=== PATIENT | female | born 1980 | race Caucasian/White ===

== ENCOUNTER → 2024-03-18 | Outpatient (CLI) | payer OTHER, SELFPAY ==
--- NOTE | 2024-03-18 07:36 | NM_ITS ---
CLINICAL: 43-year-old female with history of right upper quadrant abdominal pain. RADIONUCLIDE HEPATOBILIARY SCINTIGRAPHY COMPARISON: None available FINDINGS: Following the intravenous administration of 5.9 mCi of 99m Tc Mebrofenin, hepatobiliary images reveal:. 1. Relatively prompt and homogeneous radiopharmaceutical concentration is noted by a normal sized liver. No parenchymal defects are identified. 2. Gallbladder activity is identified at 15 minutes post radiopharmaceutical administration. 3. Small intestinal tract is observed at 30 minutes following tracer injection. 4. Washout of the radiopharmaceutical by the hepatic parenchyma is qualitatively normal. Cholecystokinin (0.02 ug/kg) was administered intravenously over a 30-minute period. The post CCK gallbladder ejection fraction calculated at 20 minutes following Cholecystokinin administration was noted to be 90.0 % (normal greater than 35%). During 30 minutes of post CCK imaging, there is scintigraphic evidence of refilling of the gallbladder. NM/Hepatobilliary Img w/Pharm Int IMPRESSION: 1. A gallbladder ejection fraction calculated to be greater than 35% following the administration of Cholecystokinin makes the probability of functional hepatobiliary disease (gallbladder dyskinesia) and/or organic hepatobiliary disease (chronic acalculous cholecystitis and/or cystic duct syndrome) to be low. (Delroy Gibbons et al, Journal of Nuclear Medicine 32:1695, 1991). 2. An encountered normal gallbladder ejection fraction with refilling of the gallbladder following CCK administration may represent the presence of Sphincter of Oddi dysfunction. Correlation with Sphincter of Oddi manometry may be of benefit. (Iris and Iris, J Nucl Med 38:1824, 1997). Electronically Signed: Ted Rodriguez DO at 10:59 EST ,
== END | disposition home or self-care (01) ==
PROVIDERS: PCP Specialist; Referring Provider Nurse Practitioner Acute Care; Visit Provider Nurse Practitioner Acute Care
DX: R10.11 Right upper quadrant pain (principal); R11.2 Nausea with vomiting, unspecified
CPT/HCPCS: 78227; A9537; J2805

== ENCOUNTER 2024-04-22 11:19 | Day surgery (SDC) | payer SELFPAY, OTHER ==
[2024-04-22] VITALS (9 sets, daily range): BP systolic 96–129; BP diastolic 55–77; PULSE 72–90; RESP 16; TEMP 36.3–36.6; O2SAT 95–99; BMI 34.4
--- NOTE | 2024-04-22 11:50 | PRE.ANES_ITS ---
ASA Classification* ASA Classification ASA Classification: 2 Assessment & Plan Anesthesia* Anesthesia Assessment Anesthesia Assessment: Discussed sedation and/or anesthesia options, risks, benefits, and alternatives with patient/parents/legal guardian/POA. Questions invited. The patient/parents/legal guardian/POA seems to understand and agrees to proceed with anesthesia plan. Reviewed the physical assessment, medical history, allergy history and patient home medications list prior to surgery/procedure/anesthetic and documented any changes. Performed airway and anesthesia risk assessments. 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 When Was Last Pacemaker Check QUESTION #4 FULL TEXT: You/Your Family Experience fever (hyperthermia) with Anesthesia Last Oral Intake Last Oral intake: Last Oral Intake NPO since 07:30 04/22/24 11:44 Meds taken in AM with sips of water? Meds patient instructed to take am of surgery PONV PONV - retanned leather roller: PONV - retanned leather roller Female Yes 04/21/24 10:25 HX of Motion Sickness No 04/21/24 10:25 HX of N/V After Surgery No 04/21/24 10:25 Non-Smoker Yes 04/21/24 10:25 Duration of Surgery greater No 04/21/24 10:25 than 60 minutes Number of Risk Factors 2 04/21/24 10:25 PONV Score Moderate Risk 04/21/24 10:25 Height & Weight Height & Weight: Anesthesia: Height & Weight Height 5 ft 5 in 04/22/24 11:44 Weight: 93.894 kg 04/22/24 11:44 Body Mass Index (BMI) 34.4 04/22/24 11:44 Respiratory Assessment Respiratory Assessment - retanned leather roller: Respiratory Tract Infection Hx - retanned leather roller Hx Respiratory Tract Infection No 04/21/24 10:25 STOP Sleep Apnea STOP Sleep Apnea - retanned leather roller: STOP Sleep Apnea - retanned leather roller Hx Hypertension No 04/21/24 10:25 Hx Sleep Apnea No 04/21/24 10:25 CPAP BIPAP Do you snore loudly (louder No 04/21/24 10:25 than talking or can be heard Do you often feel tired/ No 04/21/24 10:25 fatigued/ sleepy during daytime? Has anyone observed you stop No 04/21/24 10:25 breathing during sleep? STOP Results Negative 04/21/24 10:25 QUESTION #5 FULL TEXT : Do you snore loudly (louder than talking or can be heard through closed doors)? 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 Specify any problems Hx of Preganancy in last 3 No 04/21/24 10:25 Months Nurse Filling Out Transfusion MGRIFFITH 04/21/24 10:25 & Questions: Date: 04/21/24 04/21/24 10:25 Time: 10:27 04/21/24 10:25 Patient unable to answer at this time (ie. confused, unrespo /Reproduction History /Reproductive History - retanned leather roller: /Reproductive Hx- retanned leather roller Hx Now No 04/21/24 10:25 Gestational Age (in weeks): EDC: Hx Hx Para Hx Section SAB No 04/21/24 10:25 [facility] Medical History Wears dentures Restless legs Dietary restriction Gastric reflux Former smoker History of ectopic Home Medications ?Medication ?Instructions ?Recorded ?Last Taken ?Type sertraline 25 mg tablet (Zoloft) 25 mg PO QDAY 4 Unknown History pantoprazole 40 mg tablet,delayed 40 mg PO QDAY #90 ta bs 03/17/24 Unknown Rx release (Protonix) guar gum 1 gram chewable tablet 1 g PO DAILY 04/21/24 Unknown History polyethylene glycol 3350 17 4 g PO ONCE PRN constipati on 04/21/24 Unknown History gram/dose oral powder (Miralax) Allergy/AdvReac Type Severity Reaction Status Date / Time No Known Allergies Allergy Verified 04/22/24 11:43 Surgical History History of shoulder surgery History of hernia surgery History of hysterectomy History of classical section Social History Smoking Status: Former smoker alcohol intake: never Review of Systems (Anesthesia) ROS Narrative System reviewed and no additional complaints, except as documented.
--- NOTE | 2024-04-22 12:30 | COLBX_PTH ---
PATIENT: GENE ETIENNE LOC: EN U#:[id number] AGE/SX: 43/F ROOM: RE04/22/[address]: Dr. Luke Martinez DO : 1980 BED: DIS: 04/22/2024 SPEC #: [id number] RECD: 04/22/24 16:41 STATUS: KWESI PER #: [id number] REUBEN: 04/22/24 12:[address]: Luke Martinez DEPT: SURGICAL PATHOLOGY RECD BY: Felicity Torres ENTERED: 04/25/24 08:43 SP TYPE: COLON BX OTHR DR: Dr. Eusebio Bermudez DO Tissues: A - Duodenum, NOS B - Gastric mucous membrane C - Gastric mucous membrane D - SPLENIC FLEXURE E - Sigmoid colon biopsy Procedures: Surgery Specimen Level IV HEADER OPERATION: Colonoscopy, EGD and biopsy and polypectomy PRE-OP DIAGNOSIS: Nausea/vomiting, MASLD, constipation, right upper quadrant pain TISSUE SUBMITTED: A- Duodenum biopsy, B- Gastric antrum biopsy, C- Gastric body biopsy,D- Splenic flexure polyp, E- Sigmoid polyp MICROSCOPIC DIAGNOSIS A. Duodenum, biopsy: Chronic duodenitis. Villous architecture is maintained. No significant increase in intraepithelial lymphocytes, not suggestive of Celiac's disease. B. Gastric antrum, biopsy: Gastric mucosa with reactive gastropathy and focal minimal chronic inflammation. C. Gastric body, biopsy: Gastric mucosa with focal chronic inflammation, mild. See comment. D. Splenic flexure polyp: Colonic mucosa with lymphoid nodules and focal hyperplastic glandular changes. E. Sigmoid polyp: Colonic mucosa with lymphoid nodules and focal hyperplastic glandular changes. PW. 04/26/2024 COMMENT C. The results of immunohistochemistry for Helicobacter pylori will be reported separately ([id number]). MICROSCOPIC DESCRIPTION Slides are reviewed. GROSS DESCRIPTION A. Received in fixative is one container labeled with the patient's name and designated Duodenum biopsy. The specimen consists of two irregular fragments of light parada soft tissue that in aggregate measure 0.9 x 0.3 x 0.1 cm. The specimen is totally submitted in one cassette. B. Received in fixative is one container labeled with the patient's name and designated Gastric antrum. The specimen consists of one irregular fragment of light parada soft tissue that measures 0.5 x 0.5 x 0.1 cm. The specimen is totally submitted in one cassette. C. Received in fixative is one container labeled with the patient's name and designated Gastric body biopsy. The specimen consists of one irregular fragment of light parada soft tissue that measures 0.4 x 0.4 x 0.1 cm. The specimen is totally submitted in one cassette. D. Received in fixative is one container labeled with the patient's name and designated Splenic flexure polyp. The specimen consists of two irregular fragments of light parada soft tissue that in aggregate measure 0.5 x 0.5 x 0.1 cm. The specimen is totally submitted in one cassette. E. Received in fixative is one container labeled with the patient's name and designated Sigmoid polyp. The specimen consists of one irregular fragment of light parada soft tissue that measures 0.9 x 0.4 x 0.1 cm. The specimen is totally submitted in one cassette. 04/25/2024 TC:3 CPT:09122r8
--- NOTE | 2024-04-22 12:30 | IMM_PTH ---
PATIENT: GENE ETIENNE LOC: EN U#:[id number] AGE/SX: 43/F ROOM: RE04/22/[address]: Dr. Luke Martinez DO : 1980 BED: DIS: 04/22/2024 SPEC #: [id number] RECD: 04/25/24 08:17 STATUS: KWESI REQ #: [id number] REUBEN: 04/22/24 12:[address]: Luke Martinez DEPT: IMMUNOHISTOCHEMISTRY RECD BY: Christopher Skinner ENTERED: 04/25/24 08:17 SP TYPE: IMMUNO OTHR DR: Dr. Eusebio Bermudez DO Tissues: C - Gastric mucous membrane Procedures: H Pylori (initial) PHYSICIAN & INSTITUTION [place] [id number] SPECIMEN INFORMATION: Tissue Source: C- Gastric body biopsy Clinical Info: Nausea/vomiting, MASLD, constipation, right upper quadrant pain Specimen Number: [id number] CPT code: 50257 METHODOLOGY: Deparaffinized sections of prefer/formalin-fixed tissue or PAP/DQ stained slides are incubated with monoclonal/polyclonal antibodies/oligonucleotide probes. Localization is made via biotin free immunoperoxidase method. Appropriate controls are performed and reacted as expected. Results on target cell population are indicated in the following table: RESULTS: ANTIBODY / CLONE RESULT Block CH Pylori (polyclonal) negative These tests were developed and their performance characteristics determined by [facility]. They may not have been cleared or approved by the U.S. Food and Drug Administration. The FDA has determined that such clearance or approval is not necessary. The above immunohistochemical/dualISH markers are ordered and reviewed by the Pathologist. INTERPRETATION: C. Gastric body, biopsy: Negative for Helicobacter pylori organisms. 04/26/2024
--- NOTE | 2024-04-22 14:11 | PCM.HP.STD ---
HPI - General General Date of Admission: 04/22/24 Date of Service: 04/22/24 Chief Complaint: Abdominal pain and diarrhea HPI Narrative GENE ETIENNE, is a 43 F who presents for endoscopic evaluation of abdominal pain and diarrhea. FibroScan 03/08/2024 kPa 5.9, CAP 336 (F0-F1/S3) - RUQ pain is persisting/radiates through to back - triggered by greasy foods - nausea - intermittent also dietary triggered - only eating white meats, fruits and vegetables now - still experiencing constipation - will go up to 7 days without a BM - Benefiber - never took this - Miralax - completed 2 weeks - this made a little difference - Water intake she feels is adequate - Pantoprazole - she reports pharmacy told her it was out of stock INITIAL CONSULT 02/15/2024 43y/o female presents for consultation with complaints of pain, nausea and vomiting. She complains of RUQ abdominal pain which radiates to the right flank with postprandial N/V x6 weeks. ABD US was revealing for liver steatosis. Transaminases and PLT are WNL. She denies the consumption of any alcohol. She also reports a change in bowel habits with new onset constipation and one episode of BRBPR. I have scheduled her for a HIDA, FibroScan, EGD and colonoscopy. She will start a low fat diet, pantoprazole, benefiber and miralax daily. She will complete labs and follow-up in the office after testing has been completed. Patient Instructions: 1. Start Benefiber 2tsp once a day in 8 ounces of water after breakfast and Mirlax 17grams once daily in 8 ounces of water every evening 2. Increase water intake - bottled water 3. Low fat diet - avoid fatty/fried foods 4. Schedule HIDA scan to check function of the gallbladder at [place] - scheduled 03/18/2024 5. Schedule colonoscopy and EGD with Dr. Martinez at [place] - scheduled 04/22/2024 5. Complete labs at [facility] 6. Schedule Fibroscan with [employer] [facility] completed 03/08/2024 7. Start pantoprazole 40mg daily - prescription sent to [facility] 8. Avoid fatty/fried foods 9. Low fat diet 10. Follow-up in office after testing has been completed [facility] Medical History Wears dentures Restless legs Dietary restriction Gastric reflux Former smoker History of ectopic Home Medications ?Medication ?Instructions ?Recorded ?Last Taken ?Type sertraline 25 mg tablet (Zoloft) 25 mg PO QDAY 02/15/24 Unknown History pantoprazole 40 mg tablet,delayed 40 mg PO QDAY #90 tabs 03/17/24 Unknown Rx release (Protonix) guar gum 1 gram chewable tablet 1 g PO DAILY 04/21/24 Unknown History polyethylene glycol 3350 17 4 g PO ONCE PRN constipation 04/21/24 Unknown History gram/dose oral powder (Miralax) Allergy/AdvReac Type Severity Reaction Status Date / Time No Known Allergies Allergy Verified 04/22/24 11:43 Surgical History History of shoulder surgery History of hernia surgery History of hysterectomy History of classical section Social History Smoking Status: Former smoker alcohol intake: never ROS Constitutional Constitutional: Denies fatigue, fever(s), poor appetite, weight gain or weight loss Gastrointestinal Gastrointestinal: Denies belching, bloating, change in bowel habits, change in stool character, chewing difficulty, coffee ground emesis, constipation, cramping, diarrhea, dyspepsia, dysphagia, early satiety, excessive flatus, fecal incontinence, heartburn, hematemesis, hematochezia, hemorrhoids, loose stools, melena, nausea, odynophagia, rectal bleeding, tenesmus, vomiting or weight changes Vital Signs Vital Signs Vital Signs: 04/22/24 11:44 04/22/24 11:44 04/22/24 11:50 Temperature 97.6 F L 97.6 F L Temperature Source Temporal Pulse Rate 72 72 Respiratory Rate 16 16 Respiratory Pattern Normal Blood Pressure 129/77 H 129/77 H Blood Pressure Mean 94 Blood Pressure Source Monitor Blood Pressure Position Sitting Blood Pressure Location Left Arm Pulse Ox 99 99 Oxygen Delivery Method Room Air Weight Weight: 207 lb Body Mass Index (BMI) 34.4 Physical Exam Const alert, oriented x3, no apparent distress and healthy appearing General Appearance: cooperative GI normal to inspection, nondistended, normoactive bowel sounds, soft to palpation, non-tender and non-distended Percussion: normal to percussion Rectal Exam: deferred Assessment & Plan Assessment/Plan (1) Metabolic dysfunction-associated steatotic liver disease (MASLD): (2) Nausea and vomiting: QUALIFIERS: Vomiting type: unspecified Qualified Code(s): R11.2 - Nausea with vomiting, unspecified (3) RUQ pain: PLAN: Plan Assessment and Plan Assessment and Plan (1) Metabolic dysfunction-associated steatotic liver disease (MASLD): Status: Acute (2) RUQ pain: Status: Acute (3) Nausea and vomiting: Status: Acute Qualifiers: Vomiting type: unspecified Qualified Code(s): R11.2 - Nausea with vomiting, unspecified (4) Constipation: Status: Acute Orders: Referrals Nutrition Referral K76.0 - Fatty (change of) liver, not elsewhere classified Medications: New pantoprazole (Protonix) take 30 minutes before breakfast every morning 40 mg PO QDAY 90 tabs 0RF polyethylene glycol 3350 (Miralax) every evening with 8 ounces of water 4 grams PO ONCE 850 grams 1RF Plan 43y/o female presents for follow-up of N/V, RUQ pain, constipation, and MASLD. In terms of N/V and RUQ pain she is scheduled for HIDA tomorrow. She will also start pantoprazole 40mg daily as previously recommended. In terms of constipation she will start Benefiber daily as previously recommended and resume Miralax daily. In terms of MASLD she completed Fibroscan 03/08/2024 which revealed (F0/F1-S3) none to mild fibrosis with severe liver fat. We have reviewed the AGA 10 Best Practice Guidelines for MASLD. I have encouraged a Mediterranean diet and she will schedule consult with [employer] for additional guidance. She will follow-up in the office post procedures. A total of 60 minutes was spent on this visit reviewing associated records; previous notes, counseling the patient on (MASLD, Dietary/Lifestyle modifications), ordering tests/referrals ([employer] referral), adjusting meds, importance of compliance with treatment and documenting the findings in the note. Patient Instructions: 1. Start Benefiber 2tsp once a day in 8 ounces of water after breakfast and Mirlax 17grams once daily in 8 ounces of water every evening. This may take up to 3 weeks before you start to notice a benefit 2. Increase water intake - bottled water 3. Low fat diet - avoid fatty/fried foods 4. Start pantoprazole 40mg daily - [facility] 5. Proceed with HIDA as scheduled 03/18/2024 6. Proceed with Colonoscopy and EGD as scheduled on 04/22/2024 7. Schedule consult with [employer] 8. Miralax 17g once daily in the evening with 8 ounces of water, you may find that you need to taper this dose down after 2-3 weeks of regular daily Benefiber 9. Kiwi fruit 2 daily for constipation 10. Have labs completed as ordered at last appointment - HAV Ab total, HBV Core Ab total, HBVsAb, HBVsAg, HCV Ab, ELF 11. Follow-up in the office 2 weeks post procedures (MASLD) Metabolic dysfunction-associated steatotic liver disease (MASLD) is a spectrum of disease that ranges from a more benign condition of nonalcoholic fatty liver (NAFL) to nonalcoholic steatohepatitis (CAMPA), which is at the more severe end of the spectrum. In NAFL, hepatic steatosis is present without evidence of inflammation, whereas in CAMPA, hepatic steatosis is associated with lobular inflammation and apoptosis that can lead to fibrosis and cirrhosis. Lifestyle modifications are the cornerstone of treatment for fatty liver disease. These include optimizing care for diabetes, high cholesterol and obesity. - Weight loss is the primary therapy for most patients with MASLD. We recommend weight loss for all patients with MASLD who are overweight (body mass index [BMI] =25 kg/m2) or have obesity (BMI =30 kg/m2) because fat accumulation in the liver leads to inflammation which leads to irreversible scarring. Unchecked liver inflammation and scarring can increase the risk of developing liver cancer and cardiovascular complications, such as heart attack and stroke. Weight loss can lead to improvement in liver biochemical tests, liver histology, serum insulin levels, and quality of life. Ideally, aim to lose between 5-10% of total body weight (1-2 lb per week) over the next 6 months. This can be achieved by adhering to a very low carbohydrate diet (60 g/day), high in lean protein and vegetables (variant of the Mediterranean diet). Reducing portion sizes can also make weight loss easier. [id number] intensity cardiovascular and/or resistance exercise (30 min, 3-4 days/week) paired with dietary modifications is helpful, as long as such an exercise regimen is permitted by your supervisor ski production or primary care provider. Dietary counseling and/or a physician managed weight loss program is often extremely helpful in attaining this goal. - Small studies have shown that up to 3 cups of black coffee (no sugar, no cream) can be beneficial for liver health in patients with fatty liver. However, this should be avoided if coffee is a known trigger for gastrointestinal symptoms. - There is no known safe amount of alcohol use in fatty liver disease. Avoidance is recommended. - Smoking should also be avoided as it has been independently associated with the development of fatty liver disease and predisposes to insulin resistance and diabetes. Plan Details Follow Up:
--- NOTE | 2024-04-22 14:43 | OP.CCLET_ITS ---
04/22/2024 Eusebio Bermudez [address] [place] [address] Re : Upper GI endoscopy procedure for Bette Wright Dear Dr. Bermudez This procedure was performed on Monday, April 22, 2024. My impressions and recommendations are as follows: Impressions : - Normal esophagus. - Non-bleeding gastric ulcers with no stigmata of bleeding. Biopsied. - Chronic duodenitis. Biopsied. Recommendations : - Await pathology results. - Repeat upper endoscopy for surveillance. - Return to GI clinic. - Continue present medications. My findings are described in the full procedure note, which is enclosed. If I can be of further assistance, please feel free to contact me at . Sincerely, Luke Martinez, 04/22/2024 2:42:41 PM This report has been signed electronically.
--- NOTE | 2024-04-22 14:43 | OP.EGD_ITS ---
Patient Name: Bette Wright Procedure Date: 04/22/2024 2:09 PM Date of : 1980 Age: 43 Procedure: Upper GI endoscopy Indications: Epigastric abdominal pain, Indigestion Providers: Luke Martinez DO Referring MD: Eusebio Bermudez Medicines: Monitored Anesthesia Care Patient Profile: This is a 43 year old female. Refer to note in patient chart for documentation of history and physical. Patient has symptoms of chronic nausea and chronic vomiting. Complications: No immediate complications. Procedure: Pre-Anesthesia Assessment: - Prior to the procedure, a History and Physical was performed, and patient medications and allergies were reviewed. The patient is competent. The risks and benefits of the procedure and the sedation options and risks were discussed with the patient. All questions were answered and informed consent was obtained. Patient identification and proposed procedure were verified by the physician in the pre-procedure area. Mental Status Examination: alert and oriented. Airway Examination: normal oropharyngeal airway and neck mobility. Respiratory Examination: clear to auscultation. CV Examination: normal. Prophylactic Antibiotics: The patient does not require prophylactic antibiotics. Prior Anticoagulants: The patient has taken no anticoagulant or antiplatelet agents except for NSAID medication. ASA Grade Assessment: II - A patient with mild systemic disease. After reviewing the risks and benefits, the patient was deemed in satisfactory condition to undergo the procedure. The anesthesia plan was to use monitored anesthesia care (MAC). Immediately prior to administration of medications, the patient was re-assessed for adequacy to receive sedatives. The heart rate, respiratory rate, oxygen saturations, blood pressure, adequacy of pulmonary ventilation, and response to care were monitored throughout the procedure. The physical status of the patient was re-assessed after the procedure. After obtaining informed consent, the endoscope was passed under direct vision. Throughout the procedure, the patient's blood pressure, pulse, and oxygen saturations were monitored continuously. The Colonoscope was introduced through the mouth, and advanced to the second part of duodenum. The upper GI endoscopy was accomplished without difficulty. The patient tolerated the procedure well. Scope In: 2:20:36 PM Scope Out: 2:24:07 PM Total Procedure Duration Time 0 hours 3 minutes 31 seconds Findings: The examined esophagus was normal. Three non-bleeding linear gastric ulcers with no stigmata of bleeding were found in the gastric antrum. The largest lesion was 4 mm in largest dimension. Biopsies were taken with a cold forceps for histology. Verification of patient identification for the specimen was done. Estimated blood loss was minimal. Biopsies were taken with a cold forceps for Helicobacter pylori testing. Verification of patient identification for the specimen was done. Estimated blood loss was minimal. Patchy mild inflammation characterized by erythema and friability was found in the duodenal bulb and in the first portion of the duodenum. Biopsies were taken with a cold forceps for histology. Impression: - Normal esophagus. - Non-bleeding gastric ulcers with no stigmata of bleeding. Biopsied. - Chronic duodenitis. Biopsied. Recommendation: - Await pathology results. - Repeat upper endoscopy for surveillance. - Return to GI clinic. - Continue present medications. Procedure Code(s): --- Professional --- 42450, Esophagogastroduodenoscopy, flexible, transoral; with biopsy, single or multiple CPT copyright 2021 [employer]. All rights reserved. The codes documented in this report are preliminary and upon small equipment operator review may be revised to meet current compliance requirements. Luke Martinez DO 04/22/2024 2:42:41 PM This report has been signed electronically. Number of Addenda: 0 Note Initiated On: 04/22/2024 2:09 PM
--- NOTE | 2024-04-22 14:45 | PCM.POST.ANE ---
Anesthesia: Postop Eval I Current Vital Signs Temperature: 97.3 F Pulse Rate: 87 Blood Pressure: 98/55 Respiratory Rate: 16 Pulse Ox: 96 Oxygen Delivery Method: Room Air Assessment Airway patent: Yes Spontaneous unlabored respirations: Yes Mental status: Asleep nausea: No Vomiting: No Anesthesia Complication: No Fluid Hydration Crystalloid volume administer (ml): 60 Total IV fluid infused: 60 Progress Note Anesthesia document: Postop Eval 1 completed: Yes
--- NOTE | 2024-04-22 14:46 | OP.CCLET_ITS ---
04/22/2024 Eusebio Bermudez [address] [place] [address] Re : Colonoscopy procedure for Bette Mast Dear Dr. Bermudez This procedure was performed on Monday, April 22, 2024. My impressions and recommendations are as follows: Impressions : - Preparation of the colon was fair. - Stool in the rectum, in the recto-sigmoid colon, in the sigmoid colon and at the splenic flexure. - Congested mucosa in the sigmoid colon and at the splenic flexure. Biopsied. Recommendations : - Discharge patient to home. - Resume previous diet. - Continue present medications. - Await pathology results. - Repeat colonoscopy in 5 years for surveillance. My findings are described in the full procedure note, which is enclosed. If I can be of further assistance, please feel free to contact me at . Sincerely, Luke Martinez, 04/22/2024 2:45:22 PM This report has been signed electronically.
--- NOTE | 2024-04-22 14:46 | OP.COLON_ITS ---
Patient Name: Bette Wright Procedure Date: 04/22/2024 2:24 PM Date of : 1980 Age: 43 Procedure: Colonoscopy Indications: Epigastric abdominal pain, Abdominal pain in the left lower quadrant Providers: Luke Martinez DO Referring MD: Eusebio Bermudez Medicines: Monitored Anesthesia Care Patient Profile: This is a 43 year old female. Refer to note in patient chart for documentation of history and physical. Patient has symptoms of chronic nausea and chronic vomiting. Last Colonoscopy: none. The patient's first colonoscopy is today. Complications: No immediate complications. Procedure: Pre-Anesthesia Assessment: - Prior to the procedure, a History and Physical was performed, and patient medications and allergies were reviewed. The patient is competent. The risks and benefits of the procedure and the sedation options and risks were discussed with the patient. All questions were answered and informed consent was obtained. Patient identification and proposed procedure were verified by the physician in the pre-procedure area. Mental Status Examination: alert and oriented. Airway Examination: normal oropharyngeal airway and neck mobility. Respiratory Examination: clear to auscultation. CV Examination: normal. Prophylactic Antibiotics: The patient does not require prophylactic antibiotics. Prior Anticoagulants: The patient has taken no anticoagulant or antiplatelet agents except for NSAID medication. ASA Grade Assessment: II - A patient with mild systemic disease. After reviewing the risks and benefits, the patient was deemed in satisfactory condition to undergo the procedure. The anesthesia plan was to use monitored anesthesia care (MAC). Immediately prior to administration of medications, the patient was re-assessed for adequacy to receive sedatives. The heart rate, respiratory rate, oxygen saturations, blood pressure, adequacy of pulmonary ventilation, and response to care were monitored throughout the procedure. The physical status of the patient was re-assessed after the procedure. After I obtained informed consent, the scope was passed under direct vision. Throughout the procedure, the patient's blood pressure, pulse, and oxygen saturations were monitored continuously. The Colonoscope was introduced through the anus and advanced to the cecum, identified by appendiceal orifice and ileocecal valve. The colonoscopy was performed without difficulty. The patient tolerated the procedure well. The quality of the bowel preparation was fair. The terminal ileum, ileocecal valve, appendiceal orifice, and rectum were photographed. Scope In: 2:25:44 PM Scope Withdrawal Time 0 hours 5 minutes 47 seconds Scope Out: 2:34:15 PM Total Procedure Duration Time 0 hours 8 minutes 31 seconds Findings: The perianal and digital rectal examinations were normal. Stool was found in the rectum, in the recto-sigmoid colon, in the sigmoid colon and at the splenic flexure. Lavage of the area was performed, resulting in incomplete clearance with fair visualization. An area of mildly congested mucosa was found in the sigmoid colon and at the splenic flexure. Biopsies were taken with a cold forceps for histology. Verification of patient identification for the specimen was done. Estimated blood loss was minimal. Impression: - Preparation of the colon was fair. - Stool in the rectum, in the recto-sigmoid colon, in the sigmoid colon and at the splenic flexure. - Congested mucosa in the sigmoid colon and at the splenic flexure. Biopsied. Recommendation: - Discharge patient to home. - Resume previous diet. - Continue present medications. - Await pathology results. - Repeat colonoscopy in 5 years for surveillance. Procedure Code(s): --- Professional --- 30392, Colonoscopy, flexible; with biopsy, single or multiple CPT copyright 2021 [employer]. All rights reserved. The codes documented in this report are preliminary and upon network pricing consultant review may be revised to meet current compliance requirements. Luke Martinez DO 04/22/2024 2:45:22 PM This report has been signed electronically. Number of Addenda: 0 Note Initiated On: 04/22/2024 2:24 PM
--- NOTE | 2024-04-22 21:28 | PCM.POSTANE2 ---
Anesthesia Postop Eval I Sum Postop Eval Completion status Anesthesia document: Postop Eval 1 completed: Yes Anesthesia Postop Eval I Summary Anesthesia Postop Eval I Summary: Anesthesia Postop Eval I: Assessment Summary Airway patent Yes 04/22/24 14:46 [email or web address] Spontaneous unlabored Yes 04/22/24 14:46 [email or web address] respirations Mental status Asleep 04/22/24 14:46 [email or web address] nausea No 04/22/24 14:46 [email or web address] Vomiting No 04/22/24 14:46 [email or web address] Anesthesia Postop Eval I: Fluid Summary Crystalloid volume administer 60 04/22/24 14:46 [email or web address] (ml) Colloids volume administered ( ml) Blood Product volume administered (ml) Total IV fluid infused 60 04/22/24 14:46 [email or web address] Anesthesia Postop Eval I: Summary Notes Anesthesia Complication No 04/22/24 14:46 [email or web address] Anesthesia Complication Comment: Post-operative progress note Anesthesia: Postop Eval II Evaluation Mental status: Awake and Calm Pain Level: 0 nausea: No Vomiting: No Complications Anesthesia Complication: No
== END 2024-04-22 15:45 | disposition home or self-care (01) ==
LOC: EN 11:22 → AC 11:24
PROVIDERS: PCP Specialist; Referring Provider Specialist; Visit Provider Internal Medicine Gastroenterology
PROC: 0DJD8ZZ Inspection of Lower Intestinal Tract, Via Natural or Artificial Opening Endoscopic (ICD-10-PCS; CPT 45378; principal; 2024-04-22 12:25)
DX: K29.80 Duodenitis without bleeding (principal); K63.89 Other specified diseases of intestine; K63.5 Polyp of colon; K25.9 Gastric ulcer, unspecified as acute or chronic, without hemorrhage or perforation; K21.9 Gastro-esophageal reflux disease without esophagitis; K31.89 Other diseases of stomach and duodenum; K76.0 Fatty (change of) liver, not elsewhere classified; Z79.899 Other long term (current) drug therapy; Z87.891 Personal history of nicotine dependence
CPT/HCPCS: 45380; 43239; 88305; 88342; A4216; J2405

== ENCOUNTER → 2024-04-27 | Outpatient (CLI) | payer OTHER, SELFPAY ==
[2024-04-27 09:57] LABS: Absolute Lymphocyte Count 1.53 X10^3/uL (0.83-4.51); Absolute Neutrophil Count 2.5 X10^3/uL (2.0-7.7); Basophil# 0.04 X10^3/uL; Basophil% 0.9 % (0-1); Eosinophils% 4.4 % (0-5); Hematocrit 42.7 % (37-47); Hemoglobin 14.1 g/dL (12.0-15.0); Lymphocyte # 1.53 X10^3/ul (0.83-4.51); Lymphocyte % 33.6 % (19-41); Mean Corpuscular Hgb 28.1 pg (27.0-32.0); Mean Corpuscular Volume 85.1 fL (81-99); Mean Platelet Vol. 9.7 fl (6.2-12.0); Monocyte# 0.25 X10^3/uL; Monocyte% 5.5 % (0-10); NRBC Flagged by Analyzer 0 % (0-5); Neutrophil # 2.52 X10^3/uL (2.7-7.7); Neutrophil % 55.4 % (47-70); Platelet Count 249 K/mm3 (150-450); RBC Distribution Width CV 12.8 % (11.6-14.6); RBC Distribution Width SD 39.3 fl (35.1-43.9); Red Blood Count 5.02 M/mm3 (4.2-5.4); White Blood Count 4.6 K/mm3 (4.4-11.0)
[2024-04-27 10:28] LABS: AST(SGOT) 13 U/L (15-37); Alanine Aminotransfer ALT/SGPT 21 U/L (13-56); Albumin, Serum 3.5 g/dL (3.2-5.0); Alkaline Phosphatase 84 U/L (45-117); Anion Gap 5 (5-15); BUN 12 mg/dL (7-18); BUN/Creat Ratio 13.8 RATIO (10-20); Calcium,Total 9.1 mg/dL (8.5-10.1); Chloride 106 mmol/L (98-107); Creatinine, Serum 0.87 mg/dL (0.55-1.02); EST Glomerular Filtration Rate 75 mL/min (>60); Est Glom Filt Rate - Afr Amer 91 mL/min (>60); Globulin 3.6 g/dL (2.2-4.2); Glucose 93 mg/dL (74-106); Potassium 3.4 mmol/L (3.5-5.1); Protein, Total 7.1 g/dL (6.4-8.2); Sodium Level 138 mmol/L (136-145)
[2024-04-27 11:03] LABS: Hepatitis B Surface Antibody Non-Reactive; Hepatitis B Surface Antigen Non-Reactive (Nonreactive); Hepatitis C Antibody Non-Reactive (Nonreactive)
[2024-04-28 05:07] LABS: Hepatitis A AB, Total Negative (Negative); Hepatitis B Core Ab Total Negative (Negative)
== END | disposition home or self-care (01) ==
PROVIDERS: PCP Specialist; Referring Provider Nurse Practitioner Acute Care; Visit Provider Nurse Practitioner Acute Care
DX: K76.0 Fatty (change of) liver, not elsewhere classified (principal); R11.2 Nausea with vomiting, unspecified; R10.11 Right upper quadrant pain
CPT/HCPCS: 36415; 80053; 85025; 86704; 86706; 86708; 86803; 87340

== ENCOUNTER → 2024-06-23 | Outpatient (CLI) | payer SELFPAY, OTHER ==
--- NOTE | 2024-06-23 10:35 | CT_ITS ---
PROCEDURE: ABDOMEN/PELVIS WITH CONTRAST 06/23/2024 REASON FOR EXAM: ABDOMINAL PAIN, GUARDING Left lower quadrant pain. TECHNIQUE: Abdomen and pelvis CT with intravenous contrast. Coronal and Sagittal reconstruction series were provided. PATIENT PREPARATION: Per protocol ORAL CONTRAST TYPE: Given. CONTRAST: Isovue-300 VOLUME: 100 mL One or more dose reduction techniques were used (e.g., Automated exposure control, adjustment of the mA and/or kV according to patient size, use of iterative reconstruction technique. RADIATION DOSE SUMMARY: CTDlvol: 16 mGy DLP: 1204.81 mGycm COMPARISON: None FINDINGS: Lung bases: Unremarkable Liver: Diffuse fatty infiltration. Gallbladder: Unremarkable Spleen: Normal size. Pancreas: Normal size without evidence of mass surrounding inflammation or ductal dilation. Adrenals: Unremarkable Kidneys: Normal renal sizes. No hydronephrosis. Bladder: Unremarkable Reproductive Organs: Prior hysterectomy. Adnexal regions are unremarkable. Bowel: Colonic diverticulosis without diverticulitis. Appendix: The appendix is not identified. There is no inflammatory process identified in the right lower quadrant to suggest appendicitis. Lymph nodes: Unremarkable. Vasculature: The abdominal aorta and IVC are normal. Peritoneum / Retroperitoneum: Unremarkable Bones: Unremarkable CT/Abdomen/Pelvis WITH Contrast IMPRESSION: Fatty infiltration of the liver. Sigmoid diverticulosis without diverticulitis. Status post hysterectomy. Reading Location: [place] [id number]
== END | disposition home or self-care (01) ==
PROVIDERS: PCP Specialist; Referring Provider Nurse Practitioner Acute Care; Visit Provider Nurse Practitioner Acute Care
DX: R10.32 Left lower quadrant pain (principal)
CPT/HCPCS: 74177; Q9967

== ENCOUNTER → 2024-06-23 | Outpatient (CLI) | payer OTHER, SELFPAY ==
[2024-06-23 11:27] LABS: Absolute Neutrophil Count 3.1 X10^3/uL (2.0-7.7); Basophil# 0.05 X10^3/uL; Eosinophil# 0.15 X10^3/uL; Hematocrit 42.5 % (37-47); Hemoglobin 14.1 g/dL (12.0-15.0); Lymphocyte % 28.3 % (19-41); Mean Corp Hgb Conc 33.2 g/dL (32-36); Mean Corpuscular Hgb 28.4 pg (27.0-32.0); Mean Corpuscular Volume 85.5 fL (81-99); Mean Platelet Vol. 9.8 fl (6.2-12.0); Monocyte# 0.28 X10^3/uL; Monocyte% 5.7 % (0-10); NRBC Flagged by Analyzer 0 % (0-5); Neutrophil # 3.05 X10^3/uL (2.7-7.7); Neutrophil % 61.8 % (47-70); Platelet Count 249 K/mm3 (150-450); RBC Distribution Width CV 13.1 % (11.6-14.6); RBC Distribution Width SD 40.6 fl (35.1-43.9); Red Blood Count 4.97 M/mm3 (4.2-5.4); White Blood Count 4.9 K/mm3 (4.4-11.0)
[2024-06-23 11:56] LABS: ALB/GLOB Ratio 1.5 RATIO (0.9-2.4); AST(SGOT) 19 U/L (<=31); Alanine Aminotransfer ALT/SGPT 20 U/L (<=34); Albumin, Serum 4.2 g/dL (3.5-5.0); Alkaline Phosphatase 89 U/L (35-104); Anion Gap 10 (5-15); BUN 14 mg/dL (4-19); BUN/Creat Ratio 16.3 RATIO (10-20); Calcium,Total 9.1 mg/dL (7.6-11.0); Carbon Dioxide 23.2 mmol/L (21.0-32.0); Chloride 105 mmol/L (98-108); Creatinine, Serum 0.88 mg/dL (0.70-1.20); EST Glomerular Filtration Rate 83 (>60); Globulin 2.9 g/dL (2.2-4.2); Glucose 97 mg/dL (70-99); Lipase 27 U/L (13-75); Potassium 3.9 mmol/L (3.3-5.1); Protein, Total 7.1 g/dL (5.9-8.4); Sodium Level 139 mmol/L (133-145); Total Bilirubin 0.75 mg/dL (0.00-1.30)
== END | disposition home or self-care (01) ==
LOC: LAB 10:13
PROVIDERS: PCP Specialist; Referring Provider Nurse Practitioner Acute Care; Visit Provider Nurse Practitioner Acute Care
DX: R10.32 Left lower quadrant pain (principal)
CPT/HCPCS: 36415; 80053; 83690; 85025; 87086; 87088

== ENCOUNTER 2024-07-15 06:11 | Day surgery (SDC) | payer SELFPAY, OTHER ==
[2024-07-15] VITALS (8 sets, daily range): BP systolic 117–127; BP diastolic 59–79; PULSE 48–60; RESP 16–20; TEMP 36.2–36.6; O2SAT 97–100; BMI 30.9
--- NOTE | 2024-07-15 06:52 | HP.PCM_ITS ---
HPI - General General Date of Admission: 07/15/24 Date of Service: 07/15/24 Chief Complaint: gastric ulcer and abdominal pain HPI Narrative GENE ETIENNE, is a 43 F who presents for the evaluation of abdominal pain - reports they gave her so much pain medication she could not focus - c/o of constipation, has not had a BM since morning - feels bloated - c/o nausea due to bloating - pain today is 8/10 - LLQ pain radiating down her left leg - ER prescribed percocet - she is still taking Miralax 2tbsb once a day - Linzess 145mcg once daily - weight is stable ROS Const Constitutional: Positive for fatigue; No fever(s) or weight change ENT ENT: No difficulty swallowing Gastro GI: Positive for abdominal pain, bloating, constipation, excessive flatus and vomiting; No belching, change in bowel habits, change in stool character, coffee ground emesis, cramping, diarrhea, heartburn, difficulty swallowing, feeling full early, incontinent of stools, Vomiting blood/hematemesis, Blood in stool, loose stools, Black,tarry stools, nausea/dyspepsia, pain with swallowing or other Musc Musculoskeletal: Positive for abnormal gait and muscle cramps; No joint pain Skin Skin: No yellowing of the eye or itchy eyes Neuro Neurology: Positive for abnormal gait Psych Psychiatric: No anxiety and Positive for depression Endo Endocrine: Positive for fatigue; No weight change Aller/Imm Allergy/Immunologic: No itchy eyes Santo/Lymp Hematologic/Lymphatic: No easy bleeding or easy bruising Exam Const General: cooperative, healthy appearing, no acute distress and well developed Nutritional Appearance: average body habitus and well nourished Orientation: alert and oriented x3 [facility] Head: normocephalic Ears: hearing grossly normal bilaterally Mouth: moist mucous membranes Teeth and gingiva: dentition normal Eyes Conjunctivae: conjunctivae normal Sclera: sclerae normal Neck Neck: normal visual inspection, full ROM and trachea midline Resp Effort & Inspection: normal respiratory effort, able to speak in complete sentences and symmetric chest movement Auscultation: Bilateral: Clear to Auscultation Cardio Palpation: normal PMI Rate: regular rate Rhythm: regular rhythm Heart Sounds: S1 normal and S2 normal GI Inspection: normal to inspection and large pannus Auscultation: normal bowel sounds Palpation: soft and no hepatosplenomegaly Rectal Exam: deferred Other: moderate LLQ tenderness with palpation Skin General: no rashes or lesions noted and turgor normal Neuro General: patient alert and patient oriented x3 Cranial Nerves: other (CN's grossly intact, non-focal exam) Cognition: normal cognition Speech: speech normal Gait: normal gait Extrem General: normal to inspection (no edema noted) Psych Appearance: grossly normal and well kempt Affect: normal affect Attitude: cooperative Thought Process: normal Assessment and Plan Assessment and Plan (1) Epiploic appendagitis: Status: Acute (2) LLQ pain: Status: Acute (3) Constipation: Status: Acute Qualifiers: Constipation type: slow transit constipation Qualified Code(s): K59.01 - Slow transit constipation Medications: New methylprednisolone (Medrol (Daogberto)) PO PER PKG DIR for 6 days 21 tabs 0RF Plan 43-year-old female presents for follow-up. She was seen in the office on 06/23/2024 with complaints of severe LLQ abdominal pain and guarding with abdominal exam. Stat CT was completed and unremarkable. Due to ongoing severe pain she was referred to the emergency department where a CT was repeated and revealed epiploic appendagitis. Epiploic appendagitis is a benign, self-limiting condition which can mimic other causes of acute abdominal pain. She has been on ibuprofen 600 mg 3 times daily and Percocet as needed since ED visit on 06/23/2024 with only minor improvement in abdominal pain. She denies any fevers. UA and labs were unremarkable. I reviewed with Dr. Martinez and he recommends treating with steroids, I have prescribed a Medrol Dosepak. She also complains of worsening constipation despite Linzess 145 mcg once daily, this is likely secondary to continued Percocet use. I have recommended discontinuing Percocet and starting magnesium citrate 10 ounce bottle today and repeating tomorrow if no results. Patient Instructions: - Magnesium Citrate 10 ounces today, if this does not produce a bowel movement drink a second bottle of Magnesium Citrate tomorrow moring - Continue Linzess 145mcg once daily - Discontinue percocet - Continue pantoprazole 40mg BID - Medrol Dose Dagoberto - sent to [facility] - Follow-up as scheduled post EGD - Follow-up by telephone later this week - Continue Advil 600mg Q8H PRN abdominal pain PFSH Medical History Wears dentures Restless legs Dietary restriction Gastric reflux Former smoker History of ectopic Home Medications ?Medication ?Instructions ?Recorded ?Last Taken ?Type sertraline 25 mg tablet (Zoloft) 25 mg PO QDAY 4 07/14/24 History linaclotide 145 mcg capsule 145 mcg PO QAM #90 caps 07/14/24 Rx (Linzess) pantoprazole 40 mg tablet,delayed 40 mg PO BID #180 ta bs 04/27/24 07/14/24 Rx release Allergy/AdvReac Type Severity Reaction Status Date / Time No Known Allergies Allergy Verified 07/15/24 06:36 Surgical History History of shoulder surgery History of hernia surgery History of hysterectomy History of classical section Social History Smoking Status: Former smoker alcohol intake: never Vital Signs Vital Signs Vital Signs: 07/15/24 06:39 07/15/24 06:39 Temperature 97.6 F L Temperature Source Temporal Pulse Rate 49 L Respiratory Rate 16 Respiratory Pattern Normal Blood Pressure 126/63 H Blood Pressure Mean 84 Blood Pressure Source Monitor Blood Pressure Position Semi-Fowlers Blood Pressure Location Right Arm Pulse Ox 99 Oxygen Delivery Method Room Air Weight Weight: 209 lb 10.554 oz Body Mass Index (BMI) 30.9
--- NOTE | 2024-07-15 06:52 | PCM.HP.STD ---
HPI - General General Date of Service: 07/15/24 Chief Complaint: gastric ulcer and abdominal pain HPI Narrative GENE ETIENNE, is a 43 F who presents for the evaluation of abdominal pain - reports they gave her so much pain medication she could not focus - c/o of constipation, has not had a BM since morning - feels bloated - c/o nausea due to bloating - pain today is 8/10 - LLQ pain radiating down her left leg - ER prescribed percocet - she is still taking Miralax 2tbsb once a day - Linzess 145mcg once daily - weight is stable [facility] Medical History Wears dentures Restless legs Dietary restriction Gastric reflux Former smoker History of ectopic Home Medications ?Medication ?Instructions ?Recorded ?Last Taken ?Type sertraline 25 mg tablet (Zoloft) 25 mg PO QDAY 02/15/24 07/14/24 History linaclotide 145 mcg capsule 145 mcg PO QAM #90 caps 04/27/24 07/14/24 Rx (Linzess) pantoprazole 40 mg tablet,delayed 40 mg PO BID #180 tabs 04/27/24 07/14/24 Rx release Allergy/AdvReac Type Severity Reaction Status Date / Time No Known Allergies Allergy Verified 07/15/24 06:36 Surgical History History of shoulder surgery History of hernia surgery History of hysterectomy History of classical section Social History Smoking Status: Former smoker alcohol intake: never ROS Constitutional Constitutional: Denies fatigue, fever(s), poor appetite, weight gain or weight loss Gastrointestinal Gastrointestinal: Denies belching, bloating, change in bowel habits, change in stool character, chewing difficulty, coffee ground emesis, constipation, cramping, diarrhea, dyspepsia, dysphagia, early satiety, excessive flatus, fecal incontinence, heartburn, hematemesis, hematochezia, hemorrhoids, loose stools, melena, nausea, odynophagia, rectal bleeding, tenesmus, vomiting or weight changes Vital Signs Vital Signs Vital Signs: 07/15/24 06:39 07/15/24 06:39 Temperature 97.6 F L Temperature Source Temporal Pulse Rate 49 L Respiratory Rate 16 Respiratory Pattern Normal Blood Pressure 126/63 H Blood Pressure Mean 84 Blood Pressure Source Monitor Blood Pressure Position Semi-Fowlers Blood Pressure Location Right Arm Pulse Ox 99 Oxygen Delivery Method Room Air Weight Weight: 209 lb 10.554 oz Body Mass Index (BMI) 30.9 Physical Exam Const alert, oriented x3, no apparent distress and healthy appearing General Appearance: cooperative GI normal to inspection, nondistended, normoactive bowel sounds, soft to palpation, non-tender and non-distended Percussion: normal to percussion Rectal Exam: deferred Assessment & Plan Assessment/Plan (1) LLQ pain: (2) Gastric ulcer: PLAN: Assessment and Plan Assessment and Plan (1) Epiploic appendagitis: Status: Acute (2) LLQ pain: Status: Acute (3) Constipation: Status: Acute Qualifiers: Constipation type: slow transit constipation Qualified Code(s): K59.01 - Slow transit constipation Medications: New methylprednisolone (Medrol (Dagoberto)) PO PER PKG DIR for 6 days 21 tabs 0RF Plan 43-year-old female presents for follow-up. She was seen in the office on 06/23/2024 with complaints of severe LLQ abdominal pain and guarding with abdominal exam. Stat CT was completed and unremarkable. Due to ongoing severe pain she was referred to the emergency department where a CT was repeated and revealed epiploic appendagitis. Epiploic appendagitis is a benign, self-limiting condition which can mimic other causes of acute abdominal pain. She has been on ibuprofen 600 mg 3 times daily and Percocet as needed since ED visit on 06/23/2024 with only minor improvement in abdominal pain. She denies any fevers. UA and labs were unremarkable. I reviewed with Dr. Martinez and he recommends treating with steroids, I have prescribed a Medrol Dosepak. She also complains of worsening constipation despite Linzess 145 mcg once daily, this is likely secondary to continued Percocet use. I have recommended discontinuing Percocet and starting magnesium citrate 10 ounce bottle today and repeating tomorrow if no results. Patient Instructions: - Magnesium Citrate 10 ounces today, if this does not produce a bowel movement drink a second bottle of Magnesium Citrate tomorrow moring - Continue Linzess 145mcg once daily - Discontinue percocet - Continue pantoprazole 40mg BID - Medrol Dose Dagoberto - sent to [facility] - Follow-up as scheduled post EGD - Follow-up by telephone later this week - Continue Advil 600mg Q8H PRN abdominal pain
--- NOTE | 2024-07-15 07:00 | EGD_PTH ---
PATIENT: GENE ETIENNE LOC: [facility] U#:[id number] AGE/SX: 43/F ROOM: RE07/15/[address]: Dr. Luke Martinez DO : 1980 BED: DIS: 07/15/2024 SPEC #: [id number] RECD: 07/15/24 09:11 STATUS: KWESI PER #: [id number] REUBEN: 07/15/24 07:[address]: Luke Martinez DEPT: SURGICAL PATHOLOGY RECD BY: Christopher Skinner ENTERED: 07/15/24 10:14 SP TYPE: EGD BIOPSY DARIEN DR: Dr. Eusebio Bermudez DO Tissues: A - Gastric mucous membrane Procedures: Immunohistochemical Stains Surgery Specimen Level IV HEADER OPERATION: EGD biopsy PRE-OP DIAGNOSIS: Left lower quadrant pain, gastric ulcer TISSUE SUBMITTED: A- Gastric antrum biopsy MICROSCOPIC DIAGNOSIS A. Stomach, gastric antrum, biopsy: * Antral mucosa with mild chronic inflammation * No morphologic evidence of Helicobacter pylori organisms on H&E or immunostained sections MICROSCOPIC DESCRIPTION Slides are reviewed. GROSS DESCRIPTION A. Received in formalin in a container labeled with the patient's name, date of , and gastric antrum for H. pylori and path are 2 parada-pink fragments of mucosal tissue, each measuring 0.4 x 0.3 x 0.3 cm. Submitted in toto in A1. [facility] 07-15-2024 CPT:53813,28409
--- NOTE | 2024-07-15 07:15 | PRE.ANES_ITS ---
ASA Classification* ASA Classification ASA Classification: 3 Assessment & Plan Anesthesia* Anesthesia Assessment Anesthesia Assessment: Discussed sedation and/or anesthesia options, risks, benefits, and alternatives with patient/parents/legal guardian/POA. Questions invited. The patient/parents/legal guardian/POA seems to understand and agrees to proceed with anesthesia plan. Reviewed the physical assessment, medical history, allergy history and patient home medications list prior to surgery/procedure/anesthetic and documented any changes. Performed airway and anesthesia risk assessments. Anesthesia Type Anesthesia Type: MAC History Source History Obtained from:: Patient and Chart Anesthesia Focused Assessment* Temperature: 97.6 F Pulse Rate: 49 Blood Pressure: 126/63 Respiratory Rate: 16 Pulse Ox: 99 Oxygen Delivery Method: Room Air Airway Assessment Mouth opens: >3 cm Mallampati Score: II Teeth Condition: Dentures Focused Labs Anesthesia Preop lab: CBC WBC 4.9 K/mm3 (4.4-11.0) 06/23/24 10:06/23/24 RBC 4.97 M/mm3 (4.2-5.4) 06/23/24 10:06/23/24 Hgb 14.1 g/dL (12.0-15.0) 06/23/24 10:06/23/24 Hct 42.5 % (37-47) 06/23/24 10:06/23/24 Plt Count 249 K/mm3 (150-450) 06/23/24 10:06/23/24 CHEMISTRY Potassium 3.9 mmol/L (3.3-5.1) 06/23/24 10:06/23/24 Sodium 139 mmol/L (133-145) 06/23/24 10:06/23/24 BUN 14 mg/dL (4-19) 06/23/24 10:06/23/24 Creatinine 0.88 mg/dL (0.70-1.20) 06/23/24 10:06/23/24 Glucose 97 mg/dL (70-99) 06/23/24 10:06/23/24 COAG Pre-Assessment Diagnosis/Proposed Procedure Planned Operative Procedure(s): EGD Anesthesia History 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 When Was Last Pacemaker Check QUESTION #4 FULL TEXT: You/Your Family Experience fever (hyperthermia) with Anesthesia Last Oral Intake Last Oral intake: Last Oral Intake NPO since 23:30 07/15/24 06:39 Meds taken in AM with sips of water? 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 Female Yes 07/14/24 10:00 HX of Motion Sickness No 07/14/24 10:00 HX of N/V After Surgery No 07/14/24 10:00 Non-Smoker Yes 07/14/24 10:00 Duration of Surgery greater No 07/14/24 10:00 than 60 minutes Number of Risk Factors 2 07/14/24 10:00 PONV Score Moderate Risk 07/14/24 10:00 Height & Weight Height & Weight: Anesthesia: Height & Weight Height 5 ft 9 in 07/15/24 06:39 Weight: 95.1 kg 07/15/24 06:39 Body Mass Index (BMI) 30.9 07/15/24 06:39 Respiratory Assessment Respiratory Assessment - director of veterans affairs: Respiratory Tract Infection Hx - director of veterans affairs Hx Respiratory Tract Infection No 07/14/24 10:00 STOP Sleep Apnea STOP Sleep Apnea - director of veterans affairs: STOP Sleep Apnea - director of veterans affairs Hx Hypertension No 07/14/24 10:00 Hx Sleep Apnea No 07/14/24 10:00 CPAP BIPAP Do you snore loudly (louder No 07/14/24 10:00 than talking or can be heard Do you often feel tired/ No 07/14/24 10:00 fatigued/ sleepy during daytime? Has anyone observed you stop No 07/14/24 10:00 breathing during sleep? STOP Results Negative 07/14/24 10:00 QUESTION #5 FULL TEXT : Do you snore loudly (louder than talking or can be heard through closed doors)? 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 Specify any problems Hx of Preganancy in last 3 No 07/14/24 10:00 Months Nurse Filling Out Transfusion EHDENVER 07/14/24 10:00 & Questions: Date: 07/14/24 07/14/24 10:00 Time: 10:02 07/14/24 10:00 Patient unable to answer at this time (ie. confused, unrespo /Reproduction History /Reproductive History - director of veterans affairs: /Reproductive Hx- director of veterans affairs Hx Now No 07/14/24 10:00 Gestational Age (in weeks): EDC: Hx Hx Para Hx Section SAB No 07/14/24 10:00 Active Medications Active Medications: Current Medications Generic Name Dose Route Start Last Admin Trade Name Freq PRN Reason Stop Dose Admin Lactated Ringer's 1,000 mls @ 15 mls/hr 07/15/24 06:30 IV .Q48H CONNIE PFSH Medical History Wears dentures Restless legs Dietary restriction Gastric reflux Former smoker History of ectopic Home Medications ?Medication ?Instructions ?Recorded ?Last Taken ?Type sertraline 25 mg tablet (Zoloft) 25 mg PO QDAY 4 07/14/24 History linaclotide 145 mcg capsule 145 mcg PO QAM #90 caps 07/14/24 Rx (Linzess) pantoprazole 40 mg tablet,delayed 40 mg PO BID #180 ta bs 04/27/24 07/14/24 Rx release Allergy/AdvReac Type Severity Reaction Status Date / Time No Known Allergies Allergy Verified 07/15/24 06:36 Surgical History History of shoulder surgery History of hernia surgery History of hysterectomy History of classical section Social History Smoking Status: Former smoker alcohol intake: never Review of Systems (Anesthesia) ROS Narrative System reviewed and no additional complaints, except as documented. Physical Exam Const alert and oriented x3 HEENT dentition normal
--- NOTE | 2024-07-15 07:34 | OP.EGD_ITS ---
Patient Name: Bette Wright Procedure Date: 07/15/2024 7:23 AM Date of : 1980 Age: 43 Procedure: Upper GI endoscopy Indications: Epigastric abdominal pain, Chronic peptic ulcer Providers: Luke Martinez DO Referring MD: Eusebio Bermudez Medicines: Monitored Anesthesia Care Patient Profile: This is a 43 year old female. Refer to note in patient chart for documentation of history and physical. Patient has symptoms of acute epigastric abdominal pain. Complications: No immediate complications. Procedure: Pre-Anesthesia Assessment: - Prior to the procedure, a History and Physical was performed, and patient medications and allergies were reviewed. The patient is competent. The risks and benefits of the procedure and the sedation options and risks were discussed with the patient. All questions were answered and informed consent was obtained. Patient identification and proposed procedure were verified by the physician in the pre-procedure area. Mental Status Examination: alert and oriented. Airway Examination: normal oropharyngeal airway and neck mobility. Respiratory Examination: clear to auscultation. CV Examination: normal. Prophylactic Antibiotics: The patient does not require prophylactic antibiotics. Prior Anticoagulants: The patient has taken no anticoagulant or antiplatelet agents except for NSAID medication. ASA Grade Assessment: II - A patient with mild systemic disease. After reviewing the risks and benefits, the patient was deemed in satisfactory condition to undergo the procedure. The anesthesia plan was to use monitored anesthesia care (MAC). Immediately prior to administration of medications, the patient was re-assessed for adequacy to receive sedatives. The heart rate, respiratory rate, oxygen saturations, blood pressure, adequacy of pulmonary ventilation, and response to care were monitored throughout the procedure. The physical status of the patient was re-assessed after the procedure. After obtaining informed consent, the endoscope was passed under direct vision. Throughout the procedure, the patient's blood pressure, pulse, and oxygen saturations were monitored continuously. The gastroscope was introduced through the mouth, and advanced to the second part of duodenum. The upper GI endoscopy was accomplished without difficulty. The patient tolerated the procedure well. Scope In: 7:27:49 AM Scope Out: 7:30:29 AM Total Procedure Duration Time 0 hours 2 minutes 40 seconds Findings: No gross lesions were noted in the entire esophagus. Many non-bleeding superficial gastric ulcers with no stigmata of bleeding were found in the gastric antrum. The largest lesion was 5 mm in largest dimension. Biopsies were taken with a cold forceps for histology. Verification of patient identification for the specimen was done. Estimated blood loss was minimal. Biopsies were taken with a cold forceps for Helicobacter pylori testing. Verification of patient identification for the specimen was done. Estimated blood loss was minimal. No gross lesions were noted in the entire examined duodenum. Impression: - No gross lesions in the entire esophagus. - Non-bleeding gastric ulcers with no stigmata of bleeding. Biopsied. - No gross lesions in the entire examined duodenum. Recommendation: - Discharge patient to home. - Resume previous diet. - Continue present medications. - Await pathology results. Procedure Code(s): --- Professional --- 38742, Esophagogastroduodenoscopy, flexible, transoral; with biopsy, single or multiple CPT copyright 2021 [employer]. All rights reserved. The codes documented in this report are preliminary and upon official court reporter review may be revised to meet current compliance requirements. Luke Martinez DO 07/15/2024 7:34:09 AM This report has been signed electronically. Number of Addenda: 0 Note Initiated On: 07/15/2024 7:23 AM
--- NOTE | 2024-07-15 07:34 | OP.CCLET_ITS ---
07/15/2024 Eusebio Bermudez [address] [place] [address] Re : Upper GI endoscopy procedure for Bette Wright Dear Dr. Bermudez This procedure was performed on Monday, July 15, 2024. My impressions and recommendations are as follows: Impressions : - No gross lesions in the entire esophagus. - Non-bleeding gastric ulcers with no stigmata of bleeding. Biopsied. - No gross lesions in the entire examined duodenum. Recommendations : - Discharge patient to home. - Resume previous diet. - Continue present medications. - Await pathology results. My findings are described in the full procedure note, which is enclosed. If I can be of further assistance, please feel free to contact me at . Sincerely, Luke Martinez, 07/15/2024 7:34:09 AM This report has been signed electronically.
--- NOTE | 2024-07-15 07:37 | PCM.POST.ANE ---
Anesthesia: Postop Eval I Current Vital Signs Temperature: 97.1 F Pulse Rate: 60 Blood Pressure: 119/79 Respiratory Rate: 16 Pulse Ox: 100 Oxygen Delivery Method: Room Air Assessment Airway patent: Yes Spontaneous unlabored respirations: Yes Mental status: Awake and Calm nausea: No Vomiting: No Anesthesia Complication: No Fluid Hydration Crystalloid volume administer (ml): 200 Total IV fluid infused: 200 Progress Note Anesthesia document: Postop Eval 1 completed: Yes
--- NOTE | 2024-07-15 09:50 | POSTOPAN2_ITS ---
Anesthesia Postop Eval I Sum Postop Eval Completion status Anesthesia document: Postop Eval 1 completed: Yes Anesthesia Postop Eval I Summary Anesthesia Postop Eval I Summary: Anesthesia Postop Eval I: Assessment Summary Airway patent Yes 07/15/24 07:37 PRODUCT [email or web address] Spontaneous unlabored Yes 07/15/24 07:37 PRODUCT [email or web address] respirations Mental status Awake,Calm 07/15/24 07:37 PRODUCT [email or web address] nausea No 07/15/24 07:37 PRODUCT [email or web address] Vomiting No 07/15/24 07:37 PRODUCT [email or web address] Anesthesia Postop Eval I: Fluid Summary Crystalloid volume administer 200 07/15/24 07:37 PRODUCT [email or web address] (ml) Colloids volume administered ( ml) Blood Product volume administered (ml) Total IV fluid infused 200 07/15/24 07:37 PRODUCT [email or web address] Anesthesia Postop Eval I: Summary Notes Anesthesia Complication No 07/15/24 07:37 PRODUCT [email or web address] Anesthesia Complication Comment: Post-operative progress note Anesthesia: Postop Eval II Evaluation Mental status: Awake and Calm Pain Level: 2 nausea: No Vomiting: No Complications Anesthesia Complication: No
--- NOTE | 2024-07-15 09:50 | PCM.POSTANE2 ---
Anesthesia Postop Eval I Sum Postop Eval Completion status Anesthesia document: Postop Eval 1 completed: Yes Anesthesia Postop Eval I Summary Anesthesia Postop Eval I Summary: Anesthesia Postop Eval I: Assessment Summary Airway patent Yes 07/15/24 07:37 SHOP TAILOR [email or web address] Spontaneous unlabored Yes 07/15/24 07:37 SHOP TAILOR [email or web address] respirations Mental status Awake,Calm 07/15/24 07:37 SHOP TAILOR [email or web address] nausea No 07/15/24 07:37 SHOP TAILOR [email or web address] Vomiting No 07/15/24 07:37 SHOP TAILOR [email or web address] Anesthesia Postop Eval I: Fluid Summary Crystalloid volume administer 200 07/15/24 07:37 SHOP TAILOR [email or web address] (ml) Colloids volume administered ( ml) Blood Product volume administered (ml) Total IV fluid infused 200 07/15/24 07:37 SHOP TAILOR [email or web address].[email or web address] Anesthesia Postop Eval I: Summary Notes Anesthesia Complication No 07/15/24 07:37 SHOP TAILOR [email or web address] Anesthesia Complication Comment: Post-operative progress note Anesthesia: Postop Eval II Evaluation Mental status: Awake and Calm Pain Level: 2 nausea: No Vomiting: No Complications Anesthesia Complication: No
== END 2024-07-15 08:47 | disposition home or self-care (01) ==
LOC: EN 06:12 → AC 06:13
PROVIDERS: PCP Specialist; Referring Provider Specialist; Visit Provider Internal Medicine Gastroenterology
PROC: 0DJ08ZZ Inspection of Upper Intestinal Tract, Via Natural or Artificial Opening Endoscopic (ICD-10-PCS; CPT 43235; principal; 2024-07-15 06:55)
DX: K25.9 Gastric ulcer, unspecified as acute or chronic, without hemorrhage or perforation (principal); R10.13 Epigastric pain; K21.9 Gastro-esophageal reflux disease without esophagitis; Z79.899 Other long term (current) drug therapy; Z87.891 Personal history of nicotine dependence
CPT/HCPCS: 43239; 88305; 88342; J2405

== ENCOUNTER → 2024-10-31 | Outpatient (CLI) | payer OTHER, SELFPAY ==
--- NOTE | 2024-10-31 07:36 | NM_ITS ---
PROCEDURE: GASTRIC EMPTYING STUDY - 4 HR 10/31/2024 REASON FOR EXAM: N/V, RUQ PAIN TECHNIQUE: The patient ingested a standard meal of cooked egg whites mixed with 2 pieces of bread and 2 pads of butter and water. There was no vomiting postprandially. Anterior and posterior planar images of the upper abdomen were obtained for 1 minute immediately following the meal at 1h, 2h and 4h if more than 10% of the activity persisted within the stomach. Regions of interest were drawn, and a geometric mean was used to calculate a [id number]. RADIOPHARMACEUTICAL: Sulfur colloid DOSE 1mCi FINDINGS: Percent activity remaining in stomach: 1 hour 49 % (normal 37-90%) 2 hours: 14 % (normal 30-60%) 4 hours: 1 % (normal 0-10%) NM/Gastric Emptying Study - 4 HR IMPRESSION: Normal gastric emptying. Reading Location: [id number]
--- OUTSIDE RECORDS SUMMARY | 2024-10-31 07:59 | XMS RPT_ITS | CCD ---
Author Organization [facility] CliniSymn Care Team Providers Care Deaf/Hard Of Hearing Specialist Name Role Phone SEFFENS SPIKEMAKING SUPERVISOR-HEAD OF BIOLOGY, CHAITANYA Primary Care Physician SPITTJI DOEUSEBIO Attending Unavailable SEFFENS SPIKEMAKING SUPERVISOR-HEAD OF BIOLOGY, [facility] Primary Care Unavai lable LEADBETTER SPIKEMAKING SUPERVISOR-HEAD OF BIOLOGY, MAKENZIE Attending Unava ilable SEFFENS SPIKEMAKING SUPERVISOR-HEAD OF BIOLOGY, [facility] Primary Care Unavai lable SPITTLE DO, EUSEBIO Attending Unavailable SEFFENS SPIKEMAKING SUPERVISOR-HEAD OF BIOLOGY, [facility] Primary Care Unavai lable SPITTLE DO, EUSEBIO Attending Unavailable SEFFENS SPIKEMAKING SUPERVISOR-HEAD OF BIOLOGY, [facility] Primary Care Unavai lable Unavailable Primary Care Provider Unavailabl e SPITTLE DO, EUSEBIO Attending Unavailable SEFFENS SPIKEMAKING SUPERVISOR-HEAD OF BIOLOGY, CHAITANYA Primary Care Unavai lable LEADBETTER SPIKEMAKING SUPERVISOR-HEAD OF BIOLOGY, MAKENZIE Attending Unava ilable SEFFENS SPIKEMAKING SUPERVISOR-HEAD OF BIOLOGY, [facility] Primary Care Unavai lable SEFFENS SPIKEMAKING SUPERVISOR-HEAD OF BIOLOGY, [facility] Primary Care Unavai lable SPITTLE DO, EUSEBIO Attending Unavailable EUSEBIO SPARROW DO Primary Care Physician DEEPTHI VAZQUEZ Attending Unavailable BETO STEPHENS JR Attending Unavailable SELF Referring Unavailable BETO STEPHENS JR Attending Unavailable EUSEBIO SPARROW DO Primary Care Unavailab ji SOMERS MD, BETO Attending Unavailable PHYSICIAN, NONE Primary Care Unavailable EDITH HAYNES DO Attending Unavailable PHYSICIAN, NONE Primary Care Physician Unavailab ji Sparrow DO, Dr. Kaplan Primary Care Provider Dr. Eusebio Sparrow DO Referring Provider [phone] [place] DIVISIONAL HUMAN RESOURCES DIRECTOR-CReyna Attending Provider [place] DIVISIONAL HUMAN RESOURCES DIRECTOR-CReyna Referring Provider Juan KEVIN, Dr. Butler Attending Provider Juan KEVIN, Dr. Butler Other Provider FABY MILES, RIVER Schofield Attending Unavailable SHEROCK DO, EUSEBIO E Primary Care Unavailab le PHYSICIAN, NONE Primary Care Unavailable FREEDOM MILES, SOLIS Ovalle Attending Unavailable JESENIA MILES, DR HOFFMAN Attending Unavailab le SHEROCK DO, EUSEBIO E Primary Care Unavailab le MILLA SPIKEMAKING SUPERVISOR-HEAD OF BIOLOGY, KIN Dowd Attending Unav ailable SHEROCK DO, EUSEBIO E Primary Care Unavailab ji DANIELSON MD, DR HOFFMAN Attending Unavaila ble SHEROCK DO, EUSEBIO E Primary Care Unavailab le MILLA SPIKEMAKING SUPERVISOR-HEAD OF BIOLOGY, KIN Dowd Attending Unav ailable SHEROCK DO, EUSEBIO E Primary Care Unavailab le Sherock DO, Dr. Kaplan Primary Care Provider Lara KEVIN, Dr. Kaplan Referring Provider Juan KEVIN, Dr. Butler Attending Provider uJan KEVIN, Dr. Butler Other Provider [phone] [place] DIVISIONAL HUMAN RESOURCES DIRECTOR-CReyna Attending Provider Luke Martinez Attending Unavailable Sherock, Eusebio Primary Care Unavailable Sherock, Eusebio Referring Unavailable Luke Martinez Attending Unavailable Luke Martinez Consulting Unavailable Sherock, Eusebio Primary Care Unavailable Sherock, Eusebio Referring Unavailable Sherock, Eusebio Referring Unavailable Sherock, Eusebio Primary Care Unavailable Reyna Wood Attending Unavailable IsraelReyna Attending Unavailable Sherock, Eusebio Primary Care Unavailable Sherock, Eusebio Referring Unavailable Sherock, Eusebio Primary Care Unavailable Reyna Wood Attending Unavailable Sherock, Eusebio Referring Unavailable Sherock, Eusebio Primary Care Unavailable Reyna Wood Attending Unavailable Sherock, Eusebio Referring Unavailable Sherock, Eusebio Referring Unavailable Sherock, Eusebio Primary Care Unavailable IsraelReyna castillo Attending Unavailable Sherock, Eusebio Primary Care Unavailable Sherock, Eusebio Referring Unavailable [place], Reyna Attending Unavailable Friend, Luke Attending Unavailable Friend, Luke Consulting Unavailable Sherock, Eusebio Primary Care Unavailable Sherock, Eusebio Referring Unavailable Sherock, Eusebio Referring Unavailable Sherock, Eusebio Primary Care Unavailable Israel, Reyna Attending Unavailable Sherock, Eusebio Primary Care Unavailable Israel, Reyna Attending Unavailable Israel, Reyna Referring Unavailable Friend, Luke Attending Unavailable Sherock, Eusebio Primary Care Unavailable Sherock, Eusebio Referring Unavailable Sherock, Eusebio Primary Care Unavailable Israel, Reyna Attending Unavailable Israel, Reyna Referring Unavailable Sherock, Eusebio Primary Care Unavailable Israel, Reyna Referring Unavailable Israel, Reyna Attending Unavailable Sherock, Eusebio Primary Care Unavailable Israel, Reyna Referring Unavailable Israel, Reyna Attending Unavailable Sherock, Eusebio Primary Care Unavailable Israel, Reyna Attending Unavailable Israel, Reyna Referring Unavailable Sherock, Eusebio Primary Care Unavailable Israel, Reyna Attending Unavailable Israel, Reyna Referring Unavailable Medications Current Medications Medication Drug Class(es) Dates Sig (Normalized) Sig (Original) acetaminophen 325 mg / HYDROcodone bitartrate 5 mg oral tablet (8 sources) Opioid Agonist Start: 09-26-2020 End: 01-17-2024 take 1-2 tablets by mouth every four hours as needed for pain acetaminophen-hyd rocodone 325 mg-5 mg oral tablet TAKE 1 TO 2 TABLETS EVERY 4 HOURS NEEDED FOR PAIN Start Date: 09/26/20 Status: Ordered acetaminophen 325 mg / oxyCODONE hydrochloride 5 mg oral tablet (2 sources) Opioid Agonist Start: 06-24-2024 End: 06-27-2024 take 1 tablet by mouth every six hours as needed for pain Percocet 5 mg-325 mg oral tablet Dose = 1 tab(s), Oral, q6h, PRN for pain, X 3 day(s), # 12 tab(s), 0 Refill(s), Epiploic appendagitis, 92.8 Start Date: 06/24/24 Stop Date: 06/27/24 Status: Ordered Quantity: 12.0 Unit: tab(s) Repeat number: 1 Indications: Other specified diseases of intestine; Start: 01-28-2024 End: 01-31-2024 take 1 tablet by mouth every six hours as needed for pain Percocet 5 mg-325 mg oral tablet Dose = 1 tab(s), Oral, q6hr, PRN for pain, X 3 day(s), # 10 tab(s), 0 Refill(s), Right flank pain, 96.4 Start Date: 01/28/24 Stop Date: 01/31/24 Status: Ordered 24 hr buPROPion hydrochloride 150 mg extended release oral tablet (1 source) Aminoketone Start: 06-04-2024 take 1 tablet by mouth once daily buPROPion XL (WELLBUTRIN XL) 150 mg 24 hr tablet Take 1 tablet by mouth once daily. 06/04/2024 Active cephalexin 500 mg oral capsule (2 sources) Cephalosporin Antibacterial Start: 06-13-2024 End: 06-20-2024 take 1 capsule by mouth four times daily cephALEXin (KEFLEX) 500 mg capsule Indications: Cellulitis of skin Take 1 capsule by mouth four times daily for 7 days. 28 capsule 06/13/2024 06/20/2024 Active Start: 01-14-2024 End: 01-21-2024 cephalexin 500 mg oral capsu le Dose : 500 mg = 1 cap(s), Oral, TID, X 7 day(s), # 21 cap(s), 0 Refill(s), 01/21/24 4:10:00 PM EST, 97.5 Start Date: 01/14/24 Stop Date: 01/21/24 Status: Ordered ciprofloxacin 500 mg oral tablet (1 source) Quinolone Antimicrobial Start: 01-07-2024 End: 01-14-2024 take 1 tablet by mouth twice daily ciprofloxacin HCl (CIPRO) 500 mg tablet Indications: Recurrent UTI (urinary tract infection) Take 1 tablet by mouth two times a day for 7 days. 14 tablet 01/07/2024 01/14/2024 Active dicyclomine hydrochloride 10 mg oral capsule (1 source) Anticholinergic Start: 10-27-2024 take 1 capsule by mouth four times daily as needed for pain Dicyclomine 10 mg capsule Active 10 mg PO .QID as needed for abdominal pain 60 1 October 27, 2024 12:00am loratadine 10 mg oral tablet (1 source) Start: 12-08-2023 End: 12-18-2023 take 1 tablet by mouth once daily loratadine (CLARITIN) 10 mg tablet Indications: Bacterial folliculitis Take 1 tablet by mouth once daily for 10 days. 10 tablet 12/08/2023 12/18/2023 Active lubiprostone 0.024 mg oral capsule (1 source) Chloride Channel Activator Start: 10-27-2024 take 1 capsule by mouth twice daily Lubiprostone (Amitiza) 24 mcg capsule Active 24 ug PO TWICE A DAY 180 October 27, 2024 12:00am naproxen 250 mg oral tablet (2 sources) Nonsteroidal Anti-inflammatory Drug Start: 01-07-2024 naproxen 250 mg oral tablet Dose : 250 mg = 1 tab(s), Oral, q8h, PRN pain, # 20 tab(s), 0 Refill(s) Start Date: 01/07/24 Status: Ordered ondansetron 8 mg oral tablet (5 sources) Serotonin-3 Receptor Antagonist Start: 07-15-2024 take 1 tablet by mouth every eight hours as needed for nausea and vomiting Ondansetron Hcl 8 mg tablet Active 8 mg PO Q8H as needed for nausea and vomiting 90 July 15, 2024 12:00am Start: 01-14-2024 End: 01-21-2024 Zofran 4 mg oral tablet Dose : 4 mg = 1 tab(s), Oral, q6h, PRN Nausea/Vomiting, # 20 tab(s), 0 Refill(s), 01/21/24 4:11:00 PM EST Start Date: 01/14/24 Stop Date: 01/21/24 Status: Ordered Start: 01-07-2024 Zofran 8 mg or al tablet Dose : 8 mg = 1 tab(s), Oral, TID, As needed for nausea or vomiting ODT preferrable if available in Rx plan, # 9 tab(s), 0 Refill(s) Start Date: 01/07/24 Status: Ordered pantoprazole 40 mg delayed release oral tablet (10 sources) Proton Pump Inhibitor Start: 04-27-2024 take 1 tablet by mouth twice daily Pantoprazole 40 mg tablet,delayed release (DR/EC) Active 40 mg PO TWICE A DAY 180 April 27, 2024 1:00am Start: 02-15-2024 End: 04-27-2024 take 1 tablet by mouth once daily 30 minutes before breakfast Pantoprazole (Protonix) 40 mg tablet,delayed release (DR/EC) Discontinued 40 mg PO daily 90 0 March 17, 2024 1:00am April 27, 2024 10:11am take 30 minutes before breakfast every morning phenazopyridine hydrochloride 200 mg oral tablet (2 sources) Start: 01-07-2024 take 1 tablet by mouth three times daily as needed for pain phenazopyridine (PYRIDIUM) 200 mg tablet Indications: Recurrent UTI (urinary tract infection) Take 1 tablet by mouth three times a day as needed for pain. 9 tablet 01/07/2024 Active sertraline 25 mg oral tablet (9 sources) Serotonin Reuptake Inhibitor Start: 02-15-2024 take 1 tablet by mouth once daily Sertraline (Zoloft) 25 mg tablet Active 25 mg PO daily February 15, 2024 1:00am Start: 02-09-2024 sertraline Ora l, qDay, 0 Refill(s) Start Date: 02/09/24 Status: Ordered Repeat number: 1 Start: 02-09-2024 sertraline Ora l, qDay, 0 Refill(s) Start Date: 02/09/24 Status: Ordered take 1 tablet by mounika once daily sertraline (ZOLOFT) 100 mg tablet Take 100 mg by mouth once daily. Active sulfamethoxazole 800 mg / trimethoprim 160 mg oral tablet (1 source) Dihydrofolate Reductase Inhibitor Antibacterial, Sulfonamide Antimicrobial Start: 12-08-2023 End: 12-18-2023 take 1 tablet by mouth twice daily sulfamethoxazole-trimethoprim (BACTRIM DS) 800-160 mg per tablet Indications: Bacterial folliculitis Take 1 tablet by mouth two times a day for 10 days. 20 tablet 12/08/2023 12/18/2023 Active Completed/Discontinued Medications Medication Drug Class(es) Dates Sig (Normalized) Sig (Original) cholecalciferol 1.25 mg oral capsule (1 source) Vitamin D End: 12-08-2023 take 1 capsule by mouth two times weekly cholecalciferol, Vitamin D3, (VITAMIN D3) 1,250 mcg (50,000 unit) cap capsule Take 50,000 Units by mouth two times a week. 12/08/2023 Discontinued gabapentin 100 mg oral capsule (4 sources) Anti-epileptic Agent Start: 02-15-2024 End: 03-17-2024 take 1 capsule by mouth once daily Gabapentin 100 mg capsule Discontinued 100 mg PO daily February 15, 2024 1:00am March 17, 2024 12:05pm End: 12-08-2023 take 300 mg by mouth twice daily gabapentin 300 mg Tb24 Take 300 mg by mouth twice daily. 12/08/2023 Discontinued Guar Gum 1 gram tablet,chewable (3 sources) Start: 04-21-2024 End: 07-15-2024 take 1 tablet by mouth once daily Guar Gum 1 gram tablet,chewable Discontinued 1 g PO DAILY April 21, 2024 1:00am July 15, 2024 6:38am Start: 04-21-2024 take 1 tablet by mounika th once daily Guar Gum 1 gram tablet,chewable Active 1 g PO DAILY April 21, 2024 1:00am hydrOXYzine hydrochloride 50 mg oral tablet (1 source) Antihistamine End: 12-08-2023 hydrOXYzine HCl (ATARAX) 50 mg tablet Take 12.5 mg by mouth four times daily as needed. 12/08/2023 Discontinued hyoscyamine sulfate 0.125 mg oral tablet (1 source) Start: 06-13-2024 End: 06-20-2024 Levsin 0.125 mg oral tablet Dose : 0.125 mg = 1 tab(s), Oral, QID, # 28 tab(s), 0 Refill(s), Pharmacy: [id number], 157.5, cm, 03/01/24 9:40:00 EST, Height, kg, 06/13/24 19:27:00 EDT, Dosing Weight Start Date: 06/13/24 Stop Date: 06/20/24 Status: Ordered Quantity: 28.0 Unit: tab(s) Repeat number: 1 linaclotide 0.145 mg oral capsule (3 sources) Guanylate Cyclase-C Agonist Start: 04-27-2024 End: 10-27-2024 take 1 capsule by mouth once daily 30 minutes before breakfast Linaclotide (Linzess) 145 mcg capsule Discontinued 145 ug PO EVERY MORNING 90 April 27, 2024 1:00am October 27, 2024 1:32pm Take 1 capsule 30 minutes before breakfast every morning methylPREDNISolone 4 mg oral tablet (3 sources) Corticosteroid Start: 06-27-2024 End: 07-14-2024 take 1 tablet by mouth once Methylprednisolone (Medrol (Dagoberto)) 4 mg tablets,dose pack Discontinued 0 PO per package directions 21 June 27, 2024 12:00am July 14, 2024 9:59am PO PER PKG DIR for 6 days polyethylene glycol 3350 57491 mg powder for oral solution (9 sources) Osmotic Laxative Start: 03-17-2024 End: 04-27-2024 Polyethylene Glycol 3350 (Miralax) 17 gram/dose powder Discontinued 4 g PO ONCE as needed for constipation April 21, 2024 1:00am April 27, 2024 10:12am every evening with 8 ounces of water Start: 02-15-2024 End: 03-17-2024 Polyethylene Glycol 3350 (Mi ralax) 17 gram/dose powder Discontinued 17 g PO .COMPLEX 238 3 February 15, 2024 1:00am March 17, 2024 12:06pm constipation 17 grams orally after dinner with 8 ounces of water; Problems Active Problems Problem Classification Problem Date Documented Da te Episodic/Chronic Abdominal hernia (10 sources) Umbilical hernia 08-22-2020 Episodic Abdominal pain (20 sources) Left lower quadrant pain; Translations: [Right flank pain] Onset: 01-28-2024 05-05-2018 Episodic Calculus of urinary tract (10 sources) Kidney stone 07-18-2020 Episodic Esophageal disorders (10 sources) Acid reflux 05-05-2018 Chronic Gastroduodenal ulcer (except hemorrhage) (9 sources) Gastric ulcer; Translations: [Gastric ulcer, unspecified as acute or chronic, without hemorrhage or perforation] Onset: 04-27-2024 04-27-2024 Chronic Genitourinary symptoms and ill-defined conditions (12 sources) Blood in urine; Translations: [Dysuria] Onset: 01-07-2024 07-18-2020 Episodic Immunizations and screening for infectious disease (3 sources) Patient encounter status; Translations: [Encounter for screening for COVID-19] 11-27-2021 Episodic Menopausal disorders (1 source) Disorder associated with menstruation AND/OR menopause; Translations: [Menopausal and female climacteric states] Chronic Osteoarthritis (1 source) Localized, primary osteoarthritis of the shoulder region; Translations: [Primary osteoarthritis, right shoulder] Chronic Other aftercare (10 sources) Surgical follow-up 09-26-2020 Episodic Other gastrointestinal disorders (1 source) Disorder of intestine; Translations: [Other specified diseases of intestine] Onset: 06-24-2024 Episodic Other gastrointestinal disorders (5 sources) Epiploic appendagitis; Translations: [Other specified diseases of intestine] 06-27-2024 Episodic Other gastrointestinal disorders (10 sources) Constipation; Translations: [Constipation, unspecified] 03-17-2024 Episodic Other gastrointestinal disorders (1 source) Other specified diseases of intestine; Translations: [Other specified diseases of intestine] Onset: 06-23-2024 Episodic Other gastrointestinal disorders (2 sources) Slow transit constipation; Translations: [Slow transit constipation] Onset: 10-27-2024 Episodic Other liver diseases (11 sources) Fatty (change of) liver, not elsewhere classified; Translations: [Metabolic dysfunction-associat ed steatotic liver disease (MASLD)] Onset: 05-02-2024 02-15-2024 Chronic Other nutritional; endocrine; and metabolic disorders (10 sources) Body mass index 30+ - obesity 11-15-2014 Chronic Other skin disorders (1 source) Bacterial folliculitis; Translations: [Other specified follicular disorders] 12-08-2023 Episodic Skin and subcutaneous tissue infections (2 sources) Cellulitis of skin; Translations: [Cellulitis, unspecified] Onset: 06-13-2024 06-13-2024 Episodic Spondylosis; intervertebral disc disorders; other back problems (10 sources) Backache 05-05-2018 Episodic Sprains and strains (1 source) Strain of rotator cuff of shoulder; Translations: [Strain of muscle(s) and tendon(s) of the rotator cuff of right shoulder, subsequent encounter] Episodic Unclassified (4 sources) Metabolic dysfunction-associat ed steatotic liver disease (MASLD); Translations: [K76.0 - Fatty (change of) liver, not elsewhere classified] Past or Other Problems Problem Classification Problem Date Documented Da te Episodic/Chronic Administrative/social admission (2 sources) Other problems related to medical facilities and other health care; Translations: [Other specified conditions influencing health status] Onset: 01-07-2024 01-07-2024 Episodic Nausea and vomiting (12 sources) Nausea; Translations: [Nausea] Onset: 01-28-2024 Episodic Other gastrointestinal disorders (1 source) Constipation, unspecified; Translations: [Constipation, unspecified] Onset: 04-27-2024 Episodic Other skin disorders (1 source) Other specified follicular disorders; Translations: [Bacterial folliculitis] Onset: 12-08-2023 Episodic Urinary tract infections (3 sources) Recurrent urinary tract infection; Translations: [Urinary tract infection, site not specified] Onset: 01-07-2024 01-07-2024 Episodic Results Test Name Value Interpretation Reference Range Facility EGD Reporton 07-15-2024 EGD Report [facility] Medical Records Department [address] [place] [address] EGD Report MR#: [id number] Acct: [id number] Name: BETTE WRIGHT Rep #: [id number] : 1980 43 From: Luke Martinez DO PCP: Dr. Eusebio Sparrow DO Status:REG [facility] [place] Patient Name: Bette Wright Procedure Date: 07/15/2024 7:23 AM Date of : 1980 Age: 43 Procedure: Upper GI endoscopy Indications: Epigastric abdominal pain, Chronic peptic ulcer Providers: Luke Martinez DO Referring MD: Eusebio Sparrow Medicines: Monitored Anesthesia Care Patient Profile: This is a 43 year old female. Refer to note in patient chart for documentation of history and physical. Patient has symptoms of acute epigastric abdominal pain. Complications: No immediate complications. Procedure: Pre-Anesthesia Assessment: - Prior to the procedure, a History and Physical was performed, and patient medications and allergies were reviewed. The patient is competent. The risks and benefits of the procedure and the sedation options and risks were discussed with the patient. All questions were answered and informed consent was obtained. Patient identification and proposed procedure were verified by the physician in the pre-procedure area. Mental Status Examination: alert and oriented. Airway Examination: normal oropharyngeal airway and neck mobility. Respiratory Examination: clear to auscultation. CV Examination: normal. Prophylactic Antibiotics: The patient does not require prophylactic antibiotics. Prior Anticoagulants: The patient has taken no anticoagulant or antiplatelet agents except for NSAID medication. ASA Grade Assessment: II - A patient with mild systemic disease. After reviewing the risks and benefits, the patient was deemed in satisfactory condition to undergo the procedure. The anesthesia plan was to use monitored anesthesia care (MAC). Immediately prior to administration of medications, the patient was re-assessed for adequacy to receive sedatives. The heart rate, respiratory rate, oxygen saturations, blood pressure, adequacy of pulmonary ventilation, and response to care were monitored throughout the procedure. The physical status of the patient was re-assessed after the procedure. After obtaining informed consent, the endoscope was passed under direct vision. Throughout the procedure, the patient's blood pressure, pulse, and oxygen saturations were monitored continuously. The gastroscope was introduced through the mouth, and advanced to the second part of duodenum. The upper GI endoscopy was accomplished without difficulty. The patient tolerated the procedure well. Scope In: 7:27:49 AM Scope Out: 7:30:29 AM Total Procedure Duration Time 0 hours 2 minutes 40 seconds Findings: No gross lesions were noted in the entire esophagus. Many non-bleeding superficial gastric ulcers with no stigmata of bleeding were found in the gastric antrum. The largest lesion was 5 mm in largest dimension. Biopsies were taken with a cold forceps for histology. Verification of patient identification for the specimen was done. Estimated blood loss was minimal. Biopsies were taken with a cold forceps for Helicobacter pylori testing. Verification of patient identification for the specimen was done. Estimated blood loss was minimal. No gross lesions were noted in the entire examined duodenum. Impression: - No gross lesions in the entire esophagus. - Non-bleeding gastric ulcers with no stigmata of bleeding. Biopsied. - No gross lesions in the entire examined duodenum. Recommendation: - Discharge patient to home. - Resume previous diet. - Continue present medications. - Await pathology results. Procedure Code(s): --- Professional --- 04421, Esophagogastroduodenos copy, flexible, transoral; with biopsy, single or multiple CPT copyright 2021 [employer]. All rights reserved. The codes documented in this report are preliminary and upon english division chair review may be revised to meet current compliance requirements. Luke Martinez DO 07/15/2024 7:34:09 AM This report has been signed electronically. Number of Addenda: 0 Note Initiated On: 07/15/2024 7:23 AM 07/15/24 0734 Date Luke Perdomo Signature: Date (if indicated) CC: Dr. Eusebio Sparrow DO; Luke Martinez DO Date Dictated: 07/15/24722 Date Transcribed: Hyperion Analyst: RF Signed Normal [facility] Immunohistochemical Stainson 07-15-2024 Immunohistochemical Stains ---- Patient Age/Sex Location Account Attending Physician ---- BETTE WRIGHT 43/F EN [id number] Luke Martinez DO ---- Specimen: [id number] Received: 07/15/24 Status: KWESI Tatum Num: [id number] Spec Type: EGD BIOPSY Subm Dr: Luke Friend, DO HEADER OPERATION: EGD biopsy PRE-OP DIAGNOSIS: Left lower quadrant pain, gastric ulcer TISSUE SUBMITTED: A- Gastric antrum biopsy ---- MICROSCOPIC DIAGNOSIS A. Stomach, gastric antrum, biopsy: * Antral mucosa with mild chronic inflammation * No morphologic evidence of Helicobacter pylori organisms on H E or immunostained sections MICROSCOPIC DESCRIPTION Slides are reviewed. GROSS DESCRIPTION A. Received in formalin in a container labeled with the patient's name, date of , and gastric antrum for H. pylori and path are 2 parada-pink fragments of mucosal tissue, each measuring 0.4 x 0.3 x 0.3 cm. Submitted in toto in A1. [facility] 07-15-2024 CPT:15940,06051 ---- Patient Age/Sex Location Account Attending Physician ---- BETTE WRIGHT 43/F AIDA [id number] Luke Martinez DO ---- Signed (signature on file) Dr. Laura Booth, 07/22/24 1623 ---- Normal [facility] Comment on above: Performed By: #### P IMKS #### [facility] [address] [place], [address] MR/[email or web address].ANE 07-15-2024 MR/POSTOP.[facility] Medical Records Department [address] [place] [address] Anesthesia Postop Eval I 07/15/2437 MR#: [id number] Acct: [id number] Name: BETTE WRIGHT Rep #: [id number] : 1980 43 From: Jeff Allred CRNA PCP: Dr. Eusebio Sparrow, DO Status:REG SDC Y Race: C Location: [place] [address] Anesthesia: Postop Eval I Current Vital Signs Temperature: 97.1 F Pulse Rate: 60 Blood Pressure: 119/79 Respiratory Rate: 16 Pulse Ox: 100 Oxygen Delivery Method: Room Air Assessment Airway patent: Yes Spontaneous unlabored respirations: Yes Mental status: Awake and Calm nausea: No Vomiting: No Anesthesia Complication: No Fluid Hydration Crystalloid volume administer (ml): 200 Total IV fluid infused: 200 Progress Note Anesthesia document: Postop Eval 1 completed: Yes 07/15/24736 Date Jeff Allred BAR HOST/HOSTESS Cosigner Signature: Date CC: Signed Normal [facility] MR/[id number] 07-15-2024 MR/POSTOPAN2 [facility] Medical Records Department [address] [place] [address] Anesthesia Postop Eval II 07/15/2450 MR#: [id number] Acct: [id number] Name: BETTE WRIGHT Rep #: [id number] : 1980 43 From: Bogdan Gill MD PCP: Dr. Eusebio Sparrow, DO Status:[facility] Y Race: C Location: EN Anesthesia Postop Eval I Sum Postop Eval Completion status Anesthesia document: Postop Eval 1 completed: Yes Anesthesia Postop Eval I Summary Anesthesia Postop Eval I Summary: Anesthesia Postop Eval I: Assessment Summary Airway patent Yes 07/15/24 07:37 BAR HOST/HOSTESS.SOBR Spontaneous unlabored Yes 07/15/24 07:37 BAR HOST/HOSTESS.SOBR respirations Mental status Awake,Calm 07/15/24 07:37 BAR HOST/HOSTESS.SOBR nausea No 07/15/24 07:37 BAR HOST/HOSTESS.SOBR Vomiting No 07/15/24 07:37 BAR HOST/HOSTESS.SOBR Anesthesia Postop Eval I: Fluid Summary Crystalloid volume administer 200 07/15/24 07:37 BAR HOST/HOSTESS.SOBR (ml) Colloids volume administered ( ml) Blood Product volume administered (ml) Total IV fluid infused 200 07/15/24 07:37 BAR HOST/HOSTESS.SOBR Anesthesia Postop Eval I: Summary Notes Anesthesia Complication No 07/15/24 07:37 BAR HOST/HOSTESS.SOBR Anesthesia Complication Comment: Post-operative progress note Anesthesia: Postop Eval II Evaluation Mental status: Awake and Calm Pain Level: 2 nausea: No Vomiting: No Complications Anesthesia Complication: No 07/15/24949 Date Bogdan Gill MD Cosigner Signature: Date CC: Signed Normal [facility] Gastroenterology Visit Repor ton 06-27-2024 Gastroenterology Visit Report [facility] Gastroenterology [address] [address] OFFICE VISIT Date of Service: 06/27/24 MR#: [id number] Acct: [id number] Name: BETTE WRIGHT Rep #: [id number] : 1980 Provider: JOSE lopez Age/Sex: 43/F Location: [facility] Status: Signed Intake Vital Signs 06/23/24 09:29 06/27/24 11:39 Height 5 ft 5 in 5 ft 5 in Weight: 205 lb 4 oz 209 lb 4 oz BMI 34.1 34.8 BP 133/83 H 137/84 H Blood Pressure Location Lt brachial Position Sitting Respiration 18 15 Pulse 61 Pulse Source Monitor Temp 98.2 F Temp Source Temporal Pulse Oximetry (%) 98 98 Oxygen Delivery Method room air Intake Visit Reasons: COLON TWISTED? Chief Complaint: pain Allergies No Known Allergies Allergy (Verified 06/23/24 09:25) Medications ???Medication ???Instructions ???Recorded ???Confirmed ???Type sertraline 25 mg tablet (Zoloft) 25 mg PO QDAY 02/15/24 06/27/24 Hi story guar gum 1 gram chewable tablet 1 g PO DAILY 04/21/24 06/27/24 His tory linaclotide 145 mcg capsule 145 mcg PO QAM #90 caps 04/27/24 0 06/27/24 Rx (Linzess) pantoprazole 40 mg tablet,delayed 40 mg PO BID #180 tabs 04/27/24 0 06/27/24 Rx release methylprednisolone 4 mg tablets in See Rx Instructions PO PER PKG D IR 06/27/24 06/27/24 Rx a dose pack (Medrol (Dagoberto)) #21 tabs PFSH Medical History Wears dentures Restless legs Dietary restriction Gastric reflux Former smoker History of ectopic Surgical History History of shoulder surgery History of hernia surgery History of hysterectomy History of classical section Social History Smoking Status: Former smoker alcohol intake: never HPI HPI Chief Complaint: pain Details: BETTE WRIGHT, is a 43 F who presents to the office today for - reports they gave her so much pain medication she could not focus - c/o of constipation, has not had a BM since morning - feels bloated - c/o nausea due to bloating - pain today is 8/10 - LLQ pain radiating down her left leg - ER prescribed percocet - she is still taking Miralax 2tbsb once a day - Linzess 145mcg once daily - weight is stable ROS Const Constitutional: Positive for fatigue; No fever(s) or weight change ENT ENT: No difficulty swallowing Gastro GI: Positive for abdominal pain, bloating, constipation, excessive flatus and vomiting; No belching, change in bowel habits, change in stool character, coffee ground emesis, cramping, diarrhea, heartburn, difficulty swallowing, feeling full early, incontinent of stools, Vomiting blood/hematemesis, Blood in stool, loose stools, Black,tarry stools, nausea/dyspepsia, pain with swallowing or other Musc Musculoskeletal: Positive for abnormal gait and muscle cramps; No joint pain Skin Skin: No yellowing of the eye or itchy eyes Neuro Neurology: Positive for abnormal gait Psych Psychiatric: No anxiety and Positive for depression Endo Endocrine: Positive for fatigue; No weight change Aller/Imm Allergy/Immunologic: No itchy eyes Santo/Lymp Hematologic/Lymphatic: No easy bleeding or easy bruising Exam Const General: cooperative, healthy appearing, no acute distress and well developed Nutritional Appearance: average body habitus and well nourished Orientation: alert and oriented x3 HENMT Head: normocephalic Ears: hearing grossly normal bilaterally Mouth: moist mucous membranes Teeth and gingiva: dentition normal Eyes Conjunctivae: conjunctivae normal Sclera: sclerae normal Neck Neck: normal visual inspection, full ROM and trachea midline Resp Effort Inspection: normal respiratory effort, able to speak in complete sentences and symmetric chest movement Auscultation: Bilateral: Clear to Auscultation Cardio Palpation: normal PMI Rate: regular rate Rhythm: regular rhythm Heart Sounds: S1 normal and S2 normal GI Inspection: normal to inspection and large pannus Auscultation: normal bowel sounds Palpation: soft and no hepatosplenomegaly Rectal Exam: deferred Other: moderate LLQ tenderness with palpation Skin General: no rashes or lesions noted and turgor normal Neuro General: patient alert and patient oriented x3 Cranial Nerves: other (CN's grossly intact, non-focal exam) Cognition: normal cognition Speech: speech normal Gait: normal gait Extrem General: normal to inspection (no edema noted) Psych Appearance: grossly normal and well kempt Affect: normal affect Attitude: cooperative Thought Process: normal Assessment and Plan Assessment and Plan (1) Epiploic appendagitis: Status: Acute (2 (more content not included)... Normal [facility] Urine Cultureon 06-25-2024 URC Mixed Gram Pos Gram Neg Org Madill Count 50,000-80,000 MIXC Mixed contaminants. Submit a new specimen if indicated. Normal [facility] Comment on above: Performed By: #### L 100.0100, L501.2450, L500.4050, M100.2200 ####[facility] [address] [place], [address] CT ABD/PELVIS W/ IV CONTRAST ONLYon 06-24-2024 CT ABD/PELVIS W/ IV CONTRAST ONLY ORIGINAL EXAMINATION: CT OF THE ABDOMEN AND PELVIS WITH CONTRAST 06/24/2024 12:00 am TECHNIQUE: CT of the abdomen and pelvis was performed with the administration of intravenous contrast. Multiplanar reformatted images are provided for review. Automated exposure control, iterative reconstruction, and/or weight based adjustment of the mA/kV was utilized to reduce the radiation dose to as low as reasonably achievable. COMPARISON: 06/13/2024 HISTORY: ORDERING SYSTEM PROVIDED HISTORY: Reason for Exam: LLQ PAIN x 5 DAYS L flank pain FINDINGS: No acute osseous abnormality. The included thoracic structures are unremarkable. Normal liver, gallbladder, spleen, pancreas, and adrenal glands. A splenule is also noted anteriorly to the spleen. Symmetric urograms without evidence of nephrolithiasis or hydronephrosis. Contrast density is noted within both ureters. At the level of the proximal sigmoid colon along the anti mesenteric margin, are interval hazy focal infiltrative changes (best appreciated axial series 302, image 85, sagittal series 602, image 102). There is central hyperdense dot within this area. Nonaneurysmal abdominal aorta. There are lymph nodes that are not pathologically enlarged but appear more prominent within the mesentery eccentric to the left and favor mild reactivity. Under distended urinary bladder limiting evaluation. Otherwise the pelvic organs are unrevealing. Small fat containing umbilical hernia. IMPRESSION: Findings most likely direct marketing representative of epiploic appendagitis. Preliminary Report was Dictated by a Resident Interpreted by: Jennifer Cortes MD Preliminary Report By: Chente Richards Electronically signed By Jennifer Cortes MD Dictated Date: 06/24/2024 12:21:45 AM Prelim Date: 06/24/2024 12:31:13 AM Sign Date: 06/24/2024 1:12:24 AM Ordering Provider: SOLIS LOJA Normal [facility] .Auto Diffon 06-23-2024 Basophil, Absolute 0.0 10 3/mcL Normal 0.0-0.3 [facility] Comment on above: Performed By: #### A GARRET OCHOA MDW, GFR, CBC, ADIFF #### [address] [address] Basophils/100 WBC (Bld) 0.7 % Normal 0.0-2.5 [facility] Comment on above: Performed By: #### A GARRET OCHOA MDW, GFR, CBC, ADIFF #### [address] [address] Eosinophil, Absolute 0.1 10 3/mcL Normal 0.0-0.7 [facility] Comment on above: Performed By: #### A GARRET OCHOA MDW, GFR, CBC, ADIFF #### [address] [address] Eosinophils/100 WBC (Bld) 2.3 % Normal 0.0-6.0 [facility] Comment on above: Performed By: #### A GABRIELA, BMP, MDW, GFR, CBC, ADIFF #### [address] [address] Lymphocyte, Absolute 1.6 10 3/mcL Normal 0.9-4.3 [facility] Comment on above: Performed By: #### A GABRIELA, GARRET, MDW, GFR, CBC, ADIFF #### [address] [address] Lymphocytes/100 WBC (Bld) 26.2 % Normal 20.0-40.0 [facility] Comment on above: Performed By: #### A GABRIELA, BMP, MDW, GFR, CBC, ADIFF #### [address] [address] Monocyte, Absolute 0.4 10 3/mcL Normal 0.1-1.4 [facility] Comment on above: Performed By: #### A GABRIELA, BMP, MDW, GFR, CBC, ADIFF #### [address] [address] Monocytes/100 WBC (Bld) 6.3 % Normal 2.0-13.0 [facility] Comment on above: Performed By: #### A GABRIELA, BMP, MDW, GFR, CBC, ADIFF #### [address] [address] Neutrophils/100 WBC (Bld) 64.5 % Normal 50.0-75.0 [facility] Comment on above: Performed By: #### A GABRIELA, GARRET, MDW, GFR, CBC, ADIFF #### [address] [address] .GFRon 06-23-2024 Estimated Glomerular Filtration Rate 93 ml/min/1.73sqm Normal [facility] Comment on above: Result Comment: Stages of Chronic Kidney Disease (CKD) Stage Description eGFR(ml/min/1.73 sq.m.) CKD 1 Normal kidney function or >=90 normal kindney function with possible kidney damage (ex. Proteinuria) CKD 2 Kidney damage with mild loss 60-89 of kidney function CKD 3a Mild to moderate loss of kidney 45-59 function CKD 3b Moderate to severe loss of 30-44 of kindey function CKD 4 Severe loss of kidney function 15-29 CKD 5 Kidney failure <15 Note: (go live 2024) the eGFR calculation was updated to the 2020 CKD-EPI creatinine equation without a race factor to calculate the eGFR results. Performed By: #### M DW, ADIFF, CBC, CMP, ANEU, GFR #### [address] [address] .MDWon 06-23-2024 Monocyte Distribution Width 22.10 High 0.00-20.00 [facility] Comment on above: Result Comment: For adults in ED, MDW>20.0 may be associated with a higher risk of sepsis during the first 12hrs of hospital admission Performed By: #### A GABRIELA, BMP, MDW, GFR, CBC, ADIFF #### [address] [address] .NEUABSon 06-23-2024 Neutrophil, Absolute 4.0 10 3/mcL Normal 2.3-8.1 [facility] Comment on above: Performed By: #### A GABRIELA, BMP, MDW, GFR, CBC, ADIFF #### [address] [address] Abdomen/Pelvis WITH Contrast on 06-23-2024 Abdomen/Pelvis WITH Contrast [facility] Services [address] [place] [address] Abdomen/Pelvis WITH Contrast MR#: [id number] Acct: [id number] Name: BETTE WRIGHT Rep #: [id number] : 1980 F 43 From: Silver zeng MD PCP: Dr. Eusebio Sparrow, DO Status: REG CLI Study: Abdomen/Pelvis WITH Contrast Date of Exam: Exam# [id number] Ordering Dr: Reyna Wood DIVISIONAL HUMAN RESOURCES DIRECTOR- Noemí PROCEDURE: ABDOMEN/PELVIS WITH CONTRAST 06/23/2024 REASON FOR EXAM: ABDOMINAL PAIN, GUARDING Left lower quadrant pain. TECHNIQUE: Abdomen and pelvis CT with intravenous contrast. Coronal and Sagittal reconstruction series were provided. PATIENT PREPARATION: Per protocol ORAL CONTRAST TYPE: Given. CONTRAST: Isovue-300 VOLUME: 100 mL One or more dose reduction techniques were used (e.g., Automated exposure control, adjustment of the mA and/or kV according to patient size, use of iterative reconstruction technique. RADIATION DOSE SUMMARY: CTDlvol: 16 mGy DLP: 1204.81 mGycm COMPARISON: None FINDINGS: Lung bases: Unremarkable Liver: Diffuse fatty infiltration. Gallbladder: Unremarkable Spleen: Normal size. Pancreas: Normal size without evidence of mass surrounding inflammation or ductal dilation. Adrenals: Unremarkable Kidneys: Normal renal sizes. No hydronephrosis. Bladder: Unremarkable Reproductive Organs: Prior hysterectomy. Adnexal regions are unremarkable. Bowel: Colonic diverticulosis without diverticulitis. Appendix: The appendix is not identified. There is no inflammatory process identified in the right lower quadrant to suggest appendicitis. Lymph nodes: Unremarkable. Vasculature: The abdominal aorta and IVC are normal. Peritoneum / Retroperitoneum: Unremarkable Bones: Unremarkable CT/Abdomen/Pelvis WITH Contrast IMPRESSION: Fatty infiltration of the liver. Sigmoid diverticulosis without diverticulitis. Status post hysterectomy. Reading Location: [place] [address] CC: JOSE Wood; Dr. Eusebio Sparrow DO [employer] Analyst: Signed Normal [facility] Absolute lymphocyte countOrd ered By: Reyna Wood on 06-23-2024 Lymphocytes Auto (Unsp spec) [#/Vol] 1.40 10*3/uL 0.83-4.51 [facility] Absolute neutrophil countOrd ered By: Reyna Wood on 06-23-2024 Neutrophils (Bld) [#/Vol] 3.1 10*3/uL 2.0-7.7 [facility] Anion gap in Serum or Plasma Ordered By: Reyna Wood on 06-23-2024 Anion gap [Moles/Vol] 10 mmol/L 5-15 [facility] Automated lymphocyte count a s percentage of total leukocytesOrdered By: Reyna Wood on 06-23-2024 Lymphocytes/100 WBC Auto (Unsp spec) 28.3 % 19-41 [facility] BMPon 06-23-2024 BUN/Creatinine Ratio 12.5 ratio Normal 10.0-22.0 [facility] Comment on above: Performed By: #### M DW, ADIFF, CBC, CMP, ANEU, GFR #### [address] [address] Calcium [Mass/Vol] 9.7 mg/dL Normal 8.7-10.4 [facility] Comment on above: Performed By: #### M DW, ADIFF, CBC, CMP, ANEU, GFR #### [address] [address] Chloride [Moles/Vol] 105 mmol/L Normal 98-110 [facility] Comment on above: Performed By: #### M DW, ADIFF, CBC, CMP, ANEU, GFR #### [address] [address] CO2 [Moles/Vol] 30 mmol/L Normal 22-32 [facility] Comment on above: Performed By: #### M DW, ADIFF, CBC, CMP, ANEU, GFR #### [address] [address] Creatinine [Mass/Vol] 0.80 mg/dL Normal 0.50-1.20 [facility] Comment on above: Result Comment: Test ing performed on PharmAssistant analyzer using enzymatic creatinine methodology. Performed By: #### M DW, ADIFF, CBC, CMP, ANEU, GFR #### [address] [address] Electrolyte Balance 5.0 mEq/L Normal 4.0-15.0 [facility] Comment on above: Performed By: #### M DW, ADIFF, CBC, CMP, ANEU, GFR #### [address] [address] Glucose [Mass/Vol] 82 mg/dL Normal 70-110 [facility] Comment on above: Performed By: #### M DW, ADIFF, CBC, CMP, ANEU, GFR #### [address] [address] Potassium [Moles/Vol] 3.5 mmol/L Normal 3.5-5.0 [facility] Comment on above: Performed By: #### M DW, ADIFF, CBC, CMP, ANEU, GFR #### [address] [address] Sodium [Moles/Vol] 140 mmol/L Normal 136-145 [facility] Comment on above: Performed By: #### M JACQUELINE, ADIFF, CBC, CMP, ANEU, GFR #### [address] [address] Urea nitrogen [Mass/Vol] 10.0 mg/dL Normal 8.0-22.0 [facility] Comment on above: Performed By: #### M DW, ADIFF, CBC, CMP, ANEU, GFR #### [address] [address] BUN/creatinine ratioOrdered By: Reyna Wood on 06-23-2024 Urea nitrogen/Creatinine [Mass ratio] 16.3 mg/mg 10-20 [facility] Basophil percentageOrdered B y: Reyna Wood on 06-23-2024 Basophils/100 WBC (Bld) 1.0 % 0-1 [facility] Bilirubin, totalOrdered By: Reyna Wood on 06-23-2024 Bilirubin [Mass/Vol] 0.75 mg/dL 0.00-1.30 [facility] CBCon 06-23-2024 Erythrocyte distribution width (RBC) [Ratio] 14.0 % Normal 11.5-15.5 [facility] Comment on above: Performed By: #### A GARRET OCHOA MDW, GFR, CBC, ADIFF #### [address] [address] Hematocrit (Bld) [Volume fraction] 42.3 % Normal 34.0-46.0 [facility] Comment on above: Performed By: #### A GARRET OCHOA MDW, GFR, CBC, ADIFF #### [address] [address] Hgb 14.5 G/dL Normal 12.0-16.0 [facility] Comment on above: Performed By: #### A GARRET OCHOA MDW, GFR, CBC, ADIFF #### [address] [address] MCH (RBC) [Entitic mass] 29.1 pg Normal 27.0-33.0 [facility] Comment on above: Performed By: #### A GARRET OCHOA, MDW, GFR, CBC, ADIFF #### [address] [address] MCHC 34.4 G/dL Normal 32.0-36.0 [facility] Comment on above: Performed By: #### A GABRIELA, BMP, MDW, GFR, CBC, ADIFF #### [address] [address] MCV (RBC) [Entitic vol] 84.6 fL Normal 80.0-99.0 [facility] Comment on above: Performed By: #### A GABRIELA, BMP, MDW, GFR, CBC, ADIFF #### [place] [id number] Platelet 282 10 3/mcL Normal 150-450 [facility] Comment on above: Performed By: #### A GABRIELA, BMP, MDW, GFR, CBC, ADIFF #### [place] [address] Platelet mean volume (Bld) [Entitic vol] 8.1 fL Normal 6.6-10.5 [facility] Comment on above: Performed By: #### A GABRIELA, BMP, MDW, GFR, CBC, ADIFF #### [place] [id number] RBC 5.01 10 6/mcL Normal 4.10-5.30 [facility] Comment on above: Performed By: #### A GABRIELA, BMP, MDW, GFR, CBC, ADIFF #### [place] [id number] WBC 6.2 10 3/mcL Normal 4.5-10.8 [facility] Comment on above: Performed By: #### A GABRIELA, BMP, MDW, GFR, CBC, ADIFF #### [place] [id number] CBC W/Diff, Automatedon 06-07 Absolute Lymph 1.40 X10 3/uL Normal 0.83-4.51 [facility] Comment on above: Performed By: #### L 100.0100, L501.2450, L500.4050, M100.2200 ####[facility] [address] [place], [address] Absolute Neut 3.1 X10 3/uL Normal 2.0-7.7 [facility] Comment on above: Performed By: #### L 100.0100, L501.2450, L500.4050, M100.2200 ####[facility] [address] [place], [address] Basophils/100 WBC (Bld) 1.0 % Normal 0-1 [facility] Comment on above: Performed By: #### L 100.0100, L501.2450, L500.4050, M100.2200 ####[facility] [address] [place], [address] Eosinophils/100 WBC (Bld) 3.0 % Normal 0-5 [facility] Comment on above: Performed By: #### L 100.0100, L501.2450, L500.4050, M100.2200 ####[facility] [address] [place], [address] Erythrocyte distribution width (RBC) [Ratio] 13.1 % Normal 11.6-14.6 [facility] Comment on above: Performed By: #### L 100.0100, L501.2450, L500.4050, M100.2200 ####[facility] [address] [place], [address] Hematocrit (Bld) [Volume fraction] 42.5 % Normal 37-47 [facility] Comment on above: Performed By: #### L 100.0100, L501.2450, L500.4050, M100.2200 ####[facility] [address] [place], [address] Hemoglobin (Bld) [Mass/Vol] 14.1 g/dL Normal 12.0-15.0 [facility] Comment on above: Performed By: #### L 100.0100, L501.2450, L500.4050, M100.2200 ####[facility] [address] [place], [address] IG% 0.200 Normal 0.0-0.9 [facility] Comment on above: Result Comment: IG% - Immature Granulocytes (promyelocytes, myelocytes and metamyelocytes) > 1% indicates that a LEFT SHIFT is Present. Performed By: #### L 100.0100, L501.2450, L500.4050, M100.2200 ####[facility] [address] [place], [address] Lymphocytes/100 WBC (Bld) 28.3 % Normal 19-41 [facility] Comment on above: Performed By: #### L 100.0100, L501.2450, L500.4050, M100.2200 ####[facility] [address] [place], [address] MCH (RBC) [Entitic mass] 28.4 pg Normal 27.0-32.0 [facility] Comment on above: Performed By: #### L 100.0100, L501.2450, L500.4050, M100.2200 ####[facility] [address] [place], [address] MCHC (RBC) [Mass/Vol] 33.2 g/dL Normal 32-36 [facility] Comment on above: Performed By: #### L 100.0100, L501.2450, L500.4050, M100.2200 ####[facility] [address] [place], [address] MCV (RBC) [Entitic vol] 85.5 fL Normal 81-99 [facility] Comment on above: Performed By: #### L 100.0100, L501.2450, L500.4050, M100.2200 ####[facility] [address] [place], [address] Monocytes/100 WBC (Bld) 5.7 % Normal 0-10 [facility] Comment on above: Performed By: #### L 100.0100, L501.2450, L500.4050, M100.2200 ####[facility] [address] [place], [address] Neutrophils/100 WBC (Bld) 61.8 % Normal 47-70 [facility] Comment on above: Performed By: #### L 100.0100, L501.2450, L500.4050, M100.2200 ####[facility] [address] [place], [address] Nucleated RBC (Bld) [#/Vol] 0 10*3/uL Normal 0-5 [facility] Comment on above: Performed By: #### L 100.0100, L501.2450, L500.4050, M100.2200 ####[facility] [address] [place], [address] Platelet mean volume (Bld) [Entitic vol] 9.8 fL Normal 6.2-12.0 [facility] Comment on above: Performed By: #### L 100.0100, L501.2450, L500.4050, M100.2200 ####[facility] [address] [place], [address] Platelets (Bld) [#/Vol] 249 10*3/uL Normal 150-450 [facility] Comment on above: Performed By: #### L 100.0100, L501.2450, L500.4050, M100.2200 ####[facility] [address] [place], [address] RBC (Bld) [#/Vol] 4.97 10*6/uL Normal 4.2-5.4 [facility] Comment on above: Performed By: #### L 100.0100, L501.2450, L500.4050, M100.2200 ####[facility] [address] [place], [address] RDW SD 40.6 fl Normal 35.1-43.9 [facility] Comment on above: Performed By: #### L 100.0100, L501.2450, L500.4050, M100.2200 ####[facility] [address] [place], [address] WBC (Bld) [#/Vol] 4.9 10*3/uL Normal 4.4-11.0 [facility] Comment on above: Performed By: #### L 100.0100, L501.2450, L500.4050, M100.2200 ####[facility] [address] [place], [address] Carbon dioxide, total [Moles /volume] in Central venous bloodOrdered By: Reyna Wood on 06-23-2024 CO2 [Moles/Vol] 23.2 mmol/L 21.0-32.0 [facility] Chloride assayOrdered By: Anthony Wood on 06-23-2024 Chloride [Moles/Vol] 105 mmol/L 98-108 [facility] Comprehensive Metabolic Prof ilon 06-23-2024 Albumin [Mass/Vol] 4.2 g/dL Normal 3.5-5.0 [facility] Comment on above: Performed By: #### L 100.0100, L501.2450, L500.4050, M100.2200 ####[facility] [address] [place], [address] Albumin/Globulin [Mass ratio] 1.5 {ratio} Normal 0.9-2.4 [facility] Comment on above: Performed By: #### L 100.0100, L501.2450, L500.4050, M100.2200 ####[facility] [address] [place], [address] ALK PHOS 89 U/L Normal 35-104 [facility] Comment on above: Performed By: #### L 100.0100, L501.2450, L500.4050, M100.2200 ####[facility] [address] [place], [address] ALT [Catalytic activity/Vol] 20 U/L Normal <=34 [facility] Comment on above: Performed By: #### L 100.0100, L501.2450, L500.4050, M100.2200 ####[facility] [address] [place], [address] AST [Catalytic activity/Vol] 19 U/L Normal <=31 [facility] Comment on above: Performed By: #### L 100.0100, L501.2450, L500.4050, M100.2200 ####[facility] [address] [place], [address] Bilirubin [Mass/Vol] 0.75 mg/dL Normal 0.00-1.30 [facility] Comment on above: Performed By: #### L 100.0100, L501.2450, L500.4050, M100.2200 ####[facility] [address] [place], [address] BUN/CRE 16.3 RATIO Normal 10-20 [facility] Comment on above: Performed By: #### L 100.0100, L501.2450, L500.4050, M100.2200 ####[facility] [address] [place], [address] Calcium [Mass/Vol] 9.1 mg/dL Normal 7.6-11.0 [facility] Comment on above: Performed By: #### L 100.0100, L501.2450, L500.4050, M100.2200 ####[facility] [address] [place], [address] Chloride [Moles/Vol] 105 mmol/L Normal 98-108 [facility] Comment on above: Performed By: #### L 100.0100, L501.2450, L500.4050, M100.2200 ####[facility] [address] [place], [address] CO2 [Moles/Vol] 23.2 mmol/L Normal 21.0-32.0 [facility] Comment on above: Performed By: #### L 100.0100, L501.2450, L500.4050, M100.2200 ####[facility] [address] [place], [address] Creatinine [Mass/Vol] 0.88 mg/dL Normal 0.70-1.20 [facility] Comment on above: Performed By: #### L 100.0100, L501.2450, L500.4050, M100.2200 ####[facility] [address] [place], [address] GAP 10 Normal 5-15 [facility] Comment on above: Performed By: #### L 100.0100, L501.2450, L500.4050, M100.2200 ####[facility] [address] [place], [address] GFR/1.73 sq M.predicted among non-blacks MDRD (S/P/Bld) [Vol rate/Area] 83 mL/min/{1.73_m2} Normal >60 [facility] Comment on above: Result Comment: mL/m in/1.73m2 CKD-EPI Creatinine Equation (2020) Performed By: #### L 100.0100, L501.2450, L500.4050, M100.2200 ####[facility] [address] [place], [address] Globulin (S) [Mass/Vol] 2.9 g/dL Normal 2.2-4.2 [facility] Comment on above: Performed By: #### L 100.0100, L501.2450, L500.4050, M100.2200 ####[facility] [address] [place], [address] Glucose [Mass/Vol] 97 mg/dL Normal 70-99 [facility] Comment on above: Performed By: #### L 100.0100, L501.2450, L500.4050, M100.2200 ####[facility] [address] [place], [address] Potassium [Moles/Vol] 3.9 mmol/L Normal 3.3-5.1 [facility] Comment on above: Performed By: #### L 100.0100, L501.2450, L500.4050, M100.2200 ####[facility] [address] [place], [address] Sodium [Moles/Vol] 139 mmol/L Normal 133-145 [facility] Comment on above: Performed By: #### L 100.0100, L501.2450, L500.4050, M100.2200 ####[facility] [address] [place], [address] T PROT 7.1 g/dL Normal 5.9-8.4 [facility] Comment on above: Performed By: #### L 100.0100, L501.2450, L500.4050, M100.2200 ####[facility] [address] [place], [address] Urea nitrogen [Mass/Vol] 14 mg/dL Normal 4-19 [facility] Comment on above: Performed By: #### L 100.0100, L501.2450, L500.4050, M100.2200 ####[facility] [address] [place], [address] Eosinophil percentageOrdered By: Reyna Wood on 06-23-2024 Eosinophils/100 WBC (Bld) 3.0 % 0-5 [facility] Erythrocyte distribution wid th (RBC) [Ratio]Ordered By: Reyna Wood on 06-23-2024 Erythrocyte distribution width (RBC) [Entitic vol] 40.6 fL 35.1-43.9 [facility] Erythrocyte distribution wid th ratioOrdered By: Reyna Wood on 06-23-2024 Erythrocyte distribution width (RBC) [Ratio] 13.1 % 11.6-14.6 [facility] Erythrocyte distribution wid th standard deviationOrdered By: Reyna Wood on 06-23-2024 Erythrocyte distribution width (RBC) [Ratio] 40.6 fl 35.1-43.9 [facility] GFR/1.73 sq M.predicted oly g non-blacks MDRD (S/P/Bld) [Vol rate/Area]Ordered By: Reyna Wood on 06-23-2024 Estimated GFR (MDRD) Non-Af Amer 83 >60 [facility] Comment on above: mL/min/1.73m2 CKD-EP I Creatinine Equation (2020) Gastroenterology Visit Repor ton 06-23-2024 Gastroenterology Visit Report [facility] [address] [place] [address] OFFICE VISIT Date of Service: 06/23/24 MR#: [id number] Acct: [id number] Name: KYLEBETTE A Rep #: [id number] : 1980 Provider: JOSE lopez Age/Sex: 43/F Location: [facility] Status: Signed Intake Vital Signs 04/27/24 08:52 06/23/24 09:29 Height 5 ft 5 in 5 ft 5 in Weight: 211 lb 8 oz 205 lb 4 oz BMI 35.2 34.1 BP 124/83 H 133/83 H Respiration 16 18 Pulse 75 Temp 98.2 F Temp Source Temporal Pulse Oximetry (%) 98 98 Oxygen Delivery Method room air Intake Visit Reasons: STILL HAVING ISSUES Chief Complaint: pain Technician Inventory Specialist Required: No Is patient in pain?: No Allergies No Known Allergies Allergy (Verified 06/23/24 09:25) Medications ???Medication ???Instructions ???Recorded ???Confirmed ???Type sertraline 25 mg tablet (Zoloft) 25 mg PO QDAY 02/15/24 06/23/24 Hi story guar gum 1 gram chewable tablet 1 g PO DAILY 04/21/24 06/23/24 His tory linaclotide 145 mcg capsule 145 mcg PO QAM #90 caps 04/27/24 0 06/23/24 Rx (Linzess) pantoprazole 40 mg tablet,delayed 40 mg PO BID #180 tabs 04/27/24 0 06/23/24 Rx release Nurse's Note: Started having sharp shooting pain from left to right since Thursday. Has been eating as you recommended. [facility] Medical History Wears dentures Restless legs Dietary restriction Gastric reflux Former smoker History of ectopic Surgical History History of shoulder surgery History of hernia surgery History of hysterectomy History of classical section Social History Smoking Status: Former smoker alcohol intake: never HPI HPI Chief Complaint: pain Details: BETTE WRIGHT, is a 43 F who presents to the office today for OV 04/27/2024 43y/o female presents for follow-up post procedures which were performed for complaints of RUQ pain, N/V and constipation. HIDA revealed an EF of 90% on 03/19/2024. It was recommended she start pantoprazole 40mg daily. EGD completed 04/22/2024 revealed non-bleeding gastric ulcers; biopsies were negative for H. pylori and celiac sprue. Recommend increasing PPI to BID and repeating EGD in 3 months to assess healing of gastric ulcers. Colonoscopy was also performed 04/22/2024 and revealed benign hyperplastic polyps. It is recommended she repeat the colonoscopy in 5 years with additional bowel prep. She complains of nausea with emesis and diarrhea with persistent headache post procedure. She was having these symptoms prior to procedure, but reports exacerbation the past 5 days. Her weight is stable. I have recommended she increase pantoprazole to 40 mg twice daily and repeat EGD in 3 months. I have also recommended that she avoid the use of nonsteroidal medications. Despite starting Benefiber and taking MiraLAX daily she is continuing to experience constipation, mom reported she is only having a BM twice a week with occasional diarrhea. I have recommended she discontinue MiraLAX and start Linzess 145 mcg once daily. She will have labs completed today and keep us apprised of her symptoms. - If she continues to experience nausea and vomiting we will schedule gastric emptying study. Patient Instructions: Increase pantoprazole to 40mg BID - treat gastric ulcer EGD in 3 months Avoid use of non-steroidal medications (Advil) Follow-up with counselor Complete labs today Schedule consult with benefits assistant Discontinue Miralax Continue Benefiber gummy daily Start Linzess 145mcg - take one capsule daily 30 minutes before breakfast MASLD Follow-up in 6 months presents today with: - stabbing RLQ pain began Thursday evening, doubled over - pain improved on Thursday - Thursday evening and Thursday the pain began on the LLQ and severe, stabbing, radiating through to her back - no changes in urination - no blood in urine - denies any N/V - Bowels are moving good, normal, taking Linzess, has a BM most days - last ate last night - has had water this morning - Afebrile 98.2 in office today - She reports this is a stabbing pain, radiates through to back (12/16). ROS Const Constitutional: Positive for headache(s) and weight change (loss); No fatigue or fever(s) ENT ENT: Positive for headache(s); No difficulty swallowing Gastro GI: Positive for constipation; No abdominal pain, belching, bloating, change in bowel habits, change in stool character, coffee ground emesis, cramping, diarrhea, heartburn, difficulty swallowing, feeling full early, excessive fl (more content not included)... Normal [facility] Glomerular filtration rate ( GFR) estimation/1.73 sq m using serum, plasma, or whole bOrdered By: Reyna Wood on 06-23-2024 GFR/1.73 sq M.predicted among non-blacks MDRD (S/P/Bld) [Vol rate/Area] 83 mL/min/{1.73_m2} >60 [facility] Comment on above: mL/min/1.73m2 CKD-EP I Creatinine Equation (2020) Hematocrit Auto (Bld) [Volum e fraction]Ordered By: Reyna Wood on 06-23-2024 Hematocrit (Bld) [Volume fraction] 42.5 % 37-47 [facility] Hemoglobin measurementOrdere d By: Reyna Wood on 06-23-2024 Hemoglobin (Bld) [Mass/Vol] 14.1 g/dL 12.0-15.0 [facility] Immature granulocytes/100 WB C Auto (Bld)Ordered By: Reyna Wood on 06-23-2024 Immature granulocytes/100 WBC (Bld) 0.200 % 0.0-0.9 [facility] Comment on above: IG% - Immature Granu locytes (promyelocytes, myelocytes and metamyelocytes) > 1% indicates that a LEFT SHIFT is Present. LABORATORYOrdered By: Maya العلي on 06-23-2024 Appearance (U) Clear (06/23/24 7:38 PM) Normal Clear AH Auto Urine SS Bilirubin Ql (U) Negative (06/23/24 7:38 PM) Normal Neg-Trace AH Auto Urine SS Color (U) Yellow (06/23/24 7:38 PM) Normal AH Auto Urine SS Glucose Test strip (U) [Mass/Vol] Negative Normal Negative AH Auto Urine SS Hemoglobin Auto test strip (U) [Mass/Vol] Negative (06/23/24 7:38 PM) Normal Neg-Trace AH Auto Urine SS Ketones Ql (U) Negative Normal Neg-Trace AH Auto Urine SS UA Leuk Est Negative (06/23/24 7:38 PM) Normal Negative AH Auto Urine SS UA Nitrite Negative (06/23/24 7:38 PM) Normal Negative AH Auto Urine SS UA pH 6.5 (06/23/24 7:38 PM) Normal 5.0 - 8.0 AH Auto Urine SS UA Protein Negative Normal Negative AH Auto Urine SS UA Spec Grav >=1.030 *ABN* (06/23/24 7:38 PM) Invalid Interpretation Code 1.006-1.029 AH Auto Urine SS UA Specimen Type Clean Catch (06/23/24 7:38 PM) Normal AH Auto Urine SS UA Urobilinogen 1.0 E.U./dL Normal 0.2-1.0 AH Auto Urine SS LABORATORYOrdered By: SYSTEM SYSTEM on 06-23-2024 Basophils (Bld) [#/Vol] 0.0 103/mcL Normal 0.0 - 0.3 10^3/mcL AH Workflow SS Basophils/100 WBC (Bld) 0.7 % Normal 0.0 - 2.5 % AH Workflow SS Calcium [Mass/Vol] 9.7 mg/dL Normal 8.7 - 10. 4 mg/dL AH ADM SS Chloride [Moles/Vol] 105 mmol/L Normal 98 - 11 0 mEq/L AH ADM SS CO2 [Moles/Vol] 30 mmol/L Normal 22 - 32 mEq/L AH ADM SS Creatinine [Mass/Vol] 0.80 mg/dL Normal 0.50 - 1.20 mg/dL AH ADM SS Comment on above: Interpretive Data: T esting performed on shopandsave CH analyzer using enzymatic creatinine methodology. Electrolyte Balance 5.0 mEq/L Normal 4.0 - 15 .0 mEq/L AH ADM SS Eosinophils (Bld) [#/Vol] 0.1 103/mcL Normal 0.0 - 0.7 10^3/mcL AH Workflow SS Eosinophils/100 WBC (Bld) 2.3 % Normal 0.0 - 6.0 % AH Workflow SS Erythrocyte distribution width (RBC) [Ratio] 14.0 % Normal 11.5 - 15.5 % AH Workflow SS Estimated Glomerular Filtration Rate 93 ml/min/1.73sqm Invalid Interpretation Code AH ADM SS Comment on above: Interpretive Data: Stages of Chronic Kidney Disease (CKD) Stage Description eGFR(ml/min/1.73 sq.m.) CKD 1 Normal kidney function or >=90 normal kindney function with possible kidney damage (ex. Proteinuria) CKD 2 Kidney damage with mild loss 60-89 of kidney function CKD 3a Mild to moderate loss of kidney 45-59 function CKD 3b Moderate to severe loss of 30-44 of kindey function CKD 4 Severe loss of kidney function 15-29 CKD 5 Kidney failure <15 Note: (go live 2024) the eGFR calculation was updated to the 2020 CKD-EPI creatinine equation without a race factor to calculate the eGFR results. Glucose [Mass/Vol] 82 mg/dL Normal 70 - 110 mg/dL AH ADM SS Hematocrit (Bld) [Volume fraction] 42.3 % Normal 34.0 - 46.0 % AH Workflow SS Hemoglobin (Bld) [Mass/Vol] 14.5 G/dL Normal 12.0 - 16.0 G/dL AH Workflow SS Lymphocytes (Bld) [#/Vol] 1.6 103/mcL Normal 0.9 - 4.3 10^3/mcL AH Workflow SS Lymphocytes/100 WBC (Bld) 26.2 % Normal 20.0 - 40.0 % AH Workflow SS MCH (RBC) [Entitic mass] 29.1 pg Normal 27.0 - 33.0 pg AH Workflow SS MCHC 34.4 G/dL Normal 32.0 - 36.0 G/dL AH Workflow SS MCV (RBC) [Entitic vol] 84.6 fL Normal 80.0 - 99.0 fL AH Workflow SS Monocyte distribution width Auto (Bld) [Entitic vol] 22.10 1 High 0.00 - 20.00 AH Workflow SS Comment on above: Result Comment: For adults in ED, MDW>20.0 may be associated with a higher risk of sepsis during the first 12hrs of hospital admission Monocytes (Bld) [#/Vol] 0.4 103/mcL Normal 0.1 - 1.4 10^3/mcL AH Workflow SS Monocytes/100 WBC (Bld) 6.3 % Normal 2.0 - 13.0 % AH Workflow SS Neutrophils (Bld) [#/Vol] 4.0 103/mcL Normal 2.3 - 8.1 10^3/mcL AH Workflow SS Neutrophils/100 WBC (Bld) 64.5 % Normal 50.0 - 75.0 % AH Workflow SS Platelet mean volume (Bld) [Entitic vol] 8.1 fL Normal 6.6 - 10.5 fL AH Workflow SS Platelets (Bld) [#/Vol] 282 103/mcL Normal 150 - 450 10^3/mcL AH Workflow SS Potassium [Moles/Vol] 3.5 mmol/L Normal 3.5 - 5.0 mEq/L AH ADM SS RBC (Bld) [#/Vol] 5.01 106/mcL Normal 4.10 - 5.3 0 10^6/mcL AH Workflow SS Sodium [Moles/Vol] 140 mmol/L Normal 136 - 145 mEq/L AH ADM SS Urea nitrogen [Mass/Vol] 10.0 mg/dL Normal 8.0 - 22.0 mg/dL AH ADM SS Urea nitrogen/Creatinine [Mass ratio] 12.5 ratio Normal 10.0 - 22.0 ratio AH ADM SS WBC (Bld) [#/Vol] 6.2 103/mcL Normal 4.5 - 10.8 10^3/mcL AH Workflow SS Laboratory - Chemistry and C hemistry - challengeOrdered By: Reyna Wood on 06-23-2024 AST [Catalytic activity/Vol] 19 U/L <32 [facility] Lipaseon 06-23-2024 Lipase [Catalytic activity/Vol] 27 U/L Normal 13-75 [facility] Comment on above: Result Comment: Plea se note: LIPASE revised reference range effective 22. New Lipase methodology. Expected to produce lower values than the previous assay method. NEW Reference Range: 13 - 75 U/L Performed By: #### L 100.0100, L501.2450, L500.4050, M100.2200 ####[facility] [address] [place], [place], [address] Lipase measurementOrdered By : Reyna Wood on 06-23-2024 Lipase [Catalytic activity/Vol] 27 U/L 13-75 [facility] Comment on above: Please note:LIPASE r evised reference range effective 22. New Lipase methodology. Expected to produce lower values than the previous assay method. NEW Reference Range: 13 - 75 U/L Lymphocytes Auto (Unsp spec) [#/Vol]Ordered By: Reyna Wood on 06-23-2024 Lymphocytes (Bld) [#/Vol] 1.40 10*3/uL 0.83-4.51 [facility] Lymphocytes/100 WBC Auto (Un sp spec)Ordered By: Reyna Wood on 06-23-2024 Lymphocytes/100 WBC (Bld) 28.3 % 19-41 [facility] MCV (mean corpuscular volume ) determinationOrdered By: Reyna Wood on 06-23-2024 MCV (RBC) [Entitic vol] 85.5 fL 81-99 [facility] Mean corpuscular hemoglobin (MCH) determinationOrdered By: Reyna Wood on 06-23-2024 MCH (RBC) [Entitic mass] 28.4 pg 27.0-32.0 [facility] Mean corpuscular hemoglobin concentration (MCHC) determinationOrdered By: Reyna Wood on 06-23-2024 MCHC (RBC) [Mass/Vol] 33.2 g/dL 32-36 [facility] Mean platelet volume determi nationOrdered By: Reyna Wood on 06-23-2024 Platelet mean volume (Bld) [Entitic vol] 9.8 fL 6.2-12.0 [facility] Monocyte percentageOrdered B y: Reyna Wood on 06-23-2024 Monocytes/100 WBC (Bld) 5.7 % 0-10 [facility] Neutrophil percentageOrdered By: Reyna Wood on 06-23-2024 Neutrophils/100 WBC (Bld) 61.8 % 47-70 [facility] Nucleated red blood cell per centageOrdered By: Reyna Wood on 06-23-2024 Nucleated RBC/100 WBC (Bld) [Ratio] 0 % 0-5 [facility] Platelet countOrdered By: Anthony Wood on 06-23-2024 Platelets (Bld) [#/Vol] 249 10*3/uL 150-450 [facility] Potassium (Unsp spec) [Mass/ Vol]Ordered By: Reyna Wood on 06-23-2024 Potassium [Moles/Vol] 3.9 mmol/L 3.3-5.1 [facility] Potassium measurement (mass/ volume)Ordered By: Reyna Wood on 06-23-2024 Potassium (Unsp spec) [Mass/Vol] 3.9 mmol/L 3.3-5.1 [facility] RBC Auto (Bld) [#/Vol]Ordere d By: Reyna Wood on 06-23-2024 RBC (Bld) [#/Vol] 4.97 10*6/uL 4.2-5.4 [facility] Serum creatinine measurement (mass/volume)Ordered By: Reyna Wood on 06-23-2024 Creatinine [Mass/Vol] 0.88 mg/dL 0.70-1.20 [facility] Serum globulin measurementOr dered By: Reyna Wood on 06-23-2024 Globulin (S) [Mass/Vol] 2.9 g/dL 2.2-4.2 [facility] Serum glucose measurement (m ass/volume)Ordered By: Reyna Wood on 06-23-2024 Glucose [Mass/Vol] 97 mg/dL 70-99 [facility] Serum or plasma alanine peters otransferase (ALT) measurementOrdered By: Reyna Wood on 06-23-2024 ALT [Catalytic activity/Vol] 20 U/L <35 [facility] Serum or plasma albumin ayo urement (mass/volume)Ordered By: Reyna Wood on 06-23-2024 Albumin [Mass/Vol] 4.2 g/dL 3.5-5.0 [facility] Serum or plasma albumin/glob ulin mass ratioOrdered By: Reyna Wood on 06-23-2024 Albumin/Globulin [Mass ratio] 1.5 {ratio} 0.9-2.4 [facility] Serum or plasma alkaline austen sphatase measurementOrdered By: Reyna Wood on 06-23-2024 ALP [Catalytic activity/Vol] 89 U/L 35-104 [facility] Serum or plasma calcium ayo urement (mass/volume)Ordered By: Reyna Wood on 06-23-2024 Calcium [Mass/Vol] 9.1 mg/dL 7.6-11.0 [facility] Serum or plasma urea nitroge n measurement (mass/volume)Ordered By: Reyna Wood on 06-23-2024 Urea nitrogen [Mass/Vol] 14 mg/dL 4-19 [facility] Sodium levelOrdered By: Elaina Wood on 06-23-2024 Sodium [Moles/Vol] 139 mmol/L 133-145 [facility] Total proteinOrdered By: Rosemary Wood on 06-23-2024 Protein [Mass/Vol] 7.1 g/dL 5.9-8.4 [facility] UAon 06-23-2024 Color (U) Yellow Normal [facility] Comment on above: Performed By: #### M DW, ADIFF, CBC, CMP, ANEU, GFR #### [place] [address] Glucose (U) [Mass/Vol] Negative Normal Negative [facility] Comment on above: Performed By: #### M DW, ADIFF, CBC, CMP, ANEU, GFR #### [place] [address] Ketones Ql (U) Negative Normal Neg-Trace [facility] Comment on above: Performed By: #### M DW, ADIFF, CBC, CMP, ANEU, GFR #### [place] [address] UA Appear Clear Normal Clear [facility] Comment on above: Performed By: #### M DW, ADIFF, CBC, CMP, ANEU, GFR #### [place] [id number] UA Blood Negative Normal Neg-Trace [facility] Comment on above: Performed By: #### M DW, ADIFF, CBC, CMP, ANEU, GFR #### [place] [id number] UA Leuk Est Negative Normal Negative [facility] Comment on above: Performed By: #### M DW, ADIFF, CBC, CMP, ANEU, GFR #### [place] [id number] UA Nitrite Negative Normal Negative [facility] Comment on above: Performed By: #### M DW, ADIFF, CBC, CMP, ANEU, GFR #### [place] [id number] UA pH 6.5 Normal 5.0 - 8.0 [facility] Comment on above: Performed By: #### M DW, ADIFF, CBC, CMP, ANEU, GFR #### [place] [id number] UA Protein Negative Normal Negative [facility] Comment on above: Performed By: #### M DW, ADIFF, CBC, CMP, ANEU, GFR #### [address] [address] UA Spec Grav >=1.030 Abnormal 1.006-1.029 [facility] Comment on above: Performed By: #### M DW, ADIFF, CBC, CMP, ANEU, GFR #### [address] [address] UA Specimen Type Clean Catch Normal [facility] Comment on above: Performed By: #### M DW, ADIFF, CBC, CMP, ANEU, GFR #### [address] [address] UA Urobilinogen 1.0 E.U./dL Normal 0.2-1.0 [facility] Comment on above: Performed By: #### M DW, ADIFF, CBC, CMP, ANEU, GFR #### [place] [address] Urobilinogen (U) [Mass/Vol] Negative Normal Neg-Trace [facility] Comment on above: Performed By: #### M DW, ADIFF, CBC, CMP, ANEU, GFR #### [place] [address] Urine cultureOrdered By: Rosemary Wood on 06-23-2024 Bacteria identified Cx Nom (U) Mixed Gram Pos & Gram Neg Org Abnormal [facility] White blood cell (WBC) count Ordered By: Reyna Wood on 06-23-2024 WBC (Bld) [#/Vol] 4.9 10*3/uL 4.4-11.0 [facility] .Auto Diffon 06-13-2024 Basophil, Absolute 0.1 10 3/mcL Normal 0.0-0.3 [facility] Comment on above: Performed By: #### M DW, ANEU, LAC, ADIFF, CMP, CBC, GFR ####[facility] [place], [place] [address] Basophils/100 WBC (Bld) 1.0 % Normal 0.0-2.5 [facility] Comment on above: Performed By: #### M DW, ANEU, LAC, ADIFF, CMP, CBC, GFR ####[address] [place], [place] [address] Eosinophil, Absolute 0.1 10 3/mcL Normal 0.0-0.7 [facility] Comment on above: Performed By: #### M DW, ANEU, LAC, ADIFF, CMP, CBC, GFR ####[address] [place], [place] [address] Eosinophils/100 WBC (Bld) 1.8 % Normal 0.0-6.0 [facility] Comment on above: Performed By: #### M DW, ANEU, LAC, ADIFF, CMP, CBC, GFR ####[address] [place], [place] [address] Lymphocyte, Absolute 1.9 10 3/mcL Normal 0.9-4.3 [facility] Comment on above: Performed By: #### M DW, ANEU, LAC, ADIFF, CMP, CBC, GFR ####[address] [place], [place] [address] Lymphocytes/100 WBC (Bld) 27.4 % Normal 20.0-40.0 [facility] Comment on above: Performed By: #### M DW, ANEU, LAC, ADIFF, CMP, CBC, GFR ####[address] [place], [place] [address] Monocyte, Absolute 0.3 10 3/mcL Normal 0.1-1.4 JAIDA MAN MASSILLON Comment on above: Performed By: #### M DW, ANEU, LAC, ADIFF, CMP, CBC, GFR ####Juan [address] [place], [place] [address] Monocytes/100 WBC (Bld) 4.7 % Normal 2.0-13.0 JUAN MASSILLON Comment on above: Performed By: #### M DW, ANEU, LAC, ADIFF, CMP, CBC, GFR ####Juan [address] [place], [place] [address] Neutrophils/100 WBC (Bld) 65.1 % Normal 50.0-75.0 JUAN MASSILLON Comment on above: Performed By: #### M DW, ANEU, LAC, ADIFF, CMP, CBC, GFR ####Juan [address] [place], [place] [address] .GFRon 06-13-2024 Estimated Glomerular Filtration Rate 76 ml/min/1.73sqm Normal JUAN MASSILLON Comment on above: Result Comment: Stages of Chronic Kidney Disease (CKD) Stage Description eGFR(ml/min/1.73 sq.m.) CKD 1 Normal kidney function or >=90 normal kindney function with possible kidney damage (ex. Proteinuria) CKD 2 Kidney damage with mild loss 60-89 of kidney function CKD 3a Mild to moderate loss of kidney 45-59 function CKD 3b Moderate to severe loss of 30-44 of kindey function CKD 4 Severe loss of kidney function 15-29 CKD 5 Kidney failure <15 Note: (go live 2024) the eGFR calculation was updated to the 2020 CKD-EPI creatinine equation without a race factor to calculate the eGFR results. Performed By: #### M DW, ANEU, LAC, ADIFF, CMP, CBC, GFR ####Juan [address] [place], [place] [address] .MDWon 06-13-2024 Monocyte Distribution Width 17.75 Normal 0.00-20.00 JUAN MASSILLON Comment on above: Result Comment: For ED adult patients suspected of sepsis, MDW<=20.0 does not rule out sepsis or risk of sepsis Performed By: #### M DW, ANEU, LAC, ADIFF, CMP, CBC, GFR ####Juan [address] [place], [place] [address] .NEUABSon 06-13-2024 Neutrophil, Absolute 4.5 10 3/mcL Normal 2.3-8.1 AU LTMAN MASSILLON Comment on above: Performed By: #### M DW, ANEU, LAC, ADIFF, CMP, CBC, GFR ####[address] [place] [id number] CBCon 06-13-2024 Erythrocyte distribution width (RBC) [Ratio] 14.1 % Normal 11.5-15.5 JUAN MASSILLON Comment on above: Performed By: #### M DW, ANEU, LAC, ADIFF, CMP, CBC, GFR ####Juan [address] [place] [address] Hematocrit (Bld) [Volume fraction] 44.0 % Normal 34.0-46.0 JUAN MASSILLON Comment on above: Performed By: #### M DW, ANEU, LAC, ADIFF, CMP, CBC, GFR ####Juan [address] [place] [address] Hgb 14.8 G/dL Normal 12.0-16.0 JUAN MASSILLON Comment on above: Performed By: #### M DW, ANEU, LAC, ADIFF, CMP, CBC, GFR ####Juan [address] [place] [id number] MCH (RBC) [Entitic mass] 29.0 pg Normal 27.0-33.0 [facility] Comment on above: Performed By: #### M DW, ANEU, LAC, ADIFF, CMP, CBC, GFR ####Juan [address] [place] [address] MCHC 33.6 G/dL Normal 32.0-36.0 JUAN MASSILLO Comment on above: Performed By: #### M DW, ANEU, LAC, ADIFF, CMP, CBC, GFR ####Juan [address] [place] [id number] MCV (RBC) [Entitic vol] 86.3 fL Normal 80.0-99.0 JUAN MASSILLON Comment on above: Performed By: #### M DW, ANEU, LAC, ADIFF, CMP, CBC, GFR ####Juan [address] [place] [id number] Platelet 272 10 3/mcL Normal 150-450 JUAN MASSILLON Comment on above: Performed By: #### M DW, ANEU, LAC, ADIFF, CMP, CBC, GFR ####Juan [address] [place], [place] [address] Platelet mean volume (Bld) [Entitic vol] 8.0 fL Normal 6.6-10.5 JUAN MASSILLON Comment on above: Performed By: #### M DW, ANEU, LAC, ADIFF, CMP, CBC, GFR ####Juan [address] [place] [address] RBC 5.10 10 6/mcL Normal 4.10-5.30 JUAN MASSILLON Comment on above: Performed By: #### M DW, ANEU, LAC, ADIFF, CMP, CBC, GFR ####Juan [address] [place] [address] WBC 6.9 10 3/mcL Normal 4.5-10.8 JUAN MASSILLON Comment on above: Performed By: #### M DW, ANEU, LAC, ADIFF, CMP, CBC, GFR ####Juan [address] [place] [address] CMPon 06-13-2024 Albumin Level 4.1 G/dL Normal 3.5-5.0 JUAN MASSILLON Comment on above: Performed By: #### M DW, ANEU, LAC, ADIFF, CMP, CBC, GFR ####Juan [address] [place] [address] Albumin/Globulin [Mass ratio] 1.2 {ratio} Normal 1.1-2.5 JUAN MASSILLON Comment on above: Performed By: #### M DW, ANEU, LAC, ADIFF, CMP, CBC, GFR ####Juan [address] [place] [phone] ALP [Catalytic activity/Vol] 93 U/L Normal 40-135 JUAN MASSILLON Comment on above: Performed By: #### M DW, ANEU, LAC, ADIFF, CMP, CBC, GFR ####Juan [address] [place] [address] ALT [Catalytic activity/Vol] 25 U/L Normal 14-59 JUAN MASSILLON Comment on above: Performed By: #### M DW, ANEU, LAC, ADIFF, CMP, CBC, GFR ####Juan [address] [place], [place] [address] AST [Catalytic activity/Vol] 15 U/L Normal 10-40 JUAN MASSILLON Comment on above: Performed By: #### M DW, ANEU, LAC, ADIFF, CMP, CBC, GFR ####Juan [address] [place], [place] [address] Bili Total 1.1 mg/dL High 0.2-1.0 JUAN MASSILLON Comment on above: Result Comment: Use of this assay is not recommended for patients undergoing treatment with eltrombopag due to the potential for falsely elevated results. Performed By: #### M DW, ANEU, LAC, ADIFF, CMP, CBC, GFR ####Juan [address] [place], [place] [address] BUN/Creatinine Ratio 7 ratio Normal 7-27 JAIDA MAN MASSILLON Comment on above: Performed By: #### M DW, ANEU, LAC, ADIFF, CMP, CBC, GFR ####Juan [address] [place], [place] [address] Calcium [Mass/Vol] 9.3 mg/dL Normal 8.4-10.2 AULTMA N MASSILLON Comment on above: Performed By: #### M DW, ANEU, LAC, ADIFF, CMP, CBC, GFR ####Juan [address] [place], [place] [address] Chloride [Moles/Vol] 103 mmol/L Normal 98-107 JAIDA MAN MASSILLON Comment on above: Performed By: #### M DW, ANEU, LAC, ADIFF, CMP, CBC, GFR ####Juan [address] [place], [place] [address] CO2 [Moles/Vol] 28 mmol/L Normal 22-29 JUAN MASSILLON Comment on above: Performed By: #### M DW, ANEU, LAC, ADIFF, CMP, CBC, GFR ####Juan [address] [place], [place] [address] Creatinine [Mass/Vol] 0.95 mg/dL Normal 0.55-1.02 AUL TMAN MASSILLON Comment on above: Result Comment: Test ing performed on Siemens Dimension EXL analyzer using a modified kinetic Rosie technique. Performed By: #### M DW, ANEU, LAC, ADIFF, CMP, CBC, GFR ####J[address] [place], [place] [address] Electrolyte Balance 8.0 mEq/L Normal 4.0-15.0 AULTM AN MASSILLON Comment on above: Performed By: #### M DW, ANEU, LAC, ADIFF, CMP, CBC, GFR ####Juan [address] [place], [place] [address] Globulin 3.5 G/dL Normal 1.5-3.8 JUAN MASSILLON Comment on above: Performed By: #### M DW, ANEU, LAC, ADIFF, CMP, CBC, GFR ####Juan [address] [place], [place] [address] Glucose [Mass/Vol] 94 mg/dL Normal 70-105 AULTMA N MASSILLON Comment on above: Performed By: #### M DW, ANEU, LAC, ADIFF, CMP, CBC, GFR ####Juan [address] [place], [place] [address] Potassium [Moles/Vol] 3.4 mmol/L Low 3.5-5.1 AUL TMAN MASSILLON Comment on above: Performed By: #### M DW, ANEU, LAC, ADIFF, CMP, CBC, GFR ####Juan [address] [place], [place] [address] Sodium [Moles/Vol] 139 mmol/L Normal 136-145 AULTMA N MASSILLON Comment on above: Performed By: #### M DW, ANEU, LAC, ADIFF, CMP, CBC, GFR ####Juan [address] [place], [place] [address] Total Protein 7.6 G/dL Normal 6.4-8.2 JUAN MASSILLON Comment on above: Performed By: #### M DW, ANEU, LAC, ADIFF, CMP, CBC, GFR ####Juan [address] [place], [place] [address] Urea nitrogen [Mass/Vol] 7 mg/dL Normal 7-18 JUAN ARIAS Comment on above: Performed By: #### M DW, ANEU, LAC, ADIFF, CMP, CBC, GFR ####Juan [address] [place], [place] [address] CNOVon 06-13-2024 CNOV Office Visit (UCMMAS ) BETTE WRIGHT ([id number]) 1980 F Date Time Provider Department 06/13/24 2:10 PM BETO STEPHENS JR [facility] During your visit today, we recorded the following information about you: Temperature Pulse Respiration Blood pressure 97.9 degrees 69/minute 18/minute 124/88 Weight 94.2 kg Beto Stephens Jr., SPIKEMAKING SUPERVISOR.HEAD OF BIOLOGY 06/13/2024 4:10 PM Signed [facility] ANH Wright is a 43 year old female. Patient presents with: Derm Problem: Last Thursday notice bleeding from naval since has become extremely painful to the touch. 43-year-old female presents today complaining of bleeding from the navel that has resolved and right upper quadrant abdominal pain. She now states however the area is very sore and tender to touch. She notes history of stomach ulcers and hernia surgery. She is questioning if either one of them could cause her current symptoms. Patient asked about what happens when she eats fatty foods. She states if she eats hamburg or a salad with an oil dressing she begins to have pain in the right upper quadrant that she states is due to her ulcers. The history is provided by the patient. Review of Systems Constitutional: Negative for fever. HENT: Negative for sore throat. Respiratory: Negative for shortness of breath. Gastrointestinal: Positive for abdominal pain. Negative for nausea. Skin: Positive for rash. Neurological: Negative for headaches. Objective BP 124/88 Pulse 69 Temp 36.6 ?C (97.9 ?F) (Oral) Resp 18 Wt 94.2 kg (207 lb 9.6 oz) LMP (LMP Unknown) SpO2 98% BMI 35.63 kg/m? Physical Exam Vitals and nursing note reviewed. Constitutional: Appearance: Normal appearance. HENT: Head: Normocephalic and atraumatic. Eyes: Extraocular Movements: Extraocular movements intact. Conjunctiva/sclera: Conjunctivae normal. Cardiovascular: Rate and Rhythm: Normal rate. Abdominal: General: Bowel sounds are normal. Palpations: Abdomen is soft. There is no mass. Tenderness: There is abdominal tenderness. Comments: Right upper quadrant tenderness to palpation, patient has a positive Morrison sign and negative McBurney's point tenderness. To the right lateral horizontal axis Becht of the navel there is a small area of induration that is very tender to touch. No warmth felt. There is no purulent material or blood leaking from the navel area. Skin: General: Skin is warm and dry. Findings: No erythema. Neurological: Mental Status: She is alert and oriented to person, place, and time. Psychiatric: Behavior: Behavior normal. Assessment AND Plan Cellulitis of skin Based on today's exam and concern for cellulitis of the skin. As patient does not have any purulent material I was unable to do a wound culture. I treated her with Keflex. Patient informed to return or follow-up at an emergency room if her symptoms do not resolve. Orders: cephALEXin (KEFLEX) 500 mg capsule; Take 1 capsule by mouth four times daily for 7 days. Right upper quadrant abdominal pain Based on the examination I feel she has a gallbladder issue in the right upper quadrant and this is not secondary to ulcers that she was informed of previously. I recommended an ultrasound or CAT scan. Patient was educated the urgent care does not have these tools available to it and she would have to go to an emergency room for further evaluation. At this time I consider patient stable however further evaluation of this needs to be performed to determine if a cholecystectomy is indicated. Differential Diagnoses - Cellulitis is more likely for the following reason(s): suggested by HANDP - Gallbladder disease is more likely for the following reason(s): Suggested by exam findings Disposition The patient was discharged. Procedures Beto Stephens Jr., MAXWELL.ANY 06/13/2024 3:14 PM Signed You need to follow for further evaluation of the right upper stomach pain. Based on exam I am concerned with a gallbladder issue. A CAT scan or ultrasound should determine if this is present. Referring Provider: SELF [200] Allergies As of Date: 06/13/2024 (No Known Allergies) Date Reviewed: 06/13/2024 Reviewed by: Beto Stephens Jr., MAXWELL.HEAD OF BIOLOGY - Fully Assessed Reason for Visit: Derm Problem [33] Cmt: Last Thursday notice bleeding from naval since has become extremely painful to the touch. Primary Visit Diagnosis:Cellulitis of skin [L03.90] Other Visit Diagnosis:Right upper quadrant abdominal pain [R10.11] Order(s):cephALEXin (KEFLEX) 500 mg capsuleTake 1 capsule by mouth four times daily for 7 days.Disp: 28 capsuleRfl: 0 Prescriptions as of 06/13/2024 - pantoprazole DR (PROTONIX) 40 mg tablet TAKE 1 TABLET BY MOUTH ONCE DAILY 30 MINUTES BEFORE BREAKFAST EVERY MORNING - buPROPion XL (WELLBUTRIN XL) 150 mg 24 hr tablet Take 1 tablet by mouth once jermaine (more content not included)... Normal [facility] CT ABD/PELVIS W/ IV CONTRAST ONLYon 06-13-2024 CT ABD/PELVIS W/ IV CONTRAST ONLY ORIGINAL EXAMINATION: CT OF THE ABDOMEN AND PELVIS WITH CONTRAST 06/13/2024 9:49 pm TECHNIQUE: CT of the abdomen and pelvis was performed with the administration of intravenous contrast. Multiplanar reformatted images are provided for review. Automated exposure control, iterative reconstruction, and/or weight based adjustment of the mA/kV was utilized to reduce the radiation dose to as low as reasonably achievable. COMPARISON: CT abdomen pelvis with contrast 01/14/2024. HISTORY: ORDERING SYSTEM PROVIDED HISTORY: Reason for Exam: BLEEDING FROM NAVAL LAST WEEK, UMBILICAL PAIN, TENDERNESS OVER RLQ, NAUSEA AND VOMTIING TODAY, CONSTIPATION X MONTHS pain FINDINGS: Visualized portion of the lower chest demonstrates no acute abnormality. Liver is within normal limits for size and demonstrates a smooth contour. No abnormal enhancement. Gallbladder is within normal limits. The spleen, pancreas and adrenal glands are unremarkable. Kidneys are within normal limits for size and enhance symmetrically. No hydroureteronephrosis is identified bilaterally. The left lower pole contains a punctate calculus. The urinary bladder is decompressed. The uterus is surgically absent. The stomach is largely decompressed. Bowel gas is noted to the level of the rectum without evidence of obstruction. No dilated loops of bowel are identified. The appendix is visualized and unremarkable. No free air or fluid. No abdominal or pelvic adenopathy. No acute vascular abnormality. No acute osseous or soft tissue abnormalities are noted. Specifically, within the periumbilical soft tissues, no subcutaneous emphysema or drainable fluid collection is visualized. IMPRESSION: 1. No acute abnormality within the abdomen or pelvis. 2. Punctate nonobstructive left nephrolithiasis. Interpreted by: Brody Catherine Preliminary Report By: Brody Catherine Electronically signed By Brody Catherine Dictated Date: 06/13/2024 9:57:36 PM Prelim Date: 06/13/2024 10:00:51 PM Sign Date: 06/13/2024 10:00:51 PM Ordering Provider: EDITH HAYNES Normal JUAN MASSILLON LACon 06-13-2024 Lactic Acid Lvl 0.8 mmol/L Normal 0.4-2.0 JUAN MASSILLON Comment on above: Performed By: #### M DW, ANEU, LAC, ADIFF, CMP, CBC, GFR ####Juan [address] [place], [place] [address] PREGUon 06-13-2024 HCG ( test) Ql (U) Negative Normal JUAN MASSILLON Comment on above: Performed By: #### P REGU #### Juan [place] [address] [place], [place] [address] test (u) int Invalid Interpretation Code JUAN MASSILLON Comment on above: Result Comment: HCG not detected. Very dilute urine specimens, as indicated by a low specific gravity, may not contain direct marketing representative levels of hCG. If is still suspected, a first morning urine specimen should be collected 48 hours later and tested. Performed By: #### P REGU #### Juan [place] [address] [place], [place] [address] UAon 06-13-2024 Color (U) Light yellow Normal JUAN MASSILLON Comment on above: Performed By: #### U A #### Juan [place] [address] [place], [place] [address] Glucose (U) [Mass/Vol] Negative Normal Negative AU LTMAN MASSILLON Comment on above: Performed By: #### U A #### Juan [place] [address] [place], [place] [address] Ketones Ql (U) Negative Normal Neg-Trace JUAN MASSILLON Comment on above: Performed By: #### U A #### Juan [place] [address] [place] [id number] UA Appear Clear Normal JUAN MASSILLON Comment on above: Performed By: #### U A #### Juan [place] [address] [place] [id number] UA Blood Trace Normal Neg-Trace JUAN MASSILLON Comment on above: Performed By: #### U A #### Juan [place] [address] [place] [id number] UA Leuk Est Negative Normal Negative JUAN MASSILLON Comment on above: Performed By: #### U A #### Juan [place] [address] [place] [address] UA Nitrite Negative Normal Negative JUAN MASSILLON Comment on above: Performed By: #### U A #### Juan [place] [address] [place] [id number] UA pH 6.0 Normal 5.0 - 8.0 JUAN MASSILLON Comment on above: Performed By: #### U A #### Juan [place] [address] [place] [id number] UA Protein Negative Normal Negative JUAN MASSILLON Comment on above: Performed By: #### U A #### Juan [place] [address] [place], [place] [address] UA Spec Grav <=1.005 Abnormal JUAN MASSILLON Comment on above: Performed By: #### U A #### Juan [place] [address] [place] [id number] UA Specimen Type Clean Catch Normal JUAN MASSILLON Comment on above: Performed By: #### U A #### Juan [place] [address] [place], [place] [address] UA Urobilinogen 0.2 E.U./dL Normal JUAN ARIAS Comment on above: Performed By: #### U A #### Juan [address] [place], [place] [address] Urobilinogen (U) [Mass/Vol] Negative Normal Neg-Trace JUAN ARIAS Comment on above: Performed By: #### U A #### Juan [address] [place], [place] [address] L3410.9998on 04-29-2024 [facility] Misc. COMMENT Normal . [facility] Comment on above: Order Comment: [id number] 9ELG TEST TIGER RF Result Comment: Test Ordered: [id number] Enhanced Liver Fibrosis (ELF) ELF(TM) Score 8.37 Reference Range: <9.80 ELF(TM) Score Interpretation: Risk cut-offs to assess the likelihood of progression to cirrhosis and liver-related clinical events within 3.9 years following baseline ELF score (IQR: 14.0-22.4 months)*: Lower risk < 9.80 Mid risk 9.80 - 11.29 Higher risk >11.29 Note: The ELF(TM) Score is a unitless numerical value. *Quintin SA, Jelani VW, Okellie T, et al. Selonsertib for patients with bridging fibrosis or compensated cirrhosis due to CAMPA: Results from randomized phase III STELLAR trials. J Hepatol. 2020 Sep;73(1):26-39. Performed at: - [facility] [id number] Senior Cost Estimator: Shauna Yu MD, Phone: [phone] Performed at: - [facility] [id number] Senior Cost Estimator: Elton Kirkpatrick PhD, Phone: [phone] Performed By: #### L 3410.9998, L500.4050, L100.0100 ####[facility] [address] [place], [address] Hepatitis A AB, Totalon 02-2 HEPATITIS A,TOT Negative Normal Negative [facility] Comment on above: Result Comment: Comm ent: The HAV total antibody assay detects both IgG and IgM but does not differentiate between them. A negative result suggests susceptibility to infection. A positive result could be due to vaccination, previously resolved infection or active infection. Testing for HAV IgM should be performed if active HAV infection is suspected. [facility] offers profiles that will automatically reflex positive HAV total antibody results to IgM (e.g., panel #[id number] HAV Antibody w/ Rfx). Performed at: [address] [id number] Senior Cost Estimator: Elton Kirkpatrick PhD, Phone: [phone] Performed By: #### L 3890.6100, L3890.6300, L3100.0460, L3100.0300, L3890.6200 ####[facility] [address] [place], [place], [id number] Hepatitis B Core Ab Totalon 04-28-2024 HEP B CORE,TOT Negative Normal Negative [facility] Comment on above: Performed By: #### L 3890.6100, L3890.6300, L3100.0460, L3100.0300, L3890.6200 ####[facility] [address] [facility] [place], [place], [id number] Absolute lymphocyte countOrd ered By: Reyna Wood on 04-27-2024 Lymphocytes Auto (Unsp spec) [#/Vol] 1.53 10*3/uL 0.83-4.51 [facility] Absolute neutrophil countOrd ered By: Reyna Wood on 04-27-2024 Neutrophils (Bld) [#/Vol] 2.5 10*3/uL 2.0-7.7 [facility] Albumin to globulin ratioOrd ered By: Reyna Wood on 04-27-2024 Albumin/Globulin [Mass ratio] 1.0 {ratio} 0.9-2.4 [facility] Automated lymphocyte count a s percentage of total leukocytesOrdered By: Reyna Wood on 04-27-2024 Lymphocytes/100 WBC Auto (Unsp spec) 33.6 % - [facility] Basophil percentageOrdered B y: Reyna Wood on 04-27-2024 Basophils/100 WBC (Bld) 0.9 % 0-1 [facility] Bilirubin, totalOrdered By: Reyna Wood on 04-27-2024 Bilirubin [Mass/Vol] 1.10 mg/dL High 0.20-1.00 [facility] Comment on above: For patients on eltr ombopag therapy, use of Dimension [place] TBIL is not recommended. Blood urea nitrogen (BUN)/cr eatinine ratioOrdered By: Reyna Wood on 04-27-2024 Urea nitrogen/Creatinine [Mass ratio] 13.8 mg/mg 10- [facility] CBC W/Diff, Automatedon 04-09 Absolute Lymph 1.53 X10 3/uL Normal 0.83-4.51 [facility] Comment on above: Performed By: #### L 3410.9998, L500.4050, L100.0100 ####[facility] [address] [place], [address] Absolute Neut 2.5 X10 3/uL Normal 2.0-7.7 [facility] Comment on above: Performed By: #### L 3410.9998, L500.4050, L100.0100 ####[facility] [address] [place], [address] Basophils/100 WBC (Bld) 0.9 % Normal 0-1 [facility] Comment on above: Performed By: #### L 3410.9998, L500.4050, L100.0100 ####[facility] [address] [place], [address] Eosinophils/100 WBC (Bld) 4.4 % Normal 0-5 [facility] Comment on above: Performed By: #### L 3410.9998, L500.4050, L100.0100 ####[facility] [address] [place], [address] Erythrocyte distribution width (RBC) [Ratio] 12.8 % Normal 11.6-14.6 [facility] Comment on above: Performed By: #### L 3410.9998, L500.4050, L100.0100 ####[facility] [address] [place], [address] Hematocrit (Bld) [Volume fraction] 42.7 % Normal 37-47 [facility] Comment on above: Performed By: #### L 3410.9998, L500.4050, L100.0100 ####[facility] [address] [place], [address] Hemoglobin (Bld) [Mass/Vol] 14.1 g/dL Normal 12.0-15.0 [facility] Comment on above: Performed By: #### L 3410.9998, L500.4050, L100.0100 ####[facility] [address] [place], [address] IG% 0.200 Normal 0.0-0.9 [facility] Comment on above: Result Comment: IG% - Immature Granulocytes (promyelocytes, myelocytes and metamyelocytes) > 1% indicates that a LEFT SHIFT is Present. Performed By: #### L 3410.9998, L500.4050, L100.0100 ####[facility] [address] [place], [address] Lymphocytes/100 WBC (Bld) 33.6 % Normal 19-41 [facility] Comment on above: Performed By: #### L 3410.9998, L500.4050, L100.0100 ####[facility] [address] [place], [address] MCH (RBC) [Entitic mass] 28.1 pg Normal 27.0-32.0 [facility] Comment on above: Performed By: #### L 3410.9998, L500.4050, L100.0100 ####[facility] [address] [place], [address] MCHC (RBC) [Mass/Vol] 33.0 g/dL Normal 32-36 [facility] Comment on above: Performed By: #### L 3410.9998, L500.4050, L100.0100 ####[facility] [address] [place], [address] MCV (RBC) [Entitic vol] 85.1 fL Normal 81-99 [facility] Comment on above: Performed By: #### L 3410.9998, L500.4050, L100.0100 ####[facility] [address] [place], [address] Monocytes/100 WBC (Bld) 5.5 % Normal 0-10 [facility] Comment on above: Performed By: #### L 3410.9998, L500.4050, L100.0100 ####[facility] [address] [place], [address] Neutrophils/100 WBC (Bld) 55.4 % Normal 47-70 [facility] Comment on above: Performed By: #### L 3410.9998, L500.4050, L100.0100 ####[facility] [address] [place], [address] Nucleated RBC (Bld) [#/Vol] 0 10*3/uL Normal 0-5 [facility] Comment on above: Performed By: #### L 3410.9998, L500.4050, L100.0100 ####[facility] [address] [place], [address] Platelet mean volume (Bld) [Entitic vol] 9.7 fL Normal 6.2-12.0 [facility] Comment on above: Performed By: #### L 3410.9998, L500.4050, L100.0100 ####[facility] [address] [place], [address] Platelets (Bld) [#/Vol] 249 10*3/uL Normal 150-450 [facility] Comment on above: Performed By: #### L 3410.9998, L500.4050, L100.0100 ####[facility] [address] [place], [address] RBC (Bld) [#/Vol] 5.02 10*6/uL Normal 4.2-5.4 [facility] Comment on above: Performed By: #### L 3410.9998, L500.4050, L100.0100 ####[facility] [address] [place], [address] RDW SD 39.3 fl Normal 35.1-43.9 [facility] Comment on above: Performed By: #### L 3410.9998, L500.4050, L100.0100 ####[facility] [address] [place], [address] WBC (Bld) [#/Vol] 4.6 10*3/uL Normal 4.4-11.0 [facility] Comment on above: Performed By: #### L 3410.9998, L500.4050, L100.0100 ####[facility] [address] [place], [address] Carbon dioxide measurementOr dered By: Renya Wood on 04-27-2024 CO2 [Moles/Vol] 27.0 mmol/L 21.0-32.0 [facility] Chloride measurementOrdered By: Reyna Wood on 04-27-2024 Chloride [Moles/Vol] 106 mmol/L 98-107 [facility] Comprehensive Metabolic Prof ilon 04-27-2024 Albumin [Mass/Vol] 3.5 g/dL Normal 3.2-5.0 [facility] Comment on above: Performed By: #### L 3410.9998, L500.4050, L100.0100 ####[facility] [address] [place], [address] Albumin/Globulin [Mass ratio] 1.0 {ratio} Normal 0.9-2.4 [facility] Comment on above: Performed By: #### L 3410.9998, L500.4050, L100.0100 ####[facility] [address] [place], [address] ALK P 84 U/L Normal 45-117 [facility] Comment on above: Performed By: #### L 3410.9998, L500.4050, L100.0100 ####[facility] [address] [place], [address] ALT [Catalytic activity/Vol] 21 U/L Normal 13-56 [facility] Comment on above: Performed By: #### L 3410.9998, L500.4050, L100.0100 ####[facility] [address] [place], [address] AST [Catalytic activity/Vol] 13 U/L Low 15-37 [facility] Comment on above: Performed By: #### L 3410.9998, L500.4050, L100.0100 ####[facility] [address] [place], [address] Bilirubin [Mass/Vol] 1.10 mg/dL High 0.20-1.00 [facility] Comment on above: Result Comment: For patients on eltrombopag therapy, use of Dimension [place] TBIL is not recommended. Performed By: #### L 3410.9998, L500.4050, L100.0100 ####[facility] [address] [place], [address] BUN/CRE 13.8 RATIO Normal 10-20 [facility] Comment on above: Performed By: #### L 3410.9998, L500.4050, L100.0100 ####[facility] [address] [place], [address] CA,Total 9.1 mg/dL Normal 8.5-10.1 [facility] Comment on above: Performed By: #### L 3410.9998, L500.4050, L100.0100 ####[facility] [address] [place], [address] Chloride [Moles/Vol] 106 mmol/L Normal 98-107 [facility] Comment on above: Performed By: #### L 3410.9998, L500.4050, L100.0100 ####[facility] [address] [place], [address] CO2 [Moles/Vol] 27.0 mmol/L Normal 21.0-32.0 [facility] Comment on above: Performed By: #### L 3410.9998, L500.4050, L100.0100 ####[facility] [address] [place], [address] Creatinine [Mass/Vol] 0.87 mg/dL Normal 0.55-1.02 [facility] Comment on above: Result Comment: The validity of the calculated GFR GFRAA in patients over 70 years has not been determined. Clinical correlation is essential. Performed By: #### L 3410.9998, L500.4050, L100.0100 ####[facility] [address] [place], [address] EST GFR - AA 91 mL/min Normal >60 [facility] Comment on above: Result Comment: Afri can Ghanaian GFR Calc Performed By: #### L 3410.9998, L500.4050, L100.0100 ####[facility] [address] [place], [address] GAP 5 Normal 5-15 [facility] Comment on above: Performed By: #### L 3410.9998, L500.4050, L100.0100 ####[facility] [address] [place], [address] GFR/1.73 sq M.predicted among non-blacks MDRD (S/P/Bld) [Vol rate/Area] 75 mL/min/{1.73_m2} Normal >60 [facility] Comment on above: Result Comment: Non- GFR Calc Performed By: #### L 3410.9998, L500.4050, L100.0100 ####[facility] [address] [place], [address] Globulin (S) [Mass/Vol] 3.6 g/dL Normal 2.2-4.2 [facility] Comment on above: Performed By: #### L 3410.9998, L500.4050, L100.0100 ####[facility] [address] [place], [address] Glucose [Mass/Vol] 93 mg/dL Normal 74-106 [facility] Comment on above: Performed By: #### L 3410.9998, L500.4050, L100.0100 ####[facility] [address] [place], [address] Potassium [Moles/Vol] 3.4 mmol/L Low 3.5-5.1 [facility] Comment on above: Performed By: #### L 3410.9998, L500.4050, L100.0100 ####[facility] [address] [place], [address] Sodium [Moles/Vol] 138 mmol/L Normal 136-145 [facility] Comment on above: Performed By: #### L 3410.9998, L500.4050, L100.0100 ####[facility] [address] [place], [address] T PROT 7.1 g/dL Normal 6.4-8.2 [facility] Comment on above: Performed By: #### L 3410.9998, L500.4050, L100.0100 ####[facility] [address] [place], [address] Urea nitrogen [Mass/Vol] 12 mg/dL Normal 7-18 [facility] Comment on above: Performed By: #### L 3410.9998, L500.4050, L100.0100 ####[facility] [address] [place], [address] Eosinophil percentageOrdered By: Reyna Wood on 04-27-2024 Eosinophils/100 WBC (Bld) 4.4 % 0-5 [facility] Erythrocyte distribution wid th (RBC) [Ratio]Ordered By: Reyna Wood on 04-27-2024 Erythrocyte distribution width (RBC) [Entitic vol] 39.3 fL 35.1-43.9 [facility] Erythrocyte distribution wid th ratioOrdered By: Reyna Wood on 04-27-2024 Erythrocyte distribution width (RBC) [Ratio] 12.8 % 11.6-14.6 [facility] Erythrocyte distribution wid th standard deviationOrdered By: Reyna Wood on 04-27-2024 Erythrocyte distribution width (RBC) [Ratio] 39.3 fl 35.1-43.9 [facility] Estimated glomerular filtrat ion rate (GFR) AmericanOrdered By: Reyna Wood on 04-27-2024 Estimated GFR (MDRD) Amer 91 mL/min >60 [facility] Comment on above: GFR Calc Gastroenterology Visit Repor ton 04-27-2024 Gastroenterology Visit Report [facility] Gastroenterology [address] [place] [address] OFFICE VISIT Date of Service: 04/27/24 MR#: [id number] Acct: [id number] Name: KYLEBETTE Travon Rep #: [id number] : 1980 Provider: JOSE lopez Age/Sex: 43/F Location: [facility] Status: Signed Intake Vital Signs 04/22/24 11:44 04/27/24 08:52 Height 5 ft 5 in 5 ft 5 in Weight: 211 lb 8 oz BMI 35.2 BP 124/83 H Respiration 16 Pulse 75 Pulse Oximetry (%) 98 Intake Visit Reasons: Follow up Chief Complaint: pain Technician Inventory Specialist Required: No Is patient in pain?: No Allergies No Known Allergies Allergy (Verified 04/27/24 08:55) Medications ???Medication ???Instructions ???Recorded ???Confirmed ???Type sertraline 25 mg tablet (Zoloft) 25 mg PO QDAY 02/15/24 04/27/24 Hi story guar gum 1 gram chewable tablet 1 g PO DAILY 04/21/24 04/27/24 His tory linaclotide 145 mcg capsule 145 mcg PO QAM #90 caps 04/27/24 0 04/27/24 Rx (Linzess) pantoprazole 40 mg tablet,delayed 40 mg PO BID #180 tabs 04/27/24 0 04/27/24 Rx release PFSH Medical History Wears dentures Restless legs Dietary restriction Gastric reflux Former smoker History of ectopic Surgical History History of shoulder surgery History of hernia surgery History of hysterectomy History of classical section Social History Smoking Status: Former smoker alcohol intake: never HPI HPI Chief Complaint: pain Details: BETTE WRIGHT, is a 43 F who presents to the office today for OV 03/17/2024 1. Start Benefiber 2tsp once a day in 8 ounces of water after breakfast and Mirlax 17grams once daily in 8 ounces of water every evening. This may take up to 3 weeks before you start to notice a benefit 2. Increase water intake - bottled water 3. Low fat diet - avoid fatty/fried foods 4. Start pantoprazole 40mg daily - prescription sent to [facility] pharmacy 5. Proceed with HIDA as scheduled 03/18/2024 6. Proceed with Colonoscopy and EGD as scheduled on 04/22/2024 7. Schedule consult with Outsole Handler 8. Miralax 17g once daily in the evening with 8 ounces of water, you may find that you need to taper this dose down after 2-3 weeks of regular daily Benefiber 9. Kiwi fruit 2 daily for constipation 10. Have labs completed as ordered at last appointment - HAV Ab total, HBV Core Ab total, HBVsAb, HBVsAg, HCV Ab, ELF 11. Follow-up in the office 2 weeks post procedures HIDA 03/19/2024 revealed normal EF (90%) which indicates the GB function is intact. CBD and transaminases were previously normal. EGD: 04/22/2024 - neg. H. pylori and celiac sprue - Normal esophagus. - Non-bleeding gastric ulcers with no stigmata of bleeding. - Chronic duodenitis. Biopsied. COLON: 04/22/2024 - sigmoid and splenic flexure polyp - hyperplastic polyps (benign) - Preparation of the colon was fair. - Stool in the rectum, in the recto-sigmoid colon, in the sigmoid colon and at the splenic flexure. - Congested mucosa in the sigmoid colon and at the splenic flexure. - Repeat colonoscopy in 5 years for surveillance. ABD US 01/28/2024 There is no evidence of gallstones or cholecystitis. FibroScan 03/08/2024 kPa 5.9, CAP 336 (F0-F1/S3) - reports she does not feel good since Thursday - post procedure - c/o fatigue - legs feel weak - severe headaches - she reports she is eating - she c/o vomiting after almost every meal - reports if she does not vomit she has severe belly aches and diarrhea - Advil 400mg BID intermittent since prior to procedure and reports constant WHITMAN post procedure - she reports she did not drink the morning dose of the bowel prep due to being nauseated - she reports having a BM 2x a week - Benefiber gummies 2 per day - Miralax 17g once a day - with this she is still only having a BM twice a week - reports she is seeing Shraddha from [facility] for stress/anxiety/depress ion - states she has been inpatient previously for stress and anxiety - she is on Sertraline and has OV next week with Counselor [phone] [facility] Const Constitutional: Positive for fatigue and headache(s); No fever(s) or weight change ENT ENT: Positive for headache(s); No difficulty swallowing Gastro GI: Positive for diarrhea and nausea/dyspepsia; No abdominal pain, belching, bloating, change in bowel habits, change in stool character, coffee ground emesis, constipation, cramping, heartburn, difficulty swallowing, feeling full early, excessive flatus, incontinent of stools, Vomiting blood/hematemesis, Blood in stool, loose stools, Black,tarry stools, pain with swallowing, vomiting or other Musc Musculoskeletal: Po (more content not included)... Normal [facility] Glomerular filtration rate ( GFR) estimationOrdered By: Reyna Wood on 04-27-2024 Estimated GFR (MDRD) Non-Af Amer 75 mL/min >60 [facility] Comment on above: Non- GFR Calc GFR/1.73 sq M.predicted among non-blacks MDRD (S/P/Bld) [Vol rate/Area] 75 mL/min/{1.73_m2} >60 [facility] Comment on above: Non- GFR Calc Glucose measurementOrdered B y: Reyna Wood on 04-27-2024 Glucose [Mass/Vol] 93 mg/dL 74-106 [facility] HBV core Ab Ql (S)Ordered By : Reyna Wood on 04-27-2024 Hepatitis B Core Total Antibody Negative Negative [facility] HBV surface IgG Ql (S)Ordere d By: Reyna Wood on 04-27-2024 Hepatitis B Surface Antibody Non-Reactive [facility] Comment on above: Non Reactive: Incons istent with immunity less than <10 mIU/mL Reactive: Consistent with immunity greater than or equal to 10 mIU/mL Hematocrit Auto (Bld) [Volum e fraction]Ordered By: Reyna Wood on 04-27-2024 Hematocrit (Bld) [Volume fraction] 42.7 % 37-47 [facility] Hemoglobin measurementOrdere d By: Reyna Wood on 04-27-2024 Hemoglobin (Bld) [Mass/Vol] 14.1 g/dL 12.0-15.0 [facility] Hepatitis A virus total anti body assayOrdered By: Reyna Wood on 04-27-2024 Hepatitis A Antibody Total Negative Negative [facility] Comment on above: Comment: The HAV tot al antibody assay detects both IgG andIgM but does not differentiate between them. A negativeresult suggests susceptibility to infection. A positiveresult could be due to vaccination, previously resolvedinfection or active infection. Testing for HAV IgM shouldbe performed if active HAV infection is suspected. [facility]ers profiles that will automatically reflex positive HAVtotal antibody results to IgM (e.g., panel #[id number] HAVAntibody w/ Rfx).Performed at: [facility] [id number] Director: Elton Kirkpatrick PhD, Phone: [phone] Hepatitis B Surface Antibody on 04-27-2024 HEP B Surf Ab Non-Reactive Normal [facility] Comment on above: Order Comment: Reaso n for Exam: MASLD Result Comment: Non Reactive: Inconsistent with immunity less than <10 mIU/mL Reactive: Consistent with immunity greater than or equal to 10 mIU/mL Performed By: #### L 3890.6100, L3890.6300, L3100.0460, L3100.0300, L3890.6200 #### [facility] [address] [place], [place], [id number] Hepatitis B Surface Antigeno n 04-27-2024 HEP B Surf Ag Non-Reactive Normal Nonreactive [facility] Comment on above: Order Comment: Reaso n for Exam: MASLD Performed By: #### L 3890.6100, L3890.6300, L3100.0460, L3100.0300, L3890.6200 #### [facility] [address] [place], [place], [id number] Hepatitis B surface antigen detectionOrdered By: Reyna Wood on 04-27-2024 Hepatitis B Surface Antigen Non-Reactive Nonreactive [facility] Hepatitis C Antibodyon 04-27 Hepatitis C AB Non-Reactive Normal Nonreactive [facility] Comment on above: Order Comment: Reaso n for Exam: MASLD Result Comment: Non Reactive: < 0.8 Equivocal: >/= 0.8 to < 1.0 Reactive: >/= 1.0 The CDC requires that a reactive/equivocal HCV antibody result be sent out for confirmation. HCV Quant by PCR testing. Performed By: #### L 3890.6100, L3890.6300, L3100.0460, L3100.0300, L3890.6200 ####[facility] [address] [place], [address] Hepatitis C virus antibody a ssayOrdered By: Reyna Wood on 04-27-2024 Hepatitis C Antibody Non-Reactive Nonreactive [facility] Comment on above: Non Reactive: < 0.8 Equivocal: >/= 0.8 to < 1.0 Reactive: >/= 1.0The CDC requires that a reactive/equivocal HCV antibody result be sent out for confirmation. HCV Quant by PCR testing. Immature granulocytes/100 WB C Auto (Bld)Ordered By: Reyna Wood on 04-27-2024 Immature granulocytes/100 WBC (Bld) 0.200 % 0.0-0.9 [facility] Comment on above: IG% - Immature Granu locytes (promyelocytes, myelocytes and metamyelocytes) > 1% indicates that a LEFT SHIFT is Present. Laboratory - Chemistry and C hemistry - challengeOrdered By: Reyna Wood on 04-27-2024 AST [Catalytic activity/Vol] 13 U/L Low 15-37 [facility] Lymphocytes Auto (Unsp spec) [#/Vol]Ordered By: Reyna Wood on 04-27-2024 Lymphocytes (Bld) [#/Vol] 1.53 10*3/uL 0.83-4.51 [facility] Lymphocytes/100 WBC Auto (Un sp spec)Ordered By: Reyna Wood on 04-27-2024 Lymphocytes/100 WBC (Bld) 33.6 % 19-41 [facility] MCV (mean corpuscular volume ) determinationOrdered By: Reyna Wood on 04-27-2024 MCV (RBC) [Entitic vol] 85.1 fL 81-99 [facility] Mean corpuscular hemoglobin (MCH) determinationOrdered By: Reyna Wood on 04-27-2024 MCH (RBC) [Entitic mass] 28.1 pg 27.0-32.0 [facility] Mean corpuscular hemoglobin concentration (MCHC) determinationOrdered By: Reyna Wood on 04-27-2024 MCHC (RBC) [Mass/Vol] 33.0 g/dL 32-36 [facility] Mean platelet volume determi nationOrdered By: Reyna Wood on 04-27-2024 Platelet mean volume (Bld) [Entitic vol] 9.7 fL 6.2-12.0 [facility] Monocyte percentageOrdered B y: Reyna Wood on 04-27-2024 Monocytes/100 WBC (Bld) 5.5 % 0-10 [facility] Neutrophil percentageOrdered By: Reyna Wood on 04-27-2024 Neutrophils/100 WBC (Bld) 55.4 % 47-70 [facility] Nucleated red blood cell per centageOrdered By: Reyna Wood on 04-27-2024 Nucleated RBC/100 WBC (Bld) [Ratio] 0 % 0-5 [facility] Platelet countOrdered By: Anthony Wood on 04-27-2024 Platelets (Bld) [#/Vol] 249 10*3/uL 150-450 [facility] Potassium measurementOrdered By: Reyna Wood on 04-27-2024 Potassium [Moles/Vol] 3.4 mmol/L Low 3.5-5.1 [facility] RBC Auto (Bld) [#/Vol]Ordere d By: Reyna Wood on 04-27-2024 RBC (Bld) [#/Vol] 5.02 10*6/uL 4.2-5.4 [facility] Serum anion gap measurementO rdered By: Reyna Wood on 04-27-2024 Anion gap [Moles/Vol] 5 mmol/L 5-15 [facility] Serum globulin measurementOr dered By: Reyna Wood on 04-27-2024 Globulin (S) [Mass/Vol] 3.6 g/dL 2.2-4.2 [facility] Serum hepatitis B virus core antibody detectionOrdered By: Reyna Wood on 04-27-2024 HBV core Ab Ql (S) Negative Negative [facility] Serum hepatitis B virus surf chema antibody IgG detectionOrdered By: Reyna Wood on 04-27-2024 HBV surface IgG Ql (S) Non-Reactive [facility] Comment on above: Non Reactive: Incons istent with immunity less than <10 mIU/mL Reactive: Consistent with immunity greater than or equal to 10 mIU/mL Serum or plasma alanine peters otransferase (ALT) measurementOrdered By: Reyna Wood on 04-27-2024 ALT [Catalytic activity/Vol] 21 U/L 13-56 [facility] Serum or plasma albumin ayo urement (mass/volume)Ordered By: Reyna Wood on 04-27-2024 Albumin [Mass/Vol] 3.5 g/dL 3.2-5.0 [facility] Serum or plasma alkaline austen sphatase measurementOrdered By: Reyna Wood on 04-27-2024 ALP [Catalytic activity/Vol] 84 U/L 45-117 [facility] Serum or plasma calcium ayo urement (mass/volume)Ordered By: Reyna Wood on 04-27-2024 Calcium [Mass/Vol] 9.1 mg/dL 8.5-10.1 [facility] Serum or plasma creatinine m easurement (mass/volume)Ordered By: Reyna Wood on 04-27-2024 Creatinine [Mass/Vol] 0.87 mg/dL 0.55-1.02 [facility] Comment on above: The validity of the calculated GFR & GFRAA in patients over 70 years has not been determined. Clinical correlation is essential. Serum or plasma urea nitroge n measurement (mass/volume)Ordered By: Reyna Wood on 04-27-2024 Urea nitrogen [Mass/Vol] 12 mg/dL 7-18 [facility] Sodium levelOrdered By: Elaina Wood on 04-27-2024 Sodium [Moles/Vol] 138 mmol/L 136-145 [facility] Total proteinOrdered By: Roesmary Wood on 04-27-2024 Protein [Mass/Vol] 7.1 g/dL 6.4-8.2 [facility] White blood cell (WBC) count Ordered By: Reyna Wood on 04-27-2024 WBC (Bld) [#/Vol] 4.6 10*3/uL 4.4-11.0 [facility] Colonoscopy Reporton 025 Colonoscopy Report [facility] Medical Records Department [address] [place] [address] Colonoscopy Report MR#: [id number] Acct: [id number] Name: BETTE WRIGHT Rep #: [id number] : 1980 43 From: Luke Martinez DO PCP: Dr. Eusebio Sparrow DO Status:REG ARC Patient Name: Bette Wright Procedure Date: 04/22/2024 2:24 PM Date of : 1980 Age: 43 Procedure: Colonoscopy Indications: Epigastric abdominal pain, Abdominal pain in the left lower quadrant Providers: Luke Martinez DO Referring MD: Eusebio Sparrow Medicines: Monitored Anesthesia Care Patient Profile: This is a 43 year old female. Refer to note in patient chart for documentation of history and physical. Patient has symptoms of chronic nausea and chronic vomiting. Last Colonoscopy: none. The patient's first colonoscopy is today. Complications: No immediate complications. Procedure: Pre-Anesthesia Assessment: - Prior to the procedure, a History and Physical was performed, and patient medications and allergies were reviewed. The patient is competent. The risks and benefits of the procedure and the sedation options and risks were discussed with the patient. All questions were answered and informed consent was obtained. Patient identification and proposed procedure were verified by the physician in the pre-procedure area. Mental Status Examination: alert and oriented. Airway Examination: normal oropharyngeal airway and neck mobility. Respiratory Examination: clear to auscultation. CV Examination: normal. Prophylactic Antibiotics: The patient does not require prophylactic antibiotics. Prior Anticoagulants: The patient has taken no anticoagulant or antiplatelet agents except for NSAID medication. ASA Grade Assessment: II - A patient with mild systemic disease. After reviewing the risks and benefits, the patient was deemed in satisfactory condition to undergo the procedure. The anesthesia plan was to use monitored anesthesia care (MAC). Immediately prior to administration of medications, the patient was re-assessed for adequacy to receive sedatives. The heart rate, respiratory rate, oxygen saturations, blood pressure, adequacy of pulmonary ventilation, and response to care were monitored throughout the procedure. The physical status of the patient was re-assessed after the procedure. After I obtained informed consent, the scope was passed under direct vision. Throughout the procedure, the patient's blood pressure, pulse, and oxygen saturations were monitored continuously. The Colonoscope was introduced through the anus and advanced to the cecum, identified by appendiceal orifice and ileocecal valve. The colonoscopy was performed without difficulty. The patient tolerated the procedure well. The quality of the bowel preparation was fair. The terminal ileum, ileocecal valve, appendiceal orifice, and rectum were photographed. Scope In: 2:25:44 PM Scope Withdrawal Time 0 hours 5 minutes 47 seconds Scope Out: 2:34:15 PM Total Procedure Duration Time 0 hours 8 minutes 31 seconds Findings: The perianal and digital rectal examinations were normal. Stool was found in the rectum, in the recto-sigmoid colon, in the sigmoid colon and at the splenic flexure. Lavage of the area was performed, resulting in incomplete clearance with fair visualization. An area of mildly congested mucosa was found in the sigmoid colon and at the splenic flexure. Biopsies were taken with a cold forceps for histology. Verification of patient identification for the specimen was done. Estimated blood loss was minimal. Impression: - Preparation of the colon was fair. - Stool in the rectum, in the recto-sigmoid colon, in the sigmoid colon and at the splenic flexure. - Congested mucosa in the sigmoid colon and at the splenic flexure. Biopsied. Recommendation: - Discharge patient to home. - Resume previous diet. - Continue present medications. - Await pathology results. - Repeat colonoscopy in 5 years for surveillance. Procedure Code(s): --- Professional --- 98186, Colonoscopy, flexible; with biopsy, single or multiple CPT copyright 2021 [employer]. All rights reserved. The codes documented in this report are preliminary and upon english division chair review may be revised to meet current compliance requirements. Luke Martinez DO 04/22/2024 2:45:22 PM This report has been signed electronically. Number of Addenda: 0 Note Initiated On: 04/22/2024 2:24 PM 04/22/24 1445 Date Luke Friend DO Cosigner Signature: Date (if indicated) CC: Dr. Eusebio Sparrow DO; Luke Martinez DO Date Dictated: 04/22/24 1424 Date Transcribed: Hyperion Analyst: RF Signed Normal [facility] EGD Reporton 04-22-2024 EGD Report [facility] Medical Records Department [address] [place] [address] EGD Report MR#: [id number] Acct: [id number] Name: BETTE WRIGHT Rep #: [id number] : 1980 43 From: Luke Martinez DO PCP: Dr. Eusebio Sparrow DO Status:REG SD Patient Name: Bette Wright Procedure Date: 04/22/2024 2:09 PM Date of : 1980 Age: 43 Procedure: Upper GI endoscopy Indications: Epigastric abdominal pain, Indigestion Providers: Luke Martinez DO Referring MD: Eusebio Sparrow Medicines: Monitored Anesthesia Care Patient Profile: This is a 43 year old female. Refer to note in patient chart for documentation of history and physical. Patient has symptoms of chronic nausea and chronic vomiting. Complications: No immediate complications. Procedure: Pre-Anesthesia Assessment: - Prior to the procedure, a History and Physical was performed, and patient medications and allergies were reviewed. The patient is competent. The risks and benefits of the procedure and the sedation options and risks were discussed with the patient. All questions were answered and informed consent was obtained. Patient identification and proposed procedure were verified by the physician in the pre-procedure area. Mental Status Examination: alert and oriented. Airway Examination: normal oropharyngeal airway and neck mobility. Respiratory Examination: clear to auscultation. CV Examination: normal. Prophylactic Antibiotics: The patient does not require prophylactic antibiotics. Prior Anticoagulants: The patient has taken no anticoagulant or antiplatelet agents except for NSAID medication. ASA Grade Assessment: II - A patient with mild systemic disease. After reviewing the risks and benefits, the patient was deemed in satisfactory condition to undergo the procedure. The anesthesia plan was to use monitored anesthesia care (MAC). Immediately prior to administration of medications, the patient was re-assessed for adequacy to receive sedatives. The heart rate, respiratory rate, oxygen saturations, blood pressure, adequacy of pulmonary ventilation, and response to care were monitored throughout the procedure. The physical status of the patient was re-assessed after the procedure. After obtaining informed consent, the endoscope was passed under direct vision. Throughout the procedure, the patient's blood pressure, pulse, and oxygen saturations were monitored continuously. The Colonoscope was introduced through the mouth, and advanced to the second part of duodenum. The upper GI endoscopy was accomplished without difficulty. The patient tolerated the procedure well. Scope In: 2:20:36 PM Scope Out: 2:24:07 PM Total Procedure Duration Time 0 hours 3 minutes 31 seconds Findings: The examined esophagus was normal. Three non-bleeding linear gastric ulcers with no stigmata of bleeding were found in the gastric antrum. The largest lesion was 4 mm in largest dimension. Biopsies were taken with a cold forceps for histology. Verification of patient identification for the specimen was done. Estimated blood loss was minimal. Biopsies were taken with a cold forceps for Helicobacter pylori testing. Verification of patient identification for the specimen was done. Estimated blood loss was minimal. Patchy mild inflammation characterized by erythema and friability was found in the duodenal bulb and in the first portion of the duodenum. Biopsies were taken with a cold forceps for histology. Impression: - Normal esophagus. - Non-bleeding gastric ulcers with no stigmata of bleeding. Biopsied. - Chronic duodenitis. Biopsied. Recommendation: - Await pathology results. - Repeat upper endoscopy for surveillance. - Return to GI clinic. - Continue present medications. Procedure Code(s): --- Professional --- 48034, Esophagogastroduodenos copy, flexible, transoral; with biopsy, single or multiple CPT copyright 2021 [employer]. All rights reserved. The codes documented in this report are preliminary and upon english division chair review may be revised to meet current compliance requirements. Luke Martinez DO 04/22/2024 2:42:41 PM This report has been signed electronically. Number of Addenda: 0 Note Initiated On: 04/22/2024 2:09 PM 04/22/24 1443 Date Luke Perdomo Signature: Date (if indicated) CC: Dr. Eusebio Sparrow DO; Luke Martinez DO Date Dictated: 04/22/24 1409 Date Transcribed: Hyperion Analyst: ALETHEA Signed Normal [facility] H Pylori (initial)on H Pylori (initial) -- ---- Patient Age/Sex Location Account Attending Physician ---- BETTE WRIGHT 43/F EN [id number] Luke Martinez DO ---- Specimen: [id number] Received: 04/25/24 Status: KWESI Tatum Num: [id number] Spec Type: IMMUNO Subm Dr: Luke Martinez DO PHYSICIAN INSTITUTION [address] [place], [place] [address] SPECIMEN INFORMATION: Tissue Source: C- Gastric body biopsy Clinical Info: Nausea/vomiting, MASLD, constipation, right upper quadrant pain Specimen Number: [id number] CPT code: 86697 METHODOLOGY: Deparaffinized sections of prefer/formalin-fixed tissue or PAP/DQ stained slides are incubated with monoclonal/polyclonal antibodies/oligonucleo tide probes. Localization is made via biotin free immunoperoxidase method. Appropriate controls are performed and reacted as expected. Results on target cell population are indicated in the following table: RESULTS: ANTIBODY / CLONE RESULT Block CH Pylori (polyclonal) negative These tests were developed and their performance characteristics determined by [facility]. They may not have been cleared or approved by the U.S. Food and Drug Administration. The FDA has determined that such clearance or approval is not necessary. The above immunohistochemical/du alISH markers are ordered and reviewed by the Pathologist. INTERPRETATION: C. Gastric body, biopsy: Negative for Helicobacter pylori organisms. 04/26/2024 Signed (signature on file) Dr. Mechelle Alicea MD 04/26/24 1354 ---- Normal [facility] Comment on above: Performed By: #### P H.PYLORI #### [facility] [address] [place], [place], [address] MR/POSTOP.Rickie 04-22-2024 MR/POSTOP.[facility] Medical Records Department [address] [place] [address] Anesthesia Postop Eval I 04/22/24 1445 MR#: [id number] Acct: [id number] Name: BETTE WRIGHT Rep #: [id number] : 1980 43 From: Brandon Lizarraga PCP: Dr. Eusebio Sparrow, DO Status:[facility] Y Race: C Location: [place] [address] Anesthesia: Postop Eval I Current Vital Signs Temperature: 97.3 F Pulse Rate: 87 Blood Pressure: 98/55 Respiratory Rate: 16 Pulse Ox: 96 Oxygen Delivery Method: Room Air Assessment Airway patent: Yes Spontaneous unlabored respirations: Yes Mental status: Asleep nausea: No Vomiting: No Anesthesia Complication: No Fluid Hydration Crystalloid volume administer (ml): 60 Total IV fluid infused: 60 Progress Note Anesthesia document: Postop Eval 1 completed: Yes 04/22/24 1446 Date Brandon Dalton Signature: Date CC: Signed Normal [facility] MR/VKJWXORK5gd 04-22-2024 [facility] Medical Records Department [address] [place] [address] Anesthesia Postop Eval II 04/22/242127 MR#: [id number] Acct: [id number] Name: BETTE WRIGHT Rep #: [id number] : 1980 43 From: Rudy Haji MD PCP: Dr. Eusebio Sparrow, DO Status:[facility] Y Race: C Location: [place] Anesthesia Postop Eval I Sum Postop Eval Completion status Anesthesia document: Postop Eval 1 completed: Yes Anesthesia Postop Eval I Summary Anesthesia Postop Eval I Summary: Anesthesia Postop Eval I: Assessment Summary Airway patent Yes 04/22/24 14:46 [email or web address] Spontaneous unlabored Yes 04/22/24 14:46 [email or web address] respirations Mental status Asleep 04/22/24 14:46 [email or web address] nausea No 04/22/24 14:46 [email or web address] Vomiting No 04/22/24 14:46 [email or web address] Anesthesia Postop Eval I: Fluid Summary Crystalloid volume administer 60 04/22/24 14:46 [email or web address] (ml) Colloids volume administered ( ml) Blood Product volume administered (ml) Total IV fluid infused 60 04/22/24 14:46 [email or web address] Anesthesia Postop Eval I: Summary Notes Anesthesia Complication No 04/22/24 14:46 [email or web address] Anesthesia Complication Comment: Post-operative progress note Anesthesia: Postop Eval II Evaluation Mental status: Awake and Calm Pain Level: 0 nausea: No Vomiting: No Complications Anesthesia Complication: No 04/22/242127 Date Rudy Dalton Signature: Date CC: Signed Normal [facility] Surgery Specimen Level Ailyn 04-22-2024 Surgery Specimen Level IV ---- Patient Age/Sex Location Account Attending Physician ---- BETTE WRIGHT 43/F AIDA [id number] Luke Martinez DO ---- Specimen: [id number] Received: 04/22/24 Status: KWESI Tatum Num: [id number] Spec Type: COLON BX Subm Dr: Lkue Martinez, DO HEADER OPERATION: Colonoscopy, EGD and biopsy and polypectomy PRE-OP DIAGNOSIS: Nausea/vomiting, MASLD, constipation, right upper quadrant pain TISSUE SUBMITTED: A- Duodenum biopsy, B- Gastric antrum biopsy, C- Gastric body biopsy,D- Splenic flexure polyp, E- Sigmoid polyp ---- MICROSCOPIC DIAGNOSIS A. Duodenum, biopsy: Chronic duodenitis. Villous architecture is maintained. No significant increase in intraepithelial lymphocytes, not suggestive of Celiac's disease. B. Gastric antrum, biopsy: Gastric mucosa with reactive gastropathy and focal minimal chronic inflammation. C. Gastric body, biopsy: Gastric mucosa with focal chronic inflammation, mild. See comment. D. Splenic flexure polyp: Colonic mucosa with lymphoid nodules and focal hyperplastic glandular changes. E. Sigmoid polyp: Colonic mucosa with lymphoid nodules and focal hyperplastic glandular changes. PW. 04/26/2024 COMMENT C. The results of immunohistochemistry for Helicobacter pylori will be reported separately ([id number]). MICROSCOPIC DESCRIPTION Slides are reviewed. GROSS DESCRIPTION A. Received in fixative is one container labeled with the patient's name and designated Duodenum biopsy. The specimen consists of two irregular fragments of light parada soft tissue that in aggregate measure 0.9 x 0.3 x 0.1 cm. The specimen is totally submitted in one cassette. B. Received in fixative is one container labeled with the patient's name and designated Gastric antrum. The specimen consists of one irregular fragment of light parada soft tissue that measures 0.5 x 0.5 x 0.1 cm. The specimen is totally submitted in one cassette. C. Received in fixative is one container labeled with the patient's name and designated Gastric body biopsy. The specimen consists of one irregular fragment of light parada soft ---- Patient Age/Sex Location Account Attending Physician ---- BETTE WRIGHT 43/F EN [id number] Luke Martinez, DO ---- tissue that measures 0.4 x 0.4 x 0.1 cm. The specimen is totally submitted in one cassette. D. Received in fixative is one container labeled with the patient's name and designated Splenic flexure polyp. The specimen consists of two irregular fragments of light parada soft tissue that in aggregate measure 0.5 x 0.5 x 0.1 cm. The specimen is totally submitted in one cassette. E. Received in fixative is one container labeled with the patient's name and designated Sigmoid polyp. The specimen consists of one irregular fragment of light parada soft tissue that measures 0.9 x 0.4 x 0.1 cm. The specimen is totally submitted in one cassette. 04/25/2024 TC:3 CPT:60489k8 ---- Patient Age/Sex Location Account Attending Physician ---- BETTE WRIGHT 43/F EN [id number] Luke Martinez DO ---- Signed (signature on file) Dr. Mechelle Alicea MD 04/26/24 1359 ---- Normal [facility] Comment on above: Performed By: #### P TIFFANIE ####[facility] [address] [place], [place], [id number] Hepatobilliary Img w/Pharm I nton 03-18-2024 Hepatobilliary Img w/Pharm Int [facility] Imaging Services [address] [place], [place] [address] Hepatobilliary Img w/Pharm Int MR#: [id number] Acct: [id number] Name: BETTE WRIGHT Rep #: [id number] : 1980 F 43 From: Ted Goldstein PCP: Dr. Eusebio Sparrow, DO Status: REG CLI Study: Hepatobilliary Img w/Pharm Int Date of Exam: 0 03/18/24 Exam# [id number] Ordering Dr: Reyna Wood DIVISIONAL HUMAN RESOURCES DIRECTOR- C [id number] CLINICAL: 43-year-old female with history of right upper quadrant abdominal pain. RADIONUCLIDE HEPATOBILIARY SCINTIGRAPHY COMPARISON: None available FINDINGS: Following the intravenous administration of 5.9 mCi of 99m Tc Mebrofenin, hepatobiliary images reveal:. 1. Relatively prompt and homogeneous radiopharmaceutical concentration is noted by a normal sized liver. No parenchymal defects are identified. 2. Gallbladder activity is identified at 15 minutes post radiopharmaceutical administration. 3. Small intestinal tract is observed at 30 minutes following tracer injection. 4. Washout of the radiopharmaceutical by the hepatic parenchyma is qualitatively normal. Cholecystokinin (0.02 ug/kg) was administered intravenously over a 30-minute period. The post CCK gallbladder ejection fraction calculated at 20 minutes following Cholecystokinin administration was noted to be 90.0 % (normal greater than 35%). During 30 minutes of post CCK imaging, there is scintigraphic evidence of refilling of the gallbladder. NM/Hepatobilliary Img w/Pharm Int IMPRESSION: 1. A gallbladder ejection fraction calculated to be greater than 35% following the administration of Cholecystokinin makes the probability of functional hepatobiliary disease (gallbladder dyskinesia) and/or organic hepatobiliary disease (chronic acalculous cholecystitis and/or cystic duct syndrome) to be low. (Delroy Gibbons et al, Journal of Nuclear Medicine 32:1695, 1990). 2. An encountered normal gallbladder ejection fraction with refilling of the gallbladder following CCK administration may represent the presence of Sphincter of Oddi dysfunction. Correlation with Sphincter of Oddi manometry may be of benefit. (Zane, J Nucl Med 38:1824, 1997). Electronically Signed: Ted Rodriguez DO at 10:59 EST , CC: JOSE Wood; Dr. Eusebio Sparrow DO Hyperion Analyst: Signed Normal [facility] Gastroenterology Visit Repor ton 03-17-2024 Gastroenterology Visit Report [facility] Gastroenterology [address] [place] [address] OFFICE VISIT Date of Service: 03/17/24 MR#: [id number] Acct: [id number] Name: BETTE WRIGHT Rep #: [id number] : 1980 Provider: JOSE lopez Age/Sex: 43/F Location: [facility] Status: Signed Intake Vital Signs 11/27/21 15:29 03/17/24 11:09 Height 5 ft 5 in 5 ft 5 in Weight: 214 lb 6 oz BMI 35.6 BP 132/70 H Respiration 18 Pulse 65 Pulse Oximetry (%) 99 Oxygen Delivery Method room air Intake Visit Reasons: Questions from previous appt Chief Complaint: pain Technician Inventory Specialist Required: No Is patient in pain?: Yes Allergies No Known Allergies Allergy (Verified 03/17/24 11:05) Medications ???Medication ???Instructions ???Recorded ???Confirmed ???Type sertraline 25 mg tablet (Zoloft) 25 mg PO QDAY 02/15/24 03/17/24 History pantoprazole 40 mg tablet,delayed 40 mg PO QDAY #90 tabs 03/17/24 03/17/24 Rx release (Protonix) polyethylene glycol 3350 17 4 g PO ONCE #850 grams 03/17/24 03/17/24 Rx gram/dose oral powder (Miralax) Nurse's Note: Has had some nausea but not much, still has constipation. What she eats effects how she feels. [facility] Surgical History History of classical section Social History Smoking Status: Never smoker alcohol intake: never HPI HPI Chief Complaint: pain Details: BETTE WRIGHT, is a 43 F who presents to the office today for FibroScan 03/08/2024 kPa 5.9, CAP 336 (F0-F1/S3) - RUQ pain is persisting/radiates through to back - triggered by greasy foods - nausea - intermittent also dietary triggered - only eating white meats, fruits and vegetables now - still experiencing constipation - will go up to 7 days without a BM - Benefiber - never took this - Miralax - completed 2 weeks - this made a little difference - Water intake she feels is adequate - Pantoprazole - she reports pharmacy told her it was out of stock INITIAL CONSULT 02/15/2024 43y/o female presents for consultation with complaints of pain, nausea and vomiting. She complains of RUQ abdominal pain which radiates to the right flank with postprandial N/V x6 weeks. ABD US was revealing for liver steatosis. Transaminases and PLT are WNL. She denies the consumption of any alcohol. She also reports a change in bowel habits with new onset constipation and one episode of BRBPR. I have scheduled her for a HIDA, FibroScan, EGD and colonoscopy. She will start a low fat diet, pantoprazole, benefiber and miralax daily. She will complete labs and follow-up in the office after testing has been completed. Patient Instructions: 1. Start Benefiber 2tsp once a day in 8 ounces of water after breakfast and Mirlax 17grams once daily in 8 ounces of water every evening 2. Increase water intake - bottled water 3. Low fat diet - avoid fatty/fried foods 4. Schedule HIDA scan to check function of the gallbladder at [place] - scheduled 03/18/2024 5. Schedule colonoscopy and EGD with Dr. Martinez at [place] - scheduled 04/22/2024 5. Complete labs at [facility] 6. Schedule Fibroscan with [facility] completed 03/08/2024 7. Start pantoprazole 40mg daily - prescription sent to [facility] pharmacy 8. Avoid fatty/fried foods 9. Low fat diet 10. Follow-up in office after testing has been completed ROS Const Constitutional: Positive for fatigue, headache(s) and weight change; No fever(s) ENT ENT: Positive for headache(s); No difficulty swallowing Gastro GI: Positive for abdominal pain, constipation and nausea/dyspepsia; No belching, bloating, change in bowel habits, change in stool character, coffee ground emesis, cramping, diarrhea, heartburn, difficulty swallowing, feeling full early, excessive flatus, inc ontinent of stools, Vomiting blood/hematemesis, Blood in stool, loose stools, Black,tarry stools, pain with swallowing, vomiting or other Musc Musculoskeletal: No joint pain Skin Skin: No yellowing of the eye or itchy eyes Neuro Neurology: Positive for headache(s) Psych Psychiatric: Positive for anxiety and Positive for depression Endo Endocrine: Positive for fatigue and weight change Aller/Imm Allergy/Immunologic: No itchy eyes Santo/Lymp Hematologic/Lymphatic: No easy bleeding or easy bruising Exam Const General: cooperative, healthy appearing, no acute distress and well developed Nutritional Appearance: well nourished and overweight Orientation: alert and oriented x3 HENMT Head: normocephalic Ears: hearing grossly normal bilaterally Mouth: moist mucous membranes Eyes General: appearance normal, both eyes and all related structures Conjunctivae: conjunctivae normal Sclera: sclerae normal Neck Neck: normal visual (more content not included)... Normal [facility] Gastroenterology Visit Repor ton 02-15-2024 Gastroenterology Visit Report [facility] Gastroenterology [address] [place] [address] OFFICE VISIT Date of Service: 02/15/24 MR#: [id number] Acct: [id number] Name: BETTE WRIGHT Rep #: [id number] : 1980 Provider: JOSE lopez Age/Sex: 43/F Location: [facility] Status: Signed Intake Vital Signs 11/27/21 15:29 02/15/24 15:42 Height 5 ft 5 in Weight: 214 lb BP 131/84 H Respiration 18 Pulse 69 Pulse Oximetry (%) 98 Oxygen Delivery Method room air Intake Visit Reasons: Nausea/vomiting Chief Complaint: pain Technician Inventory Specialist Required: No Is patient in pain?: Yes (right side, left side and posterior right side) Pain scale (1-10): 5 Allergies No Known Allergies Allergy (Verified 02/15/24 15:41) Medications ???Medication ???Instructions ???Recorded ???Confirmed ???Type gabapentin 100 mg capsule 100 mg PO QDAY 02/15/24 History pantoprazole 40 mg tablet,delayed 40 mg PO QDAY #90 tabs 02/15/24 02/15/24 Rx release polyethylene glycol 3350 17 17 g PO .COMPLEX constipation #238 02/15/24 02/15/24 Rx gram/dose oral powder (Miralax) grams sertraline 25 mg tablet (Zoloft) 25 mg PO QDAY 02/15/24 History Have you fallen in the past year?: No Nurse's Note: Has had nausea and vomiting the past couple of weeks. One night she threw up 11 times. She can be hungry and eat and it will just come back up an hour later. Has lost weight. Has been constipated. Went 6 days without a bowel movement last week. Has not had a colonoscopy or an EGD before. [facility] Surgical History (Updated 11/27/21 @ 15:32 by Paola Olvera) History of classical section Social History (Updated 11/27/21 @ 15:32 by Paola Olvera) Smoking Status: Never smoker alcohol intake: never HPI HPI Chief Complaint: pain Details: BETTE WRIGHT, is a 43 F who presents to the office today for - pain with burgers, salad, pizza, ice cream - She was in the ER 01/07/2024, 01/14/2024 and 01/28/2024 for complaints of ongoing pain. - vomiting 11x in 1 night - can feel hungry eat and then vomit 1h later - reports a weight loss - has gone up to 6 days without a BM - She denies any h/o colonoscopy and EGD ABD US 01/28/2024 There is no evidence of gallstones or cholecystitis. CT 01/14/2024 Punctate nonobstructive left nephrolithiasis. - denies any alcohol - liver enzymes and PLT are normal 01/28/2024 CONSTIPATION - bloating, abdominal distension - straining so hard with a BM - vaso vagal episode - she is now having to take something to help bowels move - Miralax - BRB on toilet tissue x1 - very hard stools - reports her current water is not drinkable - does not have enough money to get a filter system right now - drinks mostly mathieu diana or 7-up - drinking iced coffee - it was after this she had 11 episodes of vomiting that night ROS Const Constitutional: Positive for fatigue, headache(s) and weight change; No fever(s) ENT ENT: Positive for headache(s); No difficulty swallowing Gastro GI: Positive for abdominal pain, bloating, change in bowel habits, constipation, heartburn, Vomiting blood/hematemesis and nausea/dyspepsia; No belching, change in stool character, coffee ground emesis, cramping, diarrhea, difficulty swallowing, feeling full early, excessive flatus, incontinent of stools, Blood in stool, loose stools, Black,tarry stools, pain with swallowing, vomiting or other Musc Musculoskeletal: Positive for back pain and restless legs; No joint pain Skin Skin: No yellowing of the eye or itchy eyes Neuro Neurology: Positive for headache(s) and restless legs Psych Psychiatric: Positive for anxiety, Positive for depression and Positive for inattentiveness Endo Endocrine: Positive for fatigue and weight change Aller/Imm Allergy/Immunologic: No itchy eyes Santo/Lymp Hematologic/Lymphatic: No easy bleeding or easy bruising Exam Const General: healthy appearing, no acute distress and well developed Nutritional Appearance: average body habitus and well nourished Orientation: alert and oriented x3 HENMT Head: normocephalic Ears: hearing grossly normal bilaterally Mouth: moist mucous membranes Teeth and gingiva: dentition normal Eyes Conjunctivae: conjunctivae normal Sclera: sclerae normal Neck Neck: normal visual inspection, full ROM and trachea midline Resp Effort Inspection: normal respiratory effort, able to speak in complete sentences and symmetric chest movement Auscultation: Bilateral: Clear to Auscultation Cardio Rate: regular rate Rhythm: regular rhythm GI Inspection: normal to inspection Auscultation: normal bowel sounds Palpation: soft and no hepatosplenomegaly Rectal Exam: deferred Other: RUQ tenderness with palpation Skin General: no rashes or lesions noted and turgor normal Neuro (more content not included)... Normal [facility] .Auto Diffon 01-28-2024 Basophil, Absolute 0.1 10 3/mcL Normal 0.0-0.3 [facility] MAIN Comment on above: Performed By: #### M DW, ADIFF, CBC, CMP, ANEU, GFR #### [address] [address] Basophils/100 WBC (Bld) 0.9 % Normal 0.0-2.5 [facility] Comment on above: Performed By: #### M DW, ADIFF, CBC, CMP, ANEU, GFR #### [address] [address] Eosinophil, Absolute 0.1 10 3/mcL Normal 0.0-0.7 [facility] MAIN Comment on above: Performed By: #### M DW, ADIFF, CBC, CMP, ANEU, GFR #### [address] [address] Eosinophils/100 WBC (Bld) 1.5 % Normal 0.0-6.0 [facility] Comment on above: Performed By: #### M DW, ADIFF, CBC, CMP, ANEU, GFR #### [address] [address] Lymphocyte, Absolute 2.0 10 3/mcL Normal 0.9-4.3 [facility] Comment on above: Performed By: #### M DW, ADIFF, CBC, CMP, ANEU, GFR #### [address] [address] Lymphocytes/100 WBC (Bld) 27.2 % Normal 20.0-40.0 [facility] Comment on above: Performed By: #### M DW, ADIFF, CBC, CMP, ANEU, GFR #### [address] [address] Monocyte, Absolute 0.4 10 3/mcL Normal 0.1-1.4 [facility] Comment on above: Performed By: #### M DW, ADIFF, CBC, CMP, ANEU, GFR #### [address] [address] Monocytes/100 WBC (Bld) 4.8 % Normal 2.0-13.0 [facility] Comment on above: Performed By: #### M DW, ADIFF, CBC, CMP, ANEU, GFR #### [address] [address] Neutrophils/100 WBC (Bld) 65.6 % Normal 50.0-75.0 [facility] Comment on above: Performed By: #### M DW, ADIFF, CBC, CMP, ANEU, GFR #### [address] [address] .GFRon 01-28-2024 GFR Non- >60 Normal [facility] Comment on above: Result Comment: GFR Population mean for , Non- Americans Ages 20-29 = 116 mL/min/1.73 sq.m. Ages 30-39 = 107 mL/min/1.73 sq.m. Ages 40-49 = 99 mL/min/1.73 sq.m. Ages 50-59 = 93 mL/min/1.73 sq.m. Ages 60-69 = 85 mL/min/1.73 sq.m. Ages 70+ = 75 mL/min/1.73 sq.m. Chronic Kidney Disease: Less than 60 mL/min/1.73 square meters End Stage Renal Disease: Less than 15 mL/min/1.73 square meters Performed By: #### M DW, ADIFF, CBC, CMP, ANEU, GFR #### [address] [address] GFR >60 Normal [facility] MAIN Comment on above: Result Comment: GFR Population mean for , Non- Americans Ages 20-29 = 116 mL/min/1.73 sq.m. Ages 30-39 = 107 mL/min/1.73 sq.m. Ages 40-49 = 99 mL/min/1.73 sq.m. Ages 50-59 = 93 mL/min/1.73 sq.m. Ages 60-69 = 85 mL/min/1.73 sq.m. Ages 70+ = 75 mL/min/1.73 sq.m. Chronic Kidney Disease: Less than 60 mL/min/1.73 square meters End Stage Renal Disease: Less than 15 mL/min/1.73 square meters Performed By: #### M DW, ADIFF, CBC, CMP, ANEU, GFR #### [address] [address] .MDWon 01-28-2024 Monocyte Distribution Width 15.98 Normal 0.00-20.00 [facility] Comment on above: Result Comment: For ED adult patients suspected of sepsis, MDW<=20.0 does not rule out sepsis or risk of sepsis Performed By: #### M DW, ADIFF, CBC, CMP, ANEU, GFR #### [place] [address] .NEUABSon 01-28-2024 Neutrophil, Absolute 4.9 10 3/mcL Normal 2.3-8.1 [facility] MAIN Comment on above: Performed By: #### M DW, ADIFF, CBC, CMP, ANEU, GFR #### [place] [address] CBCon 01-28-2024 Erythrocyte distribution width (RBC) [Ratio] 14.1 % Normal 11.5-15.5 [facility] Comment on above: Performed By: #### M DW, ADIFF, CBC, CMP, ANEU, GFR #### [place] [address] Hematocrit (Bld) [Volume fraction] 45.3 % Normal 34.0-46.0 [facility] Comment on above: Performed By: #### M DW, ADIFF, CBC, CMP, ANEU, GFR #### [place] [address] Hgb 15.6 G/dL Normal 12.0-16.0 [facility] Comment on above: Performed By: #### M DW, ADIFF, CBC, CMP, ANEU, GFR #### [place] [address] MCH (RBC) [Entitic mass] 28.9 pg Normal 27.0-33.0 [facility] Comment on above: Performed By: #### M DW, ADIFF, CBC, CMP, ANEU, GFR #### [place] [address] MCHC 34.5 G/dL Normal 32.0-36.0 [facility] Comment on above: Performed By: #### M DW, ADIFF, CBC, CMP, ANEU, GFR #### [place] [address] MCV (RBC) [Entitic vol] 84.0 fL Normal 80.0-99.0 [facility] Comment on above: Performed By: #### M DW, ADIFF, CBC, CMP, ANEU, GFR #### [place] [address] Platelet 275 10 3/mcL Normal 150-450 [facility] MA[facility] Comment on above: Performed By: #### M DW, ADIFF, CBC, CMP, ANEU, GFR #### [place] [address] Platelet mean volume (Bld) [Entitic vol] 7.7 fL Normal 6.6-10.5 [facility] Comment on above: Performed By: #### M DW, ADIFF, CBC, CMP, ANEU, GFR #### [place] [address] RBC 5.40 10 6/mcL High 4.10-5.30 [facility] Comment on above: Performed By: #### M DW, ADIFF, CBC, CMP, ANEU, GFR #### [place] [address] WBC 7.5 10 3/mcL Normal 4.5-10.8 [facility] Comment on above: Performed By: #### M DW, ADIFF, CBC, CMP, ANEU, GFR #### [place] [address] CMPon 01-28-2024 BUN/Creatinine Ratio Unable to Calculate Normal 10.0-2 2.0 [facility] MA[facility] Comment on above: Result Comment: Unab le to calculate this test result accurately. Results used to calculate this test are outside the reportable range. Performed By: #### M DW, ADIFF, CBC, CMP, ANEU, GFR #### [place] [address] Urea nitrogen [Mass/Vol] mg/dL Low 8.0-22.0 [facility] Comment on above: Performed By: #### M DW, ADIFF, CBC, CMP, ANEU, GFR #### [address] [address] Albumin Level 3.9 G/dL Normal 3.2-4.8 [facility] Comment on above: Performed By: #### M DW, ADIFF, CBC, CMP, ANEU, GFR #### [place] [id number] Albumin/Globulin [Mass ratio] 1.1 {ratio} Normal 0.9-1.6 [facility] MAIN Comment on above: Performed By: #### M DW, ADIFF, CBC, CMP, ANEU, GFR #### [address] [address] ALP [Catalytic activity/Vol] 79 U/L Normal 38-126 [facility] MA[facility] Comment on above: Performed By: #### M DW, ADIFF, CBC, CMP, ANEU, GFR #### [place] [id number] ALT [Catalytic activity/Vol] 16 U/L Normal 10-49 [facility] MA[facility] Comment on above: Performed By: #### M DW, ADIFF, CBC, CMP, ANEU, GFR #### [place] [id number] AST [Catalytic activity/Vol] 17 U/L Normal 8-34 [facility] Comment on above: Performed By: #### M DW, ADIFF, CBC, CMP, ANEU, GFR #### [place] [id number] Bili Total 1.00 mg/dL Normal 0.20-1.20 [facility] MAIN Comment on above: Result Comment: Use of this assay is not recommended for patients undergoing treatment with eltrombopag due to the potential for falsely elevated results. Performed By: #### M DW, ADIFF, CBC, CMP, ANEU, GFR #### [place] [id number] Calcium [Mass/Vol] 9.4 mg/dL Normal 8.7-10.4 [facility] MAIN Comment on above: Performed By: #### M DW, ADIFF, CBC, CMP, ANEU, GFR #### [address] [address] Chloride [Moles/Vol] 106 mmol/L Normal 98-110 [facility] MAIN Comment on above: Performed By: #### M DW, ADIFF, CBC, CMP, ANEU, GFR #### [address] [address] CO2 [Moles/Vol] 28 mmol/L Normal 22-32 [facility] MA[facility] Comment on above: Performed By: #### M DW, ADIFF, CBC, CMP, ANEU, GFR #### [address] [address] Creatinine [Mass/Vol] 0.80 mg/dL Normal 0.50-1.20 [facility] MAIN Comment on above: Result Comment: Test ing performed on [employer]istant analyzer using enzymatic creatinine methodology. Performed By: #### M DW, ADIFF, CBC, CMP, ANEU, GFR #### [address] [address] Electrolyte Balance 7.0 mEq/L Normal 4.0-15.0 [facility] MAIN Comment on above: Performed By: #### M DW, ADIFF, CBC, CMP, ANEU, GFR #### [address] [address] Globulin 3.5 G/dL Normal 1.5-3.8 [facility] MA[facility] Comment on above: Performed By: #### M DW, ADIFF, CBC, CMP, ANEU, GFR #### [address] [address] Glucose [Mass/Vol] 79 mg/dL Normal 70-110 [facility] MAIN Comment on above: Performed By: #### M DW, ADIFF, CBC, CMP, ANEU, GFR #### [address] [address] Potassium [Moles/Vol] 3.5 mmol/L Normal 3.5-5.0 [facility] MAIN Comment on above: Performed By: #### M DW, ADIFF, CBC, CMP, ANEU, GFR #### [address] [address] Sodium [Moles/Vol] 141 mmol/L Normal 136-145 [facility] MAIN Comment on above: Performed By: #### M DW, ADIFF, CBC, CMP, ANEU, GFR #### [address] [address] Total Protein 7.4 G/dL Normal 5.7-8.2 [facility] MAIN Comment on above: Performed By: #### M DW, ADIFF, CBC, CMP, ANEU, GFR #### [address] [address] LABORATORYOrdered By: Margarette Hernadez on 01-28-2024 Beta HCG ( test) Ql (U) Negative (01/28/24 9:49 PM) [facility] Work Phone: Bilirubin Urine Dipstick 1+ Small (Abnormal) (01/28/24 9:49 PM) [facility] Work Phone: Blood Urine Dipstick Negative (01/28/24 9:49 PM) [facility] Work Phone: Glucose Urine Dipstick Negative (01/28/24 9:49 PM) [facility] Work Phone: Ketones Urine Dipstick Negative (01/28/24 9:49 PM) [facility] Work Phone: Leukocytes Urine Dipstick Negative (01/28/24 9:49 PM) [facility] Work Phone: Nitrite Urine Dipstick Negative (01/28/24 9:49 PM) [facility] Work Phone: pH Urine Dipstick 6.5 (01/28/24 9:49 PM) [facility] Work Phone: Protein Urine Dipstick Trace (Abnormal) (01/28/24 9:49 PM) [facility] Work Phone: Specific [place] Urine Dipstick 1.015 (01/28/24 9:49 PM) [facility] Work Phone: Urobilinogen Urine Dipstick 0.2 mg/dl (01/28/24 9:49 PM) [facility] Work Phone: LABORATORYOrdered By: SYSTEM SYSTEM on 01-28-2024 Lipase [Catalytic activity/Vol] 30 U/L Normal 12 - 53 U/L ADM SS Comment on above: Interpretive Data: * *Note - New Reference Range in effect 19 Albumin BCP dye [Mass/Vol] 3.9 G/dL Normal 3.2 - 4.8 G/dL ADM SS Albumin/Globulin [Mass ratio] 1.1 {ratio} Normal 0.9 - 1.6 ratio AH ADM SS ALP [Catalytic activity/Vol] 79 U/L Normal 38 - 126 U/L AH ADM SS ALT No additional P-5'-P [Catalytic activity/Vol] 16 U/L Normal 10 - 49 U/L AH ADM SS AST [Catalytic activity/Vol] 17 U/L Normal 8 - 34 U/L AH ADM SS Basophils (Bld) [#/Vol] 0.1 103/mcL Normal 0.0 - 0.3 10^3/mcL Workflow SS Basophils/100 WBC (Bld) 0.9 % Normal 0.0 - 2.5 % Workflow SS Bilirubin [Mass/Vol] 1.00 mg/dL Normal 0.20 - 1.20 mg/dL AH ADM SS Comment on above: Interpretive Data: U se of this assay is not recommended for patients undergoing treatment with eltrombopag due to the potential for falsely elevated results. Calcium [Mass/Vol] 9.4 mg/dL Normal 8.7 - 10. 4 mg/dL AH ADM SS Chloride [Moles/Vol] 106 mmol/L Normal 98 - 11 0 mEq/L AH ADM SS CO2 [Moles/Vol] 28 mmol/L Normal 22 - 32 mEq/L AH ADM SS Creatinine [Mass/Vol] 0.80 mg/dL Normal 0.50 - 1.20 mg/dL AH ADM SS Comment on above: Interpretive Data: T esting performed on [employer]istant analyzer using enzymatic creatinine methodology. Electrolyte Balance 7.0 mEq/L Normal 4.0 - 15 .0 mEq/L AH ADM SS Eosinophils (Bld) [#/Vol] 0.1 103/mcL Normal 0.0 - 0.7 10^3/mcL Workflow SS Eosinophils/100 WBC (Bld) 1.5 % Normal 0.0 - 6.0 % Workflow SS Erythrocyte distribution width (RBC) [Ratio] 14.1 % Normal 11.5 - 15.5 % Workflow SS GFR/1.73 sq M.predicted among blacks MDRD (S/P/Bld) [Vol rate/Area] ml/min/1.73sqm Invalid Interpretation Code [facility] Comment on above: Interpretive Data: GFR Population mean for , Non- Americans Ages 20-29 = 116 mL/min/1.73 sq.m. Ages 30-39 = 107 mL/min/1.73 sq.m. Ages 40-49 = 99 mL/min/1.73 sq.m. Ages 50-59 = 93 mL/min/1.73 sq.m. Ages 60-69 = 85 mL/min/1.73 sq.m. Ages 70+ = 75 mL/min/1.73 sq.m. Chronic Kidney Disease: Less than 60 mL/min/1.73 square meters End Stage Renal Disease: Less than 15 mL/min/1.73 square meters GFR/1.73 sq M.predicted among non-blacks MDRD (S/P/Bld) [Vol rate/Area] ml/min/1.73sqm Invalid Interpretation Code [facility] Comment on above: Interpretive Data: GFR Population mean for , Non- Americans Ages 20-29 = 116 mL/min/1.73 sq.m. Ages 30-39 = 107 mL/min/1.73 sq.m. Ages 40-49 = 99 mL/min/1.73 sq.m. Ages 50-59 = 93 mL/min/1.73 sq.m. Ages 60-69 = 85 mL/min/1.73 sq.m. Ages 70+ = 75 mL/min/1.73 sq.m. Chronic Kidney Disease: Less than 60 mL/min/1.73 square meters End Stage Renal Disease: Less than 15 mL/min/1.73 square meters Globulin 3.5 G/dL Normal 1.5 - 3.8 G/dL ADM Glucose [Mass/Vol] 79 mg/dL Normal 70 - 110 mg/dL ADM Hematocrit (Bld) [Volume fraction] 45.3 % Normal 34.0 - 46.0 % AH Workflow SS Hemoglobin (Bld) [Mass/Vol] 15.6 G/dL Normal 12.0 - 16.0 G/dL AH Workflow SS Lymphocytes (Bld) [#/Vol] 2.0 103/mcL Normal 0.9 - 4.3 10^3/mcL AH Workflow SS Lymphocytes/100 WBC (Bld) 27.2 % Normal 20.0 - 40.0 % AH Workflow SS MCH (RBC) [Entitic mass] 28.9 pg Normal 27.0 - 33.0 pg AH Workflow SS MCHC 34.5 G/dL Normal 32.0 - 36.0 G/dL AH Workflow SS MCV (RBC) [Entitic vol] 84.0 fL Normal 80.0 - 99.0 fL AH Workflow SS Monocyte distribution width Auto (Bld) [Entitic vol] 15.98 1 Normal 0.00 - 20.00 AH Workflow SS Comment on above: Result Comment: For ED adult patients suspected of sepsis, MDW<=20.0 does not rule out sepsis or risk of sepsis Monocytes (Bld) [#/Vol] 0.4 103/mcL Normal 0.1 - 1.4 10^3/mcL AH Workflow SS Monocytes/100 WBC (Bld) 4.8 % Normal 2.0 - 13.0 % AH Workflow SS Neutrophils (Bld) [#/Vol] 4.9 103/mcL Normal 2.3 - 8.1 10^3/mcL AH Workflow SS Neutrophils/100 WBC (Bld) 65.6 % Normal 50.0 - 75.0 % AH Workflow SS Platelet mean volume (Bld) [Entitic vol] 7.7 fL Normal 6.6 - 10.5 fL AH Workflow SS Platelets (Bld) [#/Vol] 275 103/mcL Normal 150 - 450 10^3/mcL AH Workflow SS Potassium [Moles/Vol] 3.5 mmol/L Normal 3.5 - 5.0 mEq/L AH ADM SS Protein [Mass/Vol] 7.4 G/dL Normal 5.7 - 8.2 G/dL AH ADM SS RBC (Bld) [#/Vol] 5.40 106/mcL High 4.10 - 5.3 0 10^6/mcL AH Workflow SS Sodium [Moles/Vol] 141 mmol/L Normal 136 - 145 mEq/L ADM SS WBC (Bld) [#/Vol] 7.5 103/mcL Normal 4.5 - 10.8 10^3/mcL Workflow SS LABORATORYOrdered By: Estelle Oakley on 01-28-2024 Urea nitrogen [Mass/Vol] mg/dL Low 8.0 - 22.0 mg/dL ADM SS Urea nitrogen/Creatinine [Mass ratio] Unable to Calculate Invalid Interpretation Code 10.0 - 22.0 ADM SS Comment on above: Result Comment: Unab le to calculate this test result accurately. Results used to calculate this test are outside the reportable range. LIPon 01-28-2024 Lipase Level 30 U/L Normal 12-53 [facility] MAIN Comment on above: Result Comment: No te - New Reference Range in effect 19 Performed By: #### M DW, ADIFF, CBC, CMP, ANEU, GFR #### [place] [address] US ABDOMEN LIMITEDon 024 US ABDOMEN LIMITED ORIGINAL EXAMINATION: RIGHT UPPER QUADRANT ULTRASOUND 01/28/2024 9:48 pm COMPARISON: CT abdomen-pelvis 01/14/2024 HISTORY: ORDERING SYSTEM PROVIDED HISTORY: Reason for Exam: abdominal pain FINDINGS: Evaluation is limited by overlying bowel gas obscuring the anatomic structures. Proximal pancreas demonstrates no ductal dilatation or gross inflammatory process. Mid-distal pancreas is obscured by overlying bowel gas and not well-evaluated. Aorta is obscured. Proximal IVC is normal caliber and patent. Liver is suboptimally evaluated with overlying bowel gas. The liver demonstrates no biliary duct dilatation and measures 18.7 cm. There is diffuse increased echogenicity of the liver, compatible with hepatic steatosis with hepatocellular disease not completely excluded in appropriate clinical setting. Correlation with clinical findings may be useful. Right kidney demonstrates no hydronephrosis or gross obstructive calculi and measures 10.1 x 5.1 x 3.3 cm. Portal vein demonstrates hepatopetal flow. Common bile duct measures 4 mm. The gallbladder demonstrates no gallstones or gross wall thickening. Gallbladder wall thickness measures 2 mm. IMPRESSION: There is no evidence of gallstones or cholecystitis. Interpreted by: Edwin Oliver Preliminary Report By: Edwin Oliver Electronically signed By Edwin Oliver Dictated Date: 01/28/2024 10:10:43 PM Prelim Date: 01/28/2024 10:13:40 PM Sign Date: 01/28/2024 10:13:40 PM Ordering Provider: MAYA REDMOND [facility] [place] XR ABDOMEN APon 01-28-2024 XR ABDOMEN AP ORIGINAL EXAMINATION: ONE SUPINE XRAY VIEW(S) OF THE ABDOMEN 01/28/2024 6:02 pm COMPARISON: CT abdomen pelvis 01/14/2024. HISTORY: ORDERING SYSTEM PROVIDED HISTORY: Reason for Exam: right flank pain/hx of stones FINDINGS: Nonobstructive bowel gas pattern. Stool and gas obscure the expected area of the lower pole the right kidney as well as portions of the left kidneys expected area. No definite abnormal calcification along the expected areas of the kidneys or ureters. Phlebolith projects over the low right pelvis. Calcified densities projecting in between the right 11th and 12th ribs likely represent calcified costochondral cartilage as seen on referenced CT. IMPRESSION: No convincing evidence of stone disease. I have personally reviewed the images of this examination and agree with the resident's findings and interpretation. Interpreted by: Checo Mariscal Preliminary Report By: Chente Richards Electronically signed By Checo Mariscal Dictated Date: 01/28/2024 6:17:11 PM Prelim Date: 01/28/2024 6:20:32 PM Sign Date: 01/28/2024 6:31:04 PM Ordering Provider: CRYSTAL PA [facility] [place] .Auto Diffon 01-14-2024 Basophil, Absolute 0.1 10 3/mcL Normal 0.0-0.3 [facility] MAIN Comment on above: Performed By: #### M DW, ADIFF, CBC, CMP, ANEU, GFR #### [address] [address] Basophils/100 WBC (Bld) 0.9 % Normal 0.0-2.5 [facility] Comment on above: Performed By: #### M DW, ADIFF, CBC, CMP, ANEU, GFR #### [address] [address] Eosinophil, Absolute 0.1 10 3/mcL Normal 0.0-0.7 [facility] MAIN Comment on above: Performed By: #### M DW, ADIFF, CBC, CMP, ANEU, GFR #### [address] [address] Eosinophils/100 WBC (Bld) 2.0 % Normal 0.0-6.0 [facility] Comment on above: Performed By: #### M DW, ADIFF, CBC, CMP, ANEU, GFR #### [address] [address] Lymphocyte, Absolute 1.4 10 3/mcL Normal 0.9-4.3 [facility] MAIN Comment on above: Performed By: #### M DW, ADIFF, CBC, CMP, ANEU, GFR #### [address] [address] Lymphocytes/100 WBC (Bld) 21.2 % Normal 20.0-40.0 [facility] Comment on above: Performed By: #### M DW, ADIFF, CBC, CMP, ANEU, GFR #### [address] [address] Monocyte, Absolute 0.4 10 3/mcL Normal 0.1-1.4 [facility] MAIN Comment on above: Performed By: #### M DW, ADIFF, CBC, CMP, ANEU, GFR #### [address] [address] Monocytes/100 WBC (Bld) 6.1 % Normal 2.0-13.0 [facility] Comment on above: Performed By: #### M DW, ADIFF, CBC, CMP, ANEU, GFR #### [address] [address] Neutrophils/100 WBC (Bld) 69.8 % Normal 50.0-75.0 [facility] Comment on above: Performed By: #### M DW, ADIFF, CBC, CMP, ANEU, GFR #### [address] [address] .GFRon 01-14-2024 GFR Non- >60 Normal [facility] Comment on above: Result Comment: GFR Population mean for , Non- Americans Ages 20-29 = 116 mL/min/1.73 sq.m. Ages 30-39 = 107 mL/min/1.73 sq.m. Ages 40-49 = 99 mL/min/1.73 sq.m. Ages 50-59 = 93 mL/min/1.73 sq.m. Ages 60-69 = 85 mL/min/1.73 sq.m. Ages 70+ = 75 mL/min/1.73 sq.m. Chronic Kidney Disease: Less than 60 mL/min/1.73 square meters End Stage Renal Disease: Less than 15 mL/min/1.73 square meters Performed By: #### M DW, ADIFF, CBC, CMP, ANEU, GFR #### [place] [address] GFR >60 Normal [facility] MAIN Comment on above: Result Comment: GFR Population mean for , Non- Americans Ages 20-29 = 116 mL/min/1.73 sq.m. Ages 30-39 = 107 mL/min/1.73 sq.m. Ages 40-49 = 99 mL/min/1.73 sq.m. Ages 50-59 = 93 mL/min/1.73 sq.m. Ages 60-69 = 85 mL/min/1.73 sq.m. Ages 70+ = 75 mL/min/1.73 sq.m. Chronic Kidney Disease: Less than 60 mL/min/1.73 square meters End Stage Renal Disease: Less than 15 mL/min/1.73 square meters Performed By: #### M DW, ADIFF, CBC, CMP, ANEU, GFR #### [place] [address] .MDWon 01-14-2024 Monocyte Distribution Width 17.65 Normal 0.00-20.00 [facility] Comment on above: Result Comment: For ED adult patients suspected of sepsis, MDW<=20.0 does not rule out sepsis or risk of sepsis Performed By: #### M DW, ADIFF, CBC, CMP, ANEU, GFR #### [place] [address] .NEUABSon 01-14-2024 Neutrophil, Absolute 4.7 10 3/mcL Normal 2.3-8.1 [facility] MAIN Comment on above: Performed By: #### M DW, ADIFF, CBC, CMP, ANEU, GFR #### [place] [address] CBCon 01-14-2024 Erythrocyte distribution width (RBC) [Ratio] 14.1 % Normal 11.5-15.5 [facility] Comment on above: Performed By: #### M DW, ADIFF, CBC, CMP, ANEU, GFR #### [place] [address] Hematocrit (Bld) [Volume fraction] 43.2 % Normal 34.0-46.0 [facility] Comment on above: Performed By: #### M DW, ADIFF, CBC, CMP, ANEU, GFR #### [place] [address] Hgb 14.6 G/dL Normal 12.0-16.0 [facility] Comment on above: Performed By: #### M DW, ADIFF, CBC, CMP, ANEU, GFR #### [place] [address] MCH (RBC) [Entitic mass] 28.7 pg Normal 27.0-33.0 [facility] Comment on above: Performed By: #### M DW, ADIFF, CBC, CMP, ANEU, GFR #### [place] [address] MCHC 33.8 G/dL Normal 32.0-36.0 [facility] Comment on above: Performed By: #### M DW, ADIFF, CBC, CMP, ANEU, GFR #### [place] [address] MCV (RBC) [Entitic vol] 85.1 fL Normal 80.0-99.0 [facility] Comment on above: Performed By: #### M DW, ADIFF, CBC, CMP, ANEU, GFR #### [place] [address] Platelet 250 10 3/mcL Normal 150-450 [facility] Comment on above: Performed By: #### M DW, ADIFF, CBC, CMP, ANEU, GFR #### [place] [address] Platelet mean volume (Bld) [Entitic vol] 7.9 fL Normal 6.6-10.5 [facility] Comment on above: Performed By: #### M DW, ADIFF, CBC, CMP, ANEU, GFR #### [place] [address] RBC 5.08 10 6/mcL Normal 4.10-5.30 [facility] Comment on above: Performed By: #### M DW, ADIFF, CBC, CMP, ANEU, GFR #### [place] [address] WBC 6.7 10 3/mcL Normal 4.5-10.8 [facility] Comment on above: Performed By: #### M DW, ADIFF, CBC, CMP, ANEU, GFR #### [place] [address] CMPon 01-14-2024 Albumin Level 3.6 G/dL Normal 3.2-4.8 [facility] MAIN Comment on above: Performed By: #### M DW, ADIFF, CBC, CMP, ANEU, GFR #### [place] [address] Albumin/Globulin [Mass ratio] 1.1 {ratio} Normal 0.9-1.6 [facility] MAIN Comment on above: Performed By: #### M DW, ADIFF, CBC, CMP, ANEU, GFR #### [place] [address] ALP [Catalytic activity/Vol] 81 U/L Normal 38-126 [facility] MAIN Comment on above: Performed By: #### M DW, ADIFF, CBC, CMP, ANEU, GFR #### [place] [address] ALT [Catalytic activity/Vol] 14 U/L Normal 10-49 [facility] MAIN Comment on above: Performed By: #### M DW, ADIFF, CBC, CMP, ANEU, GFR #### [place] [address] AST [Catalytic activity/Vol] 17 U/L Normal 8-34 [facility] MAIN Comment on above: Performed By: #### M DW, ADIFF, CBC, CMP, ANEU, GFR #### [place] [address] Bili Total 0.90 mg/dL Normal 0.20-1.20 [facility] MAIN Comment on above: Result Comment: Use of this assay is not recommended for patients undergoing treatment with eltrombopag due to the potential for falsely elevated results. Performed By: #### M DW, ADIFF, CBC, CMP, ANEU, GFR #### [place] [address] BUN/Creatinine Ratio 7.4 ratio Low 10.0-22.0 [facility] MAIN Comment on above: Performed By: #### M DW, ADIFF, CBC, CMP, ANEU, GFR #### [place] [id number] Calcium [Mass/Vol] 9.2 mg/dL Normal 8.7-10.4 [facility] MAIN Comment on above: Performed By: #### M DW, ADIFF, CBC, CMP, ANEU, GFR #### [place] [id number] Chloride [Moles/Vol] 108 mmol/L Normal 98-110 [facility] MAIN Comment on above: Performed By: #### M DW, ADIFF, CBC, CMP, ANEU, GFR #### [place] [id number] CO2 [Moles/Vol] 27 mmol/L Normal 22-32 [facility] MAIN Comment on above: Performed By: #### M DW, ADIFF, CBC, CMP, ANEU, GFR #### [place] [id number] Creatinine [Mass/Vol] 0.81 mg/dL Normal 0.50-1.20 [facility] MAIN Comment on above: Result Comment: Test ing performed on PharmAssistant analyzer using enzymatic creatinine methodology. Performed By: #### M DW, ADIFF, CBC, CMP, ANEU, GFR #### [place] [address] Electrolyte Balance 6.0 mEq/L Normal 4.0-15.0 [facility] MAIN Comment on above: Performed By: #### M DW, ADIFF, CBC, CMP, ANEU, GFR #### [address] [address] Globulin 3.3 G/dL Normal 1.5-3.8 [facility] MAIN Comment on above: Performed By: #### M DW, ADIFF, CBC, CMP, ANEU, GFR #### [address] [address] Glucose [Mass/Vol] 89 mg/dL Normal 70-110 [facility] MAIN Comment on above: Performed By: #### M DW, ADIFF, CBC, CMP, ANEU, GFR #### [address] [address] Potassium [Moles/Vol] 4.1 mmol/L Normal 3.5-5.0 [facility] MAIN Comment on above: Performed By: #### M DW, ADIFF, CBC, CMP, ANEU, GFR #### [address] [address] Sodium [Moles/Vol] 141 mmol/L Normal 136-145 [facility] MAIN Comment on above: Performed By: #### M DW, ADIFF, CBC, CMP, ANEU, GFR #### [address] [address] Total Protein 6.9 G/dL Normal 5.7-8.2 [facility] MAIN Comment on above: Performed By: #### M DW, ADIFF, CBC, CMP, ANEU, GFR #### [address] [address] Urea nitrogen [Mass/Vol] 6.0 mg/dL Low 8.0-22.0 [facility] MAIN Comment on above: Performed By: #### M DW, ADIFF, CBC, CMP, ANEU, GFR #### [address] [address] [address] ABD/PELVIS W/ IV CONTRAST ONLYon 01-14-2024 CT ABD/PELVIS W/ IV CONTRAST ONLY ORIGINAL EXAMINATION: CT OF THE ABDOMEN AND PELVIS WITH CONTRAST 01/14/2024 3:42 pm TECHNIQUE: CT of the abdomen and pelvis was performed with the administration of intravenous contrast. Multiplanar reformatted images are provided for review. Automated exposure control, iterative reconstruction, and/or weight based adjustment of the mA/kV was utilized to reduce the radiation dose to as low as reasonably achievable. COMPARISON: January 07, 2024 HISTORY: ORDERING SYSTEM PROVIDED HISTORY: Reason for Exam: abdominal pain, RECENT UTI & C/O BI LAT FLANK PAIN FINDINGS: No osseous abnormality identified. The lung bases are unremarkable. Liver, spleen, adrenal glands and pancreas are unremarkable. Stable left lower pole punctate 2 mm stone seen. Nephrograms are symmetric, and there is no definite collecting system dilatation. Previously seen minor left ureteral dilatation has resolved and is no longer visible. Previously seen urinary bladder wall thickening has also resolved. No adenopathy, free air or free fluid seen. No GI tract abnormality is visible. No additional contributory finding. IMPRESSION: 1. Punctate nonobstructive left nephrolithiasis. 2. Resolution of previously seen minor left ureteral dilatation. Perhaps this is resolved hydronephrosis from previous stone passage. 3. Previously seen urinary bladder wall thickening is no longer visible. 4. No new/acute finding. Interpreted by: Vinay Molina MD Preliminary Report By: Vinay Molina MD Electronically signed By Vinay Molina MD Dictated Date: 01/14/2024 3:43:47 PM Prelim Date: 01/14/2024 3:47:01 PM Sign Date: 01/14/2024 3:47:01 PM Ordering Provider: RIVER Valle [facility] MAIN LABORATORYOrdered By: Kellie Negrete on 01-14-2024 Beta HCG ( test) Ql (U) Negative (01/14/24 1:38 PM) [facility] Work Phone: LABORATORYOrdered By: SYSTEM SYSTEM on 01-14-2024 Albumin BCP dye [Mass/Vol] 3.6 G/dL Normal 3.2 - 4.8 G/dL ADM SS Albumin/Globulin [Mass ratio] 1.1 {ratio} Normal 0.9 - 1.6 ratio ADM SS ALP [Catalytic activity/Vol] 81 U/L Normal 38 - 126 U/L AH ADM SS ALT No additional P-5'-P [Catalytic activity/Vol] 14 U/L Normal 10 - 49 U/L AH ADM SS AST [Catalytic activity/Vol] 17 U/L Normal 8 - 34 U/L AH ADM SS Basophils (Bld) [#/Vol] 0.1 103/mcL Normal 0.0 - 0.3 10^3/mcL AH Workflow SS Basophils/100 WBC (Bld) 0.9 % Normal 0.0 - 2.5 % AH Workflow SS Bilirubin [Mass/Vol] 0.90 mg/dL Normal 0.20 - 1.20 mg/dL ADM SS Comment on above: Interpretive Data: U se of this assay is not recommended for patients undergoing treatment with eltrombopag due to the potential for falsely elevated results. Calcium [Mass/Vol] 9.2 mg/dL Normal 8.7 - 10. 4 mg/dL ADM SS Chloride [Moles/Vol] 108 mmol/L Normal 98 - 11 0 mEq/L ADM SS CO2 [Moles/Vol] 27 mmol/L Normal 22 - 32 mEq/L ADM SS Creatinine [Mass/Vol] 0.81 mg/dL Normal 0.50 - 1.20 mg/dL ADM SS Comment on above: Interpretive Data: T esting performed on PharmAssistant analyzer using enzymatic creatinine methodology. Electrolyte Balance 6.0 mEq/L Normal 4.0 - 15 .0 mEq/L ADM SS Eosinophils (Bld) [#/Vol] 0.1 103/mcL Normal 0.0 - 0.7 10^3/mcL Workflow SS Eosinophils/100 WBC (Bld) 2.0 % Normal 0.0 - 6.0 % Workflow SS Erythrocyte distribution width (RBC) [Ratio] 14.1 % Normal 11.5 - 15.5 % Workflow SS GFR/1.73 sq M.predicted among blacks MDRD (S/P/Bld) [Vol rate/Area] ml/min/1.73sqm Invalid Interpretation Code ADM SS Comment on above: Interpretive Data: GFR Population mean for , Non- Americans Ages 20-29 = 116 mL/min/1.73 sq.m. Ages 30-39 = 107 mL/min/1.73 sq.m. Ages 40-49 = 99 mL/min/1.73 sq.m. Ages 50-59 = 93 mL/min/1.73 sq.m. Ages 60-69 = 85 mL/min/1.73 sq.m. Ages 70+ = 75 mL/min/1.73 sq.m. Chronic Kidney Disease: Less than 60 mL/min/1.73 square meters End Stage Renal Disease: Less than 15 mL/min/1.73 square meters GFR/1.73 sq M.predicted among non-blacks MDRD (S/P/Bld) [Vol rate/Area] ml/min/1.73sqm Invalid Interpretation Code ADM Comment on above: Interpretive Data: GFR Population mean for , Non- Americans Ages 20-29 = 116 mL/min/1.73 sq.m. Ages 30-39 = 107 mL/min/1.73 sq.m. Ages 40-49 = 99 mL/min/1.73 sq.m. Ages 50-59 = 93 mL/min/1.73 sq.m. Ages 60-69 = 85 mL/min/1.73 sq.m. Ages 70+ = 75 mL/min/1.73 sq.m. Chronic Kidney Disease: Less than 60 mL/min/1.73 square meters End Stage Renal Disease: Less than 15 mL/min/1.73 square meters Globulin 3.3 G/dL Normal 1.5 - 3.8 G/dL ADM SS Glucose [Mass/Vol] 89 mg/dL Normal 70 - 110 mg/dL ADM SS Hematocrit (Bld) [Volume fraction] 43.2 % Normal 34.0 - 46.0 % Workflow SS Hemoglobin (Bld) [Mass/Vol] 14.6 G/dL Normal 12.0 - 16.0 G/dL Workflow SS Lipase [Catalytic activity/Vol] 29 U/L Normal 12 - 53 U/L [facility] Comment on above: Interpretive Data: * *Note - New Reference Range in effect 19 Lymphocytes (Bld) [#/Vol] 1.4 103/mcL Normal 0.9 - 4.3 10^3/mcL Workflow SS Lymphocytes/100 WBC (Bld) 21.2 % Normal 20.0 - 40.0 % Workflow SS MCH (RBC) [Entitic mass] 28.7 pg Normal 27.0 - 33.0 pg Workflow SS MCHC 33.8 G/dL Normal 32.0 - 36.0 G/dL Workflow SS MCV (RBC) [Entitic vol] 85.1 fL Normal 80.0 - 99.0 fL Workflow SS Monocyte distribution width Auto (Bld) [Entitic vol] 17.65 1 Normal 0.00 - 20.00 AH Workflow SS Comment on above: Result Comment: For ED adult patients suspected of sepsis, MDW<=20.0 does not rule out sepsis or risk of sepsis Monocytes (Bld) [#/Vol] 0.4 103/mcL Normal 0.1 - 1.4 10^3/mcL AH Workflow SS Monocytes/100 WBC (Bld) 6.1 % Normal 2.0 - 13.0 % AH Workflow SS Neutrophils (Bld) [#/Vol] 4.7 103/mcL Normal 2.3 - 8.1 10^3/mcL AH Workflow SS Neutrophils/100 WBC (Bld) 69.8 % Normal 50.0 - 75.0 % AH Workflow SS Platelet mean volume (Bld) [Entitic vol] 7.9 fL Normal 6.6 - 10.5 fL AH Workflow SS Platelets (Bld) [#/Vol] 250 103/mcL Normal 150 - 450 10^3/mcL AH Workflow SS Potassium [Moles/Vol] 4.1 mmol/L Normal 3.5 - 5.0 mEq/L AH ADM SS Protein [Mass/Vol] 6.9 G/dL Normal 5.7 - 8.2 G/dL AH ADM SS RBC (Bld) [#/Vol] 5.08 106/mcL Normal 4.10 - 5.3 0 10^6/mcL AH Workflow SS Sodium [Moles/Vol] 141 mmol/L Normal 136 - 145 mEq/L AH ADM SS Urea nitrogen [Mass/Vol] 6.0 mg/dL Low 8.0 - 22.0 mg/dL AH ADM SS Urea nitrogen/Creatinine [Mass ratio] 7.4 ratio Low 10.0 - 22.0 ratio AH ADM SS WBC (Bld) [#/Vol] 6.7 103/mcL Normal 4.5 - 10.8 10^3/mcL AH Workflow SS LABORATORYOrdered By: Maya العلي on 01-14-2024 Appearance (U) Clear (01/14/24 1:32 PM) Normal Clear AH Auto Urine SS Bacteria LM.HPF (Urine sed) [#/Area] Trace /HPF Invalid Interpretation Code Negative AH Auto Urine SS Bilirubin Ql (U) Negative (01/14/24 1:32 PM) Normal Neg-Trace AH Auto Urine SS Color (U) Yellow (01/14/24 1:32 PM) Normal AH Auto Urine SS Glucose Test strip (U) [Mass/Vol] Negative Normal Negative AH Auto Urine SS Hemoglobin Auto test strip (U) [Mass/Vol] Negative (01/14/24 1:32 PM) Normal Neg-Trace AH Auto Urine SS Ketones Ql (U) Negative Normal Neg-Trace AH Auto Urine SS UA Leuk Est Moderate *ABN* (01/14/24 1:32 PM) Invalid Interpretation Code Negative AH Auto Urine SS UA Nitrite Negative (01/14/24 1:32 PM) Normal Negative AH Auto Urine SS UA pH 7.5 (01/14/24 1:32 PM) Normal 5.0 - 8.0 AH Auto Urine SS UA Protein Negative Normal Negative AH Auto Urine SS UA RBC 0-2 /HPF Normal 0-2 AH Auto Urine SS UA Spec Grav <=1.005 *ABN* (01/14/24 1:32 PM) Invalid Interpretation Code 1.006-1.029 AH Auto Urine SS UA Specimen Type Clean Catch (01/14/24 1:32 PM) Normal AH Auto Urine SS UA Squam Epithelial 5-10 /HPF Normal 0-20 AH Au to Urine SS UA Urobilinogen 0.2 E.U./dL Normal 0.2-1.0 AH Auto Urine SS WBC LM.HPF (Urine sed) [#/Area] 5-10 /HPF Invalid Interpretation Code 0-5 AH Auto Urine SS LIPon 01-14-2024 Lipase Level 29 U/L Normal 12-53 [facility] MAIN Comment on above: Result Comment: No te - New Reference Range in effect 19 Performed By: #### M DW, ADIFF, CBC, CMP, ANEU, GFR #### [address] [address] No Panel Informationon 01-13 Microscopic examination of blood, culture Culture has been received in lab and is no growth to date. Routine cultures are held for 5 days. [facility] Work Phone: UAon 01-14-2024 Color (U) Yellow Normal [facility] MAIN Comment on above: Performed By: #### M DW, ADIFF, CBC, CMP, ANEU, GFR #### [address] [address] Glucose (U) [Mass/Vol] Negative Normal Negative [facility] MAIN Comment on above: Performed By: #### M DW, ADIFF, CBC, CMP, ANEU, GFR #### [place] [address] Ketones Ql (U) Negative Normal Neg-Trace [facility] MAIN Comment on above: Performed By: #### M DW, ADIFF, CBC, CMP, ANEU, GFR #### [place] [address] UA Appear Clear Normal Clear [facility] MAIN Comment on above: Performed By: #### M DW, ADIFF, CBC, CMP, ANEU, GFR #### [place] [address] UA Blood Negative Normal Neg-Trace [facility] MAIN Comment on above: Performed By: #### M DW, ADIFF, CBC, CMP, ANEU, GFR #### [place] [address] UA Leuk Est Moderate Abnormal Negative [facility] MAIN Comment on above: Performed By: #### M DW, ADIFF, CBC, CMP, ANEU, GFR #### [place] [address] UA Nitrite Negative Normal Negative [facility] MAIN Comment on above: Performed By: #### M DW, ADIFF, CBC, CMP, ANEU, GFR #### [place] [address] UA pH 7.5 Normal 5.0 - 8.0 [facility] MAIN Comment on above: Performed By: #### M DW, ADIFF, CBC, CMP, ANEU, GFR #### [place] [address] UA Protein Negative Normal Negative [facility] MAIN Comment on above: Performed By: #### M DW, ADIFF, CBC, CMP, ANEU, GFR #### [place] [address] UA Spec Grav <=1.005 Abnormal 1.006-1.029 [facility] MAIN Comment on above: Performed By: #### M DW, ADIFF, CBC, CMP, ANEU, GFR #### [place] [address] UA Specimen Type Clean Catch Normal [facility] MAIN Comment on above: Performed By: #### M DW, ADIFF, CBC, CMP, ANEU, GFR #### [place] [address] UA Urobilinogen 0.2 E.U./dL Normal 0.2-1.0 [facility] MAIN Comment on above: Performed By: #### M DW, ADIFF, CBC, CMP, ANEU, GFR #### [place] [address] Urobilinogen (U) [Mass/Vol] Negative Normal Neg-Trace [facility] MAIN Comment on above: Performed By: #### M DW, ADIFF, CBC, CMP, ANEU, GFR #### [place] [address] UAMICon 01-14-2024 UA Bacteria Trace Abnormal Negative [facility] MAIN Comment on above: Performed By: #### M DW, ADIFF, CBC, CMP, ANEU, GFR #### [place] [address] UA RBC 0-2 Normal 0-2 [facility] MAIN Comment on above: Performed By: #### M DW, ADIFF, CBC, CMP, ANEU, GFR #### [place] [address] UA Squam Epithelial 5-10 Normal 0-20 [facility] MAIN Comment on above: Performed By: #### M DW, ADIFF, CBC, CMP, ANEU, GFR #### [place] [address] UA WBC 5-10 Abnormal 0-5 [facility] MAIN Comment on above: Performed By: #### M DW, ADIFF, CBC, CMP, ANEU, GFR #### [place] [address] .Auto Diffon 01-07-2024 Basophil, Absolute 0.1 10 3/mcL Normal 0.0-0.3 [facility] Comment on above: Performed By: #### A DIFF, CMP, MDW, LIP, GFR, ANEU, CBC #### [facility] [address] [place], [place] [address] Basophils/100 WBC (Bld) 0.6 % Normal 0.0-2.5 [facility] Comment on above: Performed By: #### A DIFF, CMP, MDW, LIP, GFR, ANEU, CBC #### [place] [address] [place], [place] [address] Eosinophil, Absolute 0.1 10 3/mcL Normal 0.0-0.7 [facility] LTM[facility] Comment on above: Performed By: #### A DIFF, CMP, MDW, LIP, GFR, ANEU, CBC #### [place] [address] [place], [place] [address] Eosinophils/100 WBC (Bld) 0.8 % Normal 0.0-6.0 [facility] Comment on above: Performed By: #### A DIFF, CMP, MDW, LIP, GFR, ANEU, CBC #### [place] [address] [place], [place] [address] Lymphocyte, Absolute 1.8 10 3/mcL Normal 0.9-4.3 [facility] Comment on above: Performed By: #### A DIFF, CMP, MDW, LIP, GFR, ANEU, CBC #### [place] [address] [place], [place] [address] Lymphocytes/100 WBC (Bld) 15.5 % Low 20.0-40.0 [facility] Comment on above: Performed By: #### A DIFF, CMP, MDW, LIP, GFR, ANEU, CBC #### [address] [place], [place] [address] Monocyte, Absolute 0.6 10 3/mcL Normal 0.1-1.4 JAIDA MAN [facility] Comment on above: Performed By: #### A DIFF, CMP, MDW, LIP, GFR, ANEU, CBC #### [place] [address] [place], [place] [address] Monocytes/100 WBC (Bld) 5.3 % Normal 2.0-13.0 [facility] Comment on above: Performed By: #### A DIFF, CMP, MDW, LIP, GFR, ANEU, CBC #### [place] [address] [place], [place] [address] Neutrophils/100 WBC (Bld) 77.8 % High 50.0-75.0 [facility] Comment on above: Performed By: #### A DIFF, DON, COY, LIP, GFR, ANEU, CBC #### [place] [address] [place], [place] [address] .GFRon 01-07-2024 GFR 68 ml/min/1.73sqm Normal [facility] Comment on above: Result Comment: GFR Population mean for , Non- Americans Ages 20-29 = 116 mL/min/1.73 sq.m. Ages 30-39 = 107 mL/min/1.73 sq.m. Ages 40-49 = 99 mL/min/1.73 sq.m. Ages 50-59 = 93 mL/min/1.73 sq.m. Ages 60-69 = 85 mL/min/1.73 sq.m. Ages 70+ = 75 mL/min/1.73 sq.m. Chronic Kidney Disease: Less than 60 mL/min/1.73 square meters End Stage Renal Disease: Less than 15 mL/min/1.73 square meters Performed By: #### A DIFF, DON, W, LIP, GFR, ANEU, CBC ####[id number] [place], [place] [address] GFR Non- 56 ml/min/1.73sqm Normal [facility] Comment on above: Result Comment: GFR Population mean for , Non- Americans Ages 20-29 = 116 mL/min/1.73 sq.m. Ages 30-39 = 107 mL/min/1.73 sq.m. Ages 40-49 = 99 mL/min/1.73 sq.m. Ages 50-59 = 93 mL/min/1.73 sq.m. Ages 60-69 = 85 mL/min/1.73 sq.m. Ages 70+ = 75 mL/min/1.73 sq.m. Chronic Kidney Disease: Less than 60 mL/min/1.73 square meters End Stage Renal Disease: Less than 15 mL/min/1.73 square meters Performed By: #### A DIFF, CMP, MDW, LIP, GFR, ANEU, CBC ####[id number] [place], [place] [address] .MDWon 01-07-2024 Monocyte Distribution Width 19.31 Normal 0.00-20.00 [facility] Comment on above: Result Comment: For ED adult patients suspected of sepsis, MDW<=20.0 does not rule out sepsis or risk of sepsis Performed By: #### A DIFF, CMP, MDW, LIP, GFR, ANEU, CBC ####[id number] [place] [id number] .NEUABSon 01-07-2024 Neutrophil, Absolute 9.0 10 3/mcL High 2.3-8.1 [facility] Comment on above: Performed By: #### A DIFF, CMP, MDW, LIP, GFR, ANEU, CBC #### [place] [address] [place] [address] CBCon 01-07-2024 Erythrocyte distribution width (RBC) [Ratio] 14.4 % Normal 11.5-15.5 [facility] Comment on above: Performed By: #### A DIFF, CMP, MDW, LIP, GFR, ANEU, CBC #### [place] [address] [place] [phone] Hematocrit (Bld) [Volume fraction] 43.7 % Normal 34.0-46.0 [facility] Comment on above: Performed By: #### A DIFF, CMP, MDW, LIP, GFR, ANEU, CBC #### [place] [address] [place] [phone] Hgb 14.2 G/dL Normal 12.0-16.0 [facility] Comment on above: Performed By: #### A DIFF, CMP, MDW, LIP, GFR, ANEU, CBC #### [place] [address] [place] [phone] MCH (RBC) [Entitic mass] 28.0 pg Normal 27.0-33.0 [facility] Comment on above: Performed By: #### A DIFF, CMP, MDW, LIP, GFR, ANEU, CBC #### [place] [address] [place], [place] [address] MCHC 32.5 G/dL Normal 32.0-36.0 [facility] Comment on above: Performed By: #### A DIFF, CMP, MDW, LIP, GFR, ANEU, CBC #### [place] [address] [place], [place] [address] MCV (RBC) [Entitic vol] 86.0 fL Normal 80.0-99.0 [facility] Comment on above: Performed By: #### A DIFF, CMP, MDW, LIP, GFR, ANEU, CBC #### [place] [address] [place] [phone] Platelet 294 10 3/mcL Normal 150-450 [facility] Comment on above: Performed By: #### A DIFF, CMP, MDW, LIP, GFR, ANEU, CBC #### [place] [address] [place] [phone] Platelet mean volume (Bld) [Entitic vol] 7.9 fL Normal 6.6-10.5 [facility] Comment on above: Performed By: #### A DIFF, CMP, MDW, LIP, GFR, ANEU, CBC #### [place] [address] [place], [place] [address] RBC 5.09 10 6/mcL Normal 4.10-5.30 [facility] Comment on above: Performed By: #### A DIFF, CMP, MDW, LIP, GFR, ANEU, CBC #### [place] [address] [place], [place] [address] WBC 11.6 10 3/mcL High 4.5-10.8 [facility] Comment on above: Performed By: #### A DIFF, CMP, MDW, LIP, GFR, ANEU, CBC #### [place] [address] [place] [phone] CMPon 01-07-2024 Albumin Level 3.6 G/dL Normal 3.5-5.0 [facility] Comment on above: Performed By: #### A DIFF, CMP, MDW, LIP, GFR, ANEU, CBC ####[address] [place], [place] [address] Albumin/Globulin [Mass ratio] 1.1 {ratio} Normal 1.1-2.5 [facility] Comment on above: Performed By: #### A DIFF, CMP, MDW, LIP, GFR, ANEU, CBC ####[address] [place] [phone] ALP [Catalytic activity/Vol] 91 U/L Normal 40-135 [facility] Comment on above: Performed By: #### A DIFF, CMP, MDW, LIP, GFR, ANEU, CBC ####[address] [address] [place] [phone] ALT [Catalytic activity/Vol] 20 U/L Normal 14-59 [facility] Comment on above: Performed By: #### A DIFF, CMP, MDW, LIP, GFR, ANEU, CBC ####[address] [place] [phone] AST [Catalytic activity/Vol] 12 U/L Normal 10-40 [facility] Comment on above: Performed By: #### A DIFF, CMP, MDW, LIP, GFR, ANEU, CBC ####[address] [place] [phone] Bili Total 0.8 mg/dL Normal 0.2-1.0 [facility] Comment on above: Result Comment: Use of this assay is not recommended for patients undergoing treatment with eltrombopag due to the potential for falsely elevated results. Performed By: #### A DIFF, CMP, MDW, LIP, GFR, ANEU, CBC ####[address] [place] [phone] BUN/Creatinine Ratio 6 ratio Low 7-27 JIADA MAN [facility] Comment on above: Performed By: #### A DIFF, CMP, MDW, LIP, GFR, ANEU, CBC ####[address] [place] [phone] Calcium [Mass/Vol] 8.8 mg/dL Normal 8.4-10.2 AULTMA N [facility] Comment on above: Performed By: #### A DIFF, CMP, MDW, LIP, GFR, ANEU, CBC ####[address] [place], [place] [address] Chloride [Moles/Vol] 102 mmol/L Normal 98-107 JAIDA MAN [facility] Comment on above: Performed By: #### A DIFF, CMP, MDW, LIP, GFR, ANEU, CBC ####[id number] [place] [phone] CO2 [Moles/Vol] 27 mmol/L Normal 22-29 [facility] Comment on above: Performed By: #### A DIFF, CMP, MDW, LIP, GFR, ANEU, CBC ####[address] [place], [place] [id number] Creatinine [Mass/Vol] 1.06 mg/dL High 0.55-1.02 AUL TMAN [facility] Comment on above: Result Comment: Test ing performed on Siemens Dimension EXL analyzer using a modified kinetic Rosie technique. Performed By: #### A DIFF, CMP, MDW, LIP, GFR, ANEU, CBC ####[address] [place], [place] [address] Electrolyte Balance 11.0 mEq/L Normal 4.0-15.0 AULTM AN [facility] Comment on above: Performed By: #### A DIFF, CMP, MDW, LIP, GFR, ANEU, CBC ####[address] [place] [phone] Globulin 3.4 G/dL Normal [facility] Comment on above: Performed By: #### A DIFF, CMP, MDW, LIP, GFR, ANEU, CBC ####[address] [place], [place] [address] Glucose [Mass/Vol] 86 mg/dL Normal 70-105 AULTMA N MASSILLON Comment on above: Performed By: #### A DIFF, CMP, MDW, LIP, GFR, ANEU, CBC ####Juan [id number] [place], [place] [address] Potassium [Moles/Vol] 3.9 mmol/L Normal 3.5-5.1 AUL TMAN MASSILLON Comment on above: Performed By: #### A DIFF, CMP, MDW, LIP, GFR, ANEU, CBC ####Juan [id number] [place], [place] [address] Sodium [Moles/Vol] 140 mmol/L Normal 136-145 AULTMA N MASSILLON Comment on above: Performed By: #### A DIFF, CMP, MDW, LIP, GFR, ANEU, CBC ####Juan [id number] [place], [place] [address] Total Protein 7.0 G/dL Normal 6.4-8.2 JUAN MASSILLON Comment on above: Performed By: #### A DIFF, CMP, MDW, LIP, GFR, ANEU, CBC ####Juan [id number] [place], [place] [address] Urea nitrogen [Mass/Vol] 6 mg/dL Low 7-18 JUAN MASSILLON Comment on above: Performed By: #### A DIFF, CMP, MDW, LIP, GFR, ANEU, CBC ####Juan [id number] [place], [place] [address] CNOVon 01-07-2024 CNOV Office Visit ([facility] ) BETTE WRIGHT ([id number]) 1980 F Date Time Provider Department 01/07/24 6:50 PM BETO STEPHENS JR [facility] During your visit today, we recorded the following information about you: Temperature Pulse Respiration Blood pressure 97.8 degrees 91/minute 18/minute 136/90 Weight 98.9 kg Beto Stephens Jr., [employer] 01/07/2024 8:44 PM Teresa Wright is a 43 year old female who presents with Abdominal Pain (Left side/Started yesterday ///Patient states this pain started after she saw her chiropractor yesterday /), Urinary Problem (Some burning but not much as she states /Started yesterday /), and Vomiting (Started yesterday /4 episodes in the past 24 hours. //States the vomiting started after she saw her chiropractor /) 43-year-old female presents today with a complaint of left upper abdominal pain. She states the pain initially started yesterday but increased today after a chiropractic adjustment earlier today. Patient states she has some burning with urination and then notes left flank pain. The history is provided by the patient. No past medical history on file. There is no problem list on file for this patient. Current Outpatient Medications Medication Sig Dispense Refill sertraline (ZOLOFT) 100 mg tablet Take 100 mg by mouth once daily. (Patient not taking: Reported on 01/07/2024) No current facility-administered medications for this visit. Social History Tobacco Use Smoking status: Never Passive exposure: Never Smokeless tobacco: Never Vaping Use Vaping status: Never Used Substance Use Topics Alcohol use: Never Drug use: Never Alcohol Use: Never Tobacco Use: Never FAMILY HISTORY Adopted: Yes Review of Systems Constitutional: Negative for chills and fever. HENT: Negative for sore throat. Respiratory: Negative for cough. Cardiovascular: Negative for chest pain. Gastrointestinal: Positive for abdominal pain and nausea. Negative for vomiting. Genitourinary: Positive for dysuria, flank pain, frequency and urgency. Skin: Negative for rash. BP 136/90 Pulse 91 Temp (Src) 97.8 (Oral) Resp 18 Wt 218 lb (98.9kg) SpO2 100% Urine dip performed: Urine dip positive for leuks, protein, hemoglobin, and elevated pH. Considered positive for UTI. ASSESSMENT/PLAN: 1. Recurrent UTI (urinary tract infection) - ICD9: 599.0, ICD10: N39.0 (primary diagnosis) - CIPROFLOXACIN 500 MG TABLET - PHENAZOPYRIDINE 200 MG TABLET 2. Dysuria - ICD9: 788.1, ICD10: R30.0 - UA DIP OB, URINE (POC) - URINALYSIS, DIPSTICK ONLY 3. Does not have primary care provider - ICD9: V49.89, ICD10: Z75.8 - ESTABLISH WITH PRIMARY CARE - NEW PATIENT -Based on patient exam sinus symptoms I feel patient has a urinary tract infection I would consider pyelonephritis. -I ordered patient Cipro and Pyridium to help her with the pain. Patient stated she thought she should go to emergency room . -Patient stated she would go to [facility] emergency room for further evaluation. Beto Stephens Jr, APRN.Beto Lott Jr., APRN.CNP 01/07/2024 7:34 PM Signed [facility] Referring Provider: SELF [200] Allergies As of Date: 01/07/2024 (No Known Allergies) Date Reviewed: 01/07/2024 Reviewed by: Beto Stephens Jr., RYDER - Fully Assessed Reason for Visit: Abdominal Pain [1] Cmt: Left side Started yesterday Patient states this pain started after she saw her chiropractor yesterday Urinary Problem [252] Cmt: Some burning but not much as she states Started yesterday Vomiting [120] Cmt: Started yesterday 4 episodes in the past 24 hours. States the vomiting started after she saw her chiropractor Primary Visit Diagnosis:Recurrent UTI (urinary tract infection) [N39.0] Other Visit Diagnoses:Dysuria [R30.0] Does not have primary care provider [Z75.8] Order(s):URINALYSIS, DIPSTICK ONLY [SQUA] Order #: [id number] FUTURE URINALYSIS, DIPSTICK ONLY [SQUA] Order #: [id number]. #:[id number] ciprofloxacin HCl (CIPRO) 500 mg tabletTake 1 tablet by mouth two times a day for 7 days.Disp: 14 tabletRfl: 0 phenazopyridine (PYRIDIUM) 200 mg tabletTake 1 tablet by mouth three times a day as needed for pain.Disp: 9 tabletRfl: 0 ESTABLISH WITH PRIMARY CARE ? NEW PATIENT [[id number]] Order #: [id number]: 1 FUTURE Prescriptions as of 01/07/2024 - ciprofloxacin HCl (CIPRO) 500 mg tablet Take 1 tablet by mouth two times a day for 7 days. - phenazopyridine (PYRIDIUM) 200 mg tablet Take 1 tablet by mouth three times a day as needed for pain. - sertraline (ZOLOFT) 100 mg tablet Take 100 mg by mouth once daily. Problem List As Of Date: 01/07/2024 (None) Other instructions from your clinician: Go gto emergency departement Prescriptions ordered this encounter Disp Refills Start End CIPROFLOXACIN 500 MG TABLET 14 t* 0 01/07/2024 (more content not included)... Normal [facility] CT ABDOMEN/PELVIS W/O CONTRA STon 01-07-2024 CT ABDOMEN/PELVIS W/O CONTRAST ORIGINAL EXAMINATION: CT OF THE ABDOMEN AND PELVIS WITHOUT CONTRAST 01/07/2024 9:53 pm TECHNIQUE: CT of the abdomen and pelvis was performed without the administration of intravenous contrast. Multiplanar reformatted images are provided for review. Automated exposure control, iterative reconstruction, and/or weight based adjustment of the mA/kV was utilized to reduce the radiation dose to as low as reasonably achievable. COMPARISON: CT urogram 07/26/2020 HISTORY: ORDERING SYSTEM PROVIDED HISTORY: Reason for Exam: L flank and LLQ pain FINDINGS: Lower Chest: Visualized lower thorax demonstrates no consolidation or pleural effusion. Organs: The liver demonstrates no biliary duct dilatation or gross mass. There is no evidence of calcified gallstones or cholecystitis. The pancreas demonstrates no gross mass, gross inflammatory process, or ductal dilatation. Spleen is normal in size. Adrenal glands are normal in size. Right kidney demonstrates no hydronephrosis or obstructive calculi. There is a left renal 2 mm calculus without hydronephrosis. There is a left Olivia ureteral stranding without ureteral dilatation. There is mild diffuse wall thickening and stranding of the urinary bladder, possibly cystitis. Insert urinalysis GI/Bowel: Stomach and duodenal sweep demonstrate no acute abnormality. Small bowel and colon are normal in caliber. Appendix is normal in caliber without gross wall thickening or inflammatory change. Pelvis: Prior hysterectomy noted. Peritoneum/Retroperito neum: Aorta is normal in caliber. Bones/Soft Tissues: Osseous structures are intact. There is small sclerotic lesion of the right sacrum again seen , nonspecific, compatible with bone island in patient without history of neoplastic disease. IMPRESSION: 1. Left renal 2 mm calculus without hydronephrosis. 2. Left Olivia ureteral stranding without ureteral dilatation possibly inflammatory or infectious process. 3. Mild diffuse wall thickening and stranding of the urinary bladder, possibly cystitis. Correlate with urinalysis. Interpreted by: Edwin Oliver Preliminary Report By: Edwin Oliver Electronically signed By Edwin Oliver Dictated Date: 01/07/2024 9:56:35 PM Prelim Date: 01/07/2024 10:10:51 PM Sign Date: 01/07/2024 10:10:51 PM Ordering Provider: BETO SOMERS Normal JUAN MASSILLON LIPon 01-07-2024 Lipase Level 25 U/L Normal 16-77 JUAN MASSILLON Comment on above: Performed By: #### A DIFF, CMP, MDW, LIP, GFR, ANEU, CBC ####[id number] [place] [id number] UAon 01-07-2024 Color (U) Yellow Normal JUAN MASSILLON Comment on above: Performed By: #### U A, UAMIC #### [address] [place] [address] Glucose (U) [Mass/Vol] Negative Normal Negative AU LTMAN MASSILLON Comment on above: Performed By: #### U A, UAMIC #### Juan [address] [place] [address] Ketones Ql (U) Negative Normal Neg-Trace JUAN MASSILLON Comment on above: Performed By: #### U A, UAMIC #### Juan [address] [place] [address] UA Appear Clear Normal JUAN MASSILLON Comment on above: Performed By: #### U A, UAMIC #### Juan [address] [place] [id number] UA Blood Large Abnormal Neg-Trace JUAN MASSILLON Comment on above: Performed By: #### U A, UAMIC #### Juan [address] [place] [id number] UA Leuk Est Small Abnormal Negative JUAN MASSILLON Comment on above: Performed By: #### U A, UAMIC #### Juan [address] [place] [id number] UA Nitrite Negative Normal Negative JUAN MASSILLON Comment on above: Performed By: #### U A, UAMIC #### Juan [address] [place] [address] UA pH 7.5 Normal 5.0 - 8.0 JUAN MASSILLON Comment on above: Performed By: #### U A, UAMIC #### Juan [address] [place] [address] UA Protein >=300 Abnormal Negative JUAN MASSILLON Comment on above: Performed By: #### U A, UAMIC #### Juan [address] [place] [address] UA Spec Grav 1.020 Normal JUAN MASSILLON Comment on above: Performed By: #### U A, UAMIC #### Juan [address] [place] [address] UA Specimen Type Clean Catch Normal JUAN MASSILLON Comment on above: Performed By: #### U A, UAMIC #### Juan [address] [place] [address] UA Urobilinogen 1.0 E.U./dL Normal JUAN MASSILLON Comment on above: Performed By: #### U A, UAMIC #### Juan [address] [place] [address] Urobilinogen (U) [Mass/Vol] Negative Normal Neg-Trace JUAN MASSILLON Comment on above: Performed By: #### U A, UAMIC #### Juan [address] [place] [address] UAMICon 01-07-2024 UA Bacteria Trace Abnormal Negative JUAN MASSILLON Comment on above: Performed By: #### U A, UAMIC #### Juan [address] [place] [address] UA RBC 50-100 Abnormal 0-2 JUAN MASSILLON Comment on above: Performed By: #### U A, UAMIC #### Juan [address] [place] [address] UA Squam Epithelial Rare Normal 0-20 AULTM AN MASSILLON Comment on above: Performed By: #### U A, UAMIC #### Juan [address] [place], [place] [address] UA WBC 25-50 Abnormal 0-5 JUAN SYLWIAAMARISN Comment on above: Performed By: #### U A, UAMIC #### Juan [address] [place], [place] [address] URINALYSIS, DIPSTICK ONLYOrd ered By: Bob Kenney on 01-07-2024 Bilirubin Ql (U) Negative Negative [facility] Clarity (Unsp spec) Cloudy Abnormal Clear [facility] Color (U) Yellow Yellow [facility] Glucose Test strip (U) [Mass/Vol] Negative Negative [facility] Hemoglobin Ql (U) 3+ Abnormal Negative [facility] Interpretation and review of laboratory results Abnormal [facility] Ketones Ql (U) Negative Negative [facility] Leukocyte esterase Test strip Ql (U) 2+ Abnormal Negative [facility] Nitrite Ql (U) Negative Negative [facility] pH (U) 8.5 [pH] High 5.0 - 8.0 [facility] Protein (U) [Mass/Vol] 1+ Abnormal Negative [facility] Specific gravity (U) [Rel density] 1.010 1.005 - 1.030 [facility] Urobilinogen Ql (U) Negative Negative [facility] URINALYSIS, DIPSTICK ONLYon 01-07-2024 Bilirubin Ql (U) Negative Normal Negative [facility] Comment on above: Order Comment: Speci men Type: URINE SPECIMEN Ordering Facility: [facility] Address: [address] [place] [address] Performed By: #### U A #### [facility] CLIA [id number] [address] [place] [address] Clarity (Unsp spec) Cloudy Abnormal Clear [facility] Comment on above: Order Comment: Speci men Type: URINE SPECIMEN Ordering Facility: [facility] Address: [address] [place] [address] Performed By: #### U A #### [facility] CLIA [id number] [address] [place] Color (U) Yellow Normal Yellow [facility] Comment on above: Order Comment: Speci men Type: URINE SPECIMEN Ordering Facility: [facility] Address: [address] [place] [address] Performed By: #### U A #### [facility] CLIA [id number] [address] [place], [place] [id number] [place] [address] Glucose Test strip (U) [Mass/Vol] Negative Normal Negative [facility] Comment on above: Order Comment: Speci men Type: URINE SPECIMEN Ordering Facility: [facility] Address: [address] [place] [address] Performed By: #### U A #### [facility] CLIA [id number] [address] [place] [address] Hemoglobin Ql (U) 3+ Abnormal Negative [facility] Comment on above: Order Comment: Speci men Type: URINE SPECIMEN Ordering Facility: [facility] Address: [address] [place] [address] Performed By: #### U A #### [facility] CLIA [id number] [address] [place] [address] Ketones Ql (U) Negative Normal Negative [facility] Comment on above: Order Comment: Speci men Type: URINE SPECIMEN Ordering Facility: [facility] Address: [address] [place] [address] Performed By: #### U A #### [facility] CLIA [id number] [address] [place] [address] Leukocyte esterase Test strip Ql (U) 2+ Abnormal Negative [facility] Comment on above: Order Comment: Speci men Type: URINE SPECIMEN Ordering Facility: [facility] Address: [address] [place] [address] Performed By: #### U A #### [facility] CLIA [id number] [address] [place] Nitrite Ql (U) Negative Normal Negative [facility] Comment on above: Order Comment: Speci men Type: URINE SPECIMEN Ordering Facility: [facility] Address: [address] [place] [address] Performed By: #### U A #### [facility] CLIA [id number] [address] [place] [id number] [place] pH (U) 8.5 [pH] High 5.0-8.0 [facility] Comment on above: Order Comment: Speci men Type: URINE SPECIMEN Ordering Facility: [facility] Address: [address] [place] [address] Performed By: #### U A #### [facility] CLIA [id number] [address] [place] [address] [place] Protein (U) [Mass/Vol] 1+ Abnormal Negative [facility] Comment on above: Order Comment: Speci men Type: URINE SPECIMEN Ordering Facility: [facility] Address: [address] [place] [address] Performed By: #### U A #### [facility] CLIA [id number] [address] [place] [address] [place] Specific gravity (U) [Rel density] 1.010 Normal 1.005-1.030 [facility] Comment on above: Order Comment: Speci men Type: URINE SPECIMEN Ordering Facility: [facility] Address: [address] [place] [address] Performed By: #### U A #### [facility] CLIA [id number] [address] [place] [address] [place] Urobilinogen Ql (U) Negative Normal Negative [facility] Comment on above: Order Comment: Speci men Type: URINE SPECIMEN Ordering Facility: [facility] Address: [address] [place] [address] Performed By: #### U A #### [facility] CLIA [id number] [address] [place] [address] [place] E2on 12-21-2023 Estradiol Level 154.79 pg/mL Normal [facility] Comment on above: Result Comment: No te - New Reference Range in effect 19 Adult Female E2 Reference Ranges: Follicular phase 19.5 - 144.2 pg/mL Midcycle 63.9 - 356.7 pg/mL Luteal phase 55.8 - 214.2 pg/mL Post menopausal 0 - 33.2 pg/mL Performed By: #### P ADRIÁN, TESTO, E2 #### [place] [address] [address] [place] [address] LABORATORYOrdered By: SYSTEM SYSTEM on 12-21-2023 E2 [Mass/Vol] 154.79 pg/mL Invalid Interpretation Code [facility] Comment on above: Interpretive Data: * *Note - New Reference Range in effect 19 Adult Female E2 Reference Ranges: Follicular phase 19.5 - 144.2 pg/mL Midcycle 63.9 - 356.7 pg/mL Luteal phase 55.8 - 214.2 pg/mL Post menopausal 0 - 33.2 pg/mL Progesterone [Mass/Vol] ng/mL Invalid Interpretation Code [facility] Comment on above: Interpretive Data: A dult Female Progesterone Reference Ranges: Follicular phase <0.21 - 1.40 ng/mL Luteal phase 3.34 - 25.56 ng/mL Mid-Luteal phase 4.44 - 28.03 ng/mL Postmenopausal <0.21 - 0.73 ng/ml Female: First trimester 11.22 - 90.00 ng/ml Second trimester 25.55 - 89.40 ng/ml Third trimester 48.40 - 422.50 ng/ml Testosterone [Mass/Vol] 392.93 ng/dL Invalid Interpretation Code [facility] Comment on above: Interpretive Data: N ormal Reference Ranges for Females: Female Premenopause Vtt89-678.01-47.94 ng/dL Female Postmenopause Axl62-76<7.00-45.62 ng/dL PROGon 12-21-2023 Progesterone Level <0.2 Normal [facility] Comment on above: Result Comment: Adul t Female Progesterone Reference Ranges: Follicular phase <0.21 - 1.40 ng/mL Luteal phase 3.34 - 25.56 ng/mL Mid-Luteal phase 4.44 - 28.03 ng/mL Postmenopausal <0.21 - 0.73 ng/ml Female: First trimester 11.22 - 90.00 ng/ml Second trimester 25.55 - 89.40 ng/ml Third trimester 48.40 - 422.50 ng/ml Performed By: #### P ANAHI SAMPSON E2 #### [address] [address] TESTOon 12-21-2023 Testosterone Lvl 392.93 ng/dL Normal [facility] Comment on above: Result Comment: Norm al Reference Ranges for Females: Female Premenopause Age 21-60 9.01-47.94 ng/dL Female Postmenopause Age 45-89 <7.00-45.62 ng/dL Performed By: #### P ANAHI SAMPSON E2 #### [address] [address] CNOVon 12-08-2023 CNOV Office Visit ([facility] ) BETTE WRIGHT ([id number]) 1980 F Date Time Provider Department 12/08/23 1:25 PM DEEPTHI VAZQUEZ [facility] During your visit today, we recorded the following information about you: Temperature Pulse Respiration Blood pressure 97.4 degrees 79/minute 18/minute 125/80 Weight 99.8 kg Deepthi Vazquez DO 12/08/2023 2:01 PM Signed Bette cool Kyle is a 43 year old FEMALE who presents with Rash (Rash on upper arms, back and chest - patient noticed on Thursday night/No pain but itching/No new lotions, perfumes or soaps) HPI History reviewed. No pertinent past medical history. There is no problem list on file for this patient. Current Outpatient Medications Medication Sig Dispense Refill sertraline (ZOLOFT) 100 mg tablet Take 100 mg by mouth once daily. sulfamethoxazole-trime thoprim (BACTRIM DS) 800-160 mg per tablet Take 1 tablet by mouth two times a day for 10 days. 20 tablet 0 loratadine (CLARITIN) 10 mg tablet Take 1 tablet by mouth once daily for 10 days. 10 tablet 0 No current facility-administered medications for this visit. Social History Tobacco Use Smoking status: Never Passive exposure: Never Smokeless tobacco: Never Vaping Use Vaping status: Never Used Substance Use Topics Alcohol use: Never Drug use: Never Alcohol Use: Never Tobacco Use: Never FAMILY HISTORY Adopted: Yes Review of Systems Skin: Positive for rash. Patient has a rash in a distribution on the upper arms, shoulders, chest and upper back. One small area at the groin fold as well. . Denies new meds or soaps. Uses suave body wash. Advised bar soap only. All other systems reviewed and are negative. BP 125/80 Pulse 79 Temp 97.4 Resp 18 Wt 220 lb (99.8kg) SpO2 98% Physical Exam Vitals and nursing note reviewed. Constitutional: Appearance: Normal appearance. HENT: Head: Normocephalic. Cardiovascular: Rate and Rhythm: Normal rate and regular rhythm. Pulses: Normal pulses. Heart sounds: Normal heart sounds. Pulmonary: Effort: Pulmonary effort is normal. Skin: General: Skin is warm. Capillary Refill: Capillary refill takes 2 to 3 seconds. Findings: Erythema and rash present. Comments: Diffuse bacterial folliculitis is noted. Neurological: General: No focal deficit present. Mental Status: She is alert. Psychiatric: Mood and Affect: Mood normal. ASSESSMENT/PLAN: 1. Bacterial folliculitis - ICD9: 704.8, ICD10: L73.8 - SULFAMETHOXAZOLE 800 MG-TRIMETHOPRIM 160 MG TABLET - LORATADINE 10 MG TABLET Deepthi Vazquez Allergies As of Date: 12/08/2023 (No Known Allergies) Date Reviewed: 12/08/2023 Reviewed by: Deepthi Vazquez DO - Fully Assessed Reason for Visit: Rash [1087] Cmt: Rash on upper arms, back and chest - patient noticed on Thursday night No pain but itching No new lotions, perfumes or soaps Primary Visit Diagnosis:Bacterial folliculitis [L73.8] Order(s):sulfamethoxaz ole-trimethoprim (BACTRIM DS) 800-160 mg per tabletTake 1 tablet by mouth two times a day for 10 days.Disp: 20 tabletRfl: 0 loratadine (CLARITIN) 10 mg tabletTake 1 tablet by mouth once daily for 10 days.Disp: 10 tabletRfl: 0 Prescriptions as of 12/08/2023 - sulfamethoxazole-trime thoprim (BACTRIM DS) 800-160 mg per tablet Take 1 tablet by mouth two times a day for 10 days. - loratadine (CLARITIN) 10 mg tablet Take 1 tablet by mouth once daily for 10 days. - sertraline (ZOLOFT) 100 mg tablet Take 100 mg by mouth once daily. Problem List As Of Date: 12/08/2023 (None) Prescriptions ordered this encounter Disp Refills Start End SULFAMETHOXAZOLE 800 MG-TRIMETHOPRIM* 20 t* 0 12/08/2023 12/18/2023 Route: ORAL Sig: Take 1 tablet by mouth two times a day for 10 days. LORATADINE 10 MG TABLET 10 t* 0 12/08/2023 12/18/2023 Route: ORAL Sig: Take 1 tablet by mouth once daily for 10 days. Medications Discontinued During This Encounter Prescriptions - gabapentin 300 mg Tb24 (Discontinued) Take 300 mg by mouth twice daily. - hydrOXYzine HCl (ATARAX) 50 mg tablet (Discontinued) Take 12.5 mg by mouth four times daily as needed. - cholecalciferol, Vitamin D3, (VITAMIN D3) 1,250 mcg (50,000 unit) cap capsule (Discontinued) Take 50,000 Units by mouth two times a week. Encounter Status:Closed by DEEPTHI VAZQUEZ on 12/08/23 [facility] .Auto Diffon 05-25-2023 Basophil, Absolute 0.0 10 3/mcL Normal 0.0-0.2 [facility] ([place]) Comment on above: Performed By: #### C BC, ANEU, GFR, BMP, ADIFF #### [address] [address] Basophils/100 WBC (Bld) 0.7 % Normal 0.0-2.5 [facility] ([place]) Comment on above: Performed By: #### C BC, ANEU, GFR, BMP, ADIFF #### [address] [address] Eosinophil, Absolute 0.2 10 3/mcL Normal 0.0-0.4 [facility] ([place]) Comment on above: Performed By: #### C BC, ANEU, GFR, BMP, ADIFF #### [address] [address] Eosinophils/100 WBC (Bld) 2.6 % Normal 0.0-7.0 [facility] ([place]) Comment on above: Performed By: #### C BC, ANEU, GFR, BMP, ADIFF #### [address] [address] Lymphocyte, Absolute 1.7 10 3/mcL Normal 0.8-3.9 [facility] ([place]) Comment on above: Performed By: #### C BC, ANEU, GFR, BMP, ADIFF #### [address] [address] Lymphocytes/100 WBC (Bld) 26.9 % Normal 10.0-50.0 [facility] ([place]) Comment on above: Performed By: #### C BC, ANEU, GFR, BMP, ADIFF #### [address] [address] Monocyte, Absolute 0.4 10 3/mcL Normal 0.2-1.0 [facility] ([place]) Comment on above: Performed By: #### C BC, ANEU, GFR, BMP, ADIFF #### [address] [address] Monocytes/100 WBC (Bld) 5.7 % Normal 1.7-13.0 [facility] ([place]) Comment on above: Performed By: #### C BC, ANEU, GFR, BMP, ADIFF #### [address] [address] Neutrophils/100 WBC (Bld) 64.1 % Normal 37.0-80.0 [facility] ([place]) Comment on above: Performed By: #### C BC, ANEU, GFR, BMP, ADIFF #### [address] [address] .GFRon 03-18-2024 GFR 76 ml/min/1.73sqm Normal [facility] ([place]) Comment on above: Result Comment: GFR Population mean for , Non- Americans Ages 20-29 = 116 mL/min/1.73 sq.m. Ages 30-39 = 107 mL/min/1.73 sq.m. Ages 40-49 = 99 mL/min/1.73 sq.m. Ages 50-59 = 93 mL/min/1.73 sq.m. Ages 60-69 = 85 mL/min/1.73 sq.m. Ages 70+ = 75 mL/min/1.73 sq.m. Chronic Kidney Disease: Less than 60 mL/min/1.73 square meters End Stage Renal Disease: Less than 15 mL/min/1.73 square meters Performed By: #### C BC, ANEU, GFR, BMP, ADIFF #### [address] [address] GFR Non- 63 ml/min/1.73sqm Normal [facility] ([place]) Comment on above: Result Comment: GFR Population mean for , Non- Americans Ages 20-29 = 116 mL/min/1.73 sq.m. Ages 30-39 = 107 mL/min/1.73 sq.m. Ages 40-49 = 99 mL/min/1.73 sq.m. Ages 50-59 = 93 mL/min/1.73 sq.m. Ages 60-69 = 85 mL/min/1.73 sq.m. Ages 70+ = 75 mL/min/1.73 sq.m. Chronic Kidney Disease: Less than 60 mL/min/1.73 square meters End Stage Renal Disease: Less than 15 mL/min/1.73 square meters Performed By: #### C BC, ANEU, GFR, BMP, ADIFF #### [address] [address] .NEUABSon 05-25-2023 Neutrophil, Absolute 4.0 10 3/mcL Normal 2.9-6.2 [facility] ([place]) Comment on above: Performed By: #### C BC, ANEU, GFR, BMP, ADIFF #### [address] [address] BMPon 05-25-2023 BUN/Creatinine Ratio 10 ratio Normal 7-27 [facility] ([place]) Comment on above: Performed By: #### C BC, ANEU, GFR, BMP, ADIFF #### [address] [address] Calcium [Mass/Vol] 8.7 mg/dL Normal 8.4-10.2 [facility] ([place]) Comment on above: Performed By: #### C BC, ANEU, GFR, BMP, ADIFF #### [address] [address] Chloride [Moles/Vol] 103 mmol/L Normal 98-107 [facility] ([place]) Comment on above: Performed By: #### C BC, ANEU, GFR, BMP, ADIFF #### [address] [address] CO2 [Moles/Vol] 28 mmol/L Normal 22-29 [facility] ([place]) Comment on above: Performed By: #### C BC, ANEU, GFR, BMP, ADIFF #### [address] [address] Creatinine [Mass/Vol] 0.97 mg/dL Normal 0.55-1.02 [facility] ([place]) Comment on above: Performed By: #### C BC, ANEU, GFR, BMP, ADIFF #### [address] [address] Electrolyte Balance 7.0 mEq/L Normal 4.0-15.0 [facility] ([place]) Comment on above: Performed By: #### C BC, ANEU, GFR, BMP, ADIFF #### [address] [address] Glucose [Mass/Vol] 103 mg/dL Normal 70-105 [facility] ([place]) Comment on above: Performed By: #### C BC, ANEU, GFR, BMP, ADIFF #### [address] [address] Potassium [Moles/Vol] 4.1 mmol/L Normal 3.5-5.1 [facility] ([place]) Comment on above: Performed By: #### C BC, ANEU, GFR, BMP, ADIFF #### [address] [address] Sodium [Moles/Vol] 138 mmol/L Normal 136-145 [facility] ([place]) Comment on above: Performed By: #### C BC, ANEU, GFR, BMP, ADIFF #### [address] [address] Urea nitrogen [Mass/Vol] 10 mg/dL Normal 7-18 [facility] ([place]) Comment on above: Performed By: #### C BC, ANEU, GFR, BMP, ADIFF #### [address] [address] CBCon 05-25-2023 Erythrocyte distribution width (RBC) [Ratio] 14.6 % High 11.5-14.5 [facility] ([place]) Comment on above: Performed By: #### C BC, ANEU, GFR, BMP, ADIFF #### [address] [address] Hematocrit (Bld) [Volume fraction] 43.6 % Normal 37.0-47.0 [facility] ([place]) Comment on above: Performed By: #### C BC, ANEU, GFR, BMP, ADIFF #### [address] [address] Hgb 14.8 G/dL Normal 12.0-16.0 [facility] ([place]) Comment on above: Performed By: #### C BC, ANEU, GFR, BMP, ADIFF #### [address] [address] MCH (RBC) [Entitic mass] 28.3 pg Normal 27.0-31.2 [facility] ([place]) Comment on above: Performed By: #### C BC, ANEU, GFR, BMP, ADIFF #### [address] [address] MCHC 33.9 G/dL Normal 33.0-37.0 [facility] ([place]) Comment on above: Performed By: #### C BC, ANEU, GFR, BMP, ADIFF #### [address] [address] MCV (RBC) [Entitic vol] 83.7 fL Normal 80.0-94.0 [facility] ([place]) Comment on above: Performed By: #### C BC, ANEU, GFR, BMP, ADIFF #### [place] [address] Platelet 272 10 3/mcL Normal 130-400 [facility] ([place]) Comment on above: Performed By: #### C BC, ANEU, GFR, BMP, ADIFF #### [place] [address] Platelet mean volume (Bld) [Entitic vol] 8.0 fL Normal 7.4-10.4 [facility] ([place]) Comment on above: Performed By: #### C BC, ANEU, GFR, BMP, ADIFF #### [place] [address] RBC 5.21 10 6/mcL Normal 4.20-5.40 [facility] ([place]) Comment on above: Performed By: #### C BC, ANEU, GFR, BMP, ADIFF #### [place] [id number] WBC 6.3 10 3/mcL Normal 4.6-10.8 [facility] ([place]) Comment on above: Performed By: #### C BC, ANEU, GFR, BMP, ADIFF #### [address] [address] LABORATORYOrdered By: SYSTEM SYSTEM on 05-25-2023 Basophil, Absolute 0.0 103/mcL Normal 0.0 - 0.2 10^3/mcL AO Workflow SS Basophils/100 WBC (Bld) 0.7 % Normal 0.0 - 2.5 % AO Workflow SS Calcium [Mass/Vol] 8.7 mg/dL Normal 8.4 - 10. 2 mg/dL AO ADM SS Chloride [Moles/Vol] 103 mmol/L Normal 98 - 10 7 mmol/L AO ADM SS CO2 [Moles/Vol] 28 mmol/L Normal 22 - 29 mmol/L AO ADM SS Creatinine [Mass/Vol] 0.97 mg/dL Normal 0.55 - 1.02 mg/dL AO ADM SS Electrolyte Balance 7.0 mEq/L Normal 4.0 - 15 .0 mEq/L AO ADM SS Eosinophil, Absolute 0.2 103/mcL Normal 0.0 - 0 .4 10^3/mcL AO Workflow SS Eosinophils/100 WBC (Bld) 2.6 % Normal 0.0 - 7.0 % AO Workflow SS Erythrocyte distribution width (RBC) [Ratio] 14.6 % High 11.5 - 14.5 % AO Workflow SS GFR/1.73 sq M.predicted among blacks MDRD (S/P/Bld) [Vol rate/Area] 76 ml/min/1.73sqm Invalid Interpretation Code AO Chemistry S Comment on above: Interpretive Data: GFR Population mean for , Non- Americans Ages 20-29 = 116 mL/min/1.73 sq.m. Ages 30-39 = 107 mL/min/1.73 sq.m. Ages 40-49 = 99 mL/min/1.73 sq.m. Ages 50-59 = 93 mL/min/1.73 sq.m. Ages 60-69 = 85 mL/min/1.73 sq.m. Ages 70+ = 75 mL/min/1.73 sq.m. Chronic Kidney Disease: Less than 60 mL/min/1.73 square meters End Stage Renal Disease: Less than 15 mL/min/1.73 square meters GFR/1.73 sq M.predicted among non-blacks MDRD (S/P/Bld) [Vol rate/Area] 63 ml/min/1.73sqm Invalid Interpretation Code AO Chemistry S Comment on above: Interpretive Data: GFR Population mean for , Non- Americans Ages 20-29 = 116 mL/min/1.73 sq.m. Ages 30-39 = 107 mL/min/1.73 sq.m. Ages 40-49 = 99 mL/min/1.73 sq.m. Ages 50-59 = 93 mL/min/1.73 sq.m. Ages 60-69 = 85 mL/min/1.73 sq.m. Ages 70+ = 75 mL/min/1.73 sq.m. Chronic Kidney Disease: Less than 60 mL/min/1.73 square meters End Stage Renal Disease: Less than 15 mL/min/1.73 square meters Glucose [Mass/Vol] 103 mg/dL Normal 70 - 105 mg/dL AO ADM SS Hematocrit (Bld) [Volume fraction] 43.6 % Normal 37.0 - 47.0 % AO Workflow SS Hemoglobin (Bld) [Mass/Vol] 14.8 G/dL Normal 12.0 - 16.0 G/dL AO Workflow SS Lymphocyte, Absolute 1.7 103/mcL Normal 0.8 - 3 .9 10^3/mcL AO Workflow SS Lymphocytes/100 WBC (Bld) 26.9 % Normal 10.0 - 50.0 % AO Workflow SS MCH (RBC) [Entitic mass] 28.3 pg Normal 27.0 - 31.2 pg AO Workflow SS MCHC 33.9 G/dL Normal 33.0 - 37.0 G/dL AO Workflow SS MCV (RBC) [Entitic vol] 83.7 fL Normal 80.0 - 94.0 fL AO Workflow SS Monocyte, Absolute 0.4 103/mcL Normal 0.2 - 1.0 10^3/mcL AO Workflow SS Monocytes/100 WBC (Bld) 5.7 % Normal 1.7 - 13.0 % AO Workflow SS Neutrophil, Absolute 4.0 103/mcL Normal 2.9 - 6 .2 10^3/mcL AO Workflow SS Neutrophils/100 WBC (Bld) 64.1 % Normal 37.0 - 80.0 % AO Workflow SS Platelet mean volume (Bld) [Entitic vol] 8.0 fL Normal 7.4 - 10.4 fL AO Workflow SS Platelets (Bld) [#/Vol] 272 103/mcL Normal 130 - 400 10^3/mcL AO Workflow SS Potassium [Moles/Vol] 4.1 mmol/L Normal 3.5 - 5.1 mmol/L AO ADM SS RBC (Bld) [#/Vol] 5.21 106/mcL Normal 4.20 - 5.4 0 10^6/mcL AO Workflow SS Sodium [Moles/Vol] 138 mmol/L Normal 136 - 145 mmol/L AO ADM SS Urea nitrogen [Mass/Vol] 10 mg/dL Normal 7 - 18 mg/dL AO ADM SS Urea nitrogen/Creatinine [Mass ratio] 10 ratio Normal 7 - 27 ratio AO ADM SS WBC (Bld) [#/Vol] 6.3 103/mcL Normal 4.6 - 10.8 10^3/mcL AO Workflow SS E2on 12-04-2022 Estradiol Level 353.84 pg/mL Normal [facility] ([place]) Comment on above: Result Comment: No te - New Reference Range in effect 19 Adult Female E2 Reference Ranges: Follicular phase 19.5 - 144.2 pg/mL Midcycle 63.9 - 356.7 pg/mL Luteal phase 55.8 - 214.2 pg/mL Post menopausal 0 - 33.2 pg/mL Performed By: #### T ESTO, PROG, E2 #### [place] [address] LABORATORYOrdered By: SYSTEM SYSTEM on 12-04-2022 E2 [Mass/Vol] 353.84 pg/mL Invalid Interpretation Code [facility] Comment on above: Interpretive Data: * *Note - New Reference Range in effect 19 Adult Female E2 Reference Ranges: Follicular phase 19.5 - 144.2 pg/mL Midcycle 63.9 - 356.7 pg/mL Luteal phase 55.8 - 214.2 pg/mL Post menopausal 0 - 33.2 pg/mL Progesterone [Mass/Vol] ng/mL Invalid Interpretation Code [facility] Comment on above: Interpretive Data: A dult Female Progesterone Reference Ranges: Follicular phase <0.21 - 1.40 ng/mL Luteal phase 3.34 - 25.56 ng/mL Mid-Luteal phase 4.44 - 28.03 ng/mL Postmenopausal <0.21 - 0.73 ng/ml Female: First trimester 11.22 - 90.00 ng/ml Second trimester 25.55 - 89.40 ng/ml Third trimester 48.40 - 422.50 ng/ml Testosterone [Mass/Vol] 658.07 ng/dL Invalid Interpretation Code [facility] Comment on above: Interpretive Data: N ormal Reference Ranges for Females: Female Premenopause Iie07-726.01-47.94 ng/dL Female Postmenopause Aks55-30<7.00-45.62 ng/dL PROGon 12-04-2022 Progesterone Level <0.2 Normal [facility] ([place]) Comment on above: Result Comment: Adul t Female Progesterone Reference Ranges: Follicular phase <0.21 - 1.40 ng/mL Luteal phase 3.34 - 25.56 ng/mL Mid-Luteal phase 4.44 - 28.03 ng/mL Postmenopausal <0.21 - 0.73 ng/ml Female: First trimester 11.22 - 90.00 ng/ml Second trimester 25.55 - 89.40 ng/ml Third trimester 48.40 - 422.50 ng/ml Performed By: #### Lucho LUEVANOO, PROG, E2 #### [place] [address] TESTOon 12-04-2022 Testosterone Lvl 658.07 ng/dL Normal [facility] ([place]) Comment on above: Result Comment: Norm al Reference Ranges for Females: Female Premenopause Age 21-60 9.01-47.94 ng/dL Female Postmenopause Age 45-89 <7.00-45.62 ng/dL Performed By: #### T ESTO, PROG, E2 #### [place] [address] LABORATORYOrdered By: Jaime alberts on 04-01-2022 E2 [Mass/Vol] 109.02 pg/mL Invalid Interpretation Code Chemistry S Progesterone [Mass/Vol] 0.2 ng/mL Invalid Interpretation Code Chemistry S Vital Signs Date Time Vital Sign Value Performing Clinician Facility 10-27-2024 13:38-0400 Body height 175.[address] Eusebio Sparrow DO Work Phone: [facility] 10-27-2024 13:38-0400 Body mass index (BMI) [Ratio] 30.7 kg/m2 Dr. Eusebio Sparrow DO Work Phone: [facility] 10-27-2024 13:38-0400 Body temperature 97.9 [degF] Dr. Eusebio Sparrow DO Work Phone: [facility] 10-27-2024 13:38-0400 Body weight 94.[address] Eusebio Sparrow DO Work Phone: [facility] 10-27-2024 13:38-0400 Diastolic blood pressure 71 mm[Hg] Dr. Eusebio Sparrow DO Work Phone: [facility] 10-27-2024 13:38-0400 Respiratory rate 16 /min Dr. Eusebio Sparrow DO Work Phone: [facility] 10-27-2024 13:38-0400 SaO2% (BldA) [Mass fraction] 98 % Dr. Eusebio Sparrow DO Work Phone: [facility] 10-27-2024 13:38-0400 Systolic blood pressure 108 mm[Hg] Dr. Eusebio Sparrow DO Work Phone: [facility] 07-15-2024 07:59-0400 Body temperature 97.8 [degF] Dr. Eusebio Sparrow DO Work Phone: [facility] 07-15-2024 07:59-0400 Diastolic blood pressure 67 mm[Hg] Dr. Eusebio Sparrow DO Work Phone: [facility] 07-15-2024 07:59-0400 Heart rate 56 /min Dr. Eusebio Sparrow DO Work Phone: [facility] 07-15-2024 07:59-0400 Respiratory rate 18 /min Dr. Eusebio Sparrow DO Work Phone: [facility] 07-15-2024 07:59-0400 SaO2% (BldA) [Mass fraction] 99 % Dr. Eusebio Sparrow DO Work Phone: [facility] 07-15-2024 07:59-0400 Systolic blood pressure 117 mm[Hg] Dr. Eusebio Sparrow DO Work Phone: [facility] 07-15-2024 06:39-0400 Body height 175.[address] Eusebio Sparrow DO Work Phone: [facility] 07-15-2024 06:39-0400 Body mass index (BMI) [Ratio] 30.9 kg/m2 Dr. Eusebio Sparrow DO Work Phone: [facility] 07-15-2024 06:39-0400 Body weight 95.[address] Eusebio Sparrow DO Work Phone: [facility] 06-27-2024 11:39-0400 Body height 165.[address] Eusebio Sparrow DO Work Phone: [facility] 06-27-2024 11:39-0400 Body mass index (BMI) [Ratio] 34.8 kg/m2 Dr. Eusebio Sparrow DO Work Phone: [facility] 06-27-2024 11:39-0400 Body weight 94.[address] Eusebio Sparrow DO Work Phone: [facility] 06-27-2024 11:39-0400 Diastolic blood pressure 84 mm[Hg] Dr. Eusebio Sparrow DO Work Phone: [facility] 06-27-2024 11:39-0400 Heart rate 61 /min Dr. Eusebio Sparrow DO Work Phone: [facility] 06-27-2024 11:39-0400 Respiratory rate 15 /min Dr. Eusebio Sparrow DO Work Phone: [facility] 06-27-2024 11:39-0400 SaO2% (BldA) [Mass fraction] 98 % Dr. Eusebio Sparrow DO Work Phone: [facility] 06-27-2024 11:39-0400 Systolic blood pressure 137 mm[Hg] Dr. Eusebio Sparrow DO Work Phone: [facility] 06-24-2024 02:03-0400 Diastolic Blood Pressure Non-Invasive 50 mm[Hg] SOLIS LOJA MD [facility] 06-24-2024 02:03-0400 Heart rate 77 /min SOLIS LOJA MD [facility] 06-24-2024 02:03-0400 Reason For Taking VItal Signs SOLIS LOJA MD [address] [place] [address] 06-24-2024 02:03-0400 Respiratory rate 16 /min SOLIS LOJA MD [address] [place] [address] 06-24-2024 02:03-0400 Systolic Blood Pressure Non-Invasive 102 mm[Hg] SOLIS LOJA MD [address] [place] [address] 06-23-2024 23:47-0400 Diastolic Blood Pressure Non-Invasive 64 mm[Hg] SOLIS LOJA MD [address] [place] [address] 06-23-2024 23:47-0400 Heart rate 72 /min SOLIS LOJA MD [address] [place] [address] 06-23-2024 23:47-0400 Respiratory rate 16 /min SOLIS LOJA MD [address] [place] [address] 06-23-2024 23:47-0400 Systolic Blood Pressure Non-Invasive 98 mm[Hg] SOLIS LOJA MD [address] 06-23-2024 21:35-0400 Diastolic Blood Pressure Non-Invasive 63 mm[Hg] SOLIS LOJA MD [address] [place] [address] 06-23-2024 21:35-0400 Heart rate 68 /min SOLIS LOJA MD [address] [place] [address] 06-23-2024 21:35-0400 Respiratory rate 18 /min SOLIS LOJA MD [address] [place] [address] 06-23-2024 21:35-0400 Systolic Blood Pressure Non-Invasive 116 mm[Hg] SOLIS LOJA MD [address] [place] [address] 06-23-2024 18:53-0400 Body temperature 97.88 [degF] SOLIS LOJA MD [address] [place] [address] 06-23-2024 18:53-0400 Body weight 92.8 kg SOLIS LOJA MD [facility] 06-23-2024 09:29-0400 Body mass index (BMI) [Ratio] 34.1 kg/m2 Dr. Eusebio Sparrow DO Work Phone: [facility] 06-23-2024 09:29-0400 Body temperature 98.2 [degF] Dr. Eusebio Sparrow DO Work Phone: [facility] 06-23-2024 09:29-0400 Body weight 93.[address] Eusebio Sparrow DO Work Phone: [facility] 06-23-2024 09:29-0400 Diastolic blood pressure 83 mm[Hg] Dr. Eusebio Sparrow DO Work Phone: [facility] 06-23-2024 09:29-0400 Respiratory rate 18 /min Dr. Eusebio Sparrow DO Work Phone: [facility] 06-23-2024 09:29-0400 SaO2% (BldA) [Mass fraction] 98 % Dr. Eusebio Sparrow DO Work Phone: [facility] 06-23-2024 09:29-0400 Systolic blood pressure 133 mm[Hg] Dr. Eusebio Sparrow DO Work Phone: [facility] 06-13-2024 14:34-0400 Body mass index (BMI) [Ratio] 35.63 kg/m2 Beto Stephens Jr., SPIKEMAKING SUPERVISOR.HEAD OF BIOLOGY Work Phone: [facility] 06-13-2024 14:34-0400 Body temperature 97.9 [degF] Beto Stephens Jr., SPIKEMAKING SUPERVISOR.HEAD OF BIOLOGY Work Phone: [facility] 06-13-2024 14:34-0400 Body weight 94.17 kg Beto Stephens Jr., SPIKEMAKING SUPERVISOR.HEAD OF BIOLOGY Work Phone: [facility] 06-13-2024 14:34-0400 Diastolic blood pressure 88 mm[Hg] Beto Stephens Jr., SPIKEMAKING SUPERVISOR.HEAD OF BIOLOGY Work Phone: [facility] 06-13-2024 14:34-0400 Heart rate 69 /min Beto Stephens Jr., SPIKEMAKING SUPERVISOR.HEAD OF BIOLOGY Work Phone: [facility] 06-13-2024 14:34-0400 Respiratory rate 18 /min Beto Stephesn Jr., SPIKEMAKING SUPERVISOR.HEAD OF BIOLOGY Work Phone: [facility] 06-13-2024 14:34-0400 SaO2% (BldA) [Mass fraction] 98 % Beto Stephens Jr., SPIKEMAKING SUPERVISOR.HEAD OF BIOLOGY Work Phone: [facility] 06-13-2024 14:34-0400 Systolic blood pressure 124 mm[Hg] Beto Stephens Jr., SPIKEMAKING SUPERVISOR.HEAD OF BIOLOGY Work Phone: [facility] 04-27-2024 08:52-0500 Body mass index (BMI) [Ratio] 35.2 kg/m2 Dr. Eusebio Sparrow DO Work Phone: [facility] 04-27-2024 08:52-0500 Body weight 95.[address] Eusebio Sparrow DO Work Phone: [facility] 04-27-2024 08:52-0500 Diastolic blood pressure 83 mm[Hg] Dr. Eusebio Sparrow DO Work Phone: [facility] 04-27-2024 08:52-0500 Heart rate 75 /min Dr. Eusebio Sparrow DO Work Phone: [facility] 04-27-2024 08:52-0500 Respiratory rate 16 /min Dr. Eusebio Sparrow DO Work Phone: [facility] 04-27-2024 08:52-0500 SaO2% (BldA) [Mass fraction] 98 % Dr. Eusebio Sparrow DO Work Phone: [facility] 04-27-2024 08:52-0500 Systolic blood pressure 124 mm[Hg] Dr. Eusebio Sparrow DO Work Phone: [facility] 04-22-2024 15:00-0500 Body temperature 97.8 [degF] Dr. Eusebio Sparrow DO Work Phone: [facility] 04-22-2024 15:00-0500 Diastolic blood pressure 64 mm[Hg] Dr. Eusebio Sparrow DO Work Phone: [facility] 04-22-2024 15:00-0500 Heart rate 74 /min Dr. Eusebio Sparrow DO Work Phone: [facility] 04-22-2024 15:00-0500 Respiratory rate 16 /min Dr. Eusebio Sparrow DO Work Phone: [facility] 04-22-2024 15:00-0500 SaO2% (BldA) [Mass fraction] 95 % Dr. Eusebio Sparrow DO Work Phone: [facility] 04-22-2024 15:00-0500 Systolic blood pressure 101 mm[Hg] Dr. Eusebio Sparrow DO Work Phone: [facility] 04-22-2024 11:44-0500 Body mass index (BMI) [Ratio] 34.4 kg/m2 Dr. Eusebio Sparrow DO Work Phone: [facility] 04-22-2024 11:44-0500 Body weight 93.[address] Eusebio Sparrow DO Work Phone: [facility] 03-17-2024 11:09-0500 Body mass index (BMI) [Ratio] 35.6 kg/m2 Dr. Eusebio Sparrow DO Work Phone: [facility] 03-17-2024 11:09-0500 Body weight 97.[address] Eusebio Sparrow DO Work Phone: [facility] 03-17-2024 11:09-0500 Diastolic blood pressure 70 mm[Hg] Dr. Eusebio Sparrow DO Work Phone: [facility] 03-17-2024 11:09-0500 Heart rate 65 /min Dr. Eusebio Sparrow DO Work Phone: [facility] 03-17-2024 11:09-0500 Respiratory rate 18 /min Dr. Eusebio Sparrow DO Work Phone: [facility] 03-17-2024 11:09-0500 SaO2% (BldA) [Mass fraction] 99 % Dr. Eusebio Sparrow DO Work Phone: [facility] 03-17-2024 11:09-0500 Systolic blood pressure 132 mm[Hg] Dr. Eusebio Sparrow DO Work Phone: [facility] 01-28-2024 22:48-0500 Diastolic Blood Pressure Non-Invasive 66 mm[Hg] DR YASMIN BA MD [facility] 01-28-2024 22:48-0500 Respiratory rate 16 /min DR YASMIN BA MD [facility] 01-28-2024 22:48-0500 Systolic Blood Pressure Non-Invasive 127 mm[Hg] DR YASMIN BA MD [facility] 01-28-2024 20:16-0500 Diastolic Blood Pressure Non-Invasive 68 mm[Hg] DR YASMIN BA MD [facility] 01-28-2024 20:16-0500 Heart rate 77 /min DR YASMIN BA MD [facility] 01-28-2024 20:16-0500 Respiratory rate 18 /min DR YASMIN BA MD [facility] 01-28-2024 20:16-0500 Systolic Blood Pressure Non-Invasive 143 mm[Hg] DR YASMIN BA MD [facility] 01-28-2024 18:49-0500 Diastolic Blood Pressure Non-Invasive 77 mm[Hg] DR YASMIN BA MD [facility] 01-28-2024 18:49-0500 Heart rate 66 /min DR YASMIN BA MD [facility] 01-28-2024 18:49-0500 Respiratory rate 18 /min DR YASMIN BA MD [facility] 01-28-2024 18:49-0500 Systolic Blood Pressure Non-Invasive 129 mm[Hg] DR YASMIN BA MD [address] 01-28-2024 18:15-0500 Blood Pressure Cuff Size DR YASMIN BA MD [facility] 01-28-2024 18:15-[address] YASMIN BA MD [facility] 01-28-2024 18:15-[address] YASMIN BA MD [facility] 01-28-2024 18:15-0500 Body temperature 97.7 [degF] DR YASMIN BA MD [facility] 01-28-2024 18:15-0500 Heart rate 58 /min DR YASMIN BA MD [facility] 01-28-2024 15:19-0500 Body temperature 97.34 [degF] DR YASMIN BA MD [facility] 01-28-2024 15:19-0500 Body weight 96.[address] YASMIN BA MD [facility] 01-14-2024 16:17-0500 Diastolic Blood Pressure Non-Invasive 78 mm[Hg] RIVER HOBBS MD [facility] 01-14-2024 16:17-0500 Heart rate 71 /min RIVER HOBBS MD [facility] 01-14-2024 16:17-0500 Respiratory rate 20 /min RIVER HOBBS MD [address] [place] [address] 01-14-2024 16:17-0500 Systolic Blood Pressure Non-Invasive 136 mm[Hg] RIVER HOBBS MD [address] [place] [address] 01-14-2024 14:34-0500 Diastolic Blood Pressure Non-Invasive 76 mm[Hg] RIVER HOBBS MD [address] [place] [address] 01-14-2024 14:34-0500 Heart rate 55 /min RIVER HOBBS MD [address] 01-14-2024 14:34-0500 Respiratory rate 18 /min RIVER HOBBS MD [address] 01-14-2024 14:34-0500 Systolic Blood Pressure Non-Invasive 160 mm[Hg] RIVER HOBBS MD [address] [place] [address] 01-14-2024 12:02-0500 Body temperature 98.6 [degF] RIVER HOBBS MD [address] 01-14-2024 12:02-0500 Body weight 97.5 kg RIVER HOBBS MD [address] [place] [address] 01-14-2024 12:02-0500 Diastolic Blood Pressure Non-Invasive 85 mm[Hg] RIVER HOBBS MD [address] [place] [address] 01-14-2024 12:02-0500 Heart rate 72 /min RIVER HOBBS MD [address] [place] [address] 01-14-2024 12:02-0500 Respiratory rate 20 /min RIVER HOBBS MD [address] [place] [address] 01-14-2024 12:02-0500 Systolic Blood Pressure Non-Invasive 143 mm[Hg] RIVER HOBBS MD [facility] 01-07-2024 18:54-0400 Body mass index (BMI) [Ratio] 37.42 kg/m2 Beto Stephens Jr., SPIKEMAKING SUPERVISOR.HEAD OF BIOLOGY Work Phone: [facility] 01-07-2024 18:54-0400 Body temperature 97.81 [degF] Beto Stephens Jr., SPIKEMAKING SUPERVISOR.HEAD OF BIOLOGY Work Phone: [facility] 01-07-2024 18:54-0400 Body weight 98.88 kg Beto Stephens Jr., SPIKEMAKING SUPERVISOR.HEAD OF BIOLOGY Work Phone: [facility] 01-07-2024 18:54-0400 Diastolic blood pressure 90 mm[Hg] Beto Stephens Jr., SPIKEMAKING SUPERVISOR.HEAD OF BIOLOGY Work Phone: [facility] 01-07-2024 18:54-0400 Heart rate 91 /min Beto Stephens Jr., SPIKEMAKING SUPERVISOR.HEAD OF BIOLOGY Work Phone: [facility] 01-07-2024 18:54-0400 Respiratory rate 18 /min Beto Stephens Jr., SPIKEMAKING SUPERVISOR.HEAD OF BIOLOGY Work Phone: [facility] 01-07-2024 18:54-0400 SaO2% (BldA) [Mass fraction] 100 % Beto Stephens Jr., SPIKEMAKING SUPERVISOR.HEAD OF BIOLOGY Work Phone: [facility] 01-07-2024 18:54-0400 Systolic blood pressure 136 mm[Hg] Beto Stephens Jr., SPIKEMAKING SUPERVISOR.HEAD OF BIOLOGY Work Phone: [facility] 12-08-2023 13:29-0400 Body mass index (BMI) [Ratio] 37.76 kg/m2 Deepthi Vazquez DO Work Phone: [facility] 12-08-2023 13:29-0400 Body temperature 97.39 [degF] Deepthi Vazquez DO Work Phone: [facility] 12-08-2023 13:29-0400 Body weight 99.79 kg Deepthi Vazquez DO Work Phone: [facility] [facility] 12-08-2023 13:29-0400 Diastolic blood pressure 80 mm[Hg] Deepthi Vazquez DO Work Phone: [facility] 12-08-2023 13:29-0400 Heart rate 79 /min Deepthi Andraden DO Work Phone: [facility] 12-08-2023 13:29-0400 Respiratory rate 18 /min Deepthi Andraden DO Work Phone: [facility] 12-08-2023 13:29-0400 SaO2% (BldA) [Mass fraction] 98 % Deepthitravon Andraden DO Work Phone: [facility] 12-08-2023 13:29-0400 Systolic blood pressure 125 mm[Hg] Deepthi Andraden DO Work Phone: [facility] Encounters Encounter Date Encounter Type Care Provider Facility Start: 10-31-2024 ambulatory Eusebio Alan ty:[facility] Start: 10-27-2024 End: 10-27-2024 Patient encounter procedure Reyna GARCIA -[facility] Work Phone: Start: 10-27-2024 End: 10-27-[address] Eusebio Sparrow DO Work Phone: -[facility] Start: 10-13-2024 ambulatory Eusebio Alan ty:[facility] Start: 07-15-2024 Non-patient / Non-visit Luke Martinez DO -[facility] Start: 07-15-2024 End: 07-15-2024 Admission to same day surgery center Luke Martinez DO -Endoscopy Work Phone: Start: 07-15-2024 End: 07-15-[address] Eusebio Sparrow DO Work Phone: [facility] Work Phone: Start: 06-27-2024 End: 06-27-2024 Patient encounter procedure Reyna GARCIA -[facility] Work Phone: Start: 06-27-2024 End: 06-27-2024 ambulatory Eusebio Sparrow Facility:[facility] Start: 06-23-2024 End: 06-24-2024 Emergency department patient visit SOLIS LOJA MD [facility] Start: 06-23-2024 End: 06-23-[address] Eusebio Sparrow DO Work Phone: [facility] Work Phone: Start: 06-23-2024 End: 06-23-2024 Patient encounter procedure Reyna GARCIA -Laboratory Work Phone: Start: 06-23-2024 End: 06-23-2024 Patient encounter procedure Reyna GARCIA -[facility] Work Phone: Start: 06-23-2024 End: 06-23-2024 ambulatory Eusebio Sparrow Facility:[facility] Start: 06-23-2024 End: 06-23-2024 ambulatory Eusebio Sparrow Facility:[facility] Start: 06-13-2024 End: 06-13-2024 Emergency department patient visit NONE PHYSICIAN Facility:A Start: 06-13-2024 End: 06-13-2024 Patient encounter procedure Beto Stephens APRN.HEAD OF BIOLOGY Work Phone: [facility] Comment on above: Cellulitis of skin ( Primary Dx); Right upper quadrant abdominal pain Start: 06-13-2024 End: 06-13-2024 ambulatory SELF Facility:[id number] Start: 04-27-2024 End: 04-27-2024 Patient encounter procedure Reyna GARCIA -[facility] Work Phone: Start: 04-27-2024 End: 04-27-2024 ambulatory Eusebio Sparrow Facility:[facility] Start: 04-27-2024 End: 04-27-2024 ambulatory Eusebio Sparrow Facility:[facility] Start: 04-22-2024 ambulatory Luke Martinez Facility :[facility] Start: 04-22-2024 Non-patient / Non-visit Luke Martinez DO -[facility] Start: 04-22-2024 End: 04-22-2024 Admission to same day surgery center Luke Martinez DO -Endoscopy Work Phone: Start: 04-22-2024 End: 04-22-2024 ambulatory Luke Martinez Facility:[facility] Start: 03-18-2024 End: 03-18-2024 Patient encounter procedure Reyna GARCIA -Nuclear Medicine, [facility] Work Phone: Start: 03-17-2024 End: 03-17-2024 Patient encounter procedure Reyna GARCIA -[facility] Work Phone: Start: 03-17-2024 End: 03-18-2024 ambulatory Eusebio Sparrow Facility:[facility] Start: 03-07-2024 ambulatory Eusebio Lara Facili ty:[facility] Start: 03-01-2024 End: 03-01-[address] YASMIN DANIELSON MD Facility:[facility] Start: 03-01-2024 End: 03-01-[address] YASMIN DANIELSON MD [facility] Start: 02-15-2024 End: 02-15-2024 ambulatory Reyna Wood Facility:[facility] Start: 02-09-2024 End: 02-13-2024 ambulatory KIN LOYOLA SPIKEMAKING SUPERVISOR-HEAD OF BIOLOGY Facility:A Start: 02-09-2024 End: 02-09-2024 ambulatory KIN LOYOLA SPIKEMAKING SUPERVISOR-HEAD OF BIOLOGY Facility:A Start: 02-09-2024 End: 02-09-2024 Patient encounter procedure KIN LOYOLA SPIKEMAKING SUPERVISOR-HEAD OF BIOLOGY [facility] Start: 01-28-2024 End: 01-28-2024 Emergency department patient visit DR YASMIN BA MD [facility] Start: 01-14-2024 End: 01-14-2024 Emergency department patient visit RIVER HOBBS MD [facility] Start: 01-07-2024 End: 01-07-2024 Emergency department patient visit EUSEBIO SPARROW DO Facility:A Start: 01-07-2024 End: 01-07-2024 ambulatory BETO STEPHENS JR Facility:[id number] Start: 01-07-2024 End: 01-07-2024 Patient encounter procedure Beto Stephens SPIKEMAKING SUPERVISOR.HEAD OF BIOLOGY Work Phone: [facility] Comment on above: Recurrent UTI (urina ry tract infection) (Primary Dx); Dysuria; Does not have primary care provider Start: 12-21-2023 End: 12-21-2023 ambulatory MAKENZIE WASHINGTON SPIKEMAKING SUPERVISOR-HEAD OF BIOLOGY Facility:[facility] Start: 12-21-2023 End: 12-21-2023 Patient encounter procedure MAKENZIE CHRISTIEERMA SPIKEMAKING SUPERVISOR-HEAD OF BIOLOGY [facility] Start: 12-08-2023 End: 12-08-2023 Patient encounter procedure Deepthi Sofia Taylor DO Work Phone: [facility] Comment on above: Bacterial folliculit is (Primary Dx) Start: 12-08-2023 End: 12-09-2023 ambulatory DEEPTHI HATHAWAY TAYLOR Facility:[id number] Start: 06-22-2023 End: 10-06-2023 ambulatory EUSEBIO SPITTLE DO Facility:[facility] Start: 06-22-2023 End: 10-06-2023 Physical therapy management EUSEBIO SPITTLE DO [facility] Start: 06-12-2023 ambulatory EUSEBIO SPITTLE DO Fac ility:B Start: 05-25-2023 End: 05-25-2023 ambulatory EUSEBIO SPITTLE DO Facility:[facility] Start: 05-25-2023 End: 05-25-2023 Patient encounter procedure EUSEBIO SPITTLE DO [facility] Start: 12-04-2022 End: 12-04-2022 ambulatory MAKENZIE WASHINGTON APRN-HEAD OF BIOLOGY Facility:[facility] Start: 12-04-2022 End: 12-04-2022 Patient encounter procedure MAKENZIE WASHINGTON APRN-ANY [facility] Start: 04-01-2022 End: 04-01-2022 Patient encounter procedure MAKENZIE WASHINGTON APRN-ANY [facility] Procedures Date Procedure Procedure Detail Performing Clinician Start: 07-15-[address] Eusebio Sprarow DO Work Phone: Start: 06-23-[address] Eusebio Sparrow DO Work Phone: Start: 06-23-2024 Computed tomography of abdomen and pelvis with contrast Dr. Eusebio Sparrow DO Work Phone: Start: 04-27-2024 Hepatitis A virus antibody, total measurement Dr. Eusebio Sparrow DO Work Phone: Comment on above: Comment: The HAV total antibody assay de tects both IgG andIgM but does not differentiate between them. A negativeresult suggests susceptibility to infection. A positiveresult could be due to vaccination, previously resolvedinfection or active infection. Testing for HAV IgM shouldbe performed if active HAV infection is suspected. [facility] profiles that will automatically reflex positive HAVtotal antibody results to IgM (e.g., panel #[id number] HAVAntibody w/ Rfx).Performed at: [address] [id number] Director: Elton Kirkpatrick PhD, Phone: [phone] Start: 04-27-2024 Hepatitis B surface antigen measurement Dr. Eusebio Sparrow DO Work Phone: Start: 04-27-2024 Hepatitis C antibody measurement Dr. Alber Sparrow DO Work Phone: Comment on above: Non Reactive: < 0.8 Equivocal: >/= 0.8 t o < 1.0 Reactive: >/= 1.0The CDC requires that a reactive/equivocal HCV antibody result be sent out for confirmation. HCV Quant by PCR testing. Start: 04-27-2024 Measurement of renal function Dr. Scarlet Sparrow DO Work Phone: Comment on above: GFR Calc Start: 03-18-2024 Radionuclide study of abdomen Dr. Scarlet Sparrow DO Work Phone: Start: 01-07-2024 Urnls dip stick/tablet rgnt auto w/o microscopy Beto Stephens SPIKEMAKING SUPERVISOR.HEAD OF BIOLOGY Work Phone: Start: 05-05-2018 Hysterectomy MAKENZIE PRATIKER SPIKEMAKING SUPERVISOR-HEAD OF BIOLOGY Start: 05-21-2017 Bilateral complete salpingectomy MAKENZIE NG SPIKEMAKING SUPERVISOR-HEAD OF BIOLOGY Comment on above: ABDOMINAL LAPAROSCOPY FOR ECTOPIC PREGNA NCY Start: 11-15-2014 delivery only MAKENZIENic MCKEONTTER SPIKEMAKING SUPERVISOR-HEAD OF BIOLOGY Start: 03-09-2008 section MAKENZIE LEADBETTER SPIKEMAKING SUPERVISOR-HEAD OF BIOLOGY Start: 03-09-2005 section MAKENZIE LEADBETTER SPIKEMAKING SUPERVISOR-HEAD OF BIOLOGY Start: 03-09-2003 section MAKENZIE LEADBETTER SPIKEMAKING SUPERVISOR-HEAD OF BIOLOGY Start: 03-09-2001 section MAKENZIE LEADBETTER SPIKEMAKING SUPERVISOR-HEAD OF BIOLOGY section MAKENZIE MIYAB MAURICE SPIKEMAKING SUPERVISOR-HEAD OF BIOLOGY Herniated structure (morphologic abnormality) KIN LOYOLA SPIKEMAKING SUPERVISOR-HEAD OF BIOLOGY Shoulder region stru cture (body structure) KIN LOYOLA SPIKEMAKING SUPERVISOR-HEAD OF BIOLOGY Comment on above: right - replacement Plan of Treatment Date Care Activity Detail Author Start: 11-16-2024 Urine microalbumin profile DTaP,Tdap,Td Vaccine (2 - Td or Tdap) [facility] Start: 07-15-2024 Patient discharge [facility] Start: 04-22-2024 Colonoscopy w/biopsy single/multiple COLONOSCOPY AND BIOPSY [facility] Start: 04-22-2024 Egd transoral biopsy single/multiple EGD BIOPSY SINGLE/MULTIPLE [facility] Start: 04-22-2024 Patient discharge [facility] Start: 03-17-2024 Patient referral [facility] Work Phone: Start: 11-08-2023 Covid-19 Vaccine ( season) Covid-19 Vaccine ( season) [facility] Start: 11-08-2023 Influenza vaccination Influenza Vacc ine (#1) [facility] Start: 2019 Screening for malign ant neoplasm of breast Mammogram Screening [facility] Start: 11-16-2000 Screening for malign ant neoplasm of cervix Cervical Cancer Screening [facility] Start: 11-16-1998 Hepatitis B Vaccine (1 of 3 - 19+ 3-dose series) Hepatitis B Vaccine (1 of 3 - 19+ 3-dose series) [facility] Start: 11-16-1997 Anxiety Screening Anxiety Screening [facility] Start: 11-16-1997 Depression Screening Depression Scre ening [facility] Start: 11-16-1997 Hepatitis C screening Hepatitis C Sc reening [facility] Start: 11-16-1997 HIV screening HIV Screening [facility] Patient referral [facility] Work Phone: Radionuclide gastric emptying study [facility] Immunizations Immunization Date Immunization Notes Care Provider Elin sierra 11-16-2014 tetanus toxoid, redu edwina diphtheria toxoid, and acellular pertussis vaccine, adsorbed MAKENZIE WASHINGTON SPIKEMAKING SUPERVISOR-HEAD OF BIOLOGY [facility] Payers Date Payer Category Payer Unknown [id number] 2024 Unknown [id number] 2024 Unknown [id number] 2024 Unknown [id number] 2023 Unknown [id number] 2023 Unknown [id number] 2022 [facility] 1980 Unknown [id number] 2.16.8 40.1.815929.3.579.2.627 1979 Unknown [id number] 2.16.8 40.1.699351.3.579.2.7 1979 Unknown [id number] 2.16.8 40.1.790485.3.579.2.7 1979 Unknown [id number] 2.16.8 40.1.789300.3.579.2.7 1979 Unknown [id number] 2.16.8 40.1.774104.3.579.2. 1979 Unknown [id number] 2.16.8 40.1.363122.3.579.2. 1979 Unknown [id number] 2.16.8 40.1.026391.3.579.2. 1979 Unknown [id number] 2.16.8 40.1.639599.3.579.2. 1979 Unknown [id number] 2.16.8 40.1.317576.3.579.2.7 1979 Unknown [id number] 2.16.8 40.1.175356.3.579.2.7 1979 Unknown [id number] 2.16.8 40.1.112142.3.579.2. 1979 Unknown [id number] 2.16.8 40.1.579972.3.579.2. 1979 Unknown [id number] 2.16.8 40.1.531530.3.579.2. 1979 Unknown [id number] 2.16.8 40.1.224475.3.579.2. 1979 Unknown [id number] 2.16.8 40.1.824944.3.579.2. Unknown [id number] Unknown [id number] 2.16.8 40.1.716839.3.579.2.462 Unknown [id number] 2.16.8 40.1.286196.3.579.2.462 Unknown [id number] 2.16.8 40.1.978140.3.579.2.462 Unknown [id number] 2.16.8 40.1.460630.3.579.2.462 Unknown [id number] 2.16.8 40.1.732899.3.579.2.462 Unknown [id number] 2.16.8 40.1.381246.3.579.2.462 Unknown [id number] 2.16.8 40.1.463699.3.579.2.462 Unknown [id number] 2.16.8 40.1.607607.3.579.2.462 Unknown [id number] 2.16.8 40.1.128637.3.579.2.462 Unknown [id number] 2.16.8 40.1.473840.3.579.2.462 Unknown [id number] 2.16.8 40.1.682742.3.579.2.462 Unknown [id number] 2.16.8 40.1.904531.3.579.2.462 Unknown [id number] 2.16.8 40.1.062043.3.579.2.462 Unknown [id number] 2.16.8 40.1.054399.3.579.2.462 Unknown [id number] 2.16.8 40.1.943156.3.579.2.462 Unknown [id number] 2.16.8 40.1.478619.3.579.2.462 Unknown [id number] 2.16.8 40.1.405370.3.579.2.462 Social History Date Type Detail Facility Start: 04-22-2018 End: 01-07-2024 Tobacco smoking status Never smoked tobacco (finding) [facility] Start: 1980 Sex Assigned At Female A [facility] Start: 12-08-2023 Tobacco use and exposure Smokeless tobacco non-user [facility] Start: 12-08-2023 End: 01-07-2024 Alcoholic beverage intake Lifetime non-drinker (finding) [facility] Start: 05-06-2022 End: 12-08-2023 History of Social function [facility] Start: 05-06-2022 End: 12-08-2023 Tobacco use panel [facility] Adult Depression Screening Assessment 0 [facility] Start: 1980 Sex assigned at Not on file [facility] Start: 05-05-2022 Sexual orientation Homosexual (findi ng) [facility] Sexual Orientation [facility] Start: 09-01-2018 End: 06-27-2024 Sex Female (finding) [facility] Start: 06-13-2024 Alcoholic beverage intake Current drinker of alcohol (finding) [facility] Start: 06-13-2024 [facility] Start: 04-27-2024 End: 07-14-2024 Tobacco smoking status NHIS Ex-smoker (finding) [facility] NEGATED: Highlighted rowStart: NINF History of tobacco use Passive smoker [facility] NEGATED: Highlighted row Not [facility] Goals Date Patient Goal Desired Activity /State Functional Status Date Assessment Result Facility 06-24-2024 Functional Status Independent [facility] 06-23-2024 Functional Status Standard Safet y ID band on, Call device within reach, Bed in low position, Wheels locked, Upper/Half-Length side-rails up, Phone within reach, personal items within reach, Bedside Cart Locked, Visitor at bedside, Safety level maintained [facility] 01-28-2024 Functional Status Independent [facility] 01-28-2024 Functional Status Standard Safet y ID band on, Call device within reach, Bed in low position, Wheels locked, Upper/Half-Length side-rails up, Phone within reach, personal items within reach, Safety level maintained [facility] 01-14-2024 Functional Status Assistive Device None A [facility] 01-14-2024 Functional Status Room check performed [facility] Mental Status Date Assessment Result Facility 07-15-2024 Cognitive function Voice/Name [facility] Work Phone: 06-24-2024 Mental Status Orientation Oriented x 4 [facility] 06-23-2024 [facility] Cognitive function Light Pain [facility] Work Phone: 01-28-2024 Mental Status Orientation Oriented x 4 [facility] 01-28-2024 Mental Status [facility] 01-14-2024 Mental Status Orientation Oriented x 4 [facility] 01-14-2024 Mental Status [facility] Clinical Notes 04-01-2022 to 07-15-2024 Note Date & Type Note Facility 07-15-2024 Consult note [facility] 07-15-2024 Evaluation note Diagnosis Onset Date Resolution Gastric ulcer acute July 15 6:11am LLQ pain acute July 15, 2024 6:11am Constipation acute October 27, 2024 1:22pm RLQ abdominal pain acute October 27, 2024 1:22pm RUQ pain acute October 27, 1:22pm [facility] Work Phone: [phone]) 223-463905-09-2025 Procedure note [facility] Medical Records Department [address] [place] [id number] EGD Report MR#: [id number] Acct: [id number] Name: BETTE WRIGHT Rep #:[id number] : 1980 43 From: Luke Martinez DO PCP: Dr. Eusebio Sparrow DO Status:R EG SDC Patient Name: Bette Wright Procedure Date: 07/15/2024 7:23 AM Date of : 1980 Age: 43 Procedure: Upper GI endoscopy Indications: Epigastric abdominal pain, Chronic peptic ulcer Providers: Luke Martinez DO Referring MD: Eusebio Sparrow Medicines: Monitored Anesthesia Care Patient Profile: This is a 43 year old female. Refer to note in patient chart for documentation of history and physical. Patient has symptoms of acute epigastric abdominal pain. Complications: No immediate complications. Procedure: Pre-Anesthesia Assessment: - Prior to the procedure, a History and Physical was performed, and patient medications and allergies were reviewed. The patient is competent. The risks and benefits of the procedure and the sedation options and risks were discussed with the patient. All questions were answered and informed consent was obtained. Patient identification and proposed procedure were verified by the physician in the pre-procedure area. Mental Status Examination: alert and oriented. Airway Examination: normal oropharyngeal airway and neck mobility. Respiratory Examination: clear to auscultation. CV Examination: normal. Prophylactic Antibiotics: The patient does not require prophylactic antibiotics. Prior Anticoagulants: The patient has taken no anticoagulant or antiplatelet agents except for NSAID medication. ASA Grade Assessment: II - A patient with mild systemic disease. After reviewing the risks and benefits, the patient was deemed in satisfactory condition to undergo the procedure. The anesthesia plan was to use monitored anesthesia care (MAC). Immediately prior to administration of medications, the patient was re-assessed for adequacy to receive sedatives. The heart rate, respiratory rate, oxygen saturations, blood pressure, adequacy of pulmonary ventilation, and response to care were monitored throughout the procedure. The physical status of the patient was re-assessed after the procedure. After obtaining informed consent, the endoscope was passed under direct vision. Throughout the procedure, the patient's blood pressure, pulse, and oxygen saturations were monitored continuously. The gastroscope was introduced through the mouth, and advanced to the second part of duodenum. The upper GI endoscopy was accomplished without difficulty. The patient tolerated the procedure well. Scope In: 7:27:49 AM Scope Out: 7:30:29 AM Total Procedure Duration Time 0 hours 2 minutes 40 seconds Findings: No gross lesions were noted in the entire esophagus. Many non-bleeding superficial gastric ulcers with no stigmata of bleeding were found in the gastric antrum. The largest lesion was 5 mm in largest dimension. Biopsies were taken with a cold forceps for histology. Verification of patient identification for the specimen was done. Estimated blood loss was minimal. Biopsies were taken with a cold forceps for Helicobacter pylori testing. Verification of patient identification for the specimen was done. Estimated blood loss was minimal. No gross lesions were noted in the entire examined duodenum. Impression: - No gross lesions in the entire esophagus. - Non-bleeding gastric ulcers with no stigmata of bleeding. Biopsied. - No gross lesions in the entire examined duodenum. Recommendation: - Discharge patient to home. - Resume previous diet. - Continue present medications. - Await pathology results. Procedure Code(s): --- Professional --- 76522, Esophagogastroduodenoscopy, flexible, transoral; with biopsy, single or multiple CPT copyright 2021 [employer]. All rights reserved. The codes documented in this report are preliminary and upon english division chair review may be revised to meet current compliance requirements. Luke Martinez DO 07/15/2024 7:34:09 AM This report has been signed electronically. Number of Addenda: 0 Note Initiated On: 07/15/2024 7:23 AM 07/15/24733 Date _ Luke Martinez DO Cosigner Signature: Date (if indicated) CC: Dr. Eusebio Sparrow DO; Luke Martinez DO ~ Date Dictated: 07/15/24722 Date Transcribed: Hyperion Analyst: RF Signed [facility]05-09-2025 Procedure note [facility] Medical Records Department [address] [place] [address] Operative Report - CC Letter MR#: [id number] Acct: [id number] Name: BETTE WRIGHT Rep #:[id number] : 1980 43 From: Luke Martinez DO PCP: Dr. Eusebio Sparrow DO Status:R [facility] 07/15/2024 Eusebio Sparrow [address] [address] [place] [address] Re : Upper GI endoscopy procedure for Bette Wright Dear Dr. Sparrow This procedure was performed on Monday, July 15, 2024. My impressions and recommendations are as follows: Impressions : - No gross lesions in the entire esophagus. - Non-bleeding gastric ulcers with no stigmata of bleeding. Biopsied. - No gross lesions in the entire examined duodenum. Recommendations : - Discharge patient to home. - Resume previous diet. - Continue present medications. - Await pathology results. My findings are described in the full procedure note, which is enclosed. If I can be of further assistance, please feel free to contact me at . Sincerely, Luke Martinez DO 07/15/2024 7:34:09 AM This report has been signed electronically. 07/15/24733 Date _ Luke Martinez DO Cosigner Signature: Date (if indicated) CC: Dr. Eusebio Sparrow DO; Luke Martinez DO ~ Date Dictated: 07/15/24722 Date Transcribed: Hyperion Analyst: RF Signed [facility]05-09-2025 Consult note [facility] Medical Records Department [address] [place] [address] Pre-Anesthesia Evaluation 07/15/24714 MR#: [id number] Acct: [id number] Name: BETTE WRIGHT Rep #:[id number] : 1980 43 From: Bogdan Gill MD PCP: Dr. Eusebio Sparrow DO Status:R EG [facility]: C Location: [place] [address] ASA Classification* ASA Classification ASA Classification: 3 Assessment & Plan Anesthesia* Anesthesia Assessment Anesthesia Assessment: Discussed sedation and/or anesthesia options, risks, benefits, and alternatives with patient/parents/legal guardian/POA. Questions invited. The patient/parents/legal guardian/POA seems to understand and agrees to proceedwith anesthesia plan. Reviewed the physical assessment, medical history, allergy history and patient home medications list prior to surgery/procedure/anesthetic and documented any changes. Performed airway and anesthesia risk assessments. Anesthesia Type Anesthesia Type: MAC History Source History Obtained from:: Patient and Chart Anesthesia Focused Assessment* Temperature: 97.6 F Pulse Rate: 49 Blood Pressure: 126/63 Respiratory Rate: 16 Pulse Ox: 99 Oxygen Delivery Method: Room Air Airway Assessment Mouth opens: >3 cm Mallampati Score: II Teeth Condition: Dentures Focused Labs Anesthesia Preop lab: CBC WBC 4.9 K/mm3 (4.4-11.0) 06/23/24 10:06/23/24 RBC 4.97 M/mm3 (4.2-5.4) 06/23/24 10:06/23/24 Hgb 14.1 g/dL (12.0-15.0) 06/23/24 10:06/23/24 Hct 42.5 % (37-47) 06/23/24 10:06/23/24 Plt Count 249 K/mm3 (150-450) 06/23/24 10:06/23/24 CHEMISTRY Potassium 3.9 mmol/L (3.3-5.1) 06/23/24 10:06/23/24 Sodium 139 mmol/L (133-145) 06/23/24 10:23 06/23/24 BUN 14 mg/dL (4-19) 06/23/24 10:06/23/24 Creatinine 0.88 mg/dL (0.70-1.20) 06/23/24 10:06/23/24 Glucose 97 mg/dL (70-99) 06/23/24 10:06/23/24 COAG Pre-Assessment Diagnosis/Proposed Procedure Planned Operative Procedure(s): EGD Anesthesia History Anesthesia History - test clerk: Anesthesia History - test clerk Hx Hospitalization No 07/14/24 10:00 Any Problems With Anesthesia No 07/14/24 10:00 Cholinesterase deficiency No 07/14/24 10:00 You/Your Family Experience No 07/14/24 10:00 fever (hyperthermia) with Relationship Recent Exposure to Contagious No 07/15/24 06:39 Disease Does patient have nerve No 07/14/24 10:00 stimulator Patient instructed to have device shut off --Does patient have Pacemaker No 07/15/24 06:39 or ICD? When Was Last Pacemaker Check QUESTION #4 FULL TEXT: You/Your Family Experience fever (hyperthermia) with Anesthesia Last Oral Intake Last Oral intake: Last Oral Intake NPO since 23:30 07/15/24 06:39 Meds taken in AM with sips of water? Meds patient instructed to take am of surgery PONV PONV - test clerk: PONV - test clerk Female Yes 07/14/24 10:00 HX of Motion Sickness No 07/14/24 10:00 HX of N/V After Surgery No 07/14/24 10:00 Non-Smoker Yes 07/14/24 10:00 Duration of Surgery greater No 07/14/24 10:00 than 60 minutes Number of Risk Factors 2 07/14/24 10:00 PONV Score Moderate Risk 07/14/24 10:00 Height & Weight Height & Weight: Anesthesia: Height & Weight Height 5 ft 9 in 07/15/24 06:39 Weight: 95.1 kg 07/15/24 06:39 Body Mass Index (BMI) 30.9 07/15/24 06:39 Respiratory Assessment Respiratory Assessment - test clerk: Respiratory Tract Infection Hx - test clerk Hx Respiratory Tract Infection No 07/14/24 10:00 STOP Sleep Apnea STOP Sleep Apnea - test clerk: STOP Sleep Apnea - test clerk Hx Hypertension No 07/14/24 10:00 Hx Sleep Apnea No 07/14/24 10:00 CPAP BIPAP Do you snore loudly (louder No 07/14/24 10:00 than talking or can be heard Do you often feel tired/ No 07/14/24 10:00 fatigued/ sleepy during daytime? Has anyone observed you stop No 07/14/24 10:00 breathing during sleep? STOP Results Negative 07/14/24 10:00 QUESTION #5 FULL TEXT : Do you snore loudly (louder than talking or can be heard through closeddoors)? 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 Specify any problems Hx of Preganancy in last 3 No 07/14/24 10:00 Months Nurse Filling Out Transfusion [facility] 07/14/24 10:00 & Questions: Date: 07/14/24 07/14/24 10:00 Time: 10:07/14/24 10:00 Patient unable to answer at this time (ie. confused, unrespo /Reproduction History /Reproductive History - test clerk: /Reproductive Hx- test clerk Hx Now No 07/14/24 10:00 Gestational Age (in weeks): EDC: Hx Hx Para Hx Section SAB No 07/14/24 10:00 Active Medications Active Medications: Current Medications Generic Name Dose Route Start Last Admin Trade Name Freq PRN Reason Stop Dose Admin Lactated Ringer's 1,000 mls @ 15 mls/hr 07/15/24 06:30 IV .Q48H CONNIE PFSH Medical History Wears dentures Restless legs Dietary restriction Gastric reflux Former smoker History of ectopic Home Medications ?Medication ?Instructions ?Recorded ?Last Taken ?Type sertraline 25 mg tablet (Zoloft) 25 mg PO QDAY 4 07/14/24 History linaclotide 145 mcg capsule 145 mcg PO QAM #90 caps 07/14/24 Rx (Linzess) pantoprazole 40 mg tablet,delayed 40 mg PO BID #180 ta bs 04/27/24 07/14/24 Rx release Allergy/AdvReac Type Severity Reaction Status Date / Time No Known Allergies Allergy Verified 07/15/24 06:36 Surgical History History of shoulder surgery History of hernia surgery History of hysterectomy History of classical section Social History Smoking Status: Former smoker alcohol intake: never Review of Systems (Anesthesia) ROS Narrative System reviewed and no additional complaints, except as documented. Physical Exam Const alert and oriented x3 HEENT dentition normal 07/15/24 0718 D> Date _ Bogdan Gill MD Cosigner Signature: Date CC: ~ Signed [facility]05-09-2025 History and physical note [facility] Medical Records Department [address] [place] [address] History & Physical Exam 07/15/24 0652 MR#: [id number] Acct: [id number] Name: BETTE WRIGHT Rep #:[id number] : 1980 43 From: Luke Martinez DO PCP: Dr. Eusebio Sparrow DO Status:R [facility] Location: [place] [address] HPI - General General Date of Service: 07/15/24 Chief Complaint: gastric ulcer and abdominal pain HPI Narrative BETTE WRIGHT, is a 43 F who presents for the evaluation of abdominal pain - reports they gave her so much pain medication she could not focus - c/o of constipation, has not had a BM since morning - feels bloated - c/o nausea due to bloating - pain today is 8/10 - LLQ pain radiating down her left leg - ER prescribed percocet - she is still taking Miralax 2tbsb once a day - Linzess 145mcg once daily - weight is stable [facility] Medical History Wears dentures Restless legs Dietary restriction Gastric reflux Former smoker History of ectopic Home Medications ?Medication ?Instructions ?Recorded ?Last Taken ?Type sertraline 25 mg tablet (Zoloft) 25 mg PO QDAY 4 07/14/24 History linaclotide 145 mcg capsule 145 mcg PO QAM #90 caps 07/14/24 Rx (Linzess) pantoprazole 40 mg tablet,delayed 40 mg PO BID #180 ta bs 04/27/24 07/14/24 Rx release Allergy/AdvReac Type Severity Reaction Status Date / Time No Known Allergies Allergy Verified 07/15/24 06:36 Surgical History History of shoulder surgery History of hernia surgery History of hysterectomy History of classical section Social History Smoking Status: Former smoker alcohol intake: never ROS Constitutional Constitutional: Denies fatigue, fever(s), poor appetite, weight gain or weight loss Gastrointestinal Gastrointestinal: Denies belching, bloating, change in bowel habits, change in stool character, chewing difficulty, coffee ground emesis, constipation, cramping, diarrhea, dyspepsia, dysphagia, earlysatiety, excessive flatus, fecalincontinence, heartburn, hematemesis, hematochezia, hemorrhoids, loose stools, melena, nausea, odynophagia, rectal bleeding, tenesmus, vomiting or weight changes Vital Signs Vital Signs Vital Signs: 07/15/24 06:39 07/15/24 06:39 Temperature 97.6 F L Temperature Source Temporal Pulse Rate 49 L Respiratory Rate 16 Respiratory Pattern Normal Blood Pressure 126/63 H Blood Pressure Mean 84 Blood Pressure Source Monitor Blood Pressure Position Semi-Fowlers Blood Pressure Location Right Arm Pulse Ox 99 Oxygen Delivery Method Room Air Weight Weight: 209 lb 10.554 oz Body Mass Index (BMI) 30.9 Physical Exam Const alert, oriented x3, no apparent distress and healthy appearing General Appearance: cooperative GI normal to inspection, nondistended, normoactive bowel sounds, soft to palpation,non-tender and non-distended Percussion: normal to percussion Rectal Exam: deferred Assessment & Plan Assessment/Plan (1) LLQ pain: (2) Gastric ulcer: PLAN: Assessment and Plan Assessment and Plan (1) Epiploic appendagitis: Status: Acute (2) LLQ pain: Status: Acute (3) Constipation: Status: Acute Qualifiers: Constipation type: slow transit constipation Qualified Code(s): K59.01 - Slow transit constipation Medications: New methylprednisolone (Medrol (Dagoberto)) PO PER PKG DIR for 6 days 21 tabs 0RF Plan 43-year-old female presents for follow-up. She was seen in the office on 06/23/2024 with complaints of severe LLQ abdominal pain and guarding with abdominal exam. Stat CT was completed and unremarkable. Due to ongoing severe pain she was referred to the emergency department where a CT was repeated and revealed epiploic appendagitis. Epiploic appendagitis is a benign, self- limitingcondition which can mimic other causes of acute abdominal pain. She has been onibuprofen 600 mg 3 times daily and Percocet as needed since ED visit on 06/23/2024 with only minor improvement in abdominal pain. She denies any fevers. UA and labs were unremarkable. I reviewed with Dr. Martinez and he recommends treating with steroids, I have prescribed a Medrol Dosepak. She also complains of worsening constipation despite Linzess 145 mcg once daily, this is likely secondary to continued Percocet use. I have recommended discontinuing Percocet and starting magnesium citrate 10 ounce bottle today and repeating tomorrowif no results. Patient Instructions: - Magnesium Citrate 10 ounces today, if this does not produce a bowel movement drink a second bottle of Magnesium Citrate tomorrow moring - Continue Linzess 145mcg once daily - Discontinue percocet - Continue pantoprazole 40mg BID - Medrol Dose Dagoberto - sent to [facility] - Follow-up as scheduled post EGD - Follow-up by telephone later this week - Continue Advil 600mg Q8H PRN abdominal pain 07/15/24 0717 Cosigner Signature (if applicable): CC: Dr. Eusebio Sparrow DO; Luke Martinez DO~ Signed [facility]05-09-2025 [facility] Medical Records Department [address] [place] [address] History Physical Exam 07/15/24 0652 MR#: [id number] Acct: [id number] Name: BETTE WRIGHT Rep #: [id number] : 1980 43 From: Luke Martinez DO PCP: Dr. Eusebio Sparrow DO Status:[facility] Location: [place] AC[facility] HPI - General General Date of Service: 07/15/24 Chief Complaint: gastric ulcer and abdominal pain HPI Narrative BETTE WRIGHT, is a 43 F who presents for the evaluation of abdominal pain - reports they gave her so much pain medication she could not focus - c/o of constipation, has not had a BM since morning - feels bloated - c/o nausea due to bloating - pain today is 8/10 - LLQ pain radiating down her left leg - ER prescribed percocet - she is still taking Miralax 2tbsb once a day - Linzess 145mcg once daily - weight is stable [facility] Medical History Wears dentures Restless legs Dietary restriction Gastric reflux Former smoker History of ectopic Home Medications ???Medication ???Instructions ???Recorded ???Last Taken ???Type sertraline 25 mg tablet (Zoloft) 25 mg PO QDAY 02/15/24 07/14/24 Hi story linaclotide 145 mcg capsule 145 mcg PO QAM #90 caps 04/27/24 0 07/14/24 Rx (Linzess) pantoprazole 40 mg tablet,delayed 40 mg PO BID #180 tabs 04/27/24 0 07/14/24 Rx release Allergy/AdvReac Type Severity Reaction Status Date / Time No Known Allergies Allergy Verified 07/15/24 06:36 Surgical History History of shoulder surgery History of hernia surgery History of hysterectomy History of classical section Social History Smoking Status: Former smoker alcohol intake: never ROS Constitutional Constitutional: Denies fatigue, fever(s), poor appetite, weight gain or weight loss Gastrointestinal Gastrointestinal: Denies belching, bloating, change in bowel habits, change in stool character, chewing difficulty, coffee ground emesis, constipation, cramping, diarrhea, dyspepsia, dysphagia, early satiety, excessive flatus, fecal incontinence, heartburn, hematemesis, hematochezia, hemorrhoids, loose stools, melena, nausea, odynophagia, rectal bleeding, tenesmus, vomiting or weight changes Vital Signs Vital Signs Vital Signs: 07/15/24 06:39 07/15/24 06:39 Temperature 97.6 F L Temperature Source Temporal Pulse Rate 49 L Respiratory Rate 16 Respiratory Pattern Normal Blood Pressure 126/63 H Blood Pressure Mean 84 Blood Pressure Source Monitor Blood Pressure Position Semi-Fowlers Blood Pressure Location Right Arm Pulse Ox 99 Oxygen Delivery Method Room Air Weight Weight: 209 lb 10.554 oz Body Mass Index (BMI) 30.9 Physical Exam Const alert, oriented x3, no apparent distress and healthy appearing General Appearance: cooperative GI normal to inspection, nondistended, normoactive bowel sounds, soft to palpation, non-tender and non- distended Percussion: normal to percussion Rectal Exam: deferred Assessment Plan Assessment/Plan (1) LLQ pain: (2) Gastric ulcer: PLAN: Assessment and Plan Assessment and Plan (1) Epiploic appendagitis: Status: Acute (2) LLQ pain: Status: Acute (3) Constipation: Status: Acute Qualifiers: Constipation type: slow transit constipation Qualified Code(s): K59.01 - Slow transit constipation Medications: New methylprednisolone (Medrol (Dagoberto)) PO PER PKG DIR for 6 days 21 tabs 0RF Plan 43-year-old female presents for follow-up. She was seen in the office on 06/23/2024 with complaints of severe LLQ abdominal pain and guarding with abdominal exam. Stat CT was completed and unremarkable. Due to ongoing severe pain she was referred to the emergency department where a CT was repeated and revealed epiploic appendagitis. Epiploic appendagitis is a benign, self-limiting condition which can mimic other causes of acute abdominal pain. She has been on ibuprofen 600 mg 3 times daily and Percocet as needed since ED visit on 06/23/2024 with only minor improvement in abdominal pain. She denies any fevers. UA and labs were unremarkable. I reviewed with Dr. Martinez and he recommends treating with steroids, I have prescribed a Medrol Dosepak. She also complains of worsening constipation despite Linzess 145 mcg once daily, this is likely secondary to continued Percocet use. I have recommended discontinuing Percocet and starting magnesium citrate 10 ounce bottle today and repeating tomorrow if no results. Patient Instructions: - Magnesium Citrate 10 ounces today, if this does not produce a bowel movement drink a second bottle of Magnesium Citr (more content not included)...[facility] 06-24-2024 Hospital Discharge instructions Patient Education 06/24/2024 00:51:18 Abdominal Pain Abdominal Pain Abdominal pain is pain in the stomach or belly area. Everyone has this pain from time to time. In many cases it goes away on its own. But abdominal pain can sometimes be due to a serious problem, such as appendicitis. So it s important to know when to get help. Causes of abdominal pain There are many possible causes of abdominal pain. Common causes in adults include: Constipation, diarrhea, or gas Stomach acid flowing back up into the esophagus (acid reflux or heartburn) Severe acid reflux, called GERD (gastroesophageal reflux disease) A sore in the lining of the stomach or small intestine (peptic ulcer) Inflammation of the gallbladder, liver, or pancreas Gallstones or kidney stones Appendicitis Intestinal blockage An internal organ pushing through a muscle or other tissue (hernia) Urinary tract infections In women, menstrual cramps, fibroids, ovarian cysts, pelvic inflammatory disease, or endometriosis Inflammation or infection of the intestines, including Crohn's disease and ulcerative colitis Irritable bowel syndrome Diagnosing the cause of abdominal pain Your healthcare provider will give you a physical exam help find the cause of your pain. If needed,you will have tests. Belly pain has many possible causes. So it can be hard to find the reason for your pain. Giving details about your pain can help. Tell your provider where and when you feel the pain, and what makes it better or worse. Also let your provider know if you have other symptoms such as: Fever Tiredness Upset stomach (nausea) Vomiting Changes in bathroom habits Blood in the stool or black, tarry stool Weight loss that you can't explain (involuntary weight loss?) Also report any family history of stomach or intestinal problems, or cancers. Tell your provider about all your alcohol use and drug use. Tell your provider about all medicines you use, including herbs, vitamins, and supplements. Treating abdominal pain Some causes of pain need emergency medical treatment right away. These include appendicitis or a bowel blockage. Other problems can be treated with rest, fluids, or medicines. Your healthcare provider can give you specific instructions for treatment or self-care based on what is causing your pain. If you have vomiting or diarrhea, sip water or other clear fluids. When you are ready to eat solid foods again, start with small amounts of rkuu-eq-axppix, low- fat foods. These include apple sauce, toast, or crackers. When to get medical care Call 911 or go to the hospital right away if you: Can t pass stool and are vomiting Are vomiting blood or have bloody diarrhea or black, tarry diarrhea Have chest, neck, or shoulder pain Feel like you might pass out Have pain in your shoulder blades with nausea Have sudden, severe belly pain Have new, severe pain unlike any you have felt before Have a belly that is rigid, hard, and hurts to touch Call your healthcare provider if you have: Pain for more than 5 days Bloating for more than 2 days Diarrhea for more than 5 days A fever of 100.4 F (38 C) or higher, or as directed by your healthcare provider Pain that gets worse Weight loss for no reason Continued lack of appetite Blood in your stool How to prevent abdominal pain Here are some tips to help prevent abdominal pain: Eat smaller amounts of food at each meal. Don't eat greasy, fried, or other high-fat foods. Don't eat foods that give you gas. Exercise regularly. Drink plenty of fluids. To help prevent GERD symptoms: Quit smoking. Reduce alcohol and foods that increase stomach acid. Don't use aspirin or tknm-zcm-sdycrym pain and fever medicines, if possible. This includes nonsteroidal anti-inflammatory drugs (NSAIDs). Lose excess weight. Finish eating at least 2 hours before you go to bed or lie down. Raise the head of your bed. [id number] [employer] [address] [place] [address], [place] [address]. All rights reserved. This information is not intended as a substitute for professional medical care. Always follow yourhealthcare professional's instructions. Follow Up Care 06/23/2024 18:46:22 With:Follow up with primary care provider Address:Unknown When:2-4 days [facility] 04-18-2025 Emergency department Discharge summary Discharge Instructions Thank you for allowing [facility] to assist you with your healthcare needs. The following is importantdischarge information regarding your hospital visit. Diagnosis from Today's Visit Epiploic appendagitis What to Do Next Instructions from Your Care Team Your CAT scan showed at epiploic appendagitis. This condition should resolve on its own. Eat a bland diet, take anti-inflammatories like ibuprofen. May use Percocet that was prescribed for more severe pain. Follow-up with your PCP and return with worsening symptoms. No qualifying data available. Post Acute Orders No qualifying data available. You Need to Schedule the Following Appointments Follow Up with Follow up with primary care provider When:Within 2-4 days Allergies [facility] Medications Please ask your primary doctor or pharmacist before taking any other medication not listed, including over the counter drugs, herbal medications, vitamins and or supplements as they may interact withyour home medications. What How Much When Why Instructions Last Dose New acetaminophen-oxyCODONE (Percocet 5 mg-325 mg oral tablet) 1 tab(s) by mouth Every 6 hours as needed for for pain Epiploic appendagitis Duration: 3 Days Printed Prescription Unchanged hyoscyamine (Levsin 0.125 mg oral tablet) 1 tab(s) by mouth Four (4) times a day Duration: 7 Days Unchanged sertraline by mouth Once a day Please take this list to your next doctor s visit. Bring all medications you take, including over the counter medications, herbals and other supplements with you to your doctor s visit. Patients and families are reminded to discard old lists and to update any records with all medication providers or retail pharmacies. Education Materials Abdominal Pain Abdominal pain is pain in the stomach or belly area. Everyone has this pain from time to time. In many cases it goes away on its own. But abdominal pain can sometimes be due to a serious problem, such as appendicitis. So it s important to know when to get help. Causes of abdominal pain There are many possible causes of abdominal pain. Common causes in adults include: Constipation, diarrhea, or gas Stomach acid flowing back up into the esophagus (acid reflux or heartburn) Severe acid reflux, called GERD (gastroesophageal reflux disease) A sore in the lining of the stomach or small intestine (peptic ulcer) Inflammation of the gallbladder, liver, or pancreas Gallstones or kidney stones Appendicitis Intestinal blockage An internal organ pushing through a muscle or other tissue (hernia) Urinary tract infections In women, menstrual cramps, fibroids, ovarian cysts, pelvic inflammatory disease, or endometriosis Inflammation or infection of the intestines, including Crohn's disease and ulcerative colitis Irritable bowel syndrome Diagnosing the cause of abdominal pain Your healthcare provider will give you a physical exam help find the cause of your pain. If needed,you will have tests. Belly pain has many possible causes. So it can be hard to find the reason for your pain. Giving details about your pain can help. Tell your provider where and when you feel the pain, and what makes it better or worse. Also let your provider know if you have other symptoms such as: Fever Tiredness Upset stomach (nausea) Vomiting Changes in bathroom habits Blood in the stool or black, tarry stool Weight loss that you can't explain (involuntary weight loss?) Also report any family history of stomach or intestinal problems, or cancers. Tell your provider about all your alcohol use and drug use. Tell your provider about all medicines you use, including herbs, vitamins, and supplements. Treating abdominal pain Some causes of pain need emergency medical treatment right away. These include appendicitis or a bowel blockage. Other problems can be treated with rest, fluids, or medicines. Your healthcare provider can give you specific instructions for treatment or self-care based on what is causing your pain. If you have vomiting or diarrhea, sip water or other clear fluids. When you are ready to eat solid foods again, start with small amounts of twfu-vz-yhceup, low- fat foods. These include apple sauce, toast, or crackers. When to get medical care Call 911 or go to the hospital right away if you: Can t pass stool and are vomiting Are vomiting blood or have bloody diarrhea or black, tarry diarrhea Have chest, neck, or shoulder pain Feel like you might pass out Have pain in your shoulder blades with nausea Have sudden, severe belly pain Have new, severe pain unlike any you have felt before Have a belly that is rigid, hard, and hurts to touch Call your healthcare provider if you have: Pain for more than 5 days Bloating for more than 2 days Diarrhea for more than 5 days A fever of 100.4 F (38 C) or higher, or as directed by your healthcare provider Pain that gets worse Weight loss for no reason Continued lack of appetite Blood in your stool How to prevent abdominal pain Here are some tips to help prevent abdominal pain: Eat smaller amounts of food at each meal. Don't eat greasy, fried, or other high-fat foods. Don't eat foods that give you gas. Exercise regularly. Drink plenty of fluids. To help prevent GERD symptoms: Quit smoking. Reduce alcohol and foods that increase stomach acid. Don't use aspirin or iuzv-zdr-ydbvzqo pain and fever medicines, if possible. This includes nonsteroidal anti-inflammatory drugs (NSAIDs). Lose excess weight. Finish eating at least 2 hours before you go to bed or lie down. Raise the head of your bed. [id number] [employer] [address] [place] [address], [place] [address]. All rights reserved. This information is not intended as a substitute for professional medical care. Always follow yourhealthcare professional's instructions. Additional Information VACCINATE! IT SAVES LIVES! Members of the community who have not yet received the COVID-19 vaccine and would like to receive it can visit one of [facility] vaccine clinics. There are many vaccine clinic locations within the [facility]. For locations and available times, please visit [email or web address]/. It is important to note that some COVID mobile vaccine clinics are held outdoors and may be canceled in rainy or stormy conditions. To learn more about pediatric vaccinations (ages 5-11), we invite you to visit the [facility] webpage. [email or web address]/[email or web address] [email or web address] learn more about the COVID-19 vaccine, we invite you to visit the CDC website for a list of frequently asked questions. https://www.cdc.gov/coronavirus/2019-ncov/vaccines/faq.html [facility] Patient Portal Access Instructions: Stay connected with your healthcare team and access your personal medical information anytime with the [facility] Patient Portal. If you would like a full copy of your medical records please contact the [facility] Medical Records Department Thursday through Thursday between 8a.m. and 4:30p.m. Please follow the directions below to access the portal: 1.Access the email account you provided upon registration to the hospital.2.Look for an invitation email from [facility].3.Open the email and access the invitation link: Accept Invitation to [facility]4.Fill in the required broussard to create your account. Sign into www.[employer] with your username and password that you created in the above steps to stay up to date. You can then view a summary of results, a summary of your visits, and the ability to download your summaries to your computer or send the information securely to a physician. Remember that your healthcare information is confidential, so carefully consider who you will allow to register on the [facility] Patient Portal for access to your information. You can also access the [facility] Patient Portal on the [employer] yolanda. Simply click on Health Records under [employer] and then click on the miDrive logo. HOW TO SAFELY DISPOSE OF PRESCRIPTION MEDICATIONS Please use one of the following methods to safely dispose of your unused medications. 1.Use a drug disposal kit: the drug disposal pouch allows you to safely discard your old and unuseddrugs. Ask your nurse to give you one when you are discharged.2.Visit a local take-back location: Many local pharmacies and police departments have programs that collect old and unwanted prescriptiondrugs. Call your local pharmacy or go to http://[employer].Stigni.bg/3V6Ef0t to find one close to you.3.Make use of household items: Use cat litter or old coffee grounds to dispose medications if other options arenot available. Mix your drugs with these household products, seal them in an airtight container andthrow it into the garbage. Call [facility]: [phone] to be sure your drugs can be disposed of in this way. Some medicines may require a different approach.4.Never flush your medications down the toilet. IF YOU HAVE BEEN PRESCRIBED AN OPIOIDS FOR PAIN If you have been prescribed an opioid (such as hydrocodone, oxycodone or morphine), it is critical to understand the possible side effects and risks of opioid pain medications. Even when taken as directed, opioids can have several side effects including: Tolerance, meaning you might need to take more of a medication for the same pain relief. Nausea, vomiting and/or constipation. Sleepiness, dizziness, dry mouth, confusion, depression or itching. Physical dependence, meaning you have withdrawal symptoms when a medication is stopped ? this can develop within a few days. KNOW YOUR RESPONSIBILITIES It is important to know exactly how much and how often to take the opioid pain medications you are prescribed. Never take opioids in higher amounts or more often than prescribed. Do not combine opioids with alcohol or other drugs that cause drowsiness, such as benzodiazepines, also known as benzos,including diazepam and alprazolam, muscle relaxants or sleep aids. Never sell or share prescriptionopioids. This is illegal. Store opioids in a secure place and out of reach of others (including children, family, friends and visitors). The last page(s) of this document has been signed and retained as a CHART COPY Signatures Patient Education Materials Abdominal Pain Medication Leaflets My discharge plan and instructions have been reviewed and explained to me and I,KYLE BETTE A understand my current condition and have read and understand these discharge instructions. I have receiveda written copy of the plan/instructions. If I have questions, I am aware that I should contact my do ctor. Patient/Space Scheduler Signature: Date/Time: Relationship to Patient: Witness Name/Signature: Date[facility]Time: [id number] Note* Exam Date Time Procedure Performing Provider Status 06/24/24 12:[address] Abd/Pelvis w/ IV Contrast Only JENNIFER CORTES MD; Auth (Verified) [id number] ORIGINAL EXAMINATION: CT OF THE ABDOMEN AND PELVIS WITH CONTRAST 06/24/2024 12:00 am TECHNIQUE: CT of the abdomen and pelvis was performed with the administration of intravenous contrast. Multiplanar reformatted images are provided for review. Automated exposure control, iterative reconstruction, and/or weight based adjustment of the mA/kV was utilized to reduce the radiation dose to as low as reasonably achievable. COMPARISON: 06/13/2024 HISTORY: ORDERING SYSTEM PROVIDED HISTORY: Reason for Exam: LLQ PAIN x 5 DAYS L flank pain FINDINGS: No acute osseous abnormality. The included thoracic structures are unremarkable. Normal liver, gallbladder, spleen, pancreas, and adrenal glands. A splenule is also noted anteriorly to the spleen. Symmetric urograms without evidence of nephrolithiasis or hydronephrosis. Contrast density is noted within both ureters. At the level of the proximal sigmoid colon along the anti mesenteric margin, are interval hazy focal infiltrative changes (best appreciated axial series 302, image 85, sagittal series 602, image 102). There is central hyperdense dot within this area. Nonaneurysmal abdominal aorta. There are lymph nodes that are not pathologically enlarged but appear more prominent within the mesentery eccentric to the left and favor mild reactivity. Under distended urinary bladder limiting evaluation. Otherwise the pelvic organs are unrevealing. Small fat containing umbilical hernia. IMPRESSION: Findings most likely direct marketing representative of epiploic appendagitis. Preliminary Report was Dictated by a Resident Interpreted by: Jennifer Cortes MD Preliminary Report By: Chente Richards Electronically signed By Jennifer Cortes MD Dictated Date: 06/24/2024 12:21:45 AM Prelim Date: 06/24/2024 12:31:13 AM Sign Date: 06/24/2024 1:12:24 AM Ordering Provider: [facility]04-17-2025 Radiology Diagnostic study note [facility] [address], [place] [address] Abdomen/Pelvis WITH Contrast MR#: [id number] Acct: [id number] Name: BETTE WRIGHT Rep #: [id number] : 1980 F 43 From: Alfredo Jauregui MD PCP: Dr. Eusebio Sparrow, Status: R EG CLI Study:Abdomen/Pelvis WITH Contrast Date of Ex am: 06/23/24 Exam# [id number] Ordering Dr: Reyna Wood DIVISIONAL HUMAN RESOURCES DIRECTOR-C PROCEDURE: ABDOMEN/PELVIS WITH CONTRAST 06/23/2024 REASON FOR EXAM: ABDOMINAL PAIN, GUARDING Left lower quadrant pain. TECHNIQUE: Abdomen and pelvis CT with intravenous contrast. Coronal and Sagittal reconstruction series were provided. PATIENT PREPARATION: Per protocol ORAL CONTRAST TYPE: Given. CONTRAST: Isovue-300 VOLUME: 100 mL One or more dose reduction techniques were used (e.g., Automated exposure control, adjustment of the mA and/or kV according to patient size, use of iterative reconstruction technique. RADIATION DOSE SUMMARY: CTDlvol: 16 mGy DLP: 1204.81 mGycm COMPARISON: None FINDINGS: Lung bases: Unremarkable Liver: Diffuse fatty infiltration. Gallbladder: Unremarkable Spleen: Normal size. Pancreas: Normal size without evidence of mass surrounding inflammation or ductal dilation. Adrenals: Unremarkable Kidneys: Normal renal sizes. No hydronephrosis. Bladder: Unremarkable Reproductive Organs: Prior hysterectomy. Adnexal regions are unremarkable. Bowel: Colonic diverticulosis without diverticulitis. Appendix: The appendix is not identified. There is no inflammatory process identified in the right lower quadrant to suggest appendicitis. Lymph nodes: Unremarkable. Vasculature: The abdominal aorta and IVC are normal. Peritoneum / Retroperitoneum: Unremarkable Bones: Unremarkable CT/Abdomen/Pelvis WITH Contrast IMPRESSION: Fatty infiltration of the liver. Sigmoid diverticulosis without diverticulitis. Status post hysterectomy. Reading Location: [place] [address] CC: JOSE Wood; Dr. Eusebio Sparrow, DO ~ Hyperion Analyst: Signed [facility]04-07-2025 Instructions* Patient Instructions* Beto Stephens Jr., APRN.CNP - 06/13/2024 3:14 PM EDT You need to follow for further evaluation of the right upper stomach pain. Based on exam I am concerned with a gallbladder issue. A CAT scan or ultrasound should determine if this is present. [facility] NoteHNO ID: [id number] Author: BETO STEPHENS JR, APRN.CNP Service: ? Author Type: Nurse Practitioner Type: Progress Notes Filed: 06/13/2024 16:10 Note Text: [facility] ANH Wright is a 43 year old female. Patient presents with: Derm Problem: Last Thursday notice bleeding from naval since has become extremely painful to the touch. 43-year-old female presents today complaining of bleeding from the navel that has resolved and right upper quadrant abdominal pain. She now states however the area is very sore and tender to touch. She notes history of stomach ulcers and hernia surgery. She is questioning if either one of them could cause her current symptoms. Patient asked about what happens when she eats fatty foods. She states if she eats hamburg or a salad with an oil dressing she begins to have pain in the right upper quadrant that she states is due to her ulcers. The history is provided by the patient. Review of Systems Constitutional: Negative for fever. HENT: Negative for sore throat. Respiratory: Negative for shortness of breath. Gastrointestinal: Positive for abdominal pain. Negative for nausea. Skin: Positive for rash. Neurological: Negative for headaches. Objective BP 124/88 Pulse 69 Temp 36.6 ?C (97.9 ?F) (Oral) Resp 18 Wt 94.2 kg (207 lb 9.6 oz) LMP (LMP Unknown) SpO2 98% BMI 35.63 kg/m? Physical Exam Vitals and nursing note reviewed. Constitutional: Appearance: Normal appearance. HENT: Head: Normocephalic and atraumatic. Eyes: Extraocular Movements: Extraocular movements intact. Conjunctiva/sclera: Conjunctivae normal. Cardiovascular: Rate and Rhythm: Normal rate. Abdominal: General: Bowel sounds are normal. Palpations: Abdomen is soft. There is no mass. Tenderness: There is abdominal tenderness. Comments: Right upper quadrant tenderness to palpation, patient has a positive Morrison sign and negative McBurney's point tenderness. To the right lateral horizontal axis Becht of the navel there is a small area of induration that is very tender to touch. No warmth felt. There is no purulent material or blood leaking from the navel area. Skin: General: Skin is warm and dry. Findings: No erythema. Neurological: Mental Status: She is alert and oriented to person, place, and time. Psychiatric: Behavior: Behavior normal. Assessment AND Plan Cellulitis of skin Based on today's exam and concern for cellulitis of the skin. As patient does not have any purulent material I was unable to do a wound culture. I treated her with Keflex. Patient informed to return or follow-up at an emergency room if her symptoms do not resolve. Orders: cephALEXin (KEFLEX) 500 mg capsule; Take 1 capsule by mouth four times daily for 7 days. Right upper quadrant abdominal pain Based on the examination I feel she has a gallbladder issue in the right upper quadrant and this is not secondary to ulcers that she was informed of previously. I recommended an ultrasound or CAT scan. Patient was educated the urgent care does not have these tools available to it and she would have to go to an emergency room for further evaluation. At this time I consider patient stable however further evaluation of this needs to be performed to determine if a cholecystectomy is indicated. Differential Diagnoses - Cellulitis is more likely for the following reason(s): suggested by HANDP - Gallbladder disease is more likely for the following reason(s): Suggested by exam findings Disposition The patient was discharged. [facility]04-07-2025 History of Present illness Narrative* Beto Stephens Jr., SPIKEMAKING SUPERVISOR.HEAD OF BIOLOGY - 06/13/2024 2:42 PM EDT Images from the original note were not included. [facility] ANH Wright is a 43 year old female. Patient presents with: Derm Problem: Last Thursday notice bleeding from naval since has become extremely painful to the touch. 43-year-old female presents today complaining of bleeding from the navel that has resolved and right upper quadrant abdominal pain. She now states however the area is very sore and tender to touch. She notes history of stomach ulcers and hernia surgery. She is questioning if either one of them could cause her current symptoms. Patient asked about what happens when she eats fatty foods. She statesif she eats hamburg or a salad with an oil dressing she begins to have pain in the right upper quadrant that she states is due to her ulcers. The history is provided by the patient. Review of Systems Constitutional: Negative for fever. HENT: Negative for sore throat. Respiratory: Negative for shortness of breath. Gastrointestinal: Positive for abdominal pain. Negative for nausea. Skin: Positive for rash. Neurological: Negative for headaches. Objective BP 124/88 Pulse 69 Temp 36.6 C (97.9 F) (Oral) Resp 18 Wt 94.2 kg (207 lb 9.6 oz) LMP (LMP Unknown) SpO2 98% BMI 35.63 kg/m Physical Exam Vitals and nursing note reviewed. Constitutional: Appearance: Normal appearance. HENT: Head: Normocephalic and atraumatic. Eyes: Extraocular Movements: Extraocular movements intact. Conjunctiva/sclera: Conjunctivae normal. Cardiovascular: Rate and Rhythm: Normal rate. Abdominal: General: Bowel sounds are normal. Palpations: Abdomen is soft. There is no mass. Tenderness: There is abdominal tenderness. Comments: Right upper quadrant tenderness to palpation, patient has a positive Morrison sign and negative McBurney's point tenderness. To the right lateral horizontal axis Becht of the navel there is asmall area of induration that is very tender to touch. No warmth felt. There is no purulent material or blood leaking from the navel area. Skin: General: Skin is warm and dry. Findings: No erythema. Neurological: Mental Status: She is alert and oriented to person, place, and time. Psychiatric: Behavior: Behavior normal. Assessment & Plan Cellulitis of skin Based on today's exam and concern for cellulitis of the skin. As patient does not have any purulentmaterial I was unable to do a wound culture. I treated her with Keflex. Patient informed to return or follow-up at an emergency room if her symptoms do not resolve. Orders: cephALEXin (KEFLEX) 500 mg capsule; Take 1 capsule by mouth four times daily for 7 days. Right upper quadrant abdominal pain Based on the examination I feel she has a gallbladder issue in the right upper quadrant and this isnot secondary to ulcers that she was informed of previously. I recommended an ultrasound or CAT scan. Patient was educated the urgent care does not have these tools available to it and she would haveto go to an emergency room for further evaluation. At this time I consider patient stable however further evaluation of this needs to be performed to determine if a cholecystectomy is indicated. Differential Diagnoses - Cellulitis is more likely for the following reason(s): suggested by H&P - Gallbladder disease is more likely for the following reason(s): Suggested by exam findings Disposition The patient was discharged. Procedures documented in [facility] Medical Records Department [address] [place] [address] History Physical Exam 04/22/24 1411 MR#: [id number] Acct: [id number] Name: BETTE WRIGHT Rep #: [id number] : 1980 43 From: Luke Friend DO PCP: Dr. Eusebio Sparrow, DO Status:[facility] Location: [facility]14-1 HPI - General General Date of Admission: 04/22/24 Date of Service: 04/22/24 Chief Complaint: Abdominal pain and diarrhea HPI Narrative BETTE WRIGHT, is a 43 F who presents for endoscopic evaluation of abdominal pain and diarrhea. FibroScan 03/08/2024 kPa 5.9, CAP 336 (F0-F1/S3) - RUQ pain is persisting/radiates through to back - triggered by greasy foods - nausea - intermittent also dietary triggered - only eating white meats, fruits and vegetables now - still experiencing constipation - will go up to 7 days without a BM - Benefiber - never took this - Miralax - completed 2 weeks - this made a little difference - Water intake she feels is adequate - Pantoprazole - she reports pharmacy told her it was out of stock INITIAL CONSULT 02/15/2024 43y/o female presents for consultation with complaints of pain, nausea and vomiting. She complains of RUQ abdominal pain which radiates to the right flank with postprandial N/V x6 weeks. ABD US was revealing for liver steatosis. Transaminases and PLT are WNL. She denies the consumption of any alcohol. She also reports a change in bowel habits with new onset constipation and one episode of BRBPR. I have scheduled her for a HIDA, FibroScan, EGD and colonoscopy. She will start a low fat diet, pantoprazole, benefiber and miralax daily. She will complete labs and follow-up in the office after testing has been completed. Patient Instructions: 1. Start Benefiber 2tsp once a day in 8 ounces of water after breakfast and Mirlax 17grams once daily in 8 ounces of water every evening 2. Increase water intake - bottled water 3. Low fat diet - avoid fatty/fried foods 4. Schedule HIDA scan to check function of the gallbladder at [place] - scheduled 03/18/2024 5. Schedule colonoscopy and EGD with Dr. Martinez at [place] - scheduled 04/22/2024 5. Complete labs at [facility] 6. Schedule Fibroscan with [facility] completed 03/08/2024 7. Start pantoprazole 40mg daily - prescription sent to [facility] pharmacy 8. Avoid fatty/fried foods 9. Low fat diet 10. Follow-up in office after testing has been completed [facility] Medical History Wears dentures Restless legs Dietary restriction Gastric reflux Former smoker History of ectopic Home Medications ???Medication ???Instructions ???Recorded ???Last Taken ???Type sertraline 25 mg tablet (Zoloft) 25 mg PO QDAY 02/15/24 Unknown His tory pantoprazole 40 mg tablet,delayed 40 mg PO QDAY #90 tabs 03/17/24 U nknown Rx release (Protonix) guar gum 1 gram chewable tablet 1 g PO DAILY 04/21/24 Unknown Hist ory polyethylene glycol 3350 17 4 g PO ONCE PRN constipation 04/21 Unknown History gram/dose oral powder (Miralax) Allergy/AdvReac Type Severity Reaction Status Date / Time No Known Allergies Allergy Verified 04/22/24 11:43 Surgical History History of shoulder surgery History of hernia surgery History of hysterectomy History of classical section Social History Smoking Status: Former smoker alcohol intake: never ROS Constitutional Constitutional: Denies fatigue, fever(s), poor appetite, weight gain or weight loss Gastrointestinal Gastrointestinal: Denies belching, bloating, change in bowel habits, change in stool character, chewing difficulty, coffee ground emesis, constipation, cramping, diarrhea, dyspepsia, dysphagia, early satiety, excessive flatus, fecal incontinence, heartburn, hematemesis, hematochezia, hemorrhoids, loose stools, melena, nausea, odynophagia, rectal bleeding, tenesmus, vomiting or weight changes Vital Signs Vital Signs Vital Signs: 04/22/24 11:44 04/22/24 11:44 04/22/24 11:50 Temperature 97.6 F L 97.6 F L Temperature Source Temporal Pulse Rate 72 72 Respiratory Rate 16 16 Respiratory Pattern Normal Blood Pressure 129/77 H 129/77 H Blood Pressure Mean 94 Blood Pressure Source Monitor Blood Pressure Position Sitting Blood Pressure Location Left Arm Pulse Ox 99 99 Oxygen Delivery Method Room Air Weight Weight: 207 lb Body Mass Index (BMI) 34.4 Physical Exam Const alert, oriented x3, no apparent distress and healthy appearing General Appearance: cooperative GI normal to inspection, nondistended, normoactive bowel sounds, soft to palpation, non-tender and non- distended Percussion: (more content not included)...[facility]01-09-2025 Evaluation note* Diagnosis Onset Date Resolution Status Admit Date Constipation acute March 17, 2024 11:00am Metabolic dysfunction-associated steatotic liver disease (MASLD) acute March 17 11:00am Nausea and vomiting acute 2024 11:00am RUQ pain acute March 17 11:00am Metabolic dysfunction-associated steatotic liver disease (MASLD) acute April 22 11:19am Nausea and vomiting acute 2024 11:19am RUQ pain acute April 22, 2024 11:19am Constipation acute April 8:43am Gastric ulcer acute April 272024 8:43am Metabolic dysfunction-associated steatotic liver disease (MASLD) acute April 27 8:43am Nausea and vomiting acute 2024 8:43am LLQ pain acute June 23 9:03am RUQ pain acute June 23 9:03am Constipation acute June 27, 2024 11:02am Epiploic appendagitis acute Jun 11:02am LLQ pain acute June 27 11:02am [facility] Work Phone: 1(311) 908-844201-09-2025 Evaluation note* Diagnosis Onset Date Resolution Status Admit Date Constipation acute March 17, 2024 11:00am Metabolic dysfunction-associated steatotic liver disease (MASLD) acute March 17 11:00am Nausea and vomiting acute 2024 11:00am RUQ pain acute March 17 11:00am Metabolic dysfunction-associated steatotic liver disease (MASLD) acute April 22 11:19am Nausea and vomiting acute 2024 11:19am RUQ pain acute April 22, 2024 11:19am Constipation acute April 8:43am Gastric ulcer acute April 272024 8:43am Metabolic dysfunction-associated steatotic liver disease (MASLD) acute April 27, 2 025 8:43am Nausea and vomiting acute Febru marcel2024 8:43am LLQ pain acute June 23 9:03am RUQ pain acute June 23 9:03am Constipation acute June 27, 2024 11:02am Epiploic appendagitis acute Jun 11:02am LLQ pain acute June 27 11:02am Gastric ulcer acute July 15 6:11am LLQ pain acute July 15, 2024 6:11am [facility] Work Phone: 1(103) 704-595912-04-2024 Note. MICRO - Microbiology PROCEDURE: Urine Culture [*1] SOURCE: Urine, Clean Catch BODY SITE: COLLECTED DATE/TIME: 02/09/2024 14:30 EST RECEIVED DATE/TIME: 02/09/2024 19:13 EST START DATE/TIME: 02/09/2024 19:13 EST FREE TEXT SOURCE: FINAL REPORTS Final Report [] Verified Date/Time/Personnel: 02/10/2024 14:30 EST 10,000 - 50,000 cfu/ml Mixed growth consistent with normal urogenital katie. Performing Locations *1: This test was performed at: [address], [address] , [facility] [id number] Hospital Discharge instructions Patient Education 01/28/2024 22:24:58 Abdominal Pain, Unknown Cause, (Female) Unknown Causes of Abdominal Pain (Female) The exact cause of your belly (abdominal) pain is not clear. This does not mean that this is something to worry about. Everyone likes to know the exact cause of the problem. But sometimes with belly pain, there is no clear-cut cause, and this could be a good thing. The good news is that your symptoms can be treated, and you will feel better. Your condition does not seem serious now. But sometimes the signs of a serious problem may take more time to appear. For this reason, it is important for you to watch for any new symptoms, problems, or worsening of your condition. Over the next few days, the abdominal pain may come and go. Or it may be constant. Other common symptoms can include nausea and vomiting. Sometimes it can be difficult to tell if you feel nauseous. You may just feel bad and not connect that feeling to nausea. Constipation, diarrhea, and a fever maygo along with the pain. The pain may continue even if treated correctly over the following days. Depending on how things go, sometimes the cause can become clear and may need more or different treatment. Additional evaluations, medicines, or tests may also be needed. Home care Your healthcare provider may prescribe medicine for pain, symptoms, or an infection. Follow the healthcare provider's instructions for taking these medicines. General care Rest as much as you can until your next exam. No strenuous activities. Try to find positions that ease discomfort. A small pillow placed on the abdomen may help relieve pain. Something warm on your abdomen (such as a heating pad) may help, but be careful not to burn yourself. Diet Don t force yourself to eat, especially if having cramps, vomiting, or diarrhea. Water is important so you don't get dehydrated. Soup may also be good. Sports drinks may also help,especially if they are not too acidic. Don't drink sugary drinks as this can make things worse. Take liquids in small amounts. Don t guzzle them. Caffeine sometimes makes the pain and cramping worse. Don t take dairy products if you have vomiting or diarrhea. Don't eat large amounts at a time. Wait a few minutes between bites. Eat a diet low in fiber (called a low-residue diet). Foods allowed include refined breads, white rice, fruit and vegetable juices without pulp, tender meats. These foods will pass more easily throughthe intestine. Don t have whole-grain foods, whole fruits and vegetables, meats, seeds and nuts, fried or fatty foods, dairy, alcohol and spicy foods until your symptoms go away. Follow-up care Follow up with your healthcare provider, or as advised, if your pain does not begin to improve in the next 24 hours. Call 911 Call 911 if any of these occur: Trouble breathing Confusion Fainting or loss of consciousness Rapid heart rate Seizure When to seek medical advice Call your healthcare provider right away if any of these occur: Pain gets worse or moves to the right lower abdomen New or worsening vomiting or diarrhea Swelling of the abdomen Unable to pass stool for more than 3 days Fever of 100.4 F (38 C) or higher, or as directed by your healthcare provider. Blood in vomit or bowel movements (dark red or black color) Yellow color of eyes and skin (jaundice) Weakness, dizziness Chest, arm, back, neck, or jaw pain Unexpected vaginal bleeding or missed period Can't keep down liquids or water and you are getting dehydrated [id number] [employer]. [address] [place] [address]. All rights reserved. This information is not intended as a substitute for professional medical care. Always follow yourhealthcare professional's instructions. 01/28/2024 22:24:55 Abdominal Pain Abdominal Pain Abdominal pain is pain in the stomach or belly area. Everyone has this pain from time to time. In many cases it goes away on its own. But abdominal pain can sometimes be due to a serious problem, such as appendicitis. So it s important to know when to get help. Causes of abdominal pain There are many possible causes of abdominal pain. Common causes in adults include: Constipation, diarrhea, or gas Stomach acid flowing back up into the esophagus (acid reflux or heartburn) Severe acid reflux, called GERD (gastroesophageal reflux disease) A sore in the lining of the stomach or small intestine (peptic ulcer) Inflammation of the gallbladder, liver, or pancreas Gallstones or kidney stones Appendicitis Intestinal blockage An internal organ pushing through a muscle or other tissue (hernia) Urinary tract infections In women, menstrual cramps, fibroids, ovarian cysts, pelvic inflammatory disease, or endometriosis Inflammation or infection of the intestines, including Crohn's disease and ulcerative colitis Irritable bowel syndrome Diagnosing the cause of abdominal pain Your healthcare provider will give you a physical exam help find the cause of your pain. If needed,you will have tests. Belly pain has many possible causes. So it can be hard to find the reason for your pain. Giving details about your pain can help. Tell your provider where and when you feel the pain, and what makes it better or worse. Also let your provider know if you have other symptoms such as: Fever Tiredness Upset stomach (nausea) Vomiting Changes in bathroom habits Blood in the stool or black, tarry stool Weight loss that you can't explain (involuntary weight loss?) Also report any family history of stomach or intestinal problems, or cancers. Tell your provider about all your alcohol use and drug use. Tell your provider about all medicines you use, including herbs, vitamins, and supplements. Treating abdominal pain Some causes of pain need emergency medical treatment right away. These include appendicitis or a bowel blockage. Other problems can be treated with rest, fluids, or medicines. Your healthcare provider can give you specific instructions for treatment or self-care based on what is causing your pain. If you have vomiting or diarrhea, sip water or other clear fluids. When you are ready to eat solid foods again, start with small amounts of mgyj-um-oqesdu, low- fat foods. These include apple sauce, toast, or crackers. When to get medical care Call 911 or go to the hospital right away if you: Can t pass stool and are vomiting Are vomiting blood or have bloody diarrhea or black, tarry diarrhea Have chest, neck, or shoulder pain Feel like you might pass out Have pain in your shoulder blades with nausea Have sudden, severe belly pain Have new, severe pain unlike any you have felt before Have a belly that is rigid, hard, and hurts to touch Call your healthcare provider if you have: Pain for more than 5 days Bloating for more than 2 days Diarrhea for more than 5 days A fever of 100.4 F (38 C) or higher, or as directed by your healthcare provider Pain that gets worse Weight loss for no reason Continued lack of appetite Blood in your stool How to prevent abdominal pain Here are some tips to help prevent abdominal pain: Eat smaller amounts of food at each meal. Don't eat greasy, fried, or other high-fat foods. Don't eat foods that give you gas. Exercise regularly. Drink plenty of fluids. To help prevent GERD symptoms: Quit smoking. Reduce alcohol and foods that increase stomach acid. Don't use aspirin or hgnk-aqo-mckajgt pain and fever medicines, if possible. This includes nonsteroidal anti-inflammatory drugs (NSAIDs). Lose excess weight. Finish eating at least 2 hours before you go to bed or lie down. Raise the head of your bed. [id number] [employer] [address] [place] [address], [place] [address]. All rights reserved. This information is not intended as a substitute for professional medical care. Always follow yourhealthcare professional's instructions. Follow Up Care 01/28/2024 15:16:46 With:EUSEBIO SPARROW DO Address: [address] [place] [address] [address] [place] [phone] When:2-4 days [facility] 11-21-2024 Emergency department Discharge summary Discharge Instructions Thank you for allowing [facility] to assist you with your healthcare needs. The following is importantdischarge information regarding your hospital visit. Diagnosis from Today's Visit Postprandial nausea Right flank pain What to Do Next Instructions from Your Care Team Follow-up with primary care outpatient for HIDA scan. No qualifying data available. Post Acute Orders No qualifying data available. You Need to Schedule the Following Appointments Follow Up with EUSEBIO SPARROW DO When:Within 2-4 days Where:[address] [place] [address] [address] [place] [phone] Allergies NKA Medications Please ask your primary doctor or pharmacist before taking any other medication not listed, including over the counter drugs, herbal medications, vitamins and or supplements as they may interact withyour home medications. What How Much When Why Instructions Last Dose New acetaminophen-oxyCODONE (Percocet 5 mg-325 mg oral tablet) 1 tab(s) by mouth Every 6 hours as needed for for pain Right flank pain Duration: 3 Days Printed Prescription Unchanged acetaminophen-hydrocodone (acetaminophen-hydrocodone 325 mg-5 mg oral tablet) TAKE 1 TO 2 TABLETS EVERY 4 HOURS NEEDED FOR PAIN Unchanged naproxen (naproxen 250 mg oral tablet) 1 tab(s) by mouth Every 8 hours PRN pain Unchanged ondansetron (Zofran 8 mg oral tablet) 1 tab(s) by mouth Three (3) times a day As needed for nausea or vomiting ODT preferrable if available in Rx plan Please take this list to your next doctor s visit. Bring all medications you take, including over the counter medications, herbals and other supplements with you to your doctor s visit. Patients and families are reminded to discard old lists and to update any records with all medication providers or retail pharmacies. Education Materials Unknown Causes of Abdominal Pain (Female) The exact cause of your belly (abdominal) pain is not clear. This does not mean that this is something to worry about. Everyone likes to know the exact cause of the problem. But sometimes with belly pain, there is no clear-cut cause, and this could be a good thing. The good news is that your symptoms can be treated, and you will feel better. Your condition does not seem serious now. But sometimes the signs of a serious problem may take more time to appear. For this reason, it is important for you to watch for any new symptoms, problems, or worsening of your condition. Over the next few days, the abdominal pain may come and go. Or it may be constant. Other common symptoms can include nausea and vomiting. Sometimes it can be difficult to tell if you feel nauseous. You may just feel bad and not connect that feeling to nausea. Constipation, diarrhea, and a fever maygo along with the pain. The pain may continue even if treated correctly over the following days. Depending on how things go, sometimes the cause can become clear and may need more or different treatment. Additional evaluations, medicines, or tests may also be needed. Home care Your healthcare provider may prescribe medicine for pain, symptoms, or an infection. Follow the healthcare provider's instructions for taking these medicines. General care Rest as much as you can until your next exam. No strenuous activities. Try to find positions that ease discomfort. A small pillow placed on the abdomen may help relieve pain. Something warm on your abdomen (such as a heating pad) may help, but be careful not to burn yourself. Diet Don t force yourself to eat, especially if having cramps, vomiting, or diarrhea. Water is important so you don't get dehydrated. Soup may also be good. Sports drinks may also help,especially if they are not too acidic. Don't drink sugary drinks as this can make things worse. Take liquids in small amounts. Don t guzzle them. Caffeine sometimes makes the pain and cramping worse. Don t take dairy products if you have vomiting or diarrhea. Don't eat large amounts at a time. Wait a few minutes between bites. Eat a diet low in fiber (called a low-residue diet). Foods allowed include refined breads, white rice, fruit and vegetable juices without pulp, tender meats. These foods will pass more easily throughthe intestine. Don t have whole-grain foods, whole fruits and vegetables, meats, seeds and nuts, fried or fatty foods, dairy, alcohol and spicy foods until your symptoms go away. Follow-up care Follow up with your healthcare provider, or as advised, if your pain does not begin to improve in the next 24 hours. Call 911 Call 911 if any of these occur: Trouble breathing Confusion Fainting or loss of consciousness Rapid heart rate Seizure When to seek medical advice Call your healthcare provider right away if any of these occur: Pain gets worse or moves to the right lower abdomen New or worsening vomiting or diarrhea Swelling of the abdomen Unable to pass stool for more than 3 days Fever of 100.4 F (38 C) or higher, or as directed by your healthcare provider. Blood in vomit or bowel movements (dark red or black color) Yellow color of eyes and skin (jaundice) Weakness, dizziness Chest, arm, back, neck, or jaw pain Unexpected vaginal bleeding or missed period Can't keep down liquids or water and you are getting dehydrated [id number] [employer] [address] [place] [address]. All rights reserved. This information is not intended as a substitute for professional medical care. Always follow yourhealthcare professional's instructions. Abdominal Pain Abdominal pain is pain in the stomach or belly area. Everyone has this pain from time to time. In many cases it goes away on its own. But abdominal pain can sometimes be due to a serious problem, such as appendicitis. So it s important to know when to get help. Causes of abdominal pain There are many possible causes of abdominal pain. Common causes in adults include: Constipation, diarrhea, or gas Stomach acid flowing back up into the esophagus (acid reflux or heartburn) Severe acid reflux, called GERD (gastroesophageal reflux disease) A sore in the lining of the stomach or small intestine (peptic ulcer) Inflammation of the gallbladder, liver, or pancreas Gallstones or kidney stones Appendicitis Intestinal blockage An internal organ pushing through a muscle or other tissue (hernia) Urinary tract infections In women, menstrual cramps, fibroids, ovarian cysts, pelvic inflammatory disease, or endometriosis Inflammation or infection of the intestines, including Crohn's disease and ulcerative colitis Irritable bowel syndrome Diagnosing the cause of abdominal pain Your healthcare provider will give you a physical exam help find the cause of your pain. If needed,you will have tests. Belly pain has many possible causes. So it can be hard to find the reason for your pain. Giving details about your pain can help. Tell your provider where and when you feel the pain, and what makes it better or worse. Also let your provider know if you have other symptoms such as: Fever Tiredness Upset stomach (nausea) Vomiting Changes in bathroom habits Blood in the stool or black, tarry stool Weight loss that you can't explain (involuntary weight loss?) Also report any family history of stomach or intestinal problems, or cancers. Tell your provider about all your alcohol use and drug use. Tell your provider about all medicines you use, including herbs, vitamins, and supplements. Treating abdominal pain Some causes of pain need emergency medical treatment right away. These include appendicitis or a bowel blockage. Other problems can be treated with rest, fluids, or medicines. Your healthcare provider can give you specific instructions for treatment or self-care based on what is causing your pain. If you have vomiting or diarrhea, sip water or other clear fluids. When you are ready to eat solid foods again, start with small amounts of pelz-cw-eitgqb, low- fat foods. These include apple sauce, toast, or crackers. When to get medical care Call 911 or go to the hospital right away if you: Can t pass stool and are vomiting Are vomiting blood or have bloody diarrhea or black, tarry diarrhea Have chest, neck, or shoulder pain Feel like you might pass out Have pain in your shoulder blades with nausea Have sudden, severe belly pain Have new, severe pain unlike any you have felt before Have a belly that is rigid, hard, and hurts to touch Call your healthcare provider if you have: Pain for more than 5 days Bloating for more than 2 days Diarrhea for more than 5 days A fever of 100.4 F (38 C) or higher, or as directed by your healthcare provider Pain that gets worse Weight loss for no reason Continued lack of appetite Blood in your stool How to prevent abdominal pain Here are some tips to help prevent abdominal pain: Eat smaller amounts of food at each meal. Don't eat greasy, fried, or other high-fat foods. Don't eat foods that give you gas. Exercise regularly. Drink plenty of fluids. To help prevent GERD symptoms: Quit smoking. Reduce alcohol and foods that increase stomach acid. Don't use aspirin or hsbq-cid-eafuofi pain and fever medicines, if possible. This includes nonsteroidal anti-inflammatory drugs (NSAIDs). Lose excess weight. Finish eating at least 2 hours before you go to bed or lie down. Raise the head of your bed. [id number] [employer] [address] [place] [address], [place] [address]. All rights reserved. This information is not intended as a substitute for professional medical care. Always follow yourhealthcare professional's instructions. Additional Information VACCINATE! IT SAVES LIVES! Members of the community who have not yet received the COVID-19 vaccine and would like to receive it can visit one of [facility] vaccine clinics. There are many vaccine clinic locations within the [facility]. For locations and available times, please visit www.[email or web address].[place].gov/. It is important to note that some COVID mobile vaccine clinics are held outdoors and may be canceled in rainy or stormy conditions. To learn more about pediatric vaccinations (ages 5-11), we invite you to visit the [facility] webpage. https://www.zerobounds.org/pages/[email or web address]-Wodtq-Iuivdgqbqyu-Qnojshtonc-Fyray-Cxw stions.htmlTo learn more about the COVID-19 vaccine, we invite you to visit the CDC website for a list of frequently asked questions. https://www.cdc.gov/coronavirus/2019-ncov/vaccines/faq.html [facility] Patient Portal Access Instructions: Stay connected with your healthcare team and access your personal medical information anytime with the [facility] Portal. If you would like a full copy of your medical records please contact the [facility] Medical Records Department Thursday through Thursday between 8a.m. and 4:30p.m. Please follow the directions below to access the portal: 1.Access the email account you provided upon registration to the hospital.2.Look for an invitation email from [facility].3.Open the email and access the invitation link: Accept Invitation to [facility]4.Fill in the required broussard to create your account. Sign into www.[employer] with your username and password that you created in the above steps to stay up to date. You can then view a summary of results, a summary of your visits, and the ability to download your summaries to your computer or send the information securely to a physician. Remember that your healthcare information is confidential, so carefully consider who you will allow to register on the [facility] Patient Portal for access to your information. You can also access the [facility] Patient Portal on the [employer] yolanda. Simply click on Health Records under [employer] and then click on the [employer]Drive logo. HOW TO SAFELY DISPOSE OF PRESCRIPTION MEDICATIONS Please use one of the following methods to safely dispose of your unused medications. 1.Use a drug disposal kit: the drug disposal pouch allows you to safely discard your old and unuseddrugs. Ask your nurse to give you one when you are discharged.2.Visit a local take-back location: Many local pharmacies and police departments have programs that collect old and unwanted prescriptiondrugs. Call your local pharmacy or go to http://[employer].Stigni.bg/7W0Js4w to find one close to you.3.Make use of household items: Use cat litter or old coffee grounds to dispose medications if other options arenot available. Mix your drugs with these household products, seal them in an airtight container andthrow it into the garbage. Call [facility]: [phone] to be sure your drugs can be disposed of in this way. Some medicines may require a different approach.4.Never flush your medications down the toilet. IF YOU HAVE BEEN PRESCRIBED AN OPIOIDS FOR PAIN If you have been prescribed an opioid (such as hydrocodone, oxycodone or morphine), it is critical to understand the possible side effects and risks of opioid pain medications. Even when taken as directed, opioids can have several side effects including: Tolerance, meaning you might need to take more of a medication for the same pain relief. Nausea, vomiting and/or constipation. Sleepiness, dizziness, dry mouth, confusion, depression or itching. Physical dependence, meaning you have withdrawal symptoms when a medication is stopped ? this can develop within a few days. KNOW YOUR RESPONSIBILITIES It is important to know exactly how much and how often to take the opioid pain medications you are prescribed. Never take opioids in higher amounts or more often than prescribed. Do not combine opioids with alcohol or other drugs that cause drowsiness, such as benzodiazepines, also known as benzos,including diazepam and alprazolam, muscle relaxants or sleep aids. Never sell or share prescriptionopioids. This is illegal. Store opioids in a secure place and out of reach of others (including children, family, friends and visitors). The last page(s) of this document has been signed and retained as a CHART COPY Signatures Patient Education Materials Abdominal Pain, Unknown Cause, (Female) Abdominal Pain Medication Leaflets My discharge plan and instructions have been reviewed and explained to me and I,KYLE BETTE Cool understand my current condition and have read and understand these discharge instructions. I have receiveda written copy of the plan/instructions. If I have questions, I am aware that I should contact my do ctor. Patient/Space Scheduler Signature: Date/Time: Relationship to Patient: Witness Name/Signature: [id number] Note ORIGINAL EXAMINATION: RIGHT UPPER QUADRANT ULTRASOUND 01/28/2024 9:48 pm COMPARISON: CT abdomen-pelvis 01/14/2024 HISTORY: ORDERING SYSTEM PROVIDED HISTORY: Reason for Exam: abdominal pain FINDINGS: Evaluation is limited by overlying bowel gas obscuring the anatomic structures. Proximal pancreas demonstrates no ductal dilatation or gross inflammatory process. Mid-distal pancreas is obscured by overlying bowel gas and not well-evaluated. Aorta is obscured. Proximal IVC is normal caliber and patent. Liver is suboptimally evaluated with overlying bowel gas. The liver demonstrates no biliary duct dilatation and measures 18.7 cm. There is diffuse increased echogenicity of the liver, compatible with hepatic steatosis with hepatocellular disease not completely excluded in appropriate clinical setting. Correlation with clinical findings may be useful. Right kidney demonstrates no hydronephrosis or gross obstructive calculi and measures 10.1 x 5.1 x 3.3 cm. Portal vein demonstrates hepatopetal flow. Common bile duct measures 4 mm. The gallbladder demonstrates no gallstones or gross wall thickening. Gallbladder wall thickness measures 2 mm. IMPRESSION: There is no evidence of gallstones or cholecystitis. Interpreted by: Edwin Oliver Preliminary Report By: Edwin Oliver Electronically signed By Edwin Oliver Dictated Date: 01/28/2024 10:10:43 PM Prelim Date: 01/28/2024 10:13:40 PM Sign Date: 01/28/2024 10:13:40 PM Ordering Provider: [facility]11-21-2024 Note ORIGINAL EXAMINATION: ONE SUPINE XRAY VIEW(S) OF THE ABDOMEN 01/28/2024 6:02 pm COMPARISON: CT abdomen pelvis 01/14/2024. HISTORY: ORDERING SYSTEM PROVIDED HISTORY: Reason for Exam: right flank pain/hx of stones FINDINGS: Nonobstructive bowel gas pattern. Stool and gas obscure the expected area of the lower pole the right kidney as well as portions of the left kidneys expected area. No definite abnormal calcification along the expected areas of the kidneys or ureters. Phlebolith projects over the low right pelvis. Calcified densities projecting in between the right 11th and 12th ribs likely represent calcified costochondral cartilage as seen on referenced CT. IMPRESSION: No convincing evidence of stone disease. I have personally reviewed the images of this examination and agree with the resident's findings and interpretation. Interpreted by: Checo Mariscal Preliminary Report By: Chente Richards Electronically signed By Checo Mariscal Dictated Date: 01/28/2024 6:17:11 PM Prelim Date: 01/28/2024 6:20:32 PM Sign Date: 01/28/2024 6:31:04 PM Ordering [facility] + Plan note Diagnostic Tests Pending * Urinalysis w/ C&S if Indicated 01/28/24 [facility] 11-12-2024 Note. MICRO - Microbiology PROCEDURE: Blood Culture (bacterial) [*1] SOURCE: Blood BODY SITE: COLLECTED DATE/TIME: 01/14/2024 15:59 EST RECEIVED DATE/TIME: 01/14/2024 16:14 EST START DATE/TIME: 01/14/2024 16:14 EST FREE TEXT SOURCE: FINAL REPORTS Final Report [] Verified Date/Time/Personnel: 01/19/2024 16:59 EST Blood Culture: No Growth at 5 days. PRELIMINARY REPORTS Preliminary Report [] Verified Date/Time/Personnel: 01/14/2024 16:59 EST Culture has been received in lab and is no growth to date. Routine cultures are held for 5 days. Performing Locations *1: This test was performed at: [address], [address] [place] [address] [id number] Note. MICRO - Microbiology PROCEDURE: Blood Culture (bacterial) [*1] SOURCE: Blood BODY SITE: COLLECTED DATE/TIME: 01/14/2024 15:59 EST RECEIVED DATE/TIME: 01/14/2024 16:14 EST START DATE/TIME: 01/14/2024 16:14 EST FREE TEXT SOURCE: FINAL REPORTS Final Report [] Verified Date/Time/Personnel: 01/19/2024 16:59 EST Blood Culture: No Growth at 5 days. PRELIMINARY REPORTS Preliminary Report [] Verified Date/Time/Personnel: 01/14/2024 16:59 EST Culture has been received in lab and is no growth to date. Routine cultures are held for 5 days. Performing Locations *1: This test was performed at: [address], [facility] , [facility] [id number] Hospital Discharge instructions Patient Education 01/14/2024 16:09:45 Pyelonephritis, Female (Adult) Kidney Infection (Adult Female) An infection in one or both kidneys is called pyelonephritis. It usually happens when bacteria (or rarely, viruses, fungi, or other disease-causing organisms) get into the kidney. The bacteria (or other disease-causing organisms) can enter the kidneys from the bladder or blood traveling from other parts of the body. A kidney infection can become serious. It can cause severe illness, scarring ofthe kidneys, or kidney failure if not treated properly. Common causes for this problem include: Not keeping the genital area clean and dry, which promotes the growth of bacteria Wiping back to front which drags bacteria from the rectum toward the urinary opening (urethra) Wearing tight pants or underwear (this lets moisture build up in the genital area, which helps bacteria grow) Holding urine in for long periods of time Dehydration Kidney infections can cause symptoms similar to a bladder infection. Symptoms include: Pain (or burning) when urinating Having to urinate more often than usual Blood in the urine (pink or red) Abdominal pain or discomfort, usually in the lower abdomen Pain in the side or back Pain above the pubic bone Fever or chills Vomiting Loss of appetite Treatment is oral antibiotics, or in more severe cases, intramuscular or IV antibiotics. These are started right away and may be changed once urine culture results determine the infecting organisms. Treatment helps prevent a more serious kidney infection. Medicines Medicines can help in the treatment of a bladder infection: Take antibiotics until they are used up, even if you feel better. It is important to finish them tomake sure the infection is gone. Unless another medicine was prescribed, you can use ijwq-fcz-gyarifj medicines for pain, fever, or discomfort. If you have chronic liver of kidney disease, talk with your healthcare provider before using these medicines. Also talk with your provider if you've ever had a stomach ulcer or gastrointestinal (GI) bleeding, or are taking blood thinners. Home care The following are general care guidelines: Stay home from work or school. Rest in bed until your fever breaks and you are feeling better, or as advised by your healthcare provider. Drink lots of fluid unless you must restrict fluids for other medical reasons. This will force the medicine into your urinary system and flush the bacteria out of your body. Ask your healthcare provider how much you should drink. Don't have sex until you have finished all of your medicine and your symptoms are gone. Don't have caffeine, alcohol, or spicy foods. These foods may irritate the kidneys and bladder. Don't take bubble baths. Sensitivity to the chemicals in bubble baths can irritate the urethra. Make sure you wipe from front to back after using the toilet. Wear loose cloths and cotton underwear. Prevention These self-care steps can help prevent future infections: Drink plenty of fluids to prevent dehydration and flush out the bladder. Do this unless you must restrict fluids for other health reasons, or your healthcare provider told you not to. Proper cleaning after going to the bathroom in important. Make sure you wipe from front to back after using the toilet. Urinate more often. Don't try to hold urine in for a long time. Don't wear tight-fitting pants and underwear. Improve your diet to prevent constipation. Eat more fruits, vegetables, and fiber. Eat less junk and fatty foods. Constipation can make a urinary tract infection more likely. Talk with your healthcare provider if you have trouble with bowel movements. Urinate right after intercourse to flush out the bladder. Follow-up care Follow up with your healthcare provider, or as advised. Additional testing may be needed to make sure the infection has cleared. Close follow-up and further testing is very important to find the cause and to prevent future infections. If a urine culture was done, you will be contacted if your treatment needs to be changed. If directed, you may call to find out the results. If you had an X-ray, CT scan, or other diagnostic test, you will be notified of any new findings that may affect your care. Call 911 Call 911 if any of the following occur: Trouble breathing Fainting or loss of consciousness Rapid or very slow heart rate Weakness, dizziness, or fainting Difficulty arousing or confusion When to seek medical advice Call your healthcare provider right away if any of these occur: Fever 100.4 F (38 C) or higher, or as directed by your healthcare provider Not feeling better within 1 to 2 days after starting antibiotics Any symptom that continues after 3 days of treatment Increasing pain in the stomach, back, side, or groin area Repeated vomiting Not able to take prescribed medicine due to nausea or another reason Bloody, dark-colored, or foul smelling urine Trouble urinating or decreased urine output No urine for 8 hours, no tears when crying, sunken eyes, or dry mouth [id number] [employer]. [address] [place] [address]. All rights reserved. This information is not intended as a substitute for professional medical care. Always follow yourhealthcare professional's instructions. Follow Up Care 01/14/2024 11:50:09 With:EUSEBIO SPARROW DO Address: [address] [place] [address] [address] [place] [phone] When:2-4 days [facility] 11-07-2024 Emergency department Discharge summary Discharge Instructions Thank you for allowing [facility] to assist you with your healthcare needs. The following is importantdischarge information regarding your hospital visit. Diagnosis from Today's Visit Pyelonephritis of left kidney What to Do Next Instructions from Your Care Team No qualifying data available. Post Acute Orders No qualifying data available. You Need to Schedule the Following Appointments Follow Up with EUSEBIO SPARROW DO When:Within 2-4 days Where:0 [facility] [address] [place] [address]- [phone] Allergies NKA Medications Please ask your primary doctor or pharmacist before taking any other medication not listed, including over the counter drugs, herbal medications, vitamins and or supplements as they may interact withyour home medications. What How Much When Why Instructions Last Dose New cephalexin (cephalexin 500 mg oral capsule) 1 cap by mouth Three (3) times a day Duration: 7 Days Printed Prescription Changed acetaminophen-hydrocodone (acetaminophen-hydrocodone 325 mg-5 mg oral tablet) TAKE 1 TO 2 TABLETS EVERY 4 HOURS NEEDED FOR PAIN Changed acetaminophen-hydrocodone ([place] 325- 5 mg oral tablet) 1 tab(s) by mouth Every 4 hours as needed for for pain Pyelonephritis of left kidney Duration: 3 Days Printed Prescription Changed ondansetron (Zofran 4 mg oral tablet) 1 tab(s) by mouth Every 6 hours as needed for Nausea/Vomiting Printed Prescription Changed ondansetron (Zofran 8 mg oral tablet) 1 tab(s) by mouth Three (3) times a day As needed for nausea or vomiting ODT preferrable if available in Rx plan Unchanged levoFLOXacin (levoFLOXacin 750 mg oral tablet) 1 tab(s) by mouth Every 24 hours Duration: 7 Days Unchanged naproxen (naproxen 250 mg oral tablet) 1 tab(s) by mouth Every 8 hours PRN pain Please take this list to your next doctor s visit. Bring all medications you take, including over the counter medications, herbals and other supplements with you to your doctor s visit. Patients and families are reminded to discard old lists and to update any records with all medication providers or retail pharmacies. Education Materials Kidney Infection (Adult Female) An infection in one or both kidneys is called pyelonephritis. It usually happens when bacteria (or rarely, viruses, fungi, or other disease-causing organisms) get into the kidney. The bacteria (or other disease-causing organisms) can enter the kidneys from the bladder or blood traveling from other parts of the body. A kidney infection can become serious. It can cause severe illness, scarring ofthe kidneys, or kidney failure if not treated properly. Common causes for this problem include: Not keeping the genital area clean and dry, which promotes the growth of bacteria Wiping back to front which drags bacteria from the rectum toward the urinary opening (urethra) Wearing tight pants or underwear (this lets moisture build up in the genital area, which helps bacteria grow) Holding urine in for long periods of time Dehydration Kidney infections can cause symptoms similar to a bladder infection. Symptoms include: Pain (or burning) when urinating Having to urinate more often than usual Blood in the urine (pink or red) Abdominal pain or discomfort, usually in the lower abdomen Pain in the side or back Pain above the pubic bone Fever or chills Vomiting Loss of appetite Treatment is oral antibiotics, or in more severe cases, intramuscular or IV antibiotics. These are started right away and may be changed once urine culture results determine the infecting organisms. Treatment helps prevent a more serious kidney infection. Medicines Medicines can help in the treatment of a bladder infection: Take antibiotics until they are used up, even if you feel better. It is important to finish them tomake sure the infection is gone. Unless another medicine was prescribed, you can use orsf-pry-ehymmmf medicines for pain, fever, or discomfort. If you have chronic liver of kidney disease, talk with your healthcare provider before using these medicines. Also talk with your provider if you've ever had a stomach ulcer or gastrointestinal (GI) bleeding, or are taking blood thinners. Home care The following are general care guidelines: Stay home from work or school. Rest in bed until your fever breaks and you are feeling better, or as advised by your healthcare provider. Drink lots of fluid unless you must restrict fluids for other medical reasons. This will force the medicine into your urinary system and flush the bacteria out of your body. Ask your healthcare provider how much you should drink. Don't have sex until you have finished all of your medicine and your symptoms are gone. Don't have caffeine, alcohol, or spicy foods. These foods may irritate the kidneys and bladder. Don't take bubble baths. Sensitivity to the chemicals in bubble baths can irritate the urethra. Make sure you wipe from front to back after using the toilet. Wear loose cloths and cotton underwear. Prevention These self-care steps can help prevent future infections: Drink plenty of fluids to prevent dehydration and flush out the bladder. Do this unless you must restrict fluids for other health reasons, or your healthcare provider told you not to. Proper cleaning after going to the bathroom in important. Make sure you wipe from front to back after using the toilet. Urinate more often. Don't try to hold urine in for a long time. Don't wear tight-fitting pants and underwear. Improve your diet to prevent constipation. Eat more fruits, vegetables, and fiber. Eat less junk and fatty foods. Constipation can make a urinary tract infection more likely. Talk with your healthcare provider if you have trouble with bowel movements. Urinate right after intercourse to flush out the bladder. Follow-up care Follow up with your healthcare provider, or as advised. Additional testing may be needed to make sure the infection has cleared. Close follow-up and further testing is very important to find the cause and to prevent future infections. If a urine culture was done, you will be contacted if your treatment needs to be changed. If directed, you may call to find out the results. If you had an X-ray, CT scan, or other diagnostic test, you will be notified of any new findings that may affect your care. Call 911 Call 911 if any of the following occur: Trouble breathing Fainting or loss of consciousness Rapid or very slow heart rate Weakness, dizziness, or fainting Difficulty arousing or confusion When to seek medical advice Call your healthcare provider right away if any of these occur: Fever 100.4 F (38 C) or higher, or as directed by your healthcare provider Not feeling better within 1 to 2 days after starting antibiotics Any symptom that continues after 3 days of treatment Increasing pain in the stomach, back, side, or groin area Repeated vomiting Not able to take prescribed medicine due to nausea or another reason Bloody, dark-colored, or foul smelling urine Trouble urinating or decreased urine output No urine for 8 hours, no tears when crying, sunken eyes, or dry mouth [id number] [employer]. [address] [place] [address], [place] [address]. All rights reserved. This information is not intended as a substitute for professional medical care. Always follow yourhealthcare professional's instructions. Additional Information VACCINATE! IT SAVES LIVES! Members of the community who have not yet received the COVID-19 vaccine and would like to receive it can visit one of [facility] vaccine clinics. There are many vaccine clinic locations within the [facility]. For locations and available times, please visit www.[facility].[facility].[place].gov/. It is important to note that some COVID mobile vaccine clinics are held outdoors and may be canceled in rainy or stormy conditions. To learn more about pediatric vaccinations (ages 5-11), we invite you to visit the [facility] webpage. https://www.[email or web address].org/pages/9430-Syhwi-Zodqrmwameg-Xnxfbuskkm-Hkwle-Jjq stions.htmlTo learn more about the COVID-19 vaccine, we invite you to visit the CDC website for a list of frequently asked questions. https://www.cdc.gov/coronavirus/2019-ncov/vaccines/faq.html [facility] Information [facility] Patient Portal Access Instructions: Stay connected with your healthcare team and access your personal medical information anytime with the [facility] Patient Portal. If you would like a full copy of your medical records please contact the [facility] Medical Records Department Thursday through Thursday between 8a.m. and 4:30p.m. Please follow the directions below to access the portal: 1.Access the email account you provided upon registration to the hospital.2.Look for an invitation email from [facility].3.Open the email and access the invitation link: Accept Invitation to [facility]4.Fill in the required broussard to create your account. Sign into www.[employer] with your username and password that you created in the above steps to stay up to date. You can then view a summary of results, a summary of your visits, and the ability to download your summaries to your computer or send the information securely to a physician. Remember that your healthcare information is confidential, so carefully consider who you will allow to register on the [facility] Patient Portal for access to your information. You can also access the [facility] Patient Portal on the [employer] yolanda. Simply click on Health Records under [employer] and then click on the [facility] logo. HOW TO SAFELY DISPOSE OF PRESCRIPTION MEDICATIONS Please use one of the following methods to safely dispose of your unused medications. 1.Use a drug disposal kit: the drug disposal pouch allows you to safely discard your old and unuseddrugs. Ask your nurse to give you one when you are discharged.2.Visit a local take-back location: Many local pharmacies and police departments have programs that collect old and unwanted prescriptiondrugs. Call your local pharmacy or go to http://[employer].Stigni.bg/6C5Qr5f to find one close to you.3.Make use of household items: Use cat litter or old coffee grounds to dispose medications if other options arenot available. Mix your drugs with these household products, seal them in an airtight container andthrow it into the garbage. Call [facility]: [phone] to be sure your drugs can be disposed of in this way. Some medicines may require a different approach.4.Never flush your medications down the toilet. IF YOU HAVE BEEN PRESCRIBED AN OPIOIDS FOR PAIN If you have been prescribed an opioid (such as hydrocodone, oxycodone or morphine), it is critical to understand the possible side effects and risks of opioid pain medications. Even when taken as directed, opioids can have several side effects including: Tolerance, meaning you might need to take more of a medication for the same pain relief. Nausea, vomiting and/or constipation. Sleepiness, dizziness, dry mouth, confusion, depression or itching. Physical dependence, meaning you have withdrawal symptoms when a medication is stopped ? this can develop within a few days. KNOW YOUR RESPONSIBILITIES It is important to know exactly how much and how often to take the opioid pain medications you are prescribed. Never take opioids in higher amounts or more often than prescribed. Do not combine opioids with alcohol or other drugs that cause drowsiness, such as benzodiazepines, also known as benzos,including diazepam and alprazolam, muscle relaxants or sleep aids. Never sell or share prescriptionopioids. This is illegal. Store opioids in a secure place and out of reach of others (including children, family, friends and visitors). The last page(s) of this document has been signed and retained as a CHART COPY Signatures Patient Education Materials Quentin, Female (Adult) Medication Leaflets My discharge plan and instructions have been reviewed and explained to me and IKYLE NORA A understand my current condition and have read and understand these discharge instructions. I have receiveda written copy of the plan/instructions. If I have questions, I am aware that I should contact my do ctor. Patient/Space Scheduler Signature: Date/Time: Relationship to Patient: Witness Name/Signature: [id number] Note ORIGINAL EXAMINATION: CT OF THE ABDOMEN AND PELVIS WITH CONTRAST 01/14/2024 3:42 pm TECHNIQUE: CT of the abdomen and pelvis was performed with the administration of intravenous contrast. Multiplanar reformatted images are provided for review. Automated exposure control, iterative reconstruction, and/or weight based adjustment of the mA/kV was utilized to reduce the radiation dose to as low as reasonably achievable. COMPARISON: January 07, 2024 HISTORY: ORDERING SYSTEM PROVIDED HISTORY: Reason for Exam: abdominal pain, RECENT UTI & C/O BI LAT FLANK PAIN FINDINGS: No osseous abnormality identified. The lung bases are unremarkable. Liver, spleen, adrenal glands and pancreas are unremarkable. Stable left lower pole punctate 2 mm stone seen. Nephrograms are symmetric, and there is no definite collecting system dilatation. Previously seen minor left ureteral dilatation has resolved and is no longer visible. Previously seen urinary bladder wall thickening has also resolved. No adenopathy, free air or free fluid seen. No GI tract abnormality is visible. No additional contributory finding. IMPRESSION: 1. Punctate nonobstructive left nephrolithiasis. 2. Resolution of previously seen minor left ureteral dilatation. Perhaps this is resolved hydronephrosis from previous stone passage. 3. Previously seen urinary bladder wall thickening is no longer visible. 4. No new/acute finding. Interpreted by: Vinay Molina MD Preliminary Report By: Vinay Molina MD Electronically signed By Vinay Molina MD Dictated Date: 01/14/2024 3:43:47 PM Prelim Date: 01/14/2024 3:47:01 PM Sign Date: 01/14/2024 3:47:01 PM Ordering Provider: [facility]11-03-2024 Note. MICRO - Microbiology PROCEDURE: Urine Culture [O1 *1] SOURCE: Urine BODY SITE: COLLECTED DATE/TIME: 01/07/2024 21:19 EDT RECEIVED DATE/TIME: 01/08/2024 13:25 EDT START DATE/TIME: 01/08/2024 13:25 EDT FREE TEXT SOURCE: FINAL REPORTS Final Report [] Verified Date/Time/Personnel: 01/10/2024 08:25 EST >100,000 cfu/ml Escherichia coli PRELIMINARY REPORTS Preliminary Report [] Verified Date/Time/Personnel: 01/09/2024 12:08 EDT >100,000 cfu/ml Escherichia coli BENNIE to follow SUSCEPTIBILITY RESULTS Escherichia coli Antibiotic BENNIE Dilut BENNIE Inter Ampicillin <=8 Susceptible Ampicillin/ <=4/2 Susceptible Sulbactam Aztreonam <=4 Susceptible Cefazolin <=2 Susceptible Ceftazidime/ <=4 Susceptible Avibactam Ceftolozane/ <=2 Susceptible Tazobactam Ciprofloxacin <=0.25 Susceptible Ertapenem <=0.5 Susceptible Gentamicin <=2 Susceptible ID Panel Not Not Applicable Applicable Imipenem <=1 Susceptible Levofloxacin <=0.5 Susceptible Meropenem <=1 Susceptible Minocycline <=4 Susceptible Nitrofurantoin <=32 Susceptible Trimethoprim/ <=0.5/9.5 Susceptible Sulfa Order Comments O1: Urine Culture Added by Discern Performing Locations *1: This test was performed at: [address], [address] [place] [address] 01-07-2024 Instructions* Patient Instructions* Beto Stephens Jr., APRN.CNP - 01/07/2024 7:34 PM EDT [facility] NoteHNO ID: [id number] Author: BETO STEPHENS JR, APRN.CNP Service: ? Author Type: Nurse Practitioner Type: Progress Notes Filed: 01/07/2024 20:44 Note Text: Bette Wright is a 43 year old female who presents with Abdominal Pain (Left side/Started yesterday ///Patient states this pain started after she saw her chiropractor yesterday /), Urinary Problem (Some burning but not much as she states /Started yesterday /), and Vomiting (Started yesterday /4 episodes in the past 24 hours. //States the vomiting started after she saw her chiropractor /) 43-year-old female presents today with a complaint of left upper abdominal pain. She states the pain initially started yesterday but increased today after a chiropractic adjustment earlier today. Patient states she has some burning with urination and then notes left flank pain. The history is provided by the patient. No past medical history on file. There is no problem list on file for this patient. Current Outpatient Medications Medication Sig Dispense Refill sertraline (ZOLOFT) 100 mg tablet Take 100 mg by mouth once daily. (Patient not taking: Reported on 01/07/2024) No current facility-administered medications for this visit. Social History Tobacco Use Smoking status: Never Passive exposure: Never Smokeless tobacco: Never Vaping Use Vaping status: Never Used Substance Use Topics Alcohol use: Never Drug use: Never Alcohol Use: Never Tobacco Use: Never FAMILY HISTORY Adopted: Yes Review of Systems Constitutional: Negative for chills and fever. HENT: Negative for sore throat. Respiratory: Negative for cough. Cardiovascular: Negative for chest pain. Gastrointestinal: Positive for abdominal pain and nausea. Negative for vomiting. Genitourinary: Positive for dysuria, flank pain, frequency and urgency. Skin: Negative for rash. BP 136/90 Pulse 91 Temp (Src) 97.8 (Oral) Resp 18 Wt 218 lb (98.9kg) SpO2 100% Urine dip performed: Urine dip positive for leuks, protein, hemoglobin, and elevated pH. Considered positive for UTI. ASSESSMENT/PLAN: 1. Recurrent UTI (urinary tract infection) - ICD9: 599.0, ICD10: N39.0 (primary diagnosis) - CIPROFLOXACIN 500 MG TABLET - PHENAZOPYRIDINE 200 MG TABLET 2. Dysuria - ICD9: 788.1, ICD10: R30.0 - UA DIP OB, URINE (POC) - URINALYSIS, DIPSTICK ONLY 3. Does not have primary care provider - ICD9: V49.89, ICD10: Z75.8 - ESTABLISH WITH PRIMARY CARE - NEW PATIENT -Based on patient exam sinus symptoms I feel patient has a urinary tract infection I would consider pyelonephritis. -I ordered patient Cipro and Pyridium to help her with the pain. Patient stated she thought she should go to emergency room . -Patient stated she would go to [facility] emergency room for further evaluation. Beto Stephens Jr, APRN.[facility]10-31-2024 History of Present illness Narrative* Beto Stephens Jr., MAXWELL.[facility] - 01/07/2024 7:00 PM EDT Bette Wright is a 43 year old female who presents with Abdominal Pain (Left side/Started yesterday ///Patient states this pain started after she saw her chiropractor yesterday /), Urinary Problem (Some burning but not much as she states /Started yesterday /), and Vomiting (Started yesterday /4 episodes in the past 24 hours. //States the vomiting started after she saw her chiropractor /) 43-year-old female presents today with a complaint of left upper abdominal pain. She states the pain initially started yesterday but increased today after a chiropractic adjustment earlier today. Patient states she has some burning with urination and then notes left flank pain. The history is provided by the patient. No past medical history on file. There is no problem list on file for this patient. Current Outpatient Medications Medication Sig Dispense Refill sertraline (ZOLOFT) 100 mg tablet Take 100 mg by mouth once daily. (Patient not taking: Reported on01/07/2024) No current facility-administered medications for this visit. Social History Tobacco Use Smoking status: Never Passive exposure: Never Smokeless tobacco: Never Vaping Use Vaping status: Never Used Substance Use Topics Alcohol use: Never Drug use: Never Alcohol Use: Never Tobacco Use: Never FAMILY HISTORY Adopted: Yes Review of Systems Constitutional: Negative for chills and fever. HENT: Negative for sore throat. Respiratory: Negative for cough. Cardiovascular: Negative for chest pain. Gastrointestinal: Positive for abdominal pain and nausea. Negative for vomiting. Genitourinary: Positive for dysuria, flank pain, frequency and urgency. Skin: Negative for rash. BP 136/90 Pulse 91 Temp (Src) 97.8 (Oral) Resp 18 Wt 218 lb (98.9kg) SpO2 100% Urine dip performed: Urine dip positive for leuks, protein, hemoglobin, and elevated pH. Consideredpositive for UTI. ASSESSMENT/PLAN: 1. Recurrent UTI (urinary tract infection) - ICD9: 599.0, ICD10: N39.0 (primary diagnosis) - CIPROFLOXACIN 500 MG TABLET - PHENAZOPYRIDINE 200 MG TABLET 2. Dysuria - ICD9: 788.1, ICD10: R30.0 - UA DIP OB, URINE (POC) - URINALYSIS, DIPSTICK ONLY 3. Does not have primary care provider - ICD9: V49.89, ICD10: Z75.8 - ESTABLISH WITH PRIMARY CARE - NEW PATIENT -Based on patient exam sinus symptoms I feel patient has a urinary tract infection I would considerpyelonephritis. -I ordered patient Cipro and Pyridium to help her with the pain. Patient stated she thought she should go to emergency room . -Patient stated she would go to [facility] emergency room for further evaluation. Beto Stephens Jr, APRN.HEAD OF BIOLOGY [facility] NoteHNO ID: [id number] Author: DEEPTHI VAZQUEZ, DO Service: ? Author Type: Physician Type: Progress Notes Filed: 12/08/2023 14:01 Note Text: Bette Wright is a 43 year old FEMALE who presents with Rash (Rash on upper arms, back and chest - patient noticed on Thursday night/No pain but itching/No new lotions, perfumes or soaps) HPI History reviewed. No pertinent past medical history. There is no problem list on file for this patient. Current Outpatient Medications Medication Sig Dispense Refill sertraline (ZOLOFT) 100 mg tablet Take 100 mg by mouth once daily. sulfamethoxazole-trimethoprim (BACTRIM DS) 800-160 mg per tablet Take 1 tablet by mouth two times a day for 10 days. 20 tablet 0 loratadine (CLARITIN) 10 mg tablet Take 1 tablet by mouth once daily for 10 days. 10 tablet 0 No current facility-administered medications for this visit. Social History Tobacco Use Smoking status: Never Passive exposure: Never Smokeless tobacco: Never Vaping Use Vaping status: Never Used Substance Use Topics Alcohol use: Never Drug use: Never Alcohol Use: Never Tobacco Use: Never FAMILY HISTORY Adopted: Yes Review of Systems Skin: Positive for rash. Patient has a rash in a distribution on the upper arms, shoulders, chest and upper back. One small area at the groin fold as well. . Denies new meds or soaps. Uses suave body wash. Advised bar soap only. All other systems reviewed and are negative. BP 125/80 Pulse 79 Temp 97.4 Resp 18 Wt 220 lb (99.8kg) SpO2 98% Physical Exam Vitals and nursing note reviewed. Constitutional: Appearance: Normal appearance. HENT: Head: Normocephalic. Cardiovascular: Rate and Rhythm: Normal rate and regular rhythm. Pulses: Normal pulses. Heart sounds: Normal heart sounds. Pulmonary: Effort: Pulmonary effort is normal. Skin: General: Skin is warm. Capillary Refill: Capillary refill takes 2 to 3 seconds. Findings: Erythema and rash present. Comments: Diffuse bacterial folliculitis is noted. Neurological: General: No focal deficit present. Mental Status: She is alert. Psychiatric: Mood and Affect: Mood normal. ASSESSMENT/PLAN: 1. Bacterial folliculitis - ICD9: 704.8, ICD10: L73.8 - SULFAMETHOXAZOLE 800 MG-TRIMETHOPRIM 160 MG TABLET - LORATADINE 10 MG TABLET Deepthi Ceballos [facility]10-01-2024 History of Present illness Narrative * Deepthi Vazquez, - 12/08/2023 1:58 PM EDT Bette Wright is a 43 year old FEMALE who presents with Rash (Rash on upper arms, back and chest - patient noticed on Thursday night/No pain but itching/No new lotions, perfumes or soaps) HPI History reviewed. No pertinent past medical history. There is no problem list on file for this patient. Current Outpatient Medications Medication Sig Dispense Refill sertraline (ZOLOFT) 100 mg tablet Take 100 mg by mouth once daily. sulfamethoxazole-trimethoprim (BACTRIM DS) 800-160 mg per tablet Take 1 tablet by mouth two times aday for 10 days. 20 tablet 0 loratadine (CLARITIN) 10 mg tablet Take 1 tablet by mouth once daily for 10 days. 10 tablet 0 No current facility-administered medications for this visit. Social History Tobacco Use Smoking status: Never Passive exposure: Never Smokeless tobacco: Never Vaping Use Vaping status: Never Used Substance Use Topics Alcohol use: Never Drug use: Never Alcohol Use: Never Tobacco Use: Never FAMILY HISTORY Adopted: Yes Review of Systems Skin: Positive for rash. Patient has a rash in a distribution on the upper arms, shoulders, chest and upper back. One small area at the groin fold as well. . Denies new meds or soaps. Uses suave body wash. Advised bar soap only. All other systems reviewed and are negative. BP 125/80 Pulse 79 Temp 97.4 Resp 18 Wt 220 lb (99.8kg) SpO2 98% Physical Exam Vitals and nursing note reviewed. Constitutional: Appearance: Normal appearance. HENT: Head: Normocephalic. Cardiovascular: Rate and Rhythm: Normal rate and regular rhythm. Pulses: Normal pulses. Heart sounds: Normal heart sounds. Pulmonary: Effort: Pulmonary effort is normal. Skin: General: Skin is warm. Capillary Refill: Capillary refill takes 2 to 3 seconds. Findings: Erythema and rash present. Comments: Diffuse bacterial folliculitis is noted. Neurological: General: No focal deficit present. Mental Status: She is alert. Psychiatric: Mood and Affect: Mood normal. ASSESSMENT/PLAN: 1. Bacterial folliculitis - ICD9: 704.8, ICD10: L73.8 - SULFAMETHOXAZOLE 800 MG-TRIMETHOPRIM 160 MG TABLET - LORATADINE 10 MG TABLET Deepthi Vazquez documented [facility] [place] Evaluation + Plan note Diagnostic Tests Pending * Testosterone Level Total 04/01/22 [facility] Consult note Author Bogdan Gill [facility] Note Date/Time July 15, 2024 7:18am [facility] Medical Records Department [address] [place] [address] Pre-Anesthesia Evaluation 07/15/24 0715 MR#: [id number] Acct: [id number] Name: KYLEBETTE A Rep #:[id number] : 1980 43 From: Bogdan Gill MD PCP: Dr. Eusebio Sparrow, DO Status:R EG SDC Y Race: C Location: [place] [address] ASA Classification* ASA Classification ASA Classification: 3 Assessment & Plan Anesthesia* Anesthesia Assessment Anesthesia Assessment: Discussed sedation and/or anesthesia options, risks, benefits, and alternatives with patient/parents/legal guardian/POA. Questions invited. The patient/parents/legal guardian/POA seems to understand and agrees to proceedwith anesthesia plan. Reviewed the physical assessment, medical history, allergy history and patient home medications list prior to surgery/procedure/anesthetic and documented any changes. Performed airway and anesthesia risk assessments. Anesthesia Type Anesthesia Type: MAC History Source History Obtained from:: Patient and Chart Anesthesia Focused Assessment* Temperature: 97.6 F Pulse Rate: 49 Blood Pressure: 126/63 Respiratory Rate: 16 Pulse Ox: 99 Oxygen Delivery Method: Room Air Airway Assessment Mouth opens: >3 cm Mallampati Score: II Teeth Condition: Dentures Focused Labs Anesthesia Preop lab: CBC WBC 4.9 K/mm3 (4.4-11.0) 06/23/24 10:06/23/24 RBC 4.97 M/mm3 (4.2-5.4) 06/23/24 10:06/23/24 Hgb 14.1 g/dL (12.0-15.0) 06/23/24 10:06/23/24 Hct 42.5 % (37-47) 06/23/24 10:06/23/24 Plt Count 249 K/mm3 (150-450) 06/23/24 10:06/23/24 CHEMISTRY Potassium 3.9 mmol/L (3.3-5.1) 06/23/24 10:06/23/24 Sodium 139 mmol/L (133-145) 06/23/24 10:06/23/24 BUN 14 mg/dL (4-19) 06/23/24 10:06/23/24 Creatinine 0.88 mg/dL (0.70-1.20) 06/23/24 10:06/23/24 Glucose 97 mg/dL (70-99) 06/23/24 10:06/23/24 COAG Pre-Assessment Diagnosis/Proposed Procedure Planned Operative Procedure(s): EGD Anesthesia History Anesthesia History - test clerk: Anesthesia History - test clerk Hx Hospitalization No 07/14/24 10:00 Any Problems With Anesthesia No 07/14/24 10:00 Cholinesterase deficiency No 07/14/24 10:00 You/Your Family Experience No 07/14/24 10:00 fever (hyperthermia) with Relationship Recent Exposure to Contagious No 07/15/24 06:39 Disease Does patient have nerve No 07/14/24 10:00 stimulator Patient instructed to have device shut off --Does patient have Pacemaker No 07/15/24 06:39 or ICD? When Was Last Pacemaker Check QUESTION #4 FULL TEXT: You/Your Family Experience fever (hyperthermia) with Anesthesia Last Oral Intake Last Oral intake: Last Oral Intake NPO since 23:30 07/15/24 06:39 Meds taken in AM with sips of water? Meds patient instructed to take am of surgery PONV PONV - test clerk: PONV - test clerk Female Yes 07/14/24 10:00 HX of Motion Sickness No 07/14/24 10:00 HX of N/V After Surgery No 07/14/24 10:00 Non-Smoker Yes 07/14/24 10:00 Duration of Surgery greater No 07/14/24 10:00 than 60 minutes Number of Risk Factors 2 07/14/24 10:00 PONV Score Moderate Risk 07/14/24 10:00 Height & Weight Height & Weight: Anesthesia: Height & Weight Height 5 ft 9 in 07/15/24 06:39 Weight: 95.1 kg 07/15/24 06:39 Body Mass Index (BMI) 30.9 07/15/24 06:39 Respiratory Assessment Respiratory Assessment - test clerk: Respiratory Tract Infection Hx - test clerk Hx Respiratory Tract Infection No 07/14/24 10:00 STOP Sleep Apnea STOP Sleep Apnea - test clerk: STOP Sleep Apnea - test clerk Hx Hypertension No 07/14/24 10:00 Hx Sleep Apnea No 07/14/24 10:00 CPAP BIPAP Do you snore loudly (louder No 07/14/24 10:00 than talking or can be heard Do you often feel tired/ No 07/14/24 10:00 fatigued/ sleepy during daytime? Has anyone observed you stop No 07/14/24 10:00 breathing during sleep? STOP Results Negative 07/14/24 10:00 QUESTION #5 FULL TEXT : Do you snore loudly (louder than talking or can be heard through closed doors)? 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 Specify any problems Hx of Preganancy in last 3 No 07/14/24 10:00 Months [facility] 07/14/24 10:00 & Questions: Date: 07/14/24 07/14/24 10:00 Time: 10:02 07/14/24 10:00 Patient unable to answer at this time (ie. confused, unrespo /Reproduction History /Reproductive History - test clerk: /Reproductive Hx- test clerk Hx Now No 07/14/24 10:00 Gestational Age (in weeks): EDC: Hx Hx Para Hx Section SAB No 07/14/24 10:00 Active Medications Active Medications: Current Medications Generic Name Dose Route Start Last Admin Trade Name Freq PRN Reason Stop Dose Admin Lactated Ringer's 1,000 mls @ 15 mls/hr 07/15/24 06:30 IV .Q48H CONNIE PFSH Medical History Wears dentures Restless legs Dietary restriction Gastric reflux Former smoker History of ectopic Home Medications ?Medication ?Instructions ?Recorded ?Last Taken ?Type sertraline 25 mg tablet (Zoloft) 25 mg PO QDAY 4 07/14/24 History linaclotide 145 mcg capsule 145 mcg PO QAM #90 caps 07/14/24 Rx (Linzess) pantoprazole 40 mg tablet,delayed 40 mg PO BID #180 ta bs 04/27/24 07/14/24 Rx release Allergy/AdvReac Type Severity Reaction Status Date / Time No Known Allergies Allergy Verified 07/15/24 06:36 Surgical History History of shoulder surgery History of hernia surgery History of hysterectomy History of classical section Social History Smoking Status: Former smoker alcohol intake: never Review of Systems (Anesthesia) ROS Narrative System reviewed and no additional complaints, except as documented. Physical Exam Const alert and oriented x3 HEENT dentition normal 07/15/2418 <Electronically signed by Bogdan Zapata D> Date _ Bogdan Gill MD Cosigner Signature: Date CC: ~ Signed [facility] Work Phone: Consult note Author Jeff Allred [facility] Note Date/Time July 15, 2024 8:47am [facility] Medical Records Department [address] [place] [address] Anesthesia Postop Eval I 07/15/24 0737 MR#: [id number] Acct: [id number] Name: BETTE WRIGHT Rep #:[id number] : 1980 43 From: Jeff GALLAGHER PCP: Dr. Eusebio Sparrow, DO Status:R EG SDC Y Race: C Location: [place] [address] Anesthesia: Postop Eval I Current Vital Signs Temperature: 97.1 F Pulse Rate: 60 Blood Pressure: 119/79 Respiratory Rate: 16 Pulse Ox: 100 Oxygen Delivery Method: Room Air Assessment Airway patent: Yes Spontaneous unlabored respirations: Yes Mental status: Awake and Calm nausea: No Vomiting: No Anesthesia Complication: No Fluid Hydration Crystalloid volume administer (ml): 200 Total IV fluid infused: 200 Progress Note Anesthesia document: Postop Eval 1 completed: Yes 07/15/24 0737 <Electronically signed by Jeff Allred BAR HOST/HOSTESS> Date _ Jeff Allred BAR HOST/HOSTESS Cosigner Signature: Date CC: ~ Signed [facility] Work Phone: Evaluation note* Diagnosis Bacterial folliculitis- Primary Other specified disease of hair and hair follicles [facility] Recurrent UTI (urinary tract infection)- Primary Urinary tract infection, site not specified Dysuria Does not have primary care provider [facility] Diagnosis Cellulitis of skin- Primary Cellulitis and abscess of unspecified site Right upper quadrant abdominal pain Abdominal pain, right upper quadrant [facility] Luke Martinez [facility] Note Date/Time July 15, 2024 7:17am [facility] Medical Records Department [address] [place] [address] History & Physical Exam 07/15/24 0652 MR#: [id number] Acct: [id number] Name: BETTE WRIGHT Rep #:[id number] : 1980 43 From: Luke Martinez DO PCP: Dr. Eusebio Sparrow, DO Status:R [facility] Location: [place] [address] HPI - General General Date of Service: 07/15/24 Chief Complaint: gastric ulcer and abdominal pain HPI Narrative BETTE WRIGHT, is a 43 F who presents for the evaluation of abdominal pain - reports they gave her so much pain medication she could not focus - c/o of constipation, has not had a BM since morning - feels bloated - c/o nausea due to bloating - pain today is 8/10 - LLQ pain radiating down her left leg - ER prescribed percocet - she is still taking Miralax 2tbsb once a day - Linzess 145mcg once daily - weight is stable [facility] Medical History Wears dentures Restless legs Dietary restriction Gastric reflux Former smoker History of ectopic Home Medications ?Medication ?Instructions ?Recorded ?Last Taken ?Type sertraline 25 mg tablet (Zoloft) 25 mg PO QDAY 4 07/14/24 History linaclotide 145 mcg capsule 145 mcg PO QAM #90 caps 07/14/24 Rx (Linzess) pantoprazole 40 mg tablet,delayed 40 mg PO BID #180 ta bs 04/27/24 07/14/24 Rx release Allergy/AdvReac Type Severity Reaction Status Date / Time No Known Allergies Allergy Verified 07/15/24 06:36 Surgical History History of shoulder surgery History of hernia surgery History of hysterectomy History of classical section Social History Smoking Status: Former smoker alcohol intake: never ROS Constitutional Constitutional: Denies fatigue, fever(s), poor appetite, weight gain or weight loss Gastrointestinal Gastrointestinal: Denies belching, bloating, change in bowel habits, change in stool character, chewing difficulty, coffee ground emesis, constipation, cramping, diarrhea, dyspepsia, dysphagia, early satiety, excessive flatus, fecalincontinence, heartburn, hematemesis, hematochezia, hemorrhoids, loose stools, melena, nausea, odynophagia, rectal bleeding, tenesmus, vomiting or weight changes Vital Signs Vital Signs Vital Signs: 07/15/24 06:39 07/15/24 06:39 Temperature 97.6 F L Temperature Source Temporal Pulse Rate 49 L Respiratory Rate 16 Respiratory Pattern Normal Blood Pressure 126/63 H Blood Pressure Mean 84 Blood Pressure Source Monitor Blood Pressure Position Semi-Fowlers Blood Pressure Location Right Arm Pulse Ox 99 Oxygen Delivery Method Room Air Weight Weight: 209 lb 10.554 oz Body Mass Index (BMI) 30.9 Physical Exam Const alert, oriented x3, no apparent distress and healthy appearing General Appearance: cooperative GI normal to inspection, nondistended, normoactive bowel sounds, soft to palpation,non-tender and non-distended Percussion: normal to percussion Rectal Exam: deferred Assessment & Plan Assessment/Plan (1) LLQ pain: (2) Gastric ulcer: PLAN: Assessment and Plan Assessment and Plan (1) Epiploic appendagitis: Status: Acute (2) LLQ pain: Status: Acute (3) Constipation: Status: Acute Qualifiers: Constipation type: slow transit constipation Qualified Code(s): K59.01 - Slow transit constipation Medications: New methylprednisolone (Medrol (Dagoberto)) PO PER PKG DIR for 6 days 21 tabs 0RF Plan 43-year-old female presents for follow-up. She was seen in the office on 06/23/2024 with complaints of severe LLQ abdominal pain and guarding with abdominal exam. Stat CT was completed and unremarkable. Due to ongoing severe pain she was referred to the emergency department where a CT was repeated and revealed epiploic appendagitis. Epiploic appendagitis is a benign, self-limitingcondition which can mimic other causes of acute abdominal pain. She has been onibuprofen 600 mg 3 times daily and Percocet as needed since ED visit on 06/23/2024 with only minor improvement in abdominal pain. She denies any fevers. UA and labs were unremarkable. I reviewed with Dr. Martinez and he recommends treating with steroids, I have prescribed a Medrol Dosepak. She also complains of worsening constipation despite Linzess 145 mcg once daily, this is likely secondary to continued Percocet use. I have recommended discontinuing Percocet and starting magnesium citrate 10 ounce bottle today and repeating tomorrow if no results. Patient Instructions: - Magnesium Citrate 10 ounces today, if this does not produce a bowel movement drink a second bottle of Magnesium Citrate tomorrow moring - Continue Linzess 145mcg once daily - Discontinue percocet - Continue pantoprazole 40mg BID - Medrol Dose Dagoberto - sent to [facility] - Follow-up as scheduled post EGD - Follow-up by telephone later this week - Continue Advil 600mg Q8H PRN abdominal pain 07/15/24 0717 <Electronically signed by Luke Martinez DO> Cosigner Signature (if applicable): CC: Dr. Eusebio Sparrow, DO; Luke Martinez, DO~ Signed [facility] Work Phone: Hospital course Narrative No data available for this section [facility] Discharge instructions No data available for this section [facility] Progress note No data available for this section [facility] Reason for referral (narrative)No reason for referral information [facility] Work Phone: Summary note* Nicole Lorenz N: PERFORM Event Display: Patient Summary Documents Authored Date: [id number] [facility] Summary Purpose Family History No Family History Records Found Advance Directives No Advanced Directives Records Found Advance Directive Response Recorded Date/ Time Living Will No April 21 025 11:25am Do you have a Healthcare Power of Investment Executive? No April 21, 2024 11:25am Advance Directive Response Recorded Date/ Time Do you have a Healthcare Power of Investment Executive? No July 14, 2024 10:00am Living Will No April 21 025 11:25am Do you have a Healthcare Power of Investment Executive? No April 21, 2024 11:25am Advance Directive Response Recorded Date/ Time Do you have a Healthcare Power of Investment Executive? No July 14, 2024 10:00am Reason for Referral Specialty Diagnoses / Procedures Referred By Jennifer t Referred To Contact Diagnoses Does not have primary care provider Procedures ESTABLISH WITH PRIMARY CARE NEW PATIENT OFFICE/OUTPATIENT NEW [facility] MDM 60 MINUTES Beto Stephens Jr., SPIKEMAKING SUPERVISOR.HEAD OF BIOLOGY [address] [place] [address] Referral ID Status Reason Start Date Expiration Date Visits Requested Visits Authorized [id number] Authorized PCP Requested Referral 01/06/2025 1 1 Chief Complaint and Reason for Visit Chief Complaint Admit Date Questions from previous appt March 11:00am NAUSEA March 18, 2024 7 :34am Follow up April 27, 2024 8:43am STILL HAVING ISSUES June 23, 2024 9:0 3am INT LAB ORDERS June 23, 2024 10: 12am LLQ June 23, 2024 10: 34am COLON TWISTED? June 27, 2024 11: 02am Reason for Visit Admit Date Constipation March 17, 2024 11 :00am Metabolic dysfunction-associ ated steatotic liver disease (MASLD) March 17, 2024 11:00am Nausea and vomiting March 17, 2024 11 :00am RUQ pain March 17, 2024 11 :00am Metabolic dysfunction-associ ated steatotic liver disease (MASLD) April 22, 2024 11:19am Nausea and vomiting April 22, 2024 11:19am RUQ pain April 22, 2024 11:19am Constipation April 27, 2024 8:43am Gastric ulcer April 27, 2024 8:43am Metabolic dysfunction-associ ated steatotic liver disease (MASLD) April 27, 2024 8:43am Nausea and vomiting April 27, 2024 8:43am LLQ pain June 23, 2024 9:0 3am RUQ pain June 23, 2024 9:0 3am Constipation June 27, 2024 11: 02am Epiploic appendagitis June 27, 2024 1 1:02am LLQ pain June 27, 2024 11: 02am Reason for Visit Admit Date Constipation March 17, 2024 11 :00am Metabolic dysfunction-associ ated steatotic liver disease (MASLD) March 17, 2024 11:00am Nausea and vomiting March 17, 2024 11 :00am RUQ pain March 17, 2024 11 :00am Metabolic dysfunction-associ ated steatotic liver disease (MASLD) April 22, 2024 11:19am Nausea and vomiting April 22, 2024 11:19am RUQ pain April 22, 2024 11:19am Constipation April 27, 2024 8:43am Gastric ulcer April 27, 2024 8:43am Metabolic dysfunction-associ ated steatotic liver disease (MASLD) April 27, 2024 8:43am Nausea and vomiting April 27, 2024 8:43am LLQ pain June 23, 2024 9:0 3am RUQ pain June 23, 2024 9:0 3am Constipation June 27, 2024 11: 02am Epiploic appendagitis June 27, 2024 1 1:02am LLQ pain June 27, 2024 11: 02am Gastric ulcer July 15, 2024 6:11am LLQ pain July 15, 2024 6:11am Chief Complaint Admit Date PAINS COMING BACK OFF AND ON October 1:22pm Reason for Visit Admit Date Gastric ulcer July 15, 2024 6:11am LLQ pain July 15, 2024 6:11am Constipation October 27, 2024 1: 22pm RLQ abdominal pain October 27, 2024 1: 22pm RUQ pain October 27, 2024 1: 22pm Additional Source Comments Care Team (unrecognized sect ion and content) Care Team Personnel Name: CHAITANYA QUINTERO APRN-ANY Position: P4 Advanced Practice Nurse Member Role: Primary Care Physician Address: Address: [address] [place] [phone] [id number] Care Team Related Persons Name: CARRIE WRIGHT Triston Address: [facility] Address: Home [address] [place] [phone] [place] Name: AMARILIS WRIGHTEN Address: [address], [place] [id number] [place] Name: ZAYNAB WRIGHT Triston Address: Home [address], [place] [id number] [place] Address[place] Temporary [address] [place] [phone] Name: CHELSEA KOO Address: Home [address], [place] [phone] [place] Address: Temporary [address] [place] [phone] Patient Care team informatio n (unrecognized section and content) Team Status: Active Member Role Status Dates Dr. Eusebio Sparrow , DO Primary Care Provider Active Team Status: Inactive Member Role Status Dates Dr. Eusebio Sparrow DO Primary Care Provider Active Start: March 17, 2024 End: March 17, 2024 Dr. Eusebio Sparrow DO Referring Provider Active Start: March 17, 2024 End: March 17, 2024 JOSE Marsh Attending Provider Active Start: March 17, 2024 End: March 17, 2024 Team Status: Inactive Member Role Status Dates Dr. Eusebio Sparrow DO Primary Care Provider Active Start: March 18, 2024 End: March 18, 2024 BRANDO MarshC Attending Provider Active Start: March 18, 2024 End: March 18, 2024 JOSE Marsh Referring Provider Active Start: March 18, 2024 End: March 18, 2024 Team Status: Inactive Member Role Status Dates Dr. Eusebio Sparrow DO Primary Care Provider Active Start: April 22, 2024 End: April 22, 2024 Dr. Eusebio Sparrow DO Referring Provider Active Start: April 22, 2024 End: April 22, 2024 Dr. Luke Martinez DO Attending Provider Active Start: April 22, 2024 End: April 22, 2024 Team Status: Active Member Role Status Dates Dr. Eusebio Sparrow DO Primary Care Provider Active Start: April 22, 2024 Dr. Eusebio Sparrow DO Referring Provider Active Start: April 22, 2024 Dr. Luke Martinez DO Attending Provider Active Start: April 22, 2024 Dr. Luke Martinez DO Other Provider Active St art: April 22, 2024 Team Status: Inactive Member Role Status Dates Dr. Eusebio Sparrow DO Primary Care Provider Active Start: April 27, 2024 End: April 27, 2024 Dr. Eusebio Sparrow DO Referring Provider Active Start: April 27, 2024 End: April 27, 2024 JOSE Marsh Attending Provider Active Start: April 27, 2024 End: April 27, 2024 Team Status: Inactive Member Role Status Dates Dr. Eusebio Sprarow DO Primary Care Provider Active Start: April 27, 2024 End: April 27, 2024 Reyna Israel , [employer] DIRECTOR-C Attending Provider Active Start: April 27, 2024 End: April 27, 2024 Reyna Wood , DIV[employer] H[employer] RESOURCES DIRECTOR-C Referring Provider Active Start: April 27, 2024 End: April 27, 2024 Team Status: Inactive Member Role Status Dates Dr. Eusebio Sparrow DO Primary Care Provider Active Start: June 23, 2024 End: June 23, 2024 Dr. Eusebio Sparrow DO Referring Provider Active Start: June 23, 2024 End: June 23, 2024 Reyna Wood , [employer] RESOURCES DIRECTOR-C Attending Provider Active Start: June 23, 2024 End: June 23, 2024 Team Status: Active Member Role Status Dates Dr. Eusebio Sparrow DO Primary Care Provider Active Start: June 23, 2024 Reyna Wood DIV[employer] H[employer] RESOURCES DIRECTOR-C Attending Provider Active Start: June 23, 2024 Reyna Wood , DIVISION[employer] H[employer] RESOURCES DIRECTOR-C Referring Provider Active Start: June 23, 2024 Team Status: Inactive Member Role Status Dates Dr. Eusebio Sparrow DO Primary Care Provider Active Start: June 23, 2024 End: June 23, 2024 Reyna Wood , DIV[employer] H[employer] RESOURCES DIRECTOR-C Attending Provider Active Start: June 23, 2024 End: June 23, 2024 Reyna Wood , DIV[employer] H[employer] RESOURCES DIRECTOR-C Referring Provider Active Start: June 23, 2024 End: June 23, 2024 Team Status: Inactive Member Role Status Dates Dr. Eusebio Sparrow DO Primary Care Provider Active Start: June 27, 2024 End: June 27, 2024 Dr. Eusebio Sparrow DO Referring Provider Active Start: June 27, 2024 End: June 27, 2024 Reyna Wood , DIV[employer] H[employer] RESOURCES DIRECTOR-C Attending Provider Active Start: June 27, 2024 End: June 27, 2024 Team Status: Inactive Member Role Status Dates Dr. Eusebio Sparrow DO Primary Care Provider Active Start: July 15, 2024 End: July 15, 2024 Dr. Eusebio Sparrow DO Referring Provider Active Start: July 15, 2024 End: July 15, 2024 Dr. Luke Martinez DO Attending Provider Active Start: July 15, 2024 End: July 15, 2024 Team Status: Active Member Role Status Dates Dr. Eusebio Sparrow DO Primary Care Provider Active Start: July 15, 2024 Dr. Eusebio Sparrow DO Referring Provider Active Start: July 15, 2024 Dr. Luke Martinez DO Attending Provider Active Start: July 15, 2024 Dr. Luke Martinez DO Other Provider Active St art: July 15, 2024 Team Status: Active Member Role/Relationship Status Dates Dr. Eusebio Sparrow DO Primary Care Provider Active Team Status: Inactive Member Role/Relationship Status Dates Dr. Eusebio Sparrow DO Primary Care Provider Active Start: July 15, 2024 End: July 15, 2024 Dr. Eusebio Sparrow DO Referring Provider Active Start: July 15, 2024 End: July 15, 2024 Dr. Luke Martinez DO Attending Provider Active Start: July 15, 2024 End: July 15, 2024 Team Status: Active Member Role/Relationship Status Dates Dr. Eusebio Sparrow DO Primary Care Provider Active Start: July 15, 2024 Dr. Euesbio Sparrow DO Referring Provider Active Start: July 15, 2024 Dr. Luke Martinez DO Attending Provider Active Start: July 15, 2024 Dr. Luke Martinez DO Other Provider Active St art: July 15, 2024 Team Status: Inactive Member Role/Relationship Status Dates Dr. Eusebio Sparrow DO Primary Care Provider Active Start: October 27, 2024 End: October 27, 2024 Dr. Eusebio Sparrow DO Referring Provider Active Start: October 27, 2024 End: October 27, 2024 JOSE Marsh Attending Provider Active Start: October 27, 2024 End: October 27, 2024 INFORMATION SOURCE (unrecogn ized section and content) DATE CREATED AUTHOR 10/09/2023 [facility] ([place]) DATE CREATED AUTHOR AUTHOR'S ORGANIZ ATION 01/09/2024 [facility] DATE CREATED AUTHOR AUTHOR'S ORGANIZ ATION 06/14/2024 [facility] DATE CREATED AUTHOR AUTHOR'S ORGANIZ ATION 06/24/2024 [facility] DATE CREATED AUTHOR AUTHOR'S ORGANIZ ATION 07/02/2024 [facility] DATE CREATED AUTHOR AUTHOR'S ORGANIZ ATION 10/29/2024 [facility] Source Comments (unrecognize d section and content) In the event this informatio n is protected by the Federal Confidentiality of Alcohol and Drug Abuse Patient Records regulations: The Federal rules restrict any use of the information to criminally investigate or prosecute any alcohol or drug abuse patient.[facility] the event this information is protected by the Federal Confidentiality of Alcohol and Drug Abuse Patient Records regulations: The Federal rules restrict any use of the information to criminally investigate or prosecute any alcohol or drug abuse patient.[facility] the event this information is protected by the Federal Confidentiality of Alcohol and Drug Abuse Patient Records regulations: The Federal rules restrict any use of the information to criminally investigate or prosecute any alcohol or drug abuse patient.[facility] Reason for Visit (unrecogniz ed section and content) Reason Comments Rash Rash on upper arms, back and chest - patient noticed on Thursday nightNo pain but itchingNo new lotions, perfumes or soaps Reason Comments Abdominal Pain Left sideStarted yes terday Patient states this pain started after she saw her chiropractor yesterday Urinary Problem Some burning but not much as she states Started yesterday Vomiting Started yesterday 4 episodes in the past 24 hours. States the vomiting started after she saw her chiropractor Reason Comments Derm Problem Last Thursday notic e bleeding from naval since has become extremely painful to the touch. FOR RECORDS PERTAINING TO PATIENTS WHO ARE OR HAVE BEEN ENROLLED IN A CHEMICAL DEPENDENCY/SUBSTANCEABUSE PROGRAM, SOME INFORMATION MAY BE OMITTED. This clinical summary was aggregated from multiple sources. Caution should be exercised in using it in the provision of clinical care. This summary normalizes information from multiple sources, and as a consequence, information in this document may materially change the coding, format and clinical context of patient data. In addition, data may be omitted in some cases. CLINICAL DECISIONS SHOULD BE BASED ON THE PRIMARY CLINICAL RECORDS. [facility] [employer] provides no warranty or guarantee of the accuracy or completeness of information in this document.
== END | disposition home or self-care (01) ==
LOC: NM 07:36
PROVIDERS: PCP Specialist; Referring Provider Nurse Practitioner Acute Care; Visit Provider Nurse Practitioner Acute Care
DX: K59.01 Slow transit constipation (principal); R10.11 Right upper quadrant pain; R10.13 Epigastric pain
CPT/HCPCS: 78264; A9541